=== PATIENT | female | born 1980 | race Caucasian/White ===

== ENCOUNTER 2020-05-13 09:26 | Outpatient (REF) | payer OTHER, SELFPAY ==
[2020-05-13 11:20] LABS: MANUAL DIFF FLAG NO
[2020-05-13 11:30] LABS: Basophils Percent Auto 0.3 % (0-2); Eosinophils Absolute Auto 0.2 X10*3/uL (0.0-0.4); Eosinophils Percent Auto 1.7 % (0-4); Hemoglobin 12.5 g/dl (12.0-16.0); Imm Gran Abs Auto 0.05 X10*3/uL (0.00-0.03); Imm Gran Pct Auto 0.5 % (0.0-0.4); Lymphocytes Absolute Auto 3.5 X10*3/uL (1.2-4.9); Lymphocytes Percent Auto 36.3 % (20-40); Mean Corpuscular HGB Conc 31.3 g/dl (31.0-35.0); Mean Corpuscular Hemoglobin 24.8 pg (27.0-33.0); Mean Corpuscular Volume 79.2 fL (80-98); Mean Platelet Volume 11.5 fL (9.4-12.3); Monocytes Absolute Auto 0.7 X10*3/uL (0.1-1.2); Monocytes Percent Auto 7.1 % (2-11); Neutrophils Absolute Auto 5.2 X10*3/uL (2.0-8.3); Neutrophils Percent Auto 54.1 % (45-73); Platelet Count 357 X10*3/uL (160-400); Red Blood Count 5.05 X10*6/uL (4.20-5.50); Red Cell Distribution Width 17.7 % (11.0-16.0); White Blood Count 9.7 X10*3/uL (4.8-10.8)
[2020-05-13 11:44] LABS: Estimated Average Glucose 117 mg/dL; Hemoglobin A1c % 5.7 %
[2020-05-13 11:50] LABS: Alanine Aminotransferase 41 U/L (0-31); Albumin Level 4.3 g/dL (3.5-5.0); Alkaline Phosphatase 102 U/L (39-117); Anion Gap 16 (12-20); Aspartate Amino Transferase 29 U/L (5-31); Bilirubin Direct < 0.2 mg/dL (0.0-0.5); Bilirubin Total 0.2 mg/dL (0.0-1.0); Blood Urea Nitrogen 12 mg/dL (9-16); Carbon Dioxide 26 mmol/L (22-29); Chloride 102 mmol/L (96-108); Estimated Glomerular Filt Rate > 60; Glucose Random 86 mg/dL (60-115); Potassium 4.7 mmol/l (3.3-5.1); Sodium 139 mmol/L (135-145); Total Protein 8.2 g/dL (6.5-8.0)
[2020-05-13 11:59] LABS: TSH reflex Free T4 2.78 mIU/mL (0.32-4.0)
[2020-05-13 12:07] LABS: Vitamin B12 351 pg/mL (200-900)
[2020-05-14 09:56] LABS: LDL Cholesterol Direct 107 mg/dL (<100)
[2020-05-17 12:17] LABS: Vitamin D 25-OH, D2 <4 ng/mL; Vitamin D 25-OH, D3 15 ng/mL; Vitamin D 25-OH, Total 15 ng/mL (30-100)
== END 2020-05-13 09:27 | disposition home or self-care (01) ==
LOC: HO.HMGCLDS 09:26
PROVIDERS: PCP Internal Medicine; Visit Provider Internal Medicine
DX: M54.9 Dorsalgia, unspecified (principal); G47.9 Sleep disorder, unspecified; R53.83 Other fatigue; E66.9 Obesity, unspecified
CPT/HCPCS: 36415; 80048; 80076; 82306; 82607; 83036; 83721; 84443; 85025

== ENCOUNTER 2020-05-13 10:01 | Outpatient (REF) | payer OTHER, SELFPAY | END 2020-05-13 10:02 | disposition home or self-care (01) | LOC: HO.LAB 10:01 | PROVIDERS: Visit Provider Internal Medicine | DX: Z20.828 Contact with and (suspected) exposure to other viral communicable diseases (principal) | CPT/HCPCS: 36415; C9803; U0003 ==

== ENCOUNTER 2020-07-18 12:38 | Outpatient (REF) | payer OTHER, SELFPAY ==
--- NOTE | ~2020-07-18 | MM_ITS ---
EXAMINATION: MM SCREENING DIGITAL BREAST TOMOSYNTHESIS, BILATERAL CLINICAL INFORMATION: Screening. Asymptomatic. No prior breast imaging. Age 40. No known family history breast cancer. The lifetime risk of breast cancer based on the Tyrer-Cuzick Model is 14%. COMPARISON: None (current study represents initial baseline exam). TECHNIQUE: Digital breast tomosynthesis is performed in both the craniocaudal and mediolateral oblique views along with computer-aided detection (CAD). Synthesized 2D images are generated from the tomosynthesis. Additional right MLO view is provided. FINDINGS: There are scattered areas of fibroglandular density (ACR BI-RADS breast composition Category b). Breast tissue composition borders on predominantly fatty. Background stromal and fibroglandular densities are unremarkable. There is no significant mass or architectural abnormality. There are probable intramammary nodes in the posterior upper outer left breast and posterior upper outer right breast. The skin contours are smooth. MM/MM tomosynthesis screening BI IMPRESSION: No mammographic evidence of malignancy. ASSESSMENT: BI-RADS 2: Benign RECOMMENDATION: Routine annual mammography screening. This patient's information was entered into a reminder system with a target due date for their next mammogram.
== END 2020-07-18 12:39 | disposition home or self-care (01) ==
LOC: HO.MAMMO 12:38
PROVIDERS: PCP Internal Medicine; Visit Provider Internal Medicine
DX: Z12.31 Encounter for screening mammogram for malignant neoplasm of breast (principal)
CPT/HCPCS: 77063; 77067

== ENCOUNTER 2020-08-12 09:46 | Outpatient (REF) | payer OTHER, SELFPAY ==
[2020-08-12 11:11] LABS: MANUAL DIFF FLAG NO
[2020-08-12 11:26] LABS: Basophils Percent Auto 0.5 % (0-2); Eosinophils Absolute Auto 0.1 X10*3/uL (0.0-0.4); Eosinophils Percent Auto 1.6 % (0-4); Hematocrit 37.4 % (37-47); Hemoglobin 11.8 g/dl (12.0-16.0); Imm Gran Abs Auto 0.04 X10*3/uL (0.00-0.03); Imm Gran Pct Auto 0.5 % (0.0-0.4); Lymphocytes Absolute Auto 3.3 X10*3/uL (1.2-4.9); Lymphocytes Percent Auto 37.7 % (20-40); Mean Corpuscular HGB Conc 31.6 g/dl (31.0-35.0); Mean Corpuscular Hemoglobin 25.3 pg (27.0-33.0); Mean Corpuscular Volume 80.3 fL (80-98); Mean Platelet Volume 11.1 fL (9.4-12.3); Monocytes Absolute Auto 0.6 X10*3/uL (0.1-1.2); Monocytes Percent Auto 7.2 % (2-11); Neutrophils Absolute Auto 4.6 X10*3/uL (2.0-8.3); Neutrophils Percent Auto 52.5 % (45-73); Platelet Count 336 X10*3/uL (160-400); Red Blood Count 4.66 X10*6/uL (4.20-5.50); Red Cell Distribution Width 17.5 % (11.0-16.0); White Blood Count 8.7 X10*3/uL (4.8-10.8)
[2020-08-12 11:32] LABS: Alanine Aminotransferase 45 U/L (0-31); Albumin Level 4.2 g/dL (3.5-5.0); Alkaline Phosphatase 98 U/L (39-117); Anion Gap 14 (12-20); Aspartate Amino Transferase 36 U/L (5-31); Bilirubin Total 0.4 mg/dL (0.0-1.0); Blood Urea Nitrogen 11 mg/dL (9-16); Carbon Dioxide 24 mmol/L (22-29); Chloride 105 mmol/L (96-108); Cholesterol 185 mg/dL; Estimated Glomerular Filt Rate > 60; Glucose Fasting 83 mg/dL (60-99); HDL Cholesterol 53 mg/dL; LDL Cholesterol Calculated 100 mg/dl; Potassium 4.3 mmol/L (3.3-5.1); Sodium 139 mmol/L (135-145); Total Protein 8.2 g/dL (6.5-8.0); Triglycerides 162 mg/dL
[2020-08-12 11:54] LABS: TSH reflex Free T4 1.34 uIU/mL (0.32-4.0)
== END 2020-08-12 09:47 | disposition home or self-care (01) ==
LOC: HO.HMGCLDS 09:46
PROVIDERS: PCP Nurse Practitioner Family; Visit Provider Nurse Practitioner Family
DX: Z00.00 Encounter for general adult medical examination without abnormal findings (principal)
CPT/HCPCS: 36415; 80053; 80061; 84443; 85025

== ENCOUNTER 2020-08-18 11:43 | Outpatient (REF) | payer OTHER, SELFPAY ==
[2020-08-18 14:10] LABS: MANUAL DIFF FLAG NO
[2020-08-18 14:18] LABS: Basophils Percent Auto 0.4 % (0-2); Eosinophils Absolute Auto 0.1 X10*3/uL (0.0-0.4); Eosinophils Percent Auto 1.6 % (0-4); Hematocrit 36.8 % (37-47); Hemoglobin 11.9 g/dl (12.0-16.0); Imm Gran Abs Auto 0.04 X10*3/uL (0.00-0.03); Imm Gran Pct Auto 0.4 % (0.0-0.4); Lymphocytes Absolute Auto 3.1 X10*3/uL (1.2-4.9); Mean Corpuscular HGB Conc 32.3 g/dl (31.0-35.0); Mean Corpuscular Hemoglobin 25.8 pg (27.0-33.0); Mean Corpuscular Volume 79.8 fL (80-98); Mean Platelet Volume 12.6 fL (9.4-12.3); Monocytes Absolute Auto 0.7 X10*3/uL (0.1-1.2); Monocytes Percent Auto 7.4 % (2-11); Neutrophils Percent Auto 56.2 % (45-73); Platelet Count 301 X10*3/uL (160-400); Red Blood Count 4.61 X10*6/uL (4.20-5.50); Red Cell Distribution Width 17.2 % (11.0-16.0)
[2020-08-19 08:13] LABS: HBS Num1 0.62 mIU/mL (0-7.99); HBsAGNum1 0.28 S/CO (0.00-0.99); Hepatitis B Surface Antigen Negative (Negative); ~Hepatitis B Surface Antibody NONREACTIVE (Nonreactive)
[2020-08-19 08:25] LABS: HBc Num1 0.08 S/CO (0.00-0.79); Hepatitis B Core Antibody Nonreactive (Nonreactive); ~Hepatitis C Antibody Nonreactive (Nonreactive)
[2020-08-20 09:02] LABS: Hepatitis A Antibody IgM 0.18 Index (0-0.79); ~HepC Num1 0.17 S/CO (0.00-0.79); ~Hepatitis A Antibody IgM Nonreactive (Nonreactive)
== END 2020-08-18 11:44 | disposition home or self-care (01) ==
LOC: HO.HMGCLDS 11:43
PROVIDERS: PCP Nurse Practitioner Family; Visit Provider Nurse Practitioner Family
DX: D64.9 Anemia, unspecified (principal); R74.8 Abnormal levels of other serum enzymes
CPT/HCPCS: 36415; 85025; 86704; 86706; 86709; 86803; 87340

== ENCOUNTER 2020-08-20 09:01 | Outpatient (REF) | payer OTHER, SELFPAY ==
--- NOTE | ~2020-08-20 | US_ITS ---
EXAMINATION: US ABDOMEN COMPLETE CLINICAL INFORMATION: Elevated liver enzymes. COMPARISON: None TECHNIQUE: Real-time imaging of the abdominal viscera. FINDINGS: PANCREAS: The head and body the pancreas are normal. The tail is not well visualized due to bowel gas. ABDOMINAL AORTA: Proximal and distal abdominal aorta is normal in caliber. The midabdominal aorta is not well visualized due to bowel gas. INFERIOR VENA CAVA: Visualized portions are normal. LIVER: Liver echotexture is increased. The liver is enlarged, right lobe measuring 20 cm in length. The liver is normal in contour. No focal hepatic lesion. There is no intrahepatic biliary duct dilatation seen. GALLBLADDER: Normal. The gallbladder is physiologically distended without evidence of stones, sludge, polyps, wall thickening or pericholecystic fluid. COMMON BILE DUCT: Normal in caliber measuring 0.2 cm in diameter. RIGHT KIDNEY: Normal. No hydronephrosis. No renal calculi or focal parenchymal lesions. The kidney measures 12.1 cm in maximum dimension. LEFT KIDNEY: Normal. No hydronephrosis. No renal calculi or focal parenchymal lesions. The kidney measures 12.7 cm in maximum dimension. SPLEEN: Normal. The spleen measures 12.4 cm in maximum dimension. FREE FLUID: None. US/US abdomen complete IMPRESSION: Enlarged echogenic liver probably representing fatty infiltration. Limited visualization of the pancreas and abdominal aorta.
== END 2020-08-20 09:02 | disposition home or self-care (01) ==
LOC: HO.HMGCX 09:01
PROVIDERS: Visit Provider Nurse Practitioner Family
DX: R74.8 Abnormal levels of other serum enzymes (principal)
CPT/HCPCS: 76700

== ENCOUNTER 2020-08-29 08:19 | Outpatient (REF) | payer OTHER, SELFPAY ==
[2020-08-29 16:16] LABS: CT PCR NOT DETECTED (Not Detect.); NG PCR NOT DETECTED (Not Detect.)
[2020-08-30 12:01] LABS: BV Int Neg Control Negative (Negative); BV Int Pos Control Positive (Positive)
[2020-09-03 00:52] LABS: HPV mRNA E6/E7 rflx Not Detected (Not Detected)
== END 2020-08-29 08:20 | disposition home or self-care (01) ==
LOC: HO.LAB 08:19
PROVIDERS: PCP Internal Medicine; Visit Provider Obstetrics & Gynecology
DX: Z01.419 Encounter for gynecological examination (general) (routine) without abnormal findings (principal); Z11.3 Encounter for screening for infections with a predominantly sexual mode of transmission; Z11.51 Encounter for screening for human papillomavirus (HPV)
CPT/HCPCS: 87480; 87491; 87510; 87591; 87624; 87660; 88142

== ENCOUNTER 2020-09-10 12:56 | Outpatient (REF) | payer OTHER, SELFPAY ==
--- NOTE | ~2020-09-10 | US_ITS ---
EXAMINATION: ULTRASOUND PELVIC AND TRANSVAGINAL CLINICAL INFORMATION: Leiomyoma of the uterus. COMPARISON: None TECHNIQUE: Transabdominal and transvaginal imaging of pelvis is performed. FINDINGS: The uterus is anteverted and anteflexed measuring 8.7 cm in length, 4.1 cm in AP and 4.9 cm in transverse dimension. There is a hypoechoic lesion in the posterior body of uterus measuring 1.4 x 0.9 x 1.5 cm consistent with fibroid. No additional lesions seen. The endometrial thickness is 1.1 cm. The myometrium is homogeneous in echotexture. Transabdominal right ovary measures 3.0 x 1.7 x 1.4 cm and volume 3.7 mL. It appears unremarkable. Transabdominal left ovary measures 2.5 x 2.1 x 1.5 cm and volume 4.1 mL. It appears unremarkable. There is no free fluid in cul-de-sac. US/US pelvic and transvaginal IMPRESSION: Small uterine fibroid. The ovaries are unremarkable.
== END 2020-09-10 12:57 | disposition home or self-care (01) ==
LOC: HO.US 12:56
PROVIDERS: PCP Internal Medicine; Visit Provider Obstetrics & Gynecology
DX: D25.9 Leiomyoma of uterus, unspecified (principal)
CPT/HCPCS: 76830; 76856

== ENCOUNTER → 2020-09-19 15:29 | Outpatient (BNVA) | payer OTHER, SELFPAY | PROVIDERS: PCP Internal Medicine; Visit Provider Obstetrics & Gynecology ==

== ENCOUNTER 2021-01-13 10:18 | Outpatient (REF) | payer OTHER, SELFPAY ==
[2021-01-13 11:34] LABS: MANUAL DIFF FLAG NO
[2021-01-13 11:45] LABS: Basophils Percent Auto 0.4 % (0-2); Eosinophils Absolute Auto 0.1 X10*3/uL (0.0-0.4); Eosinophils Percent Auto 1.5 % (0-4); Hematocrit 38.1 % (37-47); Imm Gran Abs Auto 0.05 X10*3/uL (0.00-0.03); Imm Gran Pct Auto 0.6 % (0.0-0.4); Lymphocytes Absolute Auto 2.9 X10*3/uL (1.2-4.9); Lymphocytes Percent Auto 34.9 % (20-40); Mean Corpuscular HGB Conc 31.5 g/dl (31.0-35.0); Mean Corpuscular Hemoglobin 25.1 pg (27.0-33.0); Mean Corpuscular Volume 79.5 fL (80-98); Mean Platelet Volume 10.8 fL (9.4-12.3); Monocytes Absolute Auto 0.6 X10*3/uL (0.1-1.2); Monocytes Percent Auto 7.3 % (2-11); Neutrophils Absolute Auto 4.6 X10*3/uL (2.0-8.3); Neutrophils Percent Auto 55.3 % (45-73); Platelet Count 331 X10*3/uL (160-400); Red Blood Count 4.79 X10*6/uL (4.20-5.50); Red Cell Distribution Width 17.5 % (11.0-16.0); White Blood Count 8.3 X10*3/uL (4.8-10.8)
[2021-01-13 12:17] LABS: Appearance Urine HAZY; Color Urine YELLOW; Glucose Urine UA NEG (NEG); Leukocyte Esterase Urine 1+ (NEG); Nitrite Urine NEG (NEG); PH 5.5 (5.0-8.0); Specific Gravity - Urine 1.025 (1.005-1.025); UACC Culture Trigger YES; Urine Blood TRACE (NEG); Urine Ketones NEG (NEG); Urine Protein NEG (NEG-TRACE)
[2021-01-13 12:28] LABS: Ferritin 42 ng/mL (10-250); HCG Quantitative < 2 mIU/mL; TSH reflex Free T4 1.65 uIU/mL (0.32-4.0)
[2021-01-13 12:33] LABS: Vitamin B12 359 pg/mL (200-900)
[2021-01-13 12:46] LABS: Amorphous Sediment Urine 1+ /LPF; RBC Urine 0 /HPF (0); Squamous Epithelial Cell Urine 2+ /LPF
[2021-01-13 12:49] LABS: Alanine Aminotransferase 29 U/L (0-31); Albumin Level 4.3 g/dL (3.5-5.0); Alkaline Phosphatase 84 U/L (39-117); Anion Gap 17 (12-20); Aspartate Amino Transferase 25 U/L (5-31); Bilirubin Total 0.4 mg/dL (0.0-1.0); Blood Urea Nitrogen 10 mg/dL (9-16); Calcium 9.9 mg/dL (8.4-10.2); Carbon Dioxide 24 mmol/L (22-29); Chloride 104 mmol/L (96-108); Cholesterol 199 mg/dL; Estimated Glomerular Filt Rate > 60; Glucose Fasting 86 mg/dL (60-99); HDL Cholesterol 53 mg/dL; Iron 51 mcg/dL (30-160); LDL Cholesterol Calculated 97 mg/dl; Percent Iron Saturation 14 % (15-50); Potassium 4.5 mmol/L (3.3-5.1); Sodium 140 mmol/L (135-145); Total Iron Binding Capacity 366 mcg/dL (228-428); Total Protein 7.7 g/dL (6.5-8.0); Triglycerides 246 mg/dL; Unsaturated Iron Binding 315 ug/dL
== END 2021-01-13 10:19 | disposition home or self-care (01) ==
LOC: HO.HMGCLDS 10:18
PROVIDERS: PCP Nurse Practitioner Family; Visit Provider Nurse Practitioner Family
DX: R53.83 Other fatigue (principal); R74.8 Abnormal levels of other serum enzymes; D64.9 Anemia, unspecified
CPT/HCPCS: 36415; 80053; 80061; 81001; 81003; 82607; 82728; 83540; 84443; 84702; 85025; 87086

== ENCOUNTER 2021-01-19 09:53 | Outpatient (REF) | payer OTHER, SELFPAY ==
[2021-01-19 11:19] LABS: Appearance Urine CLEAR; Color Urine YELLOW; Glucose Urine UA NEG (NEG); Leukocyte Esterase Urine NEG (NEG); Nitrite Urine NEG (NEG); PH 5.5 (5.0-8.0); Specific Gravity - Urine >= 1.030 (1.005-1.025); Urine Blood NEG (NEG); Urine Ketones NEG (NEG); Urine Protein NEG (NEG-TRACE)
== END 2021-01-19 09:54 | disposition home or self-care (01) ==
LOC: HO.HMGCLDS 09:53
PROVIDERS: PCP Nurse Practitioner Family; Visit Provider Nurse Practitioner Family
DX: N39.0 Urinary tract infection, site not specified (principal); D64.9 Anemia, unspecified; R74.8 Abnormal levels of other serum enzymes
CPT/HCPCS: 81003; 87086

== ENCOUNTER 2021-07-08 17:38 | Emergency (ER) | payer OTHER, SELFPAY ==
--- NOTE | 2021-07-08 | ECG_ITS ---
Test Reason : chest pain Blood Pressure : / mmHG Vent. Rate : 098 BPM Atrial Rate : 098 BPM P-R Int : 164 ms QRS Dur : 130 ms QT Int : 400 ms P-R-T Axes : 056 -31 026 degrees QTc Int : 510 ms Normal sinus rhythm Left axis deviation Right bundle branch block Minimal voltage criteria for LVH, may be normal variant ( R in aVL ) Abnormal ECG No previous ECGs available Referred By: Generic ED Physician Electronically Signed By:Talat Lerma
[2021-07-08 18:32] VITALS: BP 154/111; PULSE 98; RESP 18; TEMP 36.6; O2SAT 98; BMI 40.3
[2021-07-08 18:52] LABS: MANUAL DIFF FLAG NO
[2021-07-08 19:04] LABS: Basophils Absolute Auto 0.1 X10*3/uL (0.0-0.2); Basophils Percent Auto 0.4 % (0-2); Eosinophils Absolute Auto 0.1 X10*3/uL (0.0-0.4); Hematocrit 37.3 % (37.0-47.0); Hemoglobin 11.7 g/dl (12.0-16.0); Imm Gran Abs Auto 0.08 X10*3/uL (0.00-0.03); Imm Gran Pct Auto 0.7 % (0.0-0.4); Lymphocytes Absolute Auto 4.5 X10*3/uL (1.2-4.9); Lymphocytes Percent Auto 36.7 % (20-40); Mean Corpuscular HGB Conc 31.4 g/dl (31.0-35.0); Mean Corpuscular Hemoglobin 25.3 pg (27.0-33.0); Mean Corpuscular Volume 80.7 fL (80.0-98.0); Mean Platelet Volume 10.8 fL (9.4-12.3); Monocytes Absolute Auto 0.7 X10*3/uL (0.1-1.2); Monocytes Percent Auto 6.1 % (2-11); Neutrophils Absolute Auto 6.7 x10*3/uL (2.0-8.3); Neutrophils Percent Auto 55.1 % (45-73); Platelet Count 358 X10*3/uL (160-400); Red Blood Count 4.62 X10*6/uL (4.20-5.50); Red Cell Distribution Width 17.2 % (11.0-16.0); White Blood Count 12.2 X10*3/uL (4.8-10.8)
[2021-07-08 19:05] LABS: Anion Gap 15 (12-20); Blood Urea Nitrogen 10 mg/dL (9-16); Calcium 9.5 mg/dL (8.4-10.2); Carbon Dioxide 24 mmol/L (22-29); Chloride 101 mmol/L (96-108); Creatinine Clr Calc Pharmacy 121.2; Estimated Glomerular Filt Rate > 60; Glucose Random 157 mg/dL (60-115); Potassium 4.4 mmol/L (3.3-5.1); Sodium 136 mmol/L (135-145)
[2021-07-08 19:12] LABS: Troponin-I High Sensitivity < 3.5 ng/L (<3.5-17.0)
--- NOTE | 2021-07-08 22:33 | ED_ITS ---
HPI - Chest Pain General Chief Complaint: Chest Pain Stated Complaint: chest pain, left arm is numb Time Seen by Provider: 07/08/21 22:32 Source: patient Mode of arrival: ambulatory Limitations: no limitations History of Present Illness HPI narrative: 41 years old female came in for evaluation of left-sided neck pain radiating to the left arm started 2 weeks ago, pain is constant for the last 2 weeks described as dull/electricity going down the left upper extremities and left hand, especially in the morning patient wake up with numbness in left hand, pain sometimes radiates to the left chest, pain is not affected by exertion but more with turning the head to the right side, no other associated shortness of breath. No fever, no chills, no recent neck trauma. Patient has no other medical problem, no hypertension, no diabetes, no high cholesterol. Related Data Home Medications Medication Instructions Recorded Confirmed cholecalciferol (vitamin D3) 50 50 mcg PO DAILY 05/07/20 04/13/21 mcg (2,000 unit) capsule ffxmoxzi-lne-rlygc acid 0.4 tab PO 05/07/20 04/13/21 mg-lycopene 300 mcg-lutein 250 mcg tablet (Centrum Silver) acetaminophen 500 mg tablet 1,000 mg PO Q6H PRN 04/13/21 04/13/21 (Tylenol Extra Strength) Previous Rx's Medication Instructions Recorded Qvar RediHaler 40 mcg/actuation 1 inh INHALATION BID 30 Days #10.6 05/16/20 HFA breath activated aerosol g NS (beclomethasone dipropionate) Updraft machine #1 ea 06/03/20 albuterol sulfate 2.5 mg (3 mL) INHALATION Q6H PRN 12/11/20 #90 ml albuterol sulfate 90 mcg/actuation 2 puff INHALATION Q6H PRN 30 Days 12/11/20 aerosol inhaler #18 g NS Allergies Allergy/AdvReac Type Severity Reaction Status Date / Time acetaminophen [From PERCOCET] Allergy Mild ITCHING Verified 07/08/21 18:32 oxycodone [From PERCOCET] Allergy Mild ITCHING Verified 07/08/21 18:32 Review of Systems Review of Systems: All other systems are reviewed and are negative Constitutional: Reports as per HPI and Reports no additional constitutional complaints Eyes: Reports as per HPI and Reports no additional eye complaints Reports system reviewed and no additional complaints, except as documented Cardiovascular: Reports as per HPI and Reports no additional cardiovascular complaints Respiratory: Reports as per HPI and Reports no additional respiratory complaints Gastrointestinal: Reports as per HPI and Reports no additional gastrointestinal complaints Genitourinary: Reports no additional female genitourinary complaints Musculoskeletal: Reports no additional musculoskeletal complaints Skin/Breast: Reports system reviewed and no additional complaints, except as docu Psychiatric: Reports no additional psychiatric complaints Endocrine: Reports no additional endocrine complaints Hematologic/Lymphatic: Reports no additional hematologic/lymphatic complaints Allergic/Immunologic: Reports no additional allergic/immunologic complaints Reports system reviewed and no additional complaints, except as documented and Reports Abnormal speech present [facility] Past Medical History Medical History Uterine fibroid Uterine fibroids affecting Surgical History H/O right knee surgery History of lumbar surgery Family History Family History Father No problems noted. Mother No problems noted. Maternal Grandfather No problems noted. Maternal Grandmother Diabetes mellitus Paternal Grandfather Diabetes mellitus Paternal Grandmother Diabetes mellitus Cancer Brother No problems noted. Brother No problems noted. Sister No problems noted. Social History Social History Housing: Apartment Alcohol intake: current Patient Tobacco Use Status: Never used Tobacco e-Cigarette/Vaping Use: Never Used Second Hand Smoke Exposure: No Advance Directives: No Advance Directives Information Provided: Yes Patient : No service: No Current occupational status: employed Current occupation: [email or web address] Gender identity: Female Physical Exam Vital Signs: Vital Signs: Last Vital Signs Temp 98.0 F 07/08/21 22:42 Pulse 98 07/08/21 22:42 Resp 17 07/08/21 22:42 BP 140/102 H 07/08/21 22:42 Pulse Ox 98 07/08/21 22:42 BMI result Body Mass Index 40.3 Vital signs have been reviewed as appeared to be correct. Blood pressure elevated. Heart rate normal. Respiration rate normal. Temperature normal. Oxygen saturation normal. Appearance: Alert. Oriented X3. No acute distress. Head: Normal external exam. Normocephalic. Atraumatic. No Rodriguez signs noted. No raccoon eyes noted Eyes: PERRLA. EOMI. Conjunctiva and sclera normal. Eyelids normal. ENT: TM's Normal. Pharynx normal. Uvula midline. Moist mucous membranes. No trismus noted. No drooling noted. No muffled voice noted. Neck: Normal inspection. Neck supple. FROM. No adenopathy. Thyroid Normal. Increased pain shooting to the left upper extremities with turning the head to the right side. No meningeal signs. No neck mass noted. CVS: Normal heart rate and rhythm. Heart sound normal. No murmurs noted. Pulses normal throughout. Respiratory: No respiratory distress. Painless inspiration. Breath sounds normal. No wheezes/rales/rhonchi noted. Chest nontender. No accessory muscle usage noted or decreased air movement noted. Abdomen: Soft and nontender. Bowel sounds normal in all 4 quadrants. No distention noted. No organomegaly noted. No visible injury noted. Back: No CVA tenderness. Full range of motion noted. Skin: Skin warm and dry. Normal skin color. Normal skin turgor. No rashes/lesions/lacerations noted. Extremities: No lower extremity edema. Extremities exhibit normal range of motion. Extremities nontender. Neuro: Oriented X 3. Cranial nerve exam: II-XII are grossly intact No motor deficit. No sensory deficit. Reflexes normal. Course Course Course Narrative: Assessment and plan. Left cervical radiculopathy, patient feels better with oxycodone and ibuprofen, with improvement of blood pressure reading. Patient was instructed to follow up with PCP if any worsening of the symptoms, otherwise heating pad, NSAIDs, avoid positions that worsening the pain. Blood pressure was elevated improved after pain medication. Patient was instructed to follow-up with her primary doctor and keep monitoring her blood pressure. MDM - Chest Pain Lab Data Attestation: I reviewed the patient's lab results. Result diagrams: 07/08/21 18:48 07/08/21 18:48 Labs: Lab Results 07/08/21 07/08/21 07/08/21 Range/Units 18:48 18:48 18:48 WBC 12.2 H (4.8-10.8) X10*3/uL RBC 4.62 (4.20-5.50) X10*6/uL Hgb 11.7 L (12.0-16.0) g/dl Hct 37.3 (37.0-47.0) % MCV 80.7 (80.0-98.0) fL MCH 25.3 L (27.0-33.0) pg MCHC 31.4 (31.0-35.0) g/dl RDW 17.2 H (11.0-16.0) % Plt Count 358 (160-400) X10*3/uL MPV 10.8 (9.4-12.3) fL Immature Gran % (Auto) 0.7 H (0.0-0.4) % Neut % (Auto) 55.1 (45-73) % Lymph % (Auto) 36.7 (20-40) % [place] % (Auto) 6.1 (2-11) % Eos % (Auto) 1.0 (0-4) % Baso % (Auto) 0.4 (0-2) % Lymph # (Auto) 4.5 (1.2-4.9) X10*3/uL [place] # (Auto) 0.7 (0.1-1.2) X10*3/uL Eos # (Auto) 0.1 (0.0-0.4) X10*3/uL Baso # (Auto) 0.1 (0.0-0.2) X10*3/uL Abs Immat Gran (auto) 0.08 H (0.00-0.03) X10*3/uL Absolute Neuts (auto) 6.7 (2.0-8.3) x10*3/uL Absolute Nucleated RBC 0.000 (0.0-0.012) X10*3/uL Nucleated RBC % (auto) 0.0 (0.0-0.2) /100WBC Sodium 136 (135-145) mmol/L Potassium 4.4 (3.3-5.1) mmol/L Chloride 101 (96-108) mmol/L Carbon Dioxide 24 (22-29) mmol/L Anion Gap 15 (12-20) BUN 10 (9-16) mg/dL Creatinine 0.78 (0.5-1.4) mg/dL Estim Creat Clear Calc 121.2 Estimated GFR > 60 Random Glucose 157 H (60-115) mg/dL Calcium 9.5 (8.4-10.2) mg/dL Troponin I High Sens < 3.5 (<3.5-17.0) ng/L 07/08/21 Range/Units 23:15 WBC (4.8-10.8) X10*3/uL RBC (4.20-5.50) X10*6/uL Hgb (12.0-16.0) g/dl Hct (37.0-47.0) % MCV (80.0-98.0) fL MCH (27.0-33.0) pg MCHC (31.0-35.0) g/dl RDW (11.0-16.0) % Plt Count (160-400) X10*3/uL MPV (9.4-12.3) fL Immature Gran % (Auto) (0.0-0.4) % Neut % (Auto) (45-73) % Lymph % (Auto) (20-40) % [place] % (Auto) (2-11) % Eos % (Auto) (0-4) % Baso % (Auto) (0-2) % Lymph # (Auto) (1.2-4.9) X10*3/uL [place] # (Auto) (0.1-1.2) X10*3/uL Eos # (Auto) (0.0-0.4) X10*3/uL Baso # (Auto) (0.0-0.2) X10*3/uL Abs Immat Gran (auto) (0.00-0.03) X10*3/uL Absolute Neuts (auto) (2.0-8.3) x10*3/uL Absolute Nucleated RBC (0.0-0.012) X10*3/uL Nucleated RBC % (auto) (0.0-0.2) /100WBC Sodium (135-145) mmol/L Potassium (3.3-5.1) mmol/L Chloride (96-108) mmol/L Carbon Dioxide (22-29) mmol/L Anion Gap (12-20) BUN (9-16) mg/dL Creatinine (0.5-1.4) mg/dL Estim Creat Clear Calc Estimated GFR Random Glucose (60-115) mg/dL Calcium (8.4-10.2) mg/dL Troponin I High Sens < 3.5 (<3.5-17.0) ng/L ECG Data ECG #1: Attestation: I personally reviewed and interpreted this ECG as follows: Interpretation: Normal sinus rhythm at 98 beats per minutes, left axis deviation, right bundle branch block. No old EKG to compare. Discharge Plan Discharge Clinical Impression: Cervical radiculopathy, Hypertension Patient Disposition: Home, Self-Care Instructions: Cervical Radiculopathy (ED), Hypertension (ED) Prescriptions: No Action (DME) Updraft machine See Rx Instructions .Route .MEDSUPPLY Qty: 1 0RF Rx Instructions: As directed cholecalciferol (vitamin D3) 50 mcg (2,000 unit) capsule 50 mcg PO DAILY 0RF Centrum Silver 0.4-300-250 mg-mcg-mcg tablet PO 0RF Qvar RediHaler 40 mcg/actuation HFA aerosol breath activated 1 inh inhalation BID 30 Days Qty: 10.6 2RF Rx Instructions: administer with spacer albuterol sulfate 2.5 mg /3 mL (0.083 %) solution for nebulization 2.5 mg inhalation Q6H PRN (Reason: shortness of breath or wheezing) Qty: 90 0RF albuterol sulfate 90 mcg/actuation HFA aerosol inhaler 2 puff inhalation Q6H PRN (Reason: bronchospasm) 30 Days Qty: 18 2RF acetaminophen [Tylenol Extra Strength] 500 mg tablet 1,000 mg PO Q6H PRN0RF Referrals: Ishmael Leyva, [employer] [Primary Care Provider] - 2 days
[2021-07-08 22:42] VITALS: BP 140/102; PULSE 98; RESP 17; TEMP 36.7; O2SAT 98
[2021-07-08] MEDS: oxyCODONE HCl Immed Release 5 MG TABLET PO (22:49)
[2021-07-08] MEDS: Ibuprofen 400 MG TABLET PO (22:49)
[2021-07-08 23:38] LABS: Troponin-I High Sensitivity < 3.5 ng/L (<3.5-17.0)
[2021-07-09 00:03] VITALS: BP 129/89; PULSE 90; RESP 15; TEMP 36.6; O2SAT 97
== END 2021-07-09 00:29 | disposition home or self-care (01) ==
LOC: HO.ED 23:37
PROVIDERS: Emergency Provider Emergency Medicine; PCP Nurse Practitioner Family
DX: M54.12 Radiculopathy, cervical region (principal); I10 Essential (primary) hypertension
CPT/HCPCS: 36415; 80048; 84484; 85025; 93005; 99283; 99284

== ENCOUNTER 2021-07-29 22:29 | Emergency (ER) | payer OTHER, SELFPAY ==
--- NOTE | ~2021-07-29 | XR_ITS ---
EXAMINATION: XR LUMBOSACRAL SPINE CLINICAL INFORMATION: Back pain, chronic. COMPARISON: None TECHNIQUE: Three views of the lumbosacral spine. FINDINGS: Mild to moderate degenerative disc disease present in the lower lumbar spine at L4-L5. Additional degenerative disc disease and facet arthropathy are present at L3-L4 and L5 S1-1 lesser extent. No fracture or spondylolisthesis. Vertebral body heights are normal. Mild osteoarthritis in the SI joints. Soft tissues are normal. XR/XR lumbar spine 2-3V IMPRESSION: [id number] degenerative spondylosis in the lower lumbar spine, most notably at L4-L5. No acute findings.
[2021-07-29 23:09] VITALS: BP 164/104; PULSE 90; RESP 20; TEMP 37.2; O2SAT 99; BMI 43.5
--- NOTE | 2021-07-30 00:27 | ED.BACK ---
HPI - Back Pain/Injury General Chief Complaint: Back Pain/Injury <Gail Jacobson NP - Last Filed: 07/30/21 01:54> Stated Complaint: lower back pain radiates to legs <Gail Jacobson NP - Last Filed: 07/30/21 01:54> Time Seen by Provider: 07/30/21 00:20 <Gail Jacobson NP - Last Filed: 07/30/21 01:54> Source: patient <Gail Jacobson NP - Last Filed: 07/30/21 01:54> Mode of arrival: ambulatory <Gail Jacobson NP - Last Filed: 07/30/21 01:54> Limitations: no limitations <Gail Jacobson NP - Last Filed: 07/30/21 01:54> History of Present Illness HPI Narrative: 41-year-old female presents with 2 days of mid to lower back pain that radiates down to her left leg. States to have chronic back pain and had surgery on her back about 5 years ago. She states that the pain is similar to her prior episodes of pain. Does not report any decreased sensation, loss of balance or symptoms indicating cauda equina. <Gail Jacobson NP - Last Filed: 07/30/21 01:54> MD elicited complaint: back pain <Gail Jacobson NP - Last Filed: 07/30/21 01:54> Pertinent past history: prior back pain and back surgery <Gail Jacobson NP - Last Filed: 07/30/21 01:54> Onset (ago): day(s) (2) <Gail Jacobson NP - Last Filed: 07/30/21 01:54> Timing: constant <Gail Jacobson NP - Last Filed: 07/30/21 01:54> Severity: severe <Gail Jacobson NP - Last Filed: 07/30/21 01:54> Pain scale (0-10): 9 <Gail Jacobson NP - Last Filed: 07/30/21 01:54> Similar Symptoms Previously: Yes <Gail Jacobson NP - Last Filed: 07/30/21 01:54> Quality: stabbing, aching, spasming and throbbing <ANAHI Azevedo Last Filed: 07/30/21 01:54> Location: lumbar spine <Gail Jacobson NP - Last Filed: 07/30/21 01:54> Radiation: buttocks, left upper leg and left leg below the knee <Gial Jacobson NP - Last Filed: 07/30/21 01:54> Exacerbating factors: movement and walking <Gail Jacobson NP - Last Filed: 07/30/21 01:54> Relieving factors: none <Gail Jacobson NP - Last Filed: 07/30/21 01:54> Context: unknown <Gail Jacobson NP - Last Filed: 07/30/21 01:54> Associated symptoms: denies other symptoms <Gail Jacobson NP - Last Filed: 07/30/21 01:54> Treatments prior to arrival: other medications <Gail Jacobson NP - Last Filed: 07/30/21 01:54> Work related injury: No <Gail Jacobson NP - Last Filed: 07/30/21 01:54> Related Data Home Medications: Home Medications Medication Instructions Recorded Confirmed cholecalciferol (vitamin D3) 50 50 mcg PO DAILY 05/07/20 07/16/21 mcg (2,000 unit) capsule ybvvdohy-llk-iwafy acid 0.4 tab PO 05/07/20 07/16/21 mg-lycopene 300 mcg-lutein 250 mcg tablet (Centrum Silver) acetaminophen 500 mg tablet 1,000 mg PO Q6H PRN 04/13/21 07/16/21 (Tylenol Extra Strength) Previous Rx's Medication Instructions Recorded Updraft machine #1 ea 06/03/20 albuterol sulfate 2.5 mg (3 mL) INHALATION Q6H PRN 12/11/20 #90 ml albuterol sulfate 90 mcg/actuation 2 puff INHALATION Q6H PRN 30 Days 12/11/20 aerosol inhaler #18 g NS metoprolol succinate 25 mg 12.5 mg PO DAILY 30 Days #15 tab 07/16/21 tablet,extended release 24 hr dexamethasone 4 mg tablet 4 mg PO DAILY 9 Days #18 tab 07/29/21 diazepam 5 mg tablet (Valium) 5 mg PO BID PRN #14 tab 07/30/21 <Gail Jacobson NP - Last Filed: 07/30/21 01:54> Allergies/Adverse Reactions: Allergies Allergy/AdvReac Type Severity Reaction Status Date / Time acetaminophen [From PERCOCET] Allergy Mild ITCHING Verified 07/29/21 23:08 oxycodone [From PERCOCET] Allergy Mild ITCHING Verified 07/29/21 23:08 <Gail Jacobson NP - Last Filed: 07/30/21 01:54> Review of Systems Review of Systems: Constitutional: No Weight loss, No Fever, No Chills, ENT/Mouth: No Hearing loss, No Ear Pain, No Nasal Congestion, No Sinus Pain, No Hoarseness, No sore throat, No Rhinorrhea, No Swallowing Difficulty Cardiovascular: No Chest Pain, No SOB Respiratory: No Cough, No Dyspnea Gastrointestinal: No Nausea, No Vomiting, No Diarrhea, No abdominal Pain, No Hematochezia, No Melena Genitourinary: No Dysuria, No Urinary Frequency, No Hematuria, No Urinary Incontinence, Musculoskeletal: positive back pain Skin: No Skin Lesions, No rash Neuro: No Weakness, No Numbness, No Paresthesias, no loss of bowel or bladder incontinence, no saddle anesthesia <Gail Jacobson NP - Last Filed: 07/30/21 01:54> Yes all other systems are reviewed and are negative <Gail Jacobson NP - Last Filed: 07/30/21 01:54> PMFSH Past Medical History Attestation statement: The following information was validated with the patient. <Gail Jacobson NP - Last Filed: 07/30/21 01:54> Source: old records reviewed <Gail Jacobson NP - Last Filed: 07/30/21 01:54> Medical History: Medical History Cervical radiculopathy Uterine fibroid Uterine fibroids affecting <Gail Jacobson NP - Last Filed: 07/30/21 01:54> Surgical History: Surgical History H/O right knee surgery History of lumbar surgery <Gail Jacobson NP - Last Filed: 07/30/21 01:54> Family History Family History: Family History Father No problems noted. Mother No problems noted. Maternal Grandfather No problems noted. Maternal Grandmother Diabetes mellitus Paternal Grandfather Diabetes mellitus Paternal Grandmother Diabetes mellitus Cancer Brother No problems noted. Brother No problems noted. Sister No problems noted. <Gail Jacobson NP - Last Filed: 07/30/21 01:54> Social History Social History: Social History Housing: Apartment Alcohol intake: current Patient Tobacco Use Status: Never used Tobacco e-Cigarette/Vaping Use: Never Used Second Hand Smoke Exposure: No Advance Directives: No Advance Directives Information Provided: Yes service: No Current occupational status: employed Current occupation: [employer] Gender identity: Female <Gail Jacobson NP - Last Filed: 07/30/21 01:54> Physical Exam Vital Signs: Vital Signs: Last Vital Signs Temp 98.9 F 07/29/21 23:09 Pulse 90 07/29/21 23:09 Resp 20 07/29/21 23:09 BP 164/104 H 07/29/21 23:09 Pulse Ox 99 07/29/21 23:09 BMI result Body Mass Index 43.5 <Gail Jacobson NP - Last Filed: 07/30/21 01:54> Vital Signs: Last Vital Signs Temp 98.9 F 07/29/21 23:09 Pulse 90 07/29/21 23:09 Resp 20 07/29/21 23:09 BP 164/104 H 07/29/21 23:09 Pulse Ox 99 07/29/21 23:09 BMI result Body Mass Index 43.5 <Natalie Brown MD - Last Filed: 07/30/21 02:46> Appearance: Alert. Oriented X3. Moderate distress. Eyes: Pupils equal, round and reactive to light. ENT: Pharynx normal. Neck: Normal inspection. Neck supple. CVS: Normal heart rate and rhythm. Pulses normal. Respiratory: No respiratory distress. Breath sounds normal. Abdomen: Soft and nontender. Obese. Skin: Skin warm and dry. Normal skin color. Normal skin turgor. Extremities: No lower extremity edema. Moves all extremities against resistance. Neuro: No motor deficit. No sensory deficit. Cranial nerves 2-12 intact. <Gail Jacobson NP - Last Filed: 07/30/21 01:54> Course Course Course Narrative: 41-year-old female presents with lower back pain radiating to her left lower extremity. States that this back pain is consistent with prior episodes of back pain. Had lumbar surgery approximately 5 years ago for circumstances. Does not report any other concerning symptoms, negative for indication of cauda equina. Will order urinalysis, lumbar x-ray, and provide medications for pain management and spasms. Patient is not sexually active at this time. Patient is afebrile, appears nontoxic, answering questions politely and appropriately in complete sentences. Does appear to be in distress secondary to lower back pain. Patient was evaluated by her physician and given prednisone and patient has been taking this medication with poor effect. 01:53 x-rays negative for acute findings. Referred to Dr. Huerta for chronic lower back pain. Urinalysis is pending. Sign-out to Dr. Brown. <Gail Jacobson NP - Last Filed: 07/30/21 01:54> 41-year-old female presents with lower back pain radiating to her left lower extremity. States that this back pain is consistent with prior episodes of back pain. Had lumbar surgery approximately 5 years ago for circumstances. Does not report any other concerning symptoms, negative for indication of cauda equina. Will order urinalysis, lumbar x-ray, and provide medications for pain management and spasms. Patient is not sexually active at this time. Patient is afebrile, appears nontoxic, answering questions politely and appropriately in complete sentences. Does appear to be in distress secondary to lower back pain. Patient was evaluated by her physician and given prednisone and patient has been taking this medication with poor effect. 01:53 x-rays negative for acute findings. Referred to Dr. Huerta for chronic lower back pain. Urinalysis is pending. Sign-out to Dr. Brown. I received sign-out from nurse practitioner Indira. Patient's urinalysis is positive for leukocyte esterase/trace, also epithelial cells were noted, likely a contaminant. At this time, I do not think that patient's symptoms are related to UTI/pyelonephritis. At this time antibiotic is not indicated. I agree that patient's symptoms are likely secondary to sciatica pain <Natalie Brown MD - Last Filed: 07/30/21 02:46> MDM - Back Pain/Injury Differential Diagnosis Differential diagnosis: Likely lumbar radiculopathy, sciatica and strain of lumbar region <Gail Jacobson NP - Last Filed: 07/30/21 01:54> Medical Records Attestation: I reviewed the patient's medical records. <Gail Jacobson NP - Last Filed: 07/30/21 01:54> Lab Data Attestation: I reviewed the patient's lab results. <Gail Jacobson NP - Last Filed: 07/30/21 01:54> Labs: Lab Results 07/30/21 Range/Units 02:04 Urine Color STRAW Urine Appearance HAZY Urine pH 5.5 (5.0-8.0) Ur Specific [place] 1.010 (1.005-1.025) Urine Protein NEG (NEG-TRACE) MG/DL Urine Glucose (UA) NEG (NEG) MG/DL Urine Ketones NEG (NEG) MG/DL Urine Blood TRACE (NEG) Urine Nitrite NEG (NEG) Ur Leukocyte Esterase TRACE H (NEG) Urine RBC 0-2 (0) /HPF Urine WBC 1-4 (0-4) /HPF Urine WBC Clumps NOTED Ur Squamous Epith Cells 2+ /LPF Urine Bacteria 1+ /LPF <Gail Jacobson NP - Last Filed: 07/30/21 01:54> Lab Results 07/30/21 Range/Units 02:04 Urine Color STRAW Urine Appearance HAZY Urine pH 5.5 (5.0-8.0) Ur Specific [place] 1.010 (1.005-1.025) Urine Protein NEG (NEG-TRACE) MG/DL Urine Glucose (UA) NEG (NEG) MG/DL Urine Ketones NEG (NEG) MG/DL Urine Blood TRACE (NEG) Urine Nitrite NEG (NEG) Ur Leukocyte Esterase TRACE H (NEG) Urine RBC 0-2 (0) /HPF Urine WBC 1-4 (0-4) /HPF Urine WBC Clumps NOTED Ur Squamous Epith Cells 2+ /LPF Urine Bacteria 1+ /LPF <Natalie Brown MD - Last Filed: 07/30/21 02:46> Imaging Data Lumbar x-ray: Attestation: I personally reviewed and interpreted this imaging study as follows: <Gail Jacobson NP - Last Filed: 07/30/21 01:54> Radiologist's impression: EXAMINATION: XR LUMBOSACRAL SPINE CLINICAL INFORMATION: Back pain, chronic. COMPARISON: None TECHNIQUE: Three views of the lumbosacral spine. FINDINGS: Mild to moderate degenerative disc disease present in the lower lumbar spine at L4-L5. Additional degenerative disc disease and facet arthropathy are present at L3-L4 and L5 S1-1 lesser extent. No fracture or spondylolisthesis. Vertebral body heights are normal. Mild osteoarthritis in the SI joints. Soft tissues are normal. XR/XR lumbar spine 2-3V IMPRESSION: Nztv-[id number] degenerative spondylosis in the lower lumbar spine, most notably at L4-L5. No acute findings. <Gail Jacobson NP - Last Filed: 07/30/21 01:54> Discharge Plan Discharge Clinical Impression: Sciatica, Lumbar back pain <Gail Jacobson NP - Last Filed: 07/30/21 01:54> Patient Disposition: Home, Self-Care <Gail Jacobson NP - Last Filed: 07/30/21 01:54> Instructions: Sciatica (ED), Chronic Back Pain (DC), Back Pain (ED) <Gail Jacobson NP - Last Filed: 07/30/21 01:54> Additional Instructions: You were evaluated for lower back pain with sciatica. Her x-rays are negative for acute findings requiring emergent intervention. Please take Valium as needed for muscle spasms. This medication is a benzo diazepam and has high risk for addiction and abuse. Do not drive or operate machinery while taking medication. This medication can cause drowsiness, delay reaction time, an increase risk for falls. Please follow-up with pain management. I referred you to Dr. Huerta. Thank you for choosing this emergency department for evaluation. Please follow-up with primary care physician as needed. Return to the emergency department for any new, concerning, or worsening symptoms. <Gail Jacobson NP - Last Filed: 07/30/21 01:54> Prescriptions: New diazepam [Valium] 5 mg tablet 5 mg PO BID PRN (Reason: muscle spasm) Qty: 14 0RF No Action (DME) Updraft machine See Rx Instructions .Route .MEDSUPPLY Qty: 1 0RF Rx Instructions: As directed dexamethasone 4 mg tablet 4 mg PO DAILY 9 Days Qty: 18 0RF Rx Instructions: 3 times a day for 3 days, twice a day for 3 days, daily for 3 days cholecalciferol (vitamin D3) 50 mcg (2,000 unit) capsule 50 mcg PO DAILY 0RF Centrum Silver 0.4-300-250 mg-mcg-mcg tablet PO 0RF albuterol sulfate 2.5 mg /3 mL (0.083 %) solution for nebulization 2.5 mg inhalation Q6H PRN (Reason: shortness of breath or wheezing) Qty: 90 0RF albuterol sulfate 90 mcg/actuation HFA aerosol inhaler 2 puff inhalation Q6H PRN (Reason: bronchospasm) 30 Days Qty: 18 2RF acetaminophen [Tylenol Extra Strength] 500 mg tablet 1,000 mg PO Q6H PRN0RF metoprolol succinate 25 mg tablet extended release 24 hr 12.5 mg PO DAILY 30 Days Qty: 15 2RF <Gail Jacobson NP - Last Filed: 07/30/21 01:54> Referrals: Stanford Huerta MD [Physician] - 2 days (chronic back pain) <Gail Jacobson NP - Last Filed: 07/30/21 01:54>
[2021-07-30] MEDS: Ketorolac Tromethamine 60 MG/2 ML VIAL IM (00:47)
[2021-07-30] MEDS: diazePAM 5 MG TABLET PO (00:47)
[2021-07-30 02:11] LABS: Appearance Urine HAZY; Color Urine STRAW; Glucose Urine UA NEG (NEG); Leukocyte Esterase Urine TRACE (NEG); Nitrite Urine NEG (NEG); PH 5.5 (5.0-8.0); UACC Culture Trigger YES; Urine Blood TRACE (NEG); Urine Ketones NEG (NEG); Urine Protein NEG (NEG-TRACE)
[2021-07-30 02:20] LABS: Bacteria Urine 1+ /LPF; RBC Urine 0-2 /HPF (0); Squamous Epithelial Cell Urine 2+ /LPF; UACC CULT YES; WBC Clumps Urine NOTED
== END 2021-07-30 03:10 | disposition home or self-care (01) ==
PROVIDERS: Nurse Practitioner Family; Emergency Provider Emergency Medicine
DX: M54.42 Lumbago with sciatica, left side (principal); I10 Essential (primary) hypertension
CPT/HCPCS: 72100; 81001; 87086; 96372; 99283; 99284; J1885

== ENCOUNTER 2021-08-08 08:19 | Outpatient (REF) | payer OTHER, SELFPAY ==
--- NOTE | ~2021-08-08 | XR_ITS ---
EXAMINATION: XR cervical spine 2V CLINICAL INFORMATION: Pain COMPARISON: None TECHNIQUE: 3 views of the cervical spine were obtained. XR/XR cervical spine 2V FINDINGS/IMPRESSION: The cervical spine is visualized to the level of C5-C6 on the lateral view. Reversal of the usual cervical spine lordosis. Vertebral body heights are maintained. Mild degenerative disc disease at C5-C6, manifested by loss of disc space height. No prevertebral soft tissue swelling.
[2021-08-08 08:53] LABS: MANUAL DIFF FLAG NO
[2021-08-08 09:31] LABS: Basophils Percent Auto 0.3 % (0-2); Eosinophils Absolute Auto 0.2 X10*3/uL (0.0-0.4); Eosinophils Percent Auto 1.3 % (0-4); Hematocrit 37.6 % (37.0-47.0); Hemoglobin 12.1 g/dl (12.0-16.0); Imm Gran Abs Auto 0.08 X10*3/uL (0.00-0.03); Imm Gran Pct Auto 0.7 % (0.0-0.4); Mean Corpuscular HGB Conc 32.2 g/dl (31.0-35.0); Mean Corpuscular Hemoglobin 25.6 pg (27.0-33.0); Mean Corpuscular Volume 79.5 fL (80.0-98.0); Mean Platelet Volume 10.9 fL (9.4-12.3); Monocytes Absolute Auto 0.9 X10*3/uL (0.1-1.2); Monocytes Percent Auto 7.2 % (2-11); Neutrophils Absolute Auto 6.7 x10*3/uL (2.0-8.3); Neutrophils Percent Auto 56.5 % (45-73); Platelet Count 350 X10*3/uL (160-400); Red Blood Count 4.73 X10*6/uL (4.20-5.50); Red Cell Distribution Width 17.1 % (11.0-16.0); White Blood Count 11.9 X10*3/uL (4.8-10.8)
[2021-08-08 10:09] LABS: Alanine Aminotransferase 43 U/L (0-31); Albumin Level 4.1 g/dL (3.5-5.0); Alkaline Phosphatase 97 U/L (39-117); Anion Gap 14 (12-20); Aspartate Amino Transferase 28 U/L (5-31); Bilirubin Total 0.3 mg/dL (0.0-1.0); Blood Urea Nitrogen 11 mg/dL (9-16); Calcium 9.5 mg/dL (8.4-10.2); Carbon Dioxide 24 mmol/L (22-29); Chloride 104 mmol/L (96-108); Cholesterol 193 mg/dL; Estimated Glomerular Filt Rate > 60; Glucose Fasting 100 mg/dL (60-99); HDL Cholesterol 45 mg/dL; Iron 22 mcg/dL (30-160); LDL Cholesterol Calculated 107 mg/dl; Percent Iron Saturation 6 % (15-50); Potassium 4.5 mmol/L (3.3-5.1); Sodium 137 mmol/L (135-145); Total Iron Binding Capacity 378 mcg/dL (228-428); Total Protein 7.8 g/dL (6.5-8.0); Triglycerides 208 mg/dL; Unsaturated Iron Binding 356 ug/dL
[2021-08-08 10:16] LABS: Ferritin 48 ng/mL (10-250); TSH reflex Free T4 1.34 uIU/mL (0.32-4.0)
[2021-08-08 11:03] LABS: Appearance Urine HAZY; Color Urine YELLOW; Glucose Urine UA NEG (NEG); Leukocyte Esterase Urine NEG (NEG); Nitrite Urine NEG (NEG); PH 5.5 (5.0-8.0); Specific Gravity - Urine >= 1.030 (1.005-1.025); UACC Culture Trigger NO; Urine Blood 3+ (NEG); Urine Ketones NEG (NEG); Urine Protein NEG (NEG-TRACE)
[2021-08-08 11:16] LABS: Squamous Epithelial Cell Urine 1+ /LPF; WBC Urine 0 /HPF (0-4)
[2021-08-08 11:17] LABS: Mucus Urine 1+ /LPF
== END 2021-08-08 08:20 | disposition home or self-care (01) ==
LOC: HO.LAB 08:19
PROVIDERS: PCP Nurse Practitioner Family; Visit Provider Nurse Practitioner Family
DX: M54.12 Radiculopathy, cervical region (principal); D64.9 Anemia, unspecified
CPT/HCPCS: 36415; 72040; 80053; 80061; 81001; 81003; 82728; 83540; 84443; 85025

== ENCOUNTER → 2021-08-27 10:15 | Outpatient (REF) | payer OTHER, SELFPAY ==
--- NOTE | 2021-08-27 10:18 | CA_ITS ---
Transthoracic Echocardiogram Patient (Last, First, Middle): Karen Nassar, Gender: Female Date of : 1980 Age: 41 Procedure Date: 08/27/2021 Procedure Type: Transthoracic Echocardiogram Location: OP Height: 167.64 cm Weight: 120.66 kg BSA: 2.26 m2 Heart Rate: bpm BP: 166 / 104 mmHg Software Designer: ITALO Referring MD: Ishmael Leyva [facility]- Consultant Rn: Warner Osborne MD Symptoms: I10 - Essential (primary) hypertension Study Quality: Fair ECG Rhythm: Sinus Conclusions: - 1. Normal LV systolic and diastolic function 2. Normal cardiac valvular Doppler 3. No gross pericardial effusion Findings Left Ventricle Normal left ventricular size, thickness, and systolic function. The visually estimated ejection fraction is between 60-65%. Spectral Doppler is indicative of a normal filling pattern. Right Ventricle Normal right ventricular cavity size and systolic function. Atria Both atria are normal in size. There is no evidence of interatrial shunt. Aortic Valve The aortic valve structure and function is likely normal. There is no aortic valve stenosis. There is no aortic valve regurgitation. Mitral Valve Normal mitral valve structure and function. There is trace mitral valve regurgitation. There is no mitral valve stenosis. Pulmonic Valve The pulmonic valve was not well visualized. Tricuspid Valve Likely normal tricuspid valve structure and function. There is trace tricuspid valve regurgitation. Tricuspid regurgitation envelope is inadequate for calculation of right ventricular systolic pressure. Great Vessels All visible segments of the aorta are normal in size. The pulmonary artery was not well visualized. Venous The inferior vena cava was not well visualized. Pericardium/Pleural There is no evidence of pericardial effusion. Prior Study Comparison No prior study available for comparison. Measurements 2D Linear Measurements IVSd: 0.82 0.6-0.9/0.6-1.0 cm LVIDd: 4.09 3.9-5.3/4.2-5.9 cm LVIDd Index: 1.81 2.4-3.2/2.2-3.1 cm/m2 LVIDs: 2.98 2.0-3.6 cm LVPWd: 0.72 0.7-1.1 cm LA Diam: 3.50 2.7-3.8/3.0-4.0 cm LAIDs Index: 1.55 1.5-2.3 cm/m2 LV Mass: 115.03 67-162/88-224 g LV Mass Index: 50.90 43-95/49-115 g/m2 LVOT Diam: 2.00 3.0+(-)1.3 cm Mitral Valve MV Pk E: 0.78 MV PK A: 0.75 MV Decel Time: 204.00 E/A: 1.00 E'Lateral: 10.60 E'Medial: 5.98 E/E' Med: 13.00 E/E' Lat: 7.30 PHT: 60.00 MVA PHT: 3.67 Decel [place]aine: 3.80 Aortic Valve AoV Pk Addy: 1.24 AoV Mn Addy: 0.87 AoV VTI: 0.25 AoV Pk Grad: 6.00 Aov Mn Grad: 3.00 YEN Cont.VTI: 3.14 LVOT LVOT Pk Addy: 1.22 LVOT Mn Addy: 0.82 LVOT VTI: 0.25 LVOT Pk Grad: 6.00 LVOT Mn Grad: 3.00 LVOT Diam: 2.00 LVOT Area: 3.14 Diastolic Function MV Pk E: 0.78 MV Pk A: 0.75 E/A: 1.00 E'Medial: 5.98 E/E' Med: 13.00 E' Laterial: 10.60 E/E' Lat: 7.30 Right Ventricle TAPSE (mm): 20.90 TVS' Addy: 12.50 Great Vessels Aorta Sinus of Valsalva: 2.60 2.0-3.[address] [place]: 2.50 1.7-3.4 cm Ao Asc: 2.90 2.1-3.4 cm Pulmonary Valve PV Pk Addy: 0.82 Peak PV Grad: 3.00 Updated in Other Vendor System with Status of Final Warner Osborne MD electronically signed on 08/28/2021 3:35:19 PM with status of Final
== END ==
LOC: HO.CARD 10:15
PROVIDERS: PCP Nurse Practitioner Family; Visit Provider Nurse Practitioner Family
DX: I10 Essential (primary) hypertension (principal); R01.1 Cardiac murmur, unspecified
CPT/HCPCS: 93306

== ENCOUNTER 2021-09-24 14:47 | Emergency (ER) | payer OTHER, SELFPAY ==
[2021-09-24 15:17] VITALS: BP 150/98; PULSE 99; RESP 18; TEMP 36.3; O2SAT 98; BMI 42.7
[2021-09-24 19:12] VITALS: BP 153/104
--- NOTE | 2021-09-24 19:26 | ED.GENADULT ---
HPI - General Adult General Chief complaint: Headache Stated complaint: high bp headache Time Seen by Provider: 09/24/21 19:26 Source: patient Mode of arrival: ambulatory Limitations: no limitations History of Present Illness HPI narrative: Patient history of hypertension uncontrolled for last 6 months was on metoprolol PCP change the medication to amlodipine and hydrochlorothiazide on 09/16 comes here for still blood pressure running high in 168/114 sometimes after taking medications also complaining of mild headache no nausea no vomiting no chest pain or shortness of breath, on arrival patient's blood pressure was 153/104. Related Data Home Medications Medication Instructions Recorded Confirmed cholecalciferol (vitamin D3) 50 50 mcg PO DAILY 05/07/20 09/16/21 mcg (2,000 unit) capsule hmartkwf-qfh-gkllq acid 0.4 tab PO 05/07/20 09/16/21 mg-lycopene 300 mcg-lutein 250 mcg tablet (Centrum Silver) acetaminophen 500 mg tablet 1,000 mg PO Q6H PRN 04/13/21 09/16/21 (Tylenol Extra Strength) Previous Rx's Medication Instructions Recorded Updraft machine #1 ea 06/03/20 albuterol sulfate 2.5 mg (3 mL) INHALATION Q6H PRN 12/11/20 #90 ml albuterol sulfate 90 mcg/actuation 2 puff INHALATION Q6H PRN 30 Days 12/11/20 aerosol inhaler #18 g NS metoprolol succinate 25 mg 12.5 mg PO DAILY 30 Days #15 tab 07/16/21 tablet,extended release 24 hr dexamethasone 4 mg tablet 4 mg PO DAILY 9 Days #18 tab 07/29/21 amlodipine 5 mg tablet 5 mg PO DAILY 30 Days #30 tab 09/16/21 hydrochlorothiazide 12.5 mg tablet 12.5 mg PO DAILY 30 Days #30 tab 09/16/21 blood pressure kit-extra large #1 ea 09/24/21 lisinopril 10 mg tablet 10 mg PO DAILY #30 tab 09/24/21 Allergies Allergy/AdvReac Type Severity Reaction Status Date / Time acetaminophen [From PERCOCET] Allergy Mild ITCHING Verified 09/16/21 15:06 oxycodone [From PERCOCET] Allergy Mild ITCHING Verified 09/16/21 15:06 Review of Systems Review of Systems: Yes all other systems are reviewed and are negative [facility] Past Medical History Medical History Cervical radiculopathy HTN (hypertension) Uterine fibroid Uterine fibroids affecting Surgical History H/O right knee surgery History of lumbar surgery Family History Family History Father No problems noted. Mother No problems noted. Maternal Grandfather No problems noted. Maternal Grandmother Diabetes mellitus Paternal Grandfather Diabetes mellitus Paternal Grandmother Diabetes mellitus Cancer Brother No problems noted. Brother No problems noted. Sister No problems noted. Social History Social History Housing: Apartment Alcohol intake: current Patient Tobacco Use Status: Never used Tobacco e-Cigarette/Vaping Use: Never Used Second Hand Smoke Exposure: No Advance Directives: No Advance Directives Information Provided: Yes service: No Current occupational status: employed Current occupation: [employer] Gender identity: Female Physical Exam ED Vital Signs: Vital Signs - 24 hr 09/24/21 15:17 09/24/21 19:12 09/24/21 19:58 Temperature 97.3 F Pulse Rate 99 74 Respiratory Rate 18 Blood Pressure 150/98 H 153/104 H 143/89 H Pulse Oximetry 98 98 BMI result Body Mass Index 42.7 Appearance: Alert. Oriented X3. No acute distress. ENT: Pharynx normal. Oral Mucosa moist Neck: Normal inspection. Neck supple. CVS: Normal heart rate and rhythm. Pulses normal. Respiratory: No respiratory distress. Equal air entry bilateral, no wheezing/rales/rhonchi Abdomen: Soft and nontender. Bowel sounds are present, no mass palpable, no CVA tenderness Skin: Skin warm and dry. Normal skin color. Normal skin turgor. Extremities: No lower extremity edema. No calf tenderness Neuro: Oriented X 3. No motor deficit. Medical Decision Making MDM Narrative Medical decision making narrative: Patient with uncontrolled hypertension with add lisinopril 10 mg daily to the regime advised to follow-up with PCP Discharge Plan Discharge Clinical Impression: HTN (hypertension) Patient Disposition: Home, Self-Care Instructions: Chronic Hypertension (ED) Additional Instructions: Decrease salt intake Continue your medication for blood pressure Add lisinopril 10 mg daily Checkup blood pressure before taking the medicine and before going to bed Follow-up with your PCP Prescriptions: New lisinopril 10 mg tablet 10 mg PO DAILY Qty: 30 0RF (DME) blood pressure kit-extra large Kit See Rx Instructions .Route Qty: 1 0RF Rx Instructions: As directed No Action (DME) Updraft machine See Rx Instructions .Route .MEDSUPPLY Qty: 1 0RF Rx Instructions: As directed dexamethasone 4 mg tablet 4 mg PO DAILY 9 Days Qty: 18 0RF Rx Instructions: 3 times a day for 3 days, twice a day for 3 days, daily for 3 days cholecalciferol (vitamin D3) 50 mcg (2,000 unit) capsule 50 mcg PO DAILY 0RF Centrum Silver 0.4-300-250 mg-mcg-mcg tablet PO 0RF albuterol sulfate 2.5 mg /3 mL (0.083 %) solution for nebulization 2.5 mg inhalation Q6H PRN (Reason: shortness of breath or wheezing) Qty: 90 0RF albuterol sulfate 90 mcg/actuation HFA aerosol inhaler 2 puff inhalation Q6H PRN (Reason: bronchospasm) 30 Days Qty: 18 2RF acetaminophen [Tylenol Extra Strength] 500 mg tablet 1,000 mg PO Q6H PRN0RF metoprolol succinate 25 mg tablet extended release 24 hr 12.5 mg PO DAILY 30 Days Qty: 15 2RF hydrochlorothiazide 12.5 mg tablet 12.5 mg PO DAILY 30 Days Qty: 30 2RF amlodipine 5 mg tablet 5 mg PO DAILY 30 Days Qty: 30 3RF Interventions: ED Discharge Assessment Last Done: 09/24/21 19:59 Discharge Date/Time: 09/24/21 19:59
[2021-09-24] MEDS: lisinopriL 5 MG TABLET PO (19:57)
[2021-09-24 19:58] VITALS: BP 143/89; PULSE 74; O2SAT 98
== END 2021-09-24 19:59 | disposition home or self-care (01) ==
PROVIDERS: Emergency Provider Internal Medicine; PCP Nurse Practitioner Family
DX: R03.0 Elevated blood-pressure reading, without diagnosis of hypertension (principal); Z79.899 Other long term (current) drug therapy
CPT/HCPCS: 99281; 99283

== ENCOUNTER 2022-02-04 11:19 | Emergency (ER) | payer OTHER, SELFPAY ==
--- NOTE | ~2022-02-04 | CT_ITS ---
EXAMINATION: CT HEAD WITHOUT CONTRAST CLINICAL INFORMATION: Persistent headache 1 week after injury. COMPARISON: None TECHNIQUE: Contiguous axial imaging was performed from the skull base to vertex without intravenous administration of contrast. Coronal and sagittal reformatted images were obtained. This CT examination was performed using dose optimization techniques as appropriate, variously including the following: *Automated exposure control *Adjustment of mA and/or kV according to patient size (this includes techniques or standardized protocols for targeted exams where dose is matched to indication/reason for exam; i.e. extremities or head) *Use of iterative reconstruction technique DLP: 676 mGy-cm FINDINGS: The cortical sulci are normal. The lateral ventricles are symmetrical. The third and fourth ventricles are in their normal midline position. The basilar and prepontine cisterns are unremarkable. There is no acute intra or extracerebral abnormality. There is no mass effect or midline shift. Sections through the bony calvarium are unremarkable. Mild mucosal thickening is seen at the base of the left maxillary sinus with communication to a left molar apex. The remainder of the paranasal sinuses are clear. The bony orbits and orbital contents are unremarkable. CT/CT head/brain wo IV con IMPRESSION: 1. No acute intracranial pathology. 2. Mucosal thickening at the base of the left maxillary sinus appears communicate with a left molar apex suggestive of odontogenic disease. Dental consultation is recommended.
[2022-02-04 11:50] VITALS: BP 169/102; PULSE 102; RESP 18; TEMP 36.6; O2SAT 99; BMI 40.3
--- NOTE | 2022-02-04 16:34 | ECG_ITS ---
Test Reason : HYPERTENSION Blood Pressure : / mmHG Vent. Rate : 097 BPM Atrial Rate : 097 BPM P-R Int : 150 ms QRS Dur : 122 ms QT Int : 378 ms P-R-T Axes : 043 -32 021 degrees QTc Int : 480 ms Normal sinus rhythm Left axis deviation Right bundle branch block Abnormal ECG When compared with ECG of 08-JUL-2021 18:36, No significant change was found Referred By: Natalie Brown Electronically Signed By:DAV HEATH
--- NOTE | 2022-02-04 16:34 | ED_ITS ---
HPI - Head Injury General Chief complaint: Head Injury Stated complaint: Hit head last week pain on R side forehead Time Seen by Provider: 02/04/22 16:25 Source: patient Mode of arrival: ambulatory Limitations: no limitations History of Present Illness HPI Narrative: patient comes to the emergency room complaining of a headache, trouble focusing. Patient states that it all started approximately a week ago when she accidentally hit her head with her car store. Patient did not lose consciousness, does not take any blood thinners. Patient states that she talk to her primary care physician and instructed her to come to the emergency room. Also, patient's blood pressure noted to be elevated. Patient states that she stop taking lisinopril 10 mg 2 months ago because her blood pressure was controlled. Patient denies chest pain or shortness of breath, denies having any headache prior to the head injury. Related Data Home Medications Medication Instructions Recorded Confirmed cholecalciferol (vitamin D3) 50 50 mcg PO DAILY 05/07/20 09/16/21 mcg (2,000 unit) capsule kxuxgwoq-lpi-tqfyk acid 0.4 tab PO 05/07/20 09/16/21 mg-lycopene 300 mcg-lutein 250 mcg tablet (Centrum Silver) acetaminophen 500 mg tablet 1,000 mg PO Q6H PRN 04/13/21 09/16/21 (Tylenol Extra Strength) Previous Rx's Medication Instructions Recorded Updraft machine #1 ea 06/03/20 albuterol sulfate 2.5 mg/3 mL 2.5 mg (3 mL) inhalation Q6H PRN 12/11/20 (0.083 %) solution for nebulization shortness of breath or wheezing #90 mL metoprolol succinate 25 mg 12.5 mg PO DAILY 30 days #15 tabs 07/16/21 tablet,extended release 24 hr dexamethasone 4 mg tablet 4 mg PO DAILY 9 days #18 tabs 07/29/21 amlodipine 5 mg tablet 5 mg PO DAILY 30 days #30 tabs 09/16/21 hydrochlorothiazide 12.5 mg tablet 12.5 mg PO DAILY 30 days #30 tabs 09/16/21 blood pressure kit-extra large #1 ea 09/24/21 lisinopril 10 mg tablet 10 mg PO DAILY #30 tabs 09/24/21 albuterol sulfate 90 mcg/actuation 2 puff inhalation Q6H PRN 01/26/22 aerosol inhaler bronchospasm 30 days #18 grams prednisone 20 mg tablet 20 mg PO DAILY 5 days #5 tabs 01/26/22 lisinopril 10 mg tablet 10 mg PO DAILY #30 tabs 02/04/22 penicillin V potassium 500 mg 500 mg PO TID 7 days #21 tabs 02/04/22 tablet Allergies Allergy/AdvReac Type Severity Reaction Status Date / Time acetaminophen [From PERCOCET] Allergy Mild ITCHING Verified 10/27/21 14:09 oxycodone [From PERCOCET] Allergy Mild ITCHING Verified 10/27/21 14:09 Review of Systems Review of Systems: Constitutional : No Weight loss, No Fever, No Chills, No Night Sweats, No Fatigue, No Malaise ENT/Mouth : No Hearing loss, No Ear Pain, No Nasal Congestion, No Sinus Pain, No Hoarseness, No sore throat, No Rhinorrhea, No Swallowing Difficulty Eyes: No Eye Pain, No Swelling, No Redness, No Foreign Body, No Discharge, No Vision Changes Cardiovascular : No Chest Pain, No SOB, No Dyspnea on Exertion, No Orthopnea, No Edema, No Palpitations Respiratory : No Cough, No Sputum, No Wheezing, No Smoke Exposure, No Dyspnea Gastrointestinal : No Nausea, No Vomiting, No Diarrhea, No Constipation, No abdominal Pain, No Hematochezia, No Melena Genitourinary : no irregular bleeding, No Dysuria, No Urinary Frequency, No Hematuria, No Urinary Incontinence, No Urgency, No Flank Pain, No Urinary Flow Changes, No Hesitancy Musculoskeletal : No joint pain, No Myalgias, No Joint Swelling Skin : No Skin Lesions, No rash Neuro : No Weakness, No Numbness, No Paresthesias, No Loss of Consciousness, No Dizziness, Complaining of Headache, fogginess Psych : No Anxiety/Panic, No Depression, No SI/HI/AH/VH, No Social Issues, Heme/Lymph: No Bruising, No Bleeding,No Lymphadenopathy Endocrine : No Polyuria, No Polydipsia, No Temperature Intolerance [facility] Past Medical History Medical History Cervical radiculopathy HTN (hypertension) Uterine fibroid Uterine fibroids affecting Surgical History H/O right knee surgery History of lumbar surgery Family History Family History Father No problems noted. Mother No problems noted. Maternal Grandfather No problems noted. Maternal Grandmother Diabetes mellitus Paternal Grandfather Diabetes mellitus Paternal Grandmother Diabetes mellitus Cancer Brother No problems noted. Brother No problems noted. Sister No problems noted. Social History Social History Housing: Apartment Alcohol intake: current Alcohol intake frequency: does not drink Patient Tobacco Use Status: Never used Tobacco e-Cigarette/Vaping Use: Never Used Second Hand Smoke Exposure: No Use of substances other than those prescribed or required for medical reasons: No Advance Directives: No Advance Directives Information Provided: No service: No Current occupational status: employed Current occupation: [employer] Gender identity: Female Physical Exam Vital Signs: Vital Signs: Last Vital Signs Temp 98.2 F 02/04/22 18:29 Pulse 96 02/04/22 18:29 Resp 16 02/04/22 18:29 BP 142/91 H 02/04/22 18:29 Pulse Ox 100 02/04/22 18:29 O2 Del Method 02/04/22 18:29 BMI result Body Mass Index 40.3 Const: Other: Appearance: Alert. Oriented X3. No acute distress. well-appearing Eyes: Pupils equal, round and reactive to light. ENT: Pharynx normal. Neck: Normal inspection. Neck supple. No lymph nodes noted. No crepitus CVS: Normal heart rate and rhythm. Pulses normal. Normal S1 and S2 Respiratory: No respiratory distress. Breath sounds normal. No Wheezing. No rales Abdomen: Soft and nontender. No rigidity. No distention. Skin: Skin warm and dry. Normal skin color. Normal skin turgor. Extremities: No lower extremity edema. No Lacerations. No Rash Neuro: Oriented X 3. No motor deficit. No sensory deficit. Moving all extremities. No slurred speech. CN 2 through 12 grossly intact Psych: calm, cooperative, normal affect Course Course Course Narrative: I discussed with the patient that her symptoms are likely related to a concussion versus hypertension. Current blood pressure 169/102. Patient is agreeable to start 10 mg of lisinopril. Head CT pending. blood pressure now 142/91 after 10 mg of lisinopril. head CT does not show any acute abnormalities, however, there may be some left maxillary sinus thickening, left molar may be causing until logic disease. Patient will be covered with antibiotics, patient started to follow-up with her primary care physician and her dentist Discharge Plan Discharge Clinical Impression: HTN (hypertension), Head injury, Sinusitis Patient Disposition: Home, Self-Care Instructions: Sinusitis (ED), Hypertension (ED) Additional Instructions: Please follow-up with your primary care physician tomorrow. If you have any worsening or new symptoms, please return to the emergency room or call 911 Prescriptions: New penicillin V potassium 500 mg tablet 500 mg PO TID 7 Days Qty: 21 0RF lisinopril 10 mg tablet 10 mg PO DAILY Qty: 30 0RF No Action (DME) Updraft machine See Rx Instructions .Route .MEDSUPPLY Qty: 1 0RF Rx Instructions: As directed dexamethasone 4 mg tablet 4 mg PO DAILY 9 Days Qty: 18 0RF Rx Instructions: 3 times a day for 3 days, twice a day for 3 days, daily for 3 days albuterol sulfate 90 mcg/actuation HFA aerosol inhaler 2 puff inhalation Q6H PRN (Reason: bronchospasm) 30 Days Qty: 18 2RF prednisone 20 mg tablet 20 mg PO DAILY 5 Days Qty: 5 0RF lisinopril 10 mg tablet 10 mg PO DAILY Qty: 30 0RF (DME) blood pressure kit-extra large Kit See Rx Instructions .Route Qty: 1 0RF Rx Instructions: As directed cholecalciferol (vitamin D3) 50 mcg (2,000 unit) capsule 50 mcg PO DAILY Centrum Silver 0.4-300-250 mg-mcg-mcg tablet PO albuterol sulfate 2.5 mg /3 mL (0.083 %) solution for nebulization 2.5 mg inhalation Q6H PRN (Reason: shortness of breath or wheezing) Qty: 90 0RF acetaminophen [Tylenol Extra Strength] 500 mg tablet 1,000 mg PO Q6H PRN metoprolol succinate 25 mg tablet extended release 24 hr 12.5 mg PO DAILY 30 Days Qty: 15 2RF hydrochlorothiazide 12.5 mg tablet 12.5 mg PO DAILY 30 Days Qty: 30 2RF amlodipine 5 mg tablet 5 mg PO DAILY 30 Days Qty: 30 3RF
--- OUTSIDE RECORDS SUMMARY | 2022-02-04 16:35 | XMS_ITS | Continuity of Care Document ---
:1980 Author Organization [facility] Address [address] [place] [address], 4th [address] [place] [phone]- Care Team Providers Name Role Phone Not on Staff, PCP Primary Care Physician Unavailable [place] [facility] [place]19 [facility] [address] [facility], 4th Floor [address] [place] [phone]- [facility] Attending Physician: Hanh Merlos MD Referring Physician: Not on Staff, Referring MD Allergies, Adverse Reactions, Alerts Substance Reaction Severity Status Percocet 5/325 itchy Active Medications 0.5 cc insulin sringes 0.5 cc insulin sringes, See Instructions, # 30 each, Refills 5, Tot. Refills 5, Maintenance, use with microdose lupron, 04/13/19 15:06:03 EST, Compound, 167.7, cm, 03/07/19 9:50:50 EDT, Height, 118.2, kg, 06/29/18 15:54:21 EST, Dry Weight Start Date: 04/13/19 Status: Orderedalbuterol 90 mcg/inh inhalation powder 1 puffs, Inhalation, Every 4 hours, PRN as needed, # 1 each, 0 Refills, Maintenance, 06/29/18 15:47:47 EST, Powder Start Date: 06/29/18 Status: Ordereddoxycycline hyclate 100 mg oral tablet 1 tablet = 100 mg, By Mouth, 2 times a day, # 28 tablet, 5 Refills, Maintenance, 04/13/19 15:05:12 EST, 167.7, cm, 03/07/19 9:50:50 EDT, Height, 118.2, kg, 06/29/18 15:54:21 EST, Dry Weight Start Date: 04/13/19 Status: OrderedFollistim AQ Cartridge beta 900 intl units subcutaneous solution = 225 International_Units, Subcutaneous Infusion, 2 times a day, cancel gonal f order per Hyun's request, # 5 each, 5 Refills, Maintenance, 05/08/19 12:42:00 EST, [facility], 167.7, cm, 03/07/19 9:50:00 EDT, Height, 118.2, kg, ... Start Date: 05/08/19 Status: Orderedfollistim pen device follistim pen device, See Instructions, # 1 each, Refills 5, Tot. Refills 5, Maintenance, use with follistim cartridges, 05/08/19 12:42:00 EST, Compound, 167.7, cm, 03/07/19 9:50:00 EDT, Height, 118.2,kg, 06/29/18 15:54:00 EST, Dry Weight Start Date: 05/08/19 Status: Orderedibuprofen 600 mg oral tablet 600 mg, 1, tablet, By Mouth, Every 6 hours, # 40 tablet, Refills 0, Tot. Refills 0, Maintenance, 07/07/18 15:35:32 EST, Print Requisition Start Date: 07/07/18 Status: OrderedmetFORMIN 500 mg oral tablet 2 tablet = 1,000 mg, By Mouth, 2 times a day, with meals, # 360 tablet, 3 Refills, Maintenance, 06/16/18 9:36:47 EST, Tablet Start Date: 06/16/18 Status: OrderedMicrodose Lupron 40mcg/0.1ml Microdose Lupron 40mcg/0.1ml, See Instructions, # 5 mL, Refills 5, Tot. Refills 5, Maintenance, 10 units sc BID, needs for 05/11/19, 04/13/19 15:05:21 EST, Compound, 167.7, cm, 03/07/19 9:50:50 EDT, Height, 118.2, kg, 06/29/18 15:54:21 EST, Dry Weight Start Date: 04/13/19 Status: OrderedOrtho Micronor 0.35 mg oral tablet 1 tablet = 0.35 mg, By Mouth, Daily, # 30 tablet, 3 Refills, Maintenance, 04/13/19 14:45:11 EST, Tablet, 167.7, cm, 03/07/19 9:50:50 EDT, Height, 118.2, kg, 06/29/18 15:54:21 EST, Dry Weight Start Date: 04/13/19 Status: Orderedovidrel 250 mcg ovidrel 250 mcg, See Instructions, # 2 each, Refills 5, Tot. Refills 5, Maintenance, Inject 2 prefilled syringes x1 by subcutaneous Injection Once, 04/13/19 15:05:29 EST, Compound, 167.7, cm, 03/07/19 9:50:50 EDT, Height, 118.2, kg, 06/29/18 15:54:21... Start Date: 04/13/19 Status: OrderedPrenatal Multivitamins By Mouth, Daily, 0 Refills, Maintenance, 11/30/18 9:18:38 EDT Start Date: 11/30/18 Status: OrderedPrometrium 200 mg oral capsule See Instructions, Insert 1 vaginally TID, # 90 capsule, 5 Refills, Maintenance, 04/13/19 15:05:39 EST, 167.7, cm, 03/07/19 9:50:50 EDT, Height, 118.2, kg, 06/29/18 15:54:21 EST, Dry Weight Start Date: 04/13/19 Status: OrderedVitamin D3 400 intl units oral capsule 1 capsule = 400 International_Units, By Mouth, Daily, 0 Refills, Maintenance, 06/29/18 15:44:58 EST Start Date: 06/29/18 Status: OrderedVivelle-Dot 0.1 mg/24 hours twice weekly transdermal film, extended release See Instructions, apply 2 patches the day after retrieval and change qod, # 32 each, 3 Refills, Maintenance, 04/13/19 15:05:45 EST, 167.7, cm, 03/07/19 9:50:50 EDT, Height, 118.2, kg, 06/29/18 15:54:21EST, Dry Weight Start Date: 04/13/19 Status: Ordered Problem List Condition Effective Dates Status Health Status Informant Infertility, anovulation(Confirmed) Active PCOS (polycystic ovarian Active syndrome)(Confirmed) Social History Social History Type Response Smoking Status Never (less than 100 in life time) entered on: 04/26/18 Sex
--- OUTSIDE RECORDS SUMMARY | 2022-02-04 16:35 | XMS_ITS | Continuity of Care Document ---
:1980 Author Organization [facility] Address [address] [place] [address], 4th Floor [address] [place] [phone]- Care Team Providers Name Role Phone Not on Staff, PCP Primary Care Physician Unavailable [place] [facility] [place] [facility] [address] [facility], 4th Floor [address] [place] [phone] Attending Physician: Hanh Merlos MD Referring Physician: [...]
--- OUTSIDE RECORDS SUMMARY | 2022-02-04 16:35 | XMS_ITS | Continuity of Care Document ---
:1980 Author Organization [facility] Address [address] [place] [address], 4th Floor [address] [place] [address]- Care Team Providers Name Role Phone Not on Staff, PCP Primary Care Physician Unavailable Encounter [facility] [place] Date(s): 06/29/19 - 07/09/19 [facility] [address] [place] [address], [address]th Floor [address] [place] [phone]- [facility] Attending Physician: Admtr, Ar8 Admitting Physician: Admtr, Ar8 Referring Physician: Admtr, Ar8 Allergies, Adverse Reactions, Alerts Substance Reaction Severity Status Percocet 5/325 itchy Active Medications 27g 1/2 needles 27g 1/2 needles, See Instructions, # 15 each, Refills 5, Tot. Refills 5, Maintenance, use to give injections, 06/07/19 10:15:00 EST, Compound, 167.7, cm, 03/07/19 9:50:00 EDT, Height, 118.2, kg, 06/29/18 15:54:00 EST, Dry Weight Start Date: 06/07/19 Status: Ordered3 cc syringe with 22g 1 1/2 needles 3 cc syringe with 22g 1 1/2 needles, See Instructions, # 15 each, Refills 5, Tot. Refills 5, Maintenance, use to mix menopur, 06/07/19 10:15:00 EST, Compound, 167.7, cm, 03/07/19 9:50:00 EDT, Height, 118.2, kg, 06/29/18 15:54:00 EST, Dry Weight Start Date: 06/07/19 Status: Orderedalbuterol 90 mcg/inh inhalation powder 1 puffs, Inhalation, Every 4 hours, PRN as needed, # 1 each, 0 Refills, Maintenance, 06/29/18 15:47:47 EST, Powder Start Date: 06/29/18 Status: OrderedCetrotide 0.25 mg subcutaneous injection See Instructions, use 0.25 mg daily when instructed, # 4 each, 5 Refills, Maintenance, 06/07/19 10:15:00 EST, [facility], 167.7, cm, 03/07/19 9:50:00 EDT, Height, 118.2, kg, 06/29/18 15:54:00 EST, Dry Weight Start Date: 06/07/19 Status: Ordereddoxycycline hyclate 100 mg oral tablet 1 tablet = 100 mg, By Mouth, 2 times a day, # 28 tablet, 5 Refills, Maintenance, 06/07/19 12:15:00 EST, [facility], 167.7, cm, 03/07/19 9:50:00 EDT, Height, 118.2, kg, 06/29/18 15:54:00 EST, Dry Weight Start Date: 06/07/19 Status: Ordereddoxycycline hyclate 100 mg oral tablet 1 tablet = 100 mg, By Mouth, 2 times a day, # 14 tablet, 5 Refills, Maintenance, 07/09/19 11:10:00 EST, [facility] #[id number], 167.7, cm, 06/29/19 8:44:00 EST, Height, 118.2, kg, 06/29/18 15:54:00 EST, Dry Weight Start Date: 07/09/19 Status: OrderedFollistim AQ Cartridge beta 900 intl units subcutaneous solution = 300 International_Units, Subcutaneous Infusion, Daily, pt has 1 left from last cycle, # 2 each, 5 Refills, Maintenance, 06/07/19 10:14:00 EST, [facility], 167.7, cm, 03/07/19 9:50:00 EDT,Height, 118.2, kg, 06/29/18 15:54:00 EST, Dry Weight Start Date: 06/07/19 Status: Orderedfollistim pen device follistim pen device, [...] EST, Print Requisition Start Date: 07/07/18 Status: OrderedMenopur 75 intl units subcutaneous injection = 300 International_Units, Subcutaneous Infusion, Daily, # 40 each, 5 Refills, Maintenance, 06/07/2009:14:00 EST, [facility], 167.7, cm, 03/07/19 9:50:00 EDT, Height, 118.2, kg, 06/29/18 15:54:00 EST, Dry Weight Start Date: 06/07/19 Status: OrderedmetFORMIN 500 mg oral tablet 2 tablet = 1,000 mg, By Mouth, 2 times a day, with meals, # 360 tablet, 3 Refills, Maintenance, 06/16/18 9:36:47 EST, Tablet Start Date: 06/16/18 Status: OrderedOrtho Micronor 0.35 mg oral tablet [...] prefilled syringes x1 by subcutaneous Injection Once, 06/07/19 10:18:00 EST, Compound, 167.7, cm, 03/07/19 9:50:00 EDT, Height, 118.2, kg, 06/29/18 15:54:00... Start Date: 06/07/19 Status: OrderedPrenatal Multivitamins By Mouth, Daily, 0 [...]
--- OUTSIDE RECORDS SUMMARY | 2022-02-04 16:35 | XMS_ITS | Continuity of Care Document ---
:1980 Author Organization [facility] Address [address] [place] [phone]- Care Team Providers Name Role Phone Not on Staff, PCP Primary Care Physician Unavailable Encounter [facility] [place] Date(s): 07/17/19 - 07/17/[address] [address]- [facility] Discharge Disposition: A-D/C Home Attending Physician: Hanh Merlos MD Admitting Physician: Hanh Merlos MD Referring Physician: Hanh Merlos MD Allergies, Adverse Reactions, Alerts Substance Reaction [...] tablet, 5 Refills, Maintenance, 07/09/19 11:10:00 EST, [facility] #[id number], 167.7, cm, 06/29/19 8:44:00 EST, Height, 118.2, [...] EST, Dry Weight Start Date: 04/13/19 Status: OrderedTylenol with Codeine #3 300 mg-30 mg oral tablet 1, tablet, By Mouth, Every 4 hours, PRN, # 12 tablet, Refills 0, Tot. Refills 0, Maintenance, for pain, 07/15/19 9:07:00 EDT, Route to Pharmacy Electronically, [facility] #[id number] Tablet, 167.7, cm, 06/29/19 8:44:00 EST, Height, 118.2, kg, ... Start Date: 07/15/19 Status: OrderedValium 5 mg oral tablet 5 mg, 1, tablet, By Mouth, Once, 1 tab po 1hr before embryo transfer take the other with you to the hospital, # 2 tablet, Refills 0, Tot. Refills 0, Soft Stop, 07/15/19 9:07:00 EDT, Route to Pharmacy Electronically, [facility] #[id number], 167.7,... Start Date: 07/15/19 Status: OrderedVitamin D3 400 intl units oral [...]
--- OUTSIDE RECORDS SUMMARY | 2022-02-04 16:35 | XMS_ITS | Continuity of Care Document ---
:1980 Author Organization [facility] Address [address] [place] [address], 4th Floor [address] [place] [phone]- Care Team Providers Name Role Phone Not on Staff, PCP Primary Care Physician Unavailable Encounter [facility] [place] Date(s): 05/24/19 - 06/03/19 [facility] [address] [facility], 4th Floor [address] [place] [address] Attending Physician: Admtr, Ar8 Admitting Physician: Admtr, [...]
--- OUTSIDE RECORDS SUMMARY | 2022-02-04 16:35 | XMS_ITS | Continuity of Care Document ---
:1980 Author Organization [facility] Address [address] [place] [phone]- Care Team Providers Name Role Phone Not on Staff, PCP Primary Care Physician Unavailable Encounter [facility] [place] Date(s): 07/22/19 - 07/22/[address] [address]- [facility] Discharge Disposition: A-D/C Home Attending Physician: Hanh [...] tablet, 5 Refills, Maintenance, 07/09/19 11:10:00 EST, [facility] #[id number], 167.7, cm, 06/29/19 8:44:00 EST, Height, 118.2, [...] 07/15/19 9:07:00 EDT, Route to Pharmacy Electronically, [facility] #[id number] Tablet, 167.7, cm, 06/29/19 8:44:00 EST, Height, 118.2, kg, ... Start Date: 07/15/19 Status: OrderedValium 5 mg oral tablet 5 mg, 1, tablet, By Mouth, Once, 1 tab po 1hr before embryo transfer take the other with you to the hospital, # 2 tablet, Refills 0, Tot. Refills 0, Soft Stop, 07/15/19 9:07:00 EDT, Route to Pharmacy Electronically, [facility] #[id number], 167.7,... Start Date: 07/15/19 Status: OrderedVitamin D3 [...]
--- OUTSIDE RECORDS SUMMARY | 2022-02-04 16:35 | XMS_ITS | Continuity of Care Document ---
:1980 Author Organization [facility] Address [address] [place] [address]- Care Team Providers Name Role Phone Not on Staff, PCP Primary Care Physician Unavailable Encounter [facility] Date(s): 05/21/19 - 05/28/[address] [address]- [facility] Attending Physician: Not on Staff, Attending MD Allergies, Adverse Reactions, Alerts Substance Reaction [...]
--- OUTSIDE RECORDS SUMMARY | 2022-02-04 16:35 | XMS_ITS | Continuity of Care Document ---
:1980 Author Organization [facility] Address [address] [place] [address]- Care Team Providers Name Role Phone Not on Staff, PCP Primary Care Physician Unavailable Encounter [facility] [place] Date(s): 07/16/19 - 08/16/[address] [phone]- [facility] Attending Physician: Hanh Merlos MD Allergies, Adverse Reactions, [...] tablet, 5 Refills, Maintenance, 07/09/19 11:10:00 EST, [facility] #[id number], 167.7, cm, 06/29/19 8:44:00 EST, Height, 118.2, [...] 07/15/19 9:07:00 EDT, Route to Pharmacy Electronically, [facility] #[id number] Tablet, 167.7, cm, 06/29/19 8:44:00 EST, Height, 118.2, kg, ... Start Date: 07/15/19 Status: OrderedValium 5 mg oral tablet 5 mg, 1, tablet, By Mouth, Once, 1 tab po 1hr before embryo transfer take the other with you to the hospital, # 2 tablet, Refills 0, Tot. Refills 0, Soft Stop, 07/15/19 9:07:00 EDT, Route to Pharmacy Electronically, [facility] #[id number], 167.7,... Start Date: 07/15/19 Status: OrderedVitamin D3 [...]
--- OUTSIDE RECORDS SUMMARY | 2022-02-04 16:35 | XMS_ITS | Continuity of Care Document ---
:1980 Author Organization [facility] Address [address] [place] [address], 4th Floor [address] [place] [phone]- Care Team Providers Name Role Phone Not on Staff, PCP Primary Care Physician Unavailable [place] [facility] [place] 05/04/19 - 06/06/19 [facility] [address] [facility], 4th Floor [address] [place] [address]- [facility] Attending Physician: Veronica Hawk MD Referring Physician: Not on Staff, Referring [...]
--- OUTSIDE RECORDS SUMMARY | 2022-02-04 16:35 | XMS_ITS | Continuity of Care Document ---
:1980 Author Organization [facility] Address [address] [place] [address], [facility] Floor [address] [place] [address]- Care Team Providers Name Role Phone Not on Staff, PCP Primary Care Physician Unavailable [place] [facility] [place]): 06/29/19 - 07/06/19 [facility] [address] [place] [address], [facility] Floor [address] [place] [address]- [facility] Attending Physician: Veronica Hawk MD Referring [...] EST, Dry Weight Start Date: 06/07/19 Status: OrderedFollistim AQ Cartridge beta 900 intl [...] anovulation(Confirmed) Active PCOS (polycystic ovarian Active syndrome)(Confirmed) Vital Signs Most recent to oldest [Reference Range]: 1 Height 167.7 cm (06/29/19 8:44 AM) Weight 117 kg (06/29/19 8:44 AM) Body Mass Index [18.5-24.99] 41.6 *>HHI* (06/29/19 8:44 AM) Blood Pressure [90-138/55-84 mm Hg] 137/80 mm Hg (06/29/19 8:44 AM) Social History Social History Type Response Smoking Status Never (less than 100 in life time) entered on: 04/26/18 Sex
--- OUTSIDE RECORDS SUMMARY | 2022-02-04 16:35 | XMS_ITS | Continuity of Care Document ---
:1980 Author Organization [facility] Address [address] [place] [address], 4th Floor [address] [place] [phone]- Care Team Providers Name Role Phone Not on Staff, PCP Primary Care Physician Unavailable [place] [facility] [place]): [place]19 [facility] [address] [place] [address], [facility] Floor [address] [place] [phone]- [facility] Attending Physician: Veronica Hawk MD Referring [...] tablet, 5 Refills, Maintenance, 07/09/19 11:10:00 EST, [facility] #[id number], 167.7, cm, 06/29/19 8:44:00 EST, Height, 118.2, [...] 07/15/19 9:07:00 EDT, Route to Pharmacy Electronically, [facility] #[id number] Tablet, 167.7, cm, 06/29/19 8:44:00 EST, Height, 118.2, kg, ... Start Date: 07/15/19 Status: OrderedValium 5 mg oral tablet 5 mg, 1, tablet, By Mouth, Once, 1 tab po 1hr before embryo transfer take the other with you to the hospital, # 2 tablet, Refills 0, Tot. Refills 0, Soft Stop, 07/15/19 9:07:00 EDT, Route to Pharmacy Electronically, [facility] #[id number], 167.7,... Start Date: 07/15/19 Status: OrderedVitamin D3 [...]
--- OUTSIDE RECORDS SUMMARY | 2022-02-04 16:35 | XMS_ITS | Continuity of Care Document ---
:1980 Author Organization [facility] Address [address] [place] [address], 4th Floor [address] [place] [id number]- Care Team Providers Name Role Phone Not on Staff, PCP Primary Care Physician Unavailable Encounter [facility] [place](s): 07/15/19 - 07/22/19 [facility] [address] [place] [address], [facility] Floor [address] [place] [phone]- [facility] Attending Physician: Josephine Brown MD Referring Physician: Not on Staff, Referring [...] tablet, 5 Refills, Maintenance, 07/09/19 11:10:00 EST, [facility] #[id number], 167.7, cm, 06/29/19 8:44:00 EST, Height, 118.2, [...] 07/15/19 9:07:00 EDT, Route to Pharmacy Electronically, [facility] #[id number] Tablet, 167.7, cm, 06/29/19 8:44:00 EST, Height, 118.2, kg, ... Start Date: 07/15/19 Status: OrderedValium 5 mg oral tablet 5 mg, 1, tablet, By Mouth, Once, 1 tab po 1hr before embryo transfer take the other with you to the hospital, # 2 tablet, Refills 0, Tot. Refills 0, Soft Stop, 07/15/19 9:07:00 EDT, Route to Pharmacy Electronically, [facility] #[id number], 167.7,... Start Date: 07/15/19 Status: OrderedVitamin D3 [...]
--- OUTSIDE RECORDS SUMMARY | 2022-02-04 16:35 | XMS_ITS | Continuity of Care Document ---
:1980 Author Organization [facility] Address [address] [place] [address], 4th Floor [address] [place] [phone]- Care Team Providers Name Role Phone Not on Staff, PCP Primary Care Physician Unavailable Encounter [facility] [place] Date(s): 05/24/19 - 05/31/19 [facility] [address] [facility], 4th Floor [address] [place] [phone]- [facility] Attending Physician: Hanh Merlos MD Referring [...]
[2022-02-04 16:41] VITALS: BP 169/111; PULSE 91; RESP 20; O2SAT 100
[2022-02-04] MEDS: lisinopriL 10 MG TABLET PO (16:44)
[2022-02-04 18:29] VITALS: BP 142/91; PULSE 96; RESP 16; TEMP 36.8; O2SAT 100
== END 2022-02-04 19:38 | disposition home or self-care (01) ==
PROVIDERS: Emergency Provider Emergency Medicine; PCP Nurse Practitioner Family
DX: I10 Essential (primary) hypertension (principal); S09.90XA Unspecified injury of head, initial encounter; W22.09XA Striking against other stationary object, initial encounter; J32.0 Chronic maxillary sinusitis; Y93.89 Activity, other specified; Y92.810 Car as the place of occurrence of the external cause; Y99.9 Unspecified external cause status
CPT/HCPCS: 70450; 93005; 99284

== ENCOUNTER 2022-02-17 08:27 | Outpatient (REF) | payer OTHER, SELFPAY ==
[2022-02-17 11:07] LABS: Appearance Urine Clear; Color Urine Yellow; Glucose Urine UA Negative (Negative); Leukocyte Esterase Urine Negative (Negative); Nitrite Urine Negative (Negative); Urine Blood Negative (Negative); Urine Ketones Negative (Negative); Urine Protein Negative (Neg-Trace)
[2022-02-17 11:43] LABS: Alanine Aminotransferase 43 U/L (0-31); Albumin Level 4.1 g/dL (3.5-5.0); Alkaline Phosphatase 86 U/L (39-117); Anion Gap 16 (12-20); Aspartate Amino Transferase 35 U/L (5-31); Bilirubin Total 0.2 mg/dL (0.0-1.0); Blood Urea Nitrogen 7 mg/dL (9-16); Calcium 9.1 mg/dL (8.4-10.2); Carbon Dioxide 22 mmol/L (22-29); Chloride 105 mmol/L (96-108); Estimated Glomerular Filt Rate > 60; Glucose Random 93 mg/dL (60-115); Potassium 4.3 mmol/L (3.3-5.1); Sodium 139 mmol/L (135-145); Total Protein 7.9 g/dL (6.5-8.0)
[2022-02-17 14:17] LABS: Basophils Percent Auto 0.3 % (0-2); Eosinophils Absolute Auto 0.1 X10*3/uL (0.0-0.4); Eosinophils Percent Auto 0.8 % (0-4); Hematocrit 36.6 % (37.0-47.0); Hemoglobin 11.4 g/dl (12.0-16.0); Imm Gran Abs Auto 0.03 X10*3/uL (0.00-0.03); Imm Gran Pct Auto 0.3 % (0.0-0.4); Lymphocytes Percent Auto 32.6 % (20-40); MANUAL DIFF FLAG NO; Mean Corpuscular HGB Conc 31.1 g/dl (31.0-35.0); Mean Corpuscular Hemoglobin 24.4 pg (27.0-33.0); Mean Corpuscular Volume 78.2 fL (80.0-98.0); Mean Platelet Volume 11.6 fL (9.4-12.3); Monocytes Absolute Auto 0.5 X10*3/uL (0.1-1.2); Monocytes Percent Auto 5.8 % (2-11); Neutrophils Absolute Auto 5.5 x10*3/uL (2.0-8.3); Neutrophils Percent Auto 60.2 % (45-73); Platelet Count 317 X10*3/uL (160-400); Red Blood Count 4.68 X10*6/uL (4.20-5.50); Red Cell Distribution Width 18.3 % (11.0-16.0); White Blood Count 9.2 X10*3/uL (4.8-10.8)
[2022-02-17 14:58] LABS: Iron 39 mcg/dL (30-160); Percent Iron Saturation 11 % (15-50); Total Iron Binding Capacity 371 mcg/dL (228-428); Unsaturated Iron Binding 332 ug/dL
[2022-02-17 15:18] LABS: Ferritin 52 ng/mL (10-250)
[2022-02-17 15:19] LABS: Folate 11.2 ng/mL (> or = 4.0); Vitamin B12 345 pg/mL (200-900)
[2022-02-19 17:06] LABS: Lyme Abs Screen <0.90 index
[2022-02-19 22:48] LABS: Antibody to SS-A Antigen <1.0 NEG AI (<1.0 NEG); Antibody to SS-B Antigen <1.0 NEG AI (<1.0 NEG)
[2022-02-23 12:06] LABS: Anti Nuclear Antibody Screen NEGATIVE (NEGATIVE)
== END 2022-02-17 08:28 | disposition home or self-care (01) ==
LOC: HO.HMGCLDS 08:27
PROVIDERS: PCP Nurse Practitioner Family; Visit Provider Nurse Practitioner Family
DX: D64.9 Anemia, unspecified (principal); I10 Essential (primary) hypertension; R53.83 Other fatigue; R06.83 Snoring
CPT/HCPCS: 36415; 80053; 81003; 82607; 82728; 82746; 83540; 85025; 86038; 86039; 86235; 86617; 86618

== ENCOUNTER 2022-03-31 | Outpatient (REF) | payer OTHER, SELFPAY ==
[2022-04-06 11:42] LABS: H Pylori Breath Test Positive (Negative)
== END 2022-03-31 00:01 | disposition home or self-care (01) ==
LOC: HO.LNP
PROVIDERS: Visit Provider Physician Assistant Surgical
DX: E66.01 Morbid (severe) obesity due to excess calories (principal)
CPT/HCPCS: 83013

== ENCOUNTER → 2022-03-31 10:07 | Outpatient (REF) | payer OTHER, SELFPAY ==
--- NOTE | ~2022-03-31 | XR_ITS ---
EXAMINATION: XR CHEST CLINICAL INFORMATION: Morbid obesity COMPARISON: None TECHNIQUE: 2 views of the chest were obtained. FINDINGS: No significant abnormality is noted involving the heart, lungs, mediastinum, bony thorax or soft tissues. XR/XR chest 2V IMPRESSION: No acute disease.
--- NOTE | 2022-03-31 10:16 | ECG_ITS ---
Test Reason : OBESITY Blood Pressure : / mmHG Vent. Rate : 086 BPM Atrial Rate : 086 BPM P-R Int : 144 ms QRS Dur : 122 ms QT Int : 406 ms P-R-T Axes : 015 -29 018 degrees QTc Int : 485 ms Normal sinus rhythm Right bundle branch block Abnormal ECG When compared with ECG of 04-FEB-2022 17:39, No significant change was found Referred By: Ernesto Bueno Electronically Signed By:ANTONIETA COREAS MD
[2022-03-31 10:27] LABS: MANUAL DIFF FLAG NO
[2022-03-31 10:51] LABS: Basophils Absolute Auto 0.1 X10*3/uL (0.0-0.2); Basophils Percent Auto 0.5 % (0-2); Eosinophils Absolute Auto 0.1 X10*3/uL (0.0-0.4); Eosinophils Percent Auto 0.9 % (0-4); Hematocrit 36.8 % (37.0-47.0); Hemoglobin 11.4 g/dl (12.0-16.0); Imm Gran Abs Auto 0.04 X10*3/uL (0.00-0.03); Imm Gran Pct Auto 0.4 % (0.0-0.4); Lymphocytes Absolute Auto 3.2 X10*3/uL (1.2-4.9); Lymphocytes Percent Auto 33.2 % (20-40); Mean Corpuscular Hemoglobin 24.2 pg (27.0-33.0); Mean Platelet Volume 10.7 fL (9.4-12.3); Monocytes Absolute Auto 0.6 X10*3/uL (0.1-1.2); Monocytes Percent Auto 6.6 % (2-11); Neutrophils Absolute Auto 5.7 x10*3/uL (2.0-8.3); Neutrophils Percent Auto 58.4 % (45-73); Platelet Count 322 X10*3/uL (160-400); Red Blood Count 4.72 X10*6/uL (4.20-5.50); Red Cell Distribution Width 17.7 % (11.0-16.0); White Blood Count 9.7 X10*3/uL (4.8-10.8)
[2022-03-31 11:15] LABS: Estimated Average Glucose 114 mg/dL; Hemoglobin A1c % 5.6 %
[2022-03-31 11:24] LABS: C Reactive Protein 1.44 mg/dL (< or = 0.50); Iron 31 mcg/dL (30-160); Percent Iron Saturation 8 % (15-50); Total Iron Binding Capacity 395 mcg/dL (228-428); Unsaturated Iron Binding 364 ug/dL
[2022-03-31 11:37] LABS: Ferritin 36 ng/mL (10-250); Insulin 25 uU/mL (2-29)
[2022-03-31 13:25] LABS: Vitamin D 25-OH Total 14.8 ng/mL (>30)
[2022-03-31 13:57] LABS: Folate 10.9 ng/mL (> or = 4.0); Vitamin B12 377 pg/mL (200-900)
[2022-04-04 10:17] LABS: Calcium (PTHI) 9.1 mg/dL (8.6-10.2); PTHI 71 pg/mL (16-77)
[2022-04-06 01:46] LABS: Zinc 79 mcg/dL (60-130)
[2022-04-07 13:04] LABS: Vitamin A 36 mcg/dL (38-98)
[2022-04-08 14:28] LABS: Vitamin B1 8 nmol/L (8-30)
== END ==
LOC: HO.CARD 10:07
PROVIDERS: PCP Nurse Practitioner Family; Visit Provider Physician Assistant Surgical
DX: E66.01 Morbid (severe) obesity due to excess calories (principal); D64.9 Anemia, unspecified
CPT/HCPCS: 36415; 71046; 82306; 82607; 82728; 82746; 83036; 83525; 83540; 83970; 84425; 84590; 84630; 85025; 86140; 93005

== ENCOUNTER 2022-04-05 16:34 | Outpatient (REF) | payer OTHER, SELFPAY | END 2022-04-05 16:35 | disposition home or self-care (01) | LOC: HO.LNP 16:34 | PROVIDERS: Visit Provider Physician Assistant Surgical | DX: Z13.89 Encounter for screening for other disorder (principal) ==

== ENCOUNTER 2022-04-27 15:57 | Emergency (ER) | payer OTHER, SELFPAY ==
--- NOTE | ~2022-04-27 | US_ITS ---
EXAMINATION: US ABDOMEN LIMITED CLINICAL INFORMATION: Right upper quadrant pain. Nausea and vomiting. COMPARISON: None TECHNIQUE: Real-time imaging of the right upper quadrant abdominal viscera. FINDINGS: PANCREAS: Limited views of the pancreas reveals no focal lesion. LIVER: The liver is normal in size. The liver contour is normal. Parenchymal echogenicity is increased. No focal hepatic lesion. There is no intrahepatic biliary duct dilatation seen. GALLBLADDER: Normal. The gallbladder is physiologically distended without evidence of stones, sludge, polyps, wall thickening or pericholecystic fluid. COMMON BILE DUCT: Normal in caliber measuring 0.4 cm in diameter. RIGHT KIDNEY: Normal. No hydronephrosis. No renal calculi or focal parenchymal lesions. The kidney measures 12.0 cm in maximum dimension. FREE FLUID: None. US/US abdomen limited IMPRESSION: Mild hepatic steatosis without focal lesion. Rest of the limited abdominal ultrasound is unremarkable.
[2022-04-27 16:22] VITALS: BP 149/95; PULSE 120; RESP 20; TEMP 36.8; O2SAT 99; BMI 41.3
--- NOTE | 2022-04-27 16:23 | ED.ABDPAIN ---
HPI - Abdominal Pain General Chief Complaint: Abdominal Pain <Tamia Barahona CNP - Last Filed: 04/27/22 16:27> Stated Complaint: abd pain swollen , vomitting , diarrhea <Tamia Barahona CNP - Last Filed: 04/27/22 16:27> Time Seen by Provider: 04/27/22 23:13 <Tamia Barahona CNP - Last Filed: 04/27/22 16:27> Source: patient <Damon Barnes MD - Last Filed: 04/28/22 01:12> Mode of arrival: ambulatory <Damon Barnes MD - Last Filed: 04/28/22 01:12> Limitations: no limitations <Damon Barnes MD - Last Filed: 04/28/22 01:12> History of Present Illness HPI narrative: Patient with history of hypertension, asthma being nauseated and vomiting since yesterday with epigastric pain had diarrhea about 20 times watery nonbloody diffuse abdominal cramps. Symptoms started after patient had supper yesterday ,Patient was seen by provider in [facility]. ultrasound of the abdomen done which was negative for gallstones. Lab workup showed slight leukocytosis WBC count of 11k <Damon Barnes MD - Last Filed: 04/28/22 01:12> Related Data Home Medications: Home Medications Medication Instructions Recorded Confirmed acetaminophen 500 mg tablet 1,000 mg PO Q6H PRN 04/13/21 04/27/22 (Tylenol Extra Strength) Previous Rx's Medication Instructions Recorded Updraft machine #1 ea 06/03/20 albuterol sulfate 2.5 mg/3 mL 2.5 mg (3 mL) inhalation Q6H PRN 12/11/20 (0.083 %) solution for nebulization shortness of breath or wheezing #90 mL blood pressure kit-extra large #1 ea 09/24/21 albuterol sulfate 90 mcg/actuation 2 puff inhalation Q6H PRN 01/26/22 aerosol inhaler bronchospasm 30 days #18 grams acyclovir 5 % topical cream 1 appl topical TID #5 grams 03/10/22 cyclobenzaprine 10 mg tablet 10 mg PO BEDTIME #14 tabs 03/10/22 lisinopril 10 mg tablet 10 mg PO DAILY #30 tabs 03/22/22 cholecalciferol (vitamin D3) 125 125 mcg PO DAILY #90 caps 03/31/22 mcg (5,000 unit) capsule cyanocobalamin (vitamin B-12) 500 500 mcg PO DAILY #60 tabs 03/31/22 mcg tablet ferrous sulfate 325 mg (65 mg 325 mg PO DAILY #60 tabs 03/31/22 iron) tablet (FeroSul) clarithromycin 500 mg tablet 500 mg PO Q12H 14 days #28 tabs 04/06/22 omeprazole 20 mg capsule,delayed 20 mg PO DAILY #28 caps 04/07/22 release vitamin A palmitate 10,000 unit 10,000 unit PO DAILY #30 caps 04/07/22 capsule loperamide 2 mg capsule (Imodium 2 mg PO Q6H PRN loose stool #10 04/28/22 A-D) caps ondansetron 4 mg disintegrating 4 mg PO Q6-8H PRN nausea and 04/28/22 tablet vomiting #7 tabs <Tamia Barahona CNP - Last Filed: 04/27/22 16:27> Allergies/Adverse Reactions: Allergies Allergy/AdvReac Type Severity Reaction Status Date / Time acetaminophen [From PERCOCET] Allergy Mild ITCHING Verified 04/27/22 14:56 oxycodone [From PERCOCET] Allergy Mild ITCHING Verified 04/27/22 14:56 <Tamia Barahona CNP - Last Filed: 04/27/22 16:27> Review of Systems Review of Systems Yes all other systems are reviewed and are negative <Damon Barnes MD - Last Filed: 04/28/22 01:12> [facility] Past Medical History Medical History: Medical History Cervical radiculopathy HTN (hypertension) Uterine fibroid Uterine fibroids affecting <Tamia Barahona CNP - Last Filed: 04/27/22 16:27> Surgical History: Surgical History H/O right knee surgery History of lumbar surgery <Tamia Barahona CNP - Last Filed: 04/27/22 16:27> Family History Family History: Family History Father No problems noted. Mother No problems noted. Maternal Grandfather No problems noted. Maternal Grandmother Diabetes mellitus Paternal Grandfather Diabetes mellitus Paternal Grandmother Diabetes mellitus Cancer Brother No problems noted. Brother No problems noted. Sister No problems noted. Other Mental health disorder <Tamia Barahona CNP - Last Filed: 04/27/22 16:27> Social History Social History: Social History Housing: Apartment Alcohol intake: former Patient Tobacco Use Status: Never used Tobacco e-Cigarette/Vaping Use: Never Used Second Hand Smoke Exposure: No Advance Directives: No Advance Directives Information Provided: No service: No Current occupational status: employed Current occupation: [employer] Gender identity: Female Cognitive needs: No Hearing needs: No Vision needs: Yes (glasses) <Tamia Barahona CNP - Last Filed: 04/27/22 16:27> Physical Exam ED Vital Signs: Vital Signs - 24 hr 04/27/22 16:22 12 23:27 Temperature 98.3 F 99.0 F Pulse Rate 120 H 105 H Respiratory Rate 20 18 Blood Pressure 149/95 H 111/64 Pulse Oximetry 99 96 Oxygen Delivery Method Room Air Room Air BMI result Body Mass Index 41.3 <Tamia Barahona CNP - Last Filed: 04/27/22 16:27> Vital Signs - 24 hr 04/27/22 16:22 04/27/22 23:27 Temperature 98.3 F 99.0 F Pulse Rate 120 H 105 H Respiratory Rate 20 18 Blood Pressure 149/95 H 111/64 Pulse Oximetry 99 96 Oxygen Delivery Method Room Air Room Air BMI result Body Mass Index 41.3 <Damon Barnes MD - Last Filed: 04/28/22 01:12> Appearance: Alert. Oriented X3. No acute distress.obese Eyes: no pallor/icterus ENT: Pharynx normal. Oral Mucosa moist Neck: Normal inspection. Neck supple. CVS: Normal heart rate and rhythm. Pulses normal. Respiratory: No respiratory distress. Equal air entry bilateral, no wheezing/rales/rhonchi Abdomen: Soft mild epig tenderness, no rebound tenderness or guarding. Bowel sounds are present, no mass palpable, no CVA tenderness Skin: Skin warm and dry. Normal skin color. Normal skin turgor. Extremities: No lower extremity edema. No calf tenderness Neuro: Oriented X 3. No motor deficit. <Damon Barnes MD - Last Filed: 04/28/22 01:12> Course Course Course Narrative: RME: Patient is a 42-year-old female presents emergency department for severe epigastric pain. Vomiting x1 last night brown in nature, diarrhea multiple times; times 20. Onset of symptoms was yesterday evening. Denies fevers or chills. Denies any sick contacts. No prior abdominal surgeries. She is noted to be tachycardic with heart rate 130, afebrile without tachypnea or tachycardia. Positive Santos sign upon examination, diffuse upper abdominal tenderness. Plan: CBC, CMP, lipase, EKG, ultrasound RUQ, urinalysis <Tamia Barahona CNP - Last Filed: 04/27/22 16:27> Medical Decision Making Medical Decision Making [facility] Narrative: Patient feeling much better now taking p.o. fluids will discharge patient home lab stable ultrasound abdomen negative <Damon Barnes MD - Last Filed: 04/28/22 01:12> Lab Data [facility] Lab Attestation statement: I reviewed the patient's lab results. <Damon Barnes MD - Last Filed: 04/28/22 01:12> Result Diagrams: : 04/27/22 17:41 04/27/22 17:41 <Tamia Barahona CNP - Last Filed: 04/27/22 16:27> Labs: Lab Results 04/27/22 04/27/22 04/27/22 Range/Units 17:41 17:41 17:41 WBC 11.7 H (4.8-10.8) X10*3/uL RBC 4.99 (4.20-5.50) X10*6/uL Hgb 12.2 (12.0-16.0) g/dl Hct 38.0 (37.0-47.0) % MCV 76.2 L (80.0-98.0) fL MCH 24.4 L (27.0-33.0) pg MCHC 32.1 (31.0-35.0) g/dl RDW 17.0 H (11.0-16.0) % Plt Count 372 (160-400) X10*3/uL MPV 10.8 (9.4-12.3) fL Immature Gran % (Auto) 0.6 H (0.0-0.4) % Neut % (Auto) 79.9 H (45-73) % Lymph % (Auto) 13.2 L (20-40) % [place] % (Auto) 6.0 (2-11) % Eos % (Auto) 0.0 (0-4) % Baso % (Auto) 0.3 (0-2) % Lymph # (Auto) 1.5 (1.2-4.9) X10*3/uL [place] # (Auto) 0.7 (0.1-1.2) X10*3/uL Eos # (Auto) 0.0 (0.0-0.4) X10*3/uL Baso # (Auto) 0.0 (0.0-0.2) X10*3/uL Abs Immat Gran (auto) 0.07 H (0.00-0.03) X10*3/uL Absolute Neuts (auto) 9.3 H (2.0-8.3) x10*3/uL Absolute Nucleated RBC 0.000 (0.0-0.012) X10*3/uL Nucleated RBC % (auto) 0.0 (0.0-0.2) /100WBC Sodium 137 (135-145) mmol/L Potassium 4.0 (3.3-5.1) mmol/L Chloride 105 (96-108) mmol/L Carbon Dioxide 22 (22-29) mmol/L Anion Gap 14 (12-20) BUN 12 (9-16) mg/dL Creatinine 0.72 (0.5-1.4) mg/dL Estim Creat Clear Calc 131.8 Estimated GFR > 60 Random Glucose 118 H (60-115) mg/dL Calcium 9.4 (8.4-10.2) mg/dL Total Bilirubin 0.3 (0.0-1.0) mg/dL AST 22 (5-31) U/L ALT 37 H (0-31) U/L Alkaline Phosphatase 93 (39-117) U/L Troponin I High Sens < 3.5 (<3.5-17.0) ng/L Total Protein 8.2 H (6.5-8.0) g/dL Albumin 4.4 (3.5-5.0) g/dL Lipase 18 (8-78) U/L COVID-19 (INDIO) (Negative) COVID-19 Clin Com Influenza Type A (DENZEL) (Negative) Influenza Type B (DENZEL) (Negative) Influenza A & B Note 04/27/22 04/27/22 Range/Units 17:41 17:41 WBC (4.8-10.8) X10*3/uL RBC (4.20-5.50) X10*6/uL Hgb (12.0-16.0) g/dl Hct (37.0-47.0) % MCV (80.0-98.0) fL MCH (27.0-33.0) pg MCHC (31.0-35.0) g/dl RDW (11.0-16.0) % Plt Count (160-400) X10*3/uL MPV (9.4-12.3) fL Immature Gran % (Auto) (0.0-0.4) % Neut % (Auto) (45-73) % Lymph % (Auto) (20-40) % [place] % (Auto) (2-11) % Eos % (Auto) (0-4) % Baso % (Auto) (0-2) % Lymph # (Auto) (1.2-4.9) X10*3/uL [place] # (Auto) (0.1-1.2) X10*3/uL Eos # (Auto) (0.0-0.4) X10*3/uL Baso # (Auto) (0.0-0.2) X10*3/uL Abs Immat Gran (auto) (0.00-0.03) X10*3/uL Absolute Neuts (auto) (2.0-8.3) x10*3/uL Absolute Nucleated RBC (0.0-0.012) X10*3/uL Nucleated RBC % (auto) (0.0-0.2) /100WBC Sodium (135-145) mmol/L Potassium (3.3-5.1) mmol/L Chloride (96-108) mmol/L Carbon Dioxide (22-29) mmol/L Anion Gap (12-20) BUN (9-16) mg/dL Creatinine (0.5-1.4) mg/dL Estim Creat Clear Calc Estimated GFR Random Glucose (60-115) mg/dL Calcium (8.4-10.2) mg/dL Total Bilirubin (0.0-1.0) mg/dL AST (5-31) U/L ALT (0-31) U/L Alkaline Phosphatase (39-117) U/L Troponin I High Sens (<3.5-17.0) ng/L Total Protein (6.5-8.0) g/dL Albumin (3.5-5.0) g/dL Lipase (8-78) U/L COVID-19 (INDIO) Negative (Negative) COVID-19 Clin Com See Note Influenza Type A (DENZEL) Negative (Negative) Influenza Type B (DENZEL) Negative (Negative) Influenza A & B Note See Note <Tamia Barahona, BABY SITTER - Last Filed: 04/27/22 16:27> Lab Results 04/27/22 04/27/22 04/27/22 Range/Units 17:41 17:41 17:41 WBC 11.7 H (4.8-10.8) X10*3/uL RBC 4.99 (4.20-5.50) X10*6/uL Hgb 12.2 (12.0-16.0) g/dl Hct 38.0 (37.0-47.0) % MCV 76.2 L (80.0-98.0) fL MCH 24.4 L (27.0-33.0) pg MCHC 32.1 (31.0-35.0) g/dl RDW 17.0 H (11.0-16.0) % Plt Count 372 (160-400) X10*3/uL MPV 10.8 (9.4-12.3) fL Immature Gran % (Auto) 0.6 H (0.0-0.4) % Neut % (Auto) 79.9 H (45-73) % Lymph % (Auto) 13.2 L (20-40) % [place] % (Auto) 6.0 (2-11) % Eos % (Auto) 0.0 (0-4) % Baso % (Auto) 0.3 (0-2) % Lymph # (Auto) 1.5 (1.2-4.9) X10*3/uL [place] # (Auto) 0.7 (0.1-1.2) X10*3/uL Eos # (Auto) 0.0 (0.0-0.4) X10*3/uL Baso # (Auto) 0.0 (0.0-0.2) X10*3/uL Abs Immat Gran (auto) 0.07 H (0.00-0.03) X10*3/uL Absolute Neuts (auto) 9.3 H (2.0-8.3) x10*3/uL Absolute Nucleated RBC 0.000 (0.0-0.012) X10*3/uL Nucleated RBC % (auto) 0.0 (0.0-0.2) /100WBC Sodium 137 (135-145) mmol/L Potassium 4.0 (3.3-5.1) mmol/L Chloride 105 (96-108) mmol/L Carbon Dioxide 22 (22-29) mmol/L Anion Gap 14 (12-20) BUN 12 (9-16) mg/dL Creatinine 0.72 (0.5-1.4) mg/dL Estim Creat Clear Calc 131.8 Estimated GFR > 60 Random Glucose 118 H (60-115) mg/dL Calcium 9.4 (8.4-10.2) mg/dL Total Bilirubin 0.3 (0.0-1.0) mg/dL AST 22 (5-31) U/L ALT 37 H (0-31) U/L Alkaline Phosphatase 93 (39-117) U/L Troponin I High Sens < 3.5 (<3.5-17.0) ng/L Total Protein 8.2 H (6.5-8.0) g/dL Albumin 4.4 (3.5-5.0) g/dL Lipase 18 (8-78) U/L COVID-19 (INDIO) (Negative) COVID-19 Clin Com Influenza Type A (DENZEL) (Negative) Influenza Type B (DENZEL) (Negative) Influenza A & B Note 04/27/22 04/27/22 Range/Units 17:41 17:41 WBC (4.8-10.8) X10*3/uL RBC (4.20-5.50) X10*6/uL Hgb (12.0-16.0) g/dl Hct (37.0-47.0) % MCV (80.0-98.0) fL MCH (27.0-33.0) pg MCHC (31.0-35.0) g/dl RDW (11.0-16.0) % Plt Count (160-400) X10*3/uL MPV (9.4-12.3) fL Immature Gran % (Auto) (0.0-0.4) % Neut % (Auto) (45-73) % Lymph % (Auto) (20-40) % [place] % (Auto) (2-11) % Eos % (Auto) (0-4) % Baso % (Auto) (0-2) % Lymph # (Auto) (1.2-4.9) X10*3/uL [place] # (Auto) (0.1-1.2) X10*3/uL Eos # (Auto) (0.0-0.4) X10*3/uL Baso # (Auto) (0.0-0.2) X10*3/uL Abs Immat Gran (auto) (0.00-0.03) X10*3/uL Absolute Neuts (auto) (2.0-8.3) x10*3/uL Absolute Nucleated RBC (0.0-0.012) X10*3/uL Nucleated RBC % (auto) (0.0-0.2) /100WBC Sodium (135-145) mmol/L Potassium (3.3-5.1) mmol/L Chloride (96-108) mmol/L Carbon Dioxide (22-29) mmol/L Anion Gap (12-20) BUN (9-16) mg/dL Creatinine (0.5-1.4) mg/dL Estim Creat Clear Calc Estimated GFR Random Glucose (60-115) mg/dL Calcium (8.4-10.2) mg/dL Total Bilirubin (0.0-1.0) mg/dL AST (5-31) U/L ALT (0-31) U/L Alkaline Phosphatase (39-117) U/L Troponin I High Sens (<3.5-17.0) ng/L Total Protein (6.5-8.0) g/dL Albumin (3.5-5.0) g/dL Lipase (8-78) U/L COVID-19 (INDIO) Negative (Negative) COVID-19 Clin Com See Note Influenza Type A (DENZEL) Negative (Negative) Influenza Type B (DENZEL) Negative (Negative) Influenza A & B Note See Note <Damon Barnes MD - Last Filed: 04/28/22 01:12> Medications Administered Discontinued Medications Generic Name Dose Route Start Last Admin Trade Name Freq PRN Reason Stop Dose Admin Dicyclomine HCl 20 mg 04/27/22 23:25 04/28/22 00:08 Dicyclomine Hcl 10 Mg Capsule PO 04/27/22 23:26 20 mg ONCE ONE Administration Loperamide HCl 4 mg 04/27/22 23:25 04/28/22 00:08 Loperamide Hcl 2 Mg Capsule PO 04/27/22 23:26 4 mg ONCE ONE Administration Ondansetron HCl 4 mg 04/27/22 23:25 04/28/22 00:07 Ondansetron Odt 4 Mg Tab.Rapdis TRANSLINGU 04/27/22 23:26 4 mg ONCE ONE Administration <Tamia Barahona CNP - Last Filed: 04/27/22 16:27> Medications Administered Discontinued Medications Generic Name Dose Route Start Last Admin Trade Name Freq PRN Reason Stop Dose Admin Dicyclomine HCl 20 mg 04/27/22 23:25 04/28/22 00:08 Dicyclomine Hcl 10 Mg Capsule PO 04/27/22 23:26 20 mg ONCE ONE Administration Loperamide HCl 4 mg 04/27/22 23:25 04/28/22 00:08 Loperamide Hcl 2 Mg Capsule PO 04/27/22 23:26 4 mg ONCE ONE Administration Ondansetron HCl 4 mg 04/27/22 23:25 04/28/22 00:07 Ondansetron Odt 4 Mg Tab.Rapdis TRANSLINGU 04/27/22 23:26 4 mg ONCE ONE Administration <Damon Barnes MD - Last Filed: 04/28/22 01:12> Discharge Plan Discharge Clinical Impression: Gastroenteritis <Tamia Barahona CNP - Last Filed: 04/27/22 16:27> Patient Disposition: Home, Self-Care <Tamia Barahona CNP - Last Filed: 04/27/22 16:27> Instructions: Gastroenteritis (ED) <Tamia Barahona CNP - Last Filed: 04/27/22 16:27> Additional Instructions: Drink plenty of fluids Medicine for nausea as prescribed Imodium for severe diarrhea Report to ER if not better <Tamia Barahona CNP - Last Filed: 04/27/22 16:27> Prescriptions: New ondansetron 4 mg tablet,disintegrating 4 mg PO Q6-8H PRN (Reason: nausea and vomiting) Qty: 7 0RF loperamide [Imodium A-D] 2 mg capsule 2 mg PO Q6H PRN (Reason: loose stool) Qty: 10 0RF No Action (DME) Updraft machine See Rx Instructions .Route .MEDSUPPLY Qty: 1 0RF Rx Instructions: As directed albuterol sulfate 90 mcg/actuation HFA aerosol inhaler 2 puff inhalation Q6H PRN (Reason: bronchospasm) 30 Days Qty: 18 2RF lisinopril 10 mg tablet 10 mg PO DAILY Qty: 30 2RF cholecalciferol (vitamin D3) 125 mcg (5,000 unit) capsule 125 mcg PO DAILY Qty: 90 1RF cyanocobalamin (vitamin B-12) 500 mcg tablet 500 mcg PO DAILY Qty: 60 0RF ferrous sulfate [FeroSul] 325 mg (65 mg iron) tablet 325 mg PO DAILY Qty: 60 0RF clarithromycin 500 mg tablet 500 mg PO Q12H 14 Days Qty: 28 0RF omeprazole 20 mg capsule,delayed release(DR/EC) 20 mg PO DAILY Qty: 28 0RF vitamin A palmitate 10,000 unit capsule 10,000 unit PO DAILY Qty: 30 2RF (DME) blood pressure kit-extra large Kit See Rx Instructions .Route Qty: 1 0RF Rx Instructions: As directed albuterol sulfate 2.5 mg /3 mL (0.083 %) solution for nebulization 2.5 mg inhalation Q6H PRN (Reason: shortness of breath or wheezing) Qty: 90 0RF acetaminophen [Tylenol Extra Strength] 500 mg tablet 1,000 mg PO Q6H PRN cyclobenzaprine 10 mg tablet 10 mg PO BEDTIME Qty: 14 0RF acyclovir 5 % cream 1 appl topical TID Qty: 5 0RF <Tamia Barahona, GONZALO - Last Filed: 04/27/22 16:27>
--- NOTE | 2022-04-27 16:27 | ECG_ITS ---
Test Reason : ABDOMINAL PAIN Blood Pressure : / mmHG Vent. Rate : 126 BPM Atrial Rate : 126 BPM P-R Int : 140 ms QRS Dur : 118 ms QT Int : 332 ms P-R-T Axes : 037 -43 014 degrees QTc Int : 480 ms Sinus tachycardia Left axis deviation Right bundle branch block Abnormal ECG When compared with ECG of 31-MAR-2022 10:26, T wave amplitude has decreased in Anterior leads Referred By: Tamia Barahona Electronically Signed By:Talat Lerma
[2022-04-27 17:46] LABS: MANUAL DIFF FLAG NO
[2022-04-27 17:48] LABS: Basophils Percent Auto 0.3 % (0-2); Hemoglobin 12.2 g/dl (12.0-16.0); Imm Gran Abs Auto 0.07 X10*3/uL (0.00-0.03); Imm Gran Pct Auto 0.6 % (0.0-0.4); Lymphocytes Absolute Auto 1.5 X10*3/uL (1.2-4.9); Lymphocytes Percent Auto 13.2 % (20-40); Mean Corpuscular HGB Conc 32.1 g/dl (31.0-35.0); Mean Corpuscular Hemoglobin 24.4 pg (27.0-33.0); Mean Corpuscular Volume 76.2 fL (80.0-98.0); Mean Platelet Volume 10.8 fL (9.4-12.3); Monocytes Absolute Auto 0.7 X10*3/uL (0.1-1.2); Neutrophils Absolute Auto 9.3 x10*3/uL (2.0-8.3); Neutrophils Percent Auto 79.9 % (45-73); Platelet Count 372 X10*3/uL (160-400); Red Blood Count 4.99 X10*6/uL (4.20-5.50); White Blood Count 11.7 X10*3/uL (4.8-10.8)
[2022-04-27 18:09] LABS: COVID-19 Test Negative (Negative); IDNOW Serial# 16C4AD1C; IDNOW Serial# BCCEAD1C; Influenza A Negative (Negative); Influenza B2 Negative (Negative)
[2022-04-27 18:11] LABS: Alanine Aminotransferase 37 U/L (0-31); Albumin Level 4.4 g/dL (3.5-5.0); Alkaline Phosphatase 93 U/L (39-117); Anion Gap 14 (12-20); Aspartate Amino Transferase 22 U/L (5-31); Bilirubin Total 0.3 mg/dL (0.0-1.0); Blood Urea Nitrogen 12 mg/dL (9-16); Calcium 9.4 mg/dL (8.4-10.2); Carbon Dioxide 22 mmol/L (22-29); Chloride 105 mmol/L (96-108); Creatinine Clr Calc Pharmacy 131.8; Estimated Glomerular Filt Rate > 60; Glucose Random 118 mg/dL (60-115); Lipase 18 U/L (8-78); Sodium 137 mmol/L (135-145); Total Protein 8.2 g/dL (6.5-8.0)
[2022-04-27 18:18] LABS: Troponin-I High Sensitivity < 3.5 ng/L (<3.5-17.0)
[2022-04-27 23:27] VITALS: BP 111/64; PULSE 105; RESP 18; TEMP 37.2; O2SAT 96
[2022-04-28] MEDS: Ondansetron ODT 4 MG TAB.RAPDIS TRANSLINGU (00:07)
[2022-04-28] MEDS: Loperamide HCl 2 MG CAPSULE 4 MG PO (00:08)
[2022-04-28] MEDS: Dicyclomine HCl 10 MG CAPSULE 20 MG PO (00:08)
== END 2022-04-28 01:38 | disposition home or self-care (01) ==
PROVIDERS: Nurse Practitioner Family; Emergency Provider Internal Medicine; PCP Nurse Practitioner Family
DX: K52.9 Noninfective gastroenteritis and colitis, unspecified (principal); Z20.822 Contact with and (suspected) exposure to COVID-19
CPT/HCPCS: 76705; 80053; 83690; 84484; 85025; 87502; 87635; 93005; 99284

== ENCOUNTER → 2022-04-30 09:06 | Outpatient (BNVA) | payer OTHER, SELFPAY | PROVIDERS: PCP Nurse Practitioner Family; Visit Provider Physician Assistant Surgical | DX: E66.01 Morbid (severe) obesity due to excess calories (principal) ==

== ENCOUNTER → 2022-05-14 09:02 | Outpatient (BNVA) | payer OTHER, SELFPAY | PROVIDERS: PCP Nurse Practitioner Family; Visit Provider Physician Assistant Surgical | DX: E66.9 Obesity, unspecified (principal) ==

== ENCOUNTER 2022-05-14 15:13 | Outpatient (REF) | payer OTHER, SELFPAY ==
[2022-05-15 14:42] LABS: H Pylori Breath Test Negative (Negative)
== END 2022-05-14 15:14 | disposition home or self-care (01) ==
LOC: HO.LNP 15:13
PROVIDERS: Visit Provider Physician Assistant Surgical
DX: Z01.818 Encounter for other preprocedural examination (principal)
CPT/HCPCS: 83013

== ENCOUNTER 2022-05-19 09:02 | Outpatient (REF) | payer OTHER, SELFPAY ==
--- NOTE | ~2022-05-19 | FL_ITS ---
EXAMINATION: FL UPPER GI SERIES CLINICAL INFORMATION: E66.01. Bariatric service evaluation. COMPARISON: Abdominal ultrasound 04/27/2022, chest radiographs 03/31/2022, lumbar radiographs 07/30/2021 TECHNIQUE: Upper GI series is performed using fluoroscopic evaluation in addition to multiple fluoroscopic spot views. The patient is imaged both upright and prone and using both thick and thin barium sulfate along with effervescent granules. Fluoroscopy time: 1.1 minutes DAP: 22.075 Gycm2 Fluoroscopic spot images: 17 FINDINGS: There is normal esophageal motility. There is no obstruction, stricture, ulceration, or hernia. There is moderate gastroesophageal reflux demonstrated during the water siphon test to the proximal thoracic esophagus. The stomach shows no thickened folds or ulcer crater or outlet obstruction. The duodenal bulb is pliable and without ulcer crater or scarring. The post bulbar duodenum the jejunal mucosal pattern are unremarkable. There is a short tubular metallic structure overlying the right abdomen on some of the images noted after the patient has left, presumably related to clothing artifact. If clinically indicated, KUB may be performed to FL/FL upper GI w air IMPRESSION: -Moderate gastroesophageal reflux demonstrated during water siphon test to the proximal thoracic esophagus. -No hiatal hernia, ulcer, scarring. -Short tubular metallic structure overlying right abdomen, presumably related to clothing artifact.
--- NOTE | ~2022-05-19 | US_ITS ---
EXAMINATION: US COMPLETE ABDOMEN WITH LIVER ELASTOGRAPHY CLINICAL INFORMATION: Obesity. Assess for fibrosis COMPARISON: None. TECHNIQUE: Real-time imaging of the abdominal viscera. Noninvasive ultrasound liver fibrosis assessment is performed using Manolo ElastPQ point quantification shear wave elastography (2D-SWE) with a C5-2 MHz transducer. Multiple elastography samples are obtained. FINDINGS: PANCREAS: Normal. The visualized pancreatic head and body are normal in appearance. The remainder of the pancreas is obscured from visualization by the overlying bowel gas. ABDOMINAL AORTA: The proximal, middle, and distal aortic segments are normal in caliber. INFERIOR VENA CAVA: Visualized portions are normal. LIVER: Mildly enlarged. The liver demonstrates normal contour but diffuse increased echogenicity. No focal lesion or intrahepatic biliary duct dilatation. The right lobe measures 18 cm in length. The left lobe measures 13.1 cm in length. Portal flow is hepatopedal Shear wave liver elastography median stiffness is 1.41 m/s (reference: normal median stiffness is 1.3 m/s or less). IQR/median stiffness to assess sampling precision is 0.02 (reference: good quality data set is IQR/median stiffness of 0.15 or less). GALLBLADDER: Normal. The gallbladder is physiologically distended without evidence of stones, sludge, polyps, wall thickening or pericholecystic fluid. COMMON BILE DUCT: Normal in caliber measuring 0.5 cm in diameter. RIGHT KIDNEY: Normal. No hydronephrosis. No renal calculi or focal parenchymal lesions. The kidney measures 11.1 cm in maximum dimension. LEFT KIDNEY: Normal. No hydronephrosis. No renal calculi or focal parenchymal lesions. The kidney measures 12.1 cm in maximum dimension. SPLEEN: Normal. The spleen measures 11.2 cm in maximum dimension. FREE FLUID: None. US/US abdomen comp w elastography IMPRESSION: 1. Changes of hepatic steatosis and mild hepatomegaly. 2. Liver elastography: In the absence of other known clinical signs, measurements rule out compensated advanced chronic liver disease. If there are known clinical signs, further testing may be needed for confirmation. REFERENCE: Society of Radiologists in Ultrasound Liver Stiffness Thresholds (2020): LIVER STIFFNESS THRESHOLDS: *Liver Stiffness equal or less than 1.3 m/s: High probability of being normal. *Liver Stiffness less than 1.7 m/s: In the absence of other known clinical signs, rules out compensated advanced chronic liver disease. *Liver Stiffness 1.7-2.1 m/s: Suggestive of compensated advanced chronic liver disease but need further test for confirmation. *Liver Stiffness over 2.1 m/s: Rules in compensated advanced chronic liver disease. *Liver Stiffness over 2.4 m/s: Suggestive of clinically significant portal hypertension. QUALITY OF DATA SET: *IQR/Median value equal or less than 0.15 implies a quality data set. *IQR/Median value over 0.15 implies a poor quality data set. SIGNIFICANT CHANGE FROM PRIOR EXAM: Significant change if liver stiffness measurement is 10% or greater from prior exam. OTHER CONSIDERATIONS: The stage of liver fibrosis may be overestimated in the setting of acute hepatitis, liver inflammation, elevated liver function tests, hepatic vascular congestion, obstructive cholestasis, non-fasting state, and infiltrative diseases such as amyloidosis and lymphoma. In some patients with NAFLD, the liver stiffness thresholds for compensated advanced chronic liver disease may be lower. In causes other than viral hepatitis and NAFLD, liver stiffness thresholds are not well established.
== END 2022-05-19 09:03 | disposition home or self-care (01) ==
LOC: HO.US 09:02
PROVIDERS: PCP Nurse Practitioner Family; Visit Provider Physician Assistant Surgical
DX: Z01.818 Encounter for other preprocedural examination (principal); E66.01 Morbid (severe) obesity due to excess calories; K21.9 Gastro-esophageal reflux disease without esophagitis
CPT/HCPCS: 74246; 76705; 76981

== ENCOUNTER → 2022-05-20 09:30 | Outpatient (BNVA) | payer OTHER, SELFPAY | PROVIDERS: PCP Nurse Practitioner Family; Referring Provider Physician Assistant Surgical; Visit Provider Dietitian, Registered | DX: E66.01 Morbid (severe) obesity due to excess calories (principal) | CPT/HCPCS: 97802 ==

== ENCOUNTER → 2022-05-25 10:03 | Outpatient (BNVA) | payer OTHER, SELFPAY | PROVIDERS: PCP Nurse Practitioner Family; Visit Provider Surgery | DX: E66.01 Morbid (severe) obesity due to excess calories (principal) ==

== ENCOUNTER → 2022-06-01 09:13 | Outpatient (BNVA) | payer OTHER, SELFPAY | PROVIDERS: PCP Nurse Practitioner Family; Visit Provider Nurse Practitioner Family | DX: Z13.89 Encounter for screening for other disorder (principal) ==

== ENCOUNTER 2022-06-08 10:00 | Outpatient (REF) | payer OTHER, SELFPAY ==
[2022-06-08 11:01] LABS: MANUAL DIFF FLAG NO
[2022-06-08 11:23] LABS: Basophils Percent Auto 0.2 % (0-2); Eosinophils Absolute Auto 0.1 X10*3/uL (0.0-0.4); Eosinophils Percent Auto 0.8 % (0-4); Hemoglobin 11.4 g/dl (12.0-16.0); Imm Gran Abs Auto 0.04 X10*3/uL (0.00-0.03); Imm Gran Pct Auto 0.4 % (0.0-0.4); Lymphocytes Absolute Auto 2.8 X10*3/uL (1.2-4.9); Lymphocytes Percent Auto 30.1 % (20-40); Mean Corpuscular HGB Conc 31.7 g/dl (31.0-35.0); Mean Corpuscular Hemoglobin 24.3 pg (27.0-33.0); Mean Corpuscular Volume 76.6 fL (80.0-98.0); Mean Platelet Volume 11.1 fL (9.4-12.3); Monocytes Absolute Auto 0.7 X10*3/uL (0.1-1.2); Monocytes Percent Auto 7.2 % (2-11); Neutrophils Absolute Auto 5.7 x10*3/uL (2.0-8.3); Neutrophils Percent Auto 61.3 % (45-73); Platelet Count 353 X10*3/uL (160-400); Red Cell Distribution Width 17.7 % (11.0-16.0); White Blood Count 9.3 X10*3/uL (4.8-10.8)
== END 2022-06-08 10:01 | disposition home or self-care (01) ==
LOC: HO.LAB 10:00
PROVIDERS: PCP Nurse Practitioner Family; Referring Provider Nurse Practitioner Family; Visit Provider Surgery
DX: E66.01 Morbid (severe) obesity due to excess calories (principal); K76.0 Fatty (change of) liver, not elsewhere classified; R06.83 Snoring; I10 Essential (primary) hypertension; D64.9 Anemia, unspecified; D25.9 Leiomyoma of uterus, unspecified; D35.9 Benign neoplasm of endocrine gland, unspecified; K21.9 Gastro-esophageal reflux disease without esophagitis; R06.09 Other forms of dyspnea; R53.83 Other fatigue; J45.909 Unspecified asthma, uncomplicated; Z68.42 Body mass index [BMI] 45.0-49.9, adult; Z71.3 Dietary counseling and surveillance
CPT/HCPCS: 36415; 85025

== ENCOUNTER → 2022-06-18 11:11 | Outpatient (BNVA) | payer OTHER, SELFPAY | PROVIDERS: PCP Nurse Practitioner Family; Visit Provider Physician Assistant Surgical | DX: Z13.89 Encounter for screening for other disorder (principal) ==

== ENCOUNTER → 2022-07-09 19:30 | Outpatient (REF) | payer OTHER, SELFPAY | LOC: HO.SL 19:30 | PROVIDERS: PCP Nurse Practitioner Family; Visit Provider Nurse Practitioner Family | DX: G47.9 Sleep disorder, unspecified (principal); R06.83 Snoring | CPT/HCPCS: 95810 ==

== ENCOUNTER → 2022-09-09 08:22 | Outpatient (BNVA) | payer OTHER, SELFPAY | PROVIDERS: PCP Nurse Practitioner Family; Visit Provider Student in an Organized Health Care Education/Training Program ==

== ENCOUNTER 2022-09-09 09:39 | Outpatient (REF) | payer OTHER, SELFPAY ==
[2022-09-09 11:09] LABS: Erythrocyte Sedimentation Rate 54 MM/HR (0-20)
[2022-09-09 11:12] LABS: C Reactive Protein 1.56 mg/dL (< or = 0.50)
[2022-09-09 11:36] LABS: TSH reflex Free T4 2.04 uIU/mL (0.32-4.0)
[2022-09-10 21:07] LABS: Antibody to SS-A Antigen <1.0 NEG AI (<1.0 NEG); Antibody to SS-B Antigen <1.0 NEG AI (<1.0 NEG)
[2022-09-13 19:28] LABS: Complement C3 154 mg/dL (83-193)
[2022-09-13 23:48] LABS: A. Phagocytphilium DNA,RT-PCR NOT DETECTED (NOT DETECTED); Babesia Microti DNA, RT-PCR NOT DETECTED (NOT DETECTED); Borrelia Miyamotoi,DNA RT-PCR NOT DETECTED (NOT DETECTED); E.Chaffeensis DNA RT-PCR NOT DETECTED (NOT DETECTED); Lyme(Borrelia ssp)DNA RT-PCR NOT DETECTED (NOT DETECTED)
[2022-09-15 13:43] LABS: DNAds, Crithidia Antibody Negative (Negative)
== END 2022-09-09 09:40 | disposition home or self-care (01) ==
LOC: HO.10HDL 09:39
PROVIDERS: Student in an Organized Health Care Education/Training Program; Visit Provider Nurse Practitioner Family
DX: D72.829 Elevated white blood cell count, unspecified (principal); R53.83 Other fatigue; M32.9 Systemic lupus erythematosus, unspecified; R21 Rash and other nonspecific skin eruption
CPT/HCPCS: 36415; 84443; 85652; 86140; 86160; 86235; 86255; 87798; 87801

== ENCOUNTER 2022-09-18 10:01 | Outpatient (REF) | payer OTHER, SELFPAY ==
--- NOTE | ~2022-09-18 | MM_ITS ---
EXAMINATION: MM SCREENING DIGITAL BREAST TOMOSYNTHESIS, BILATERAL CLINICAL INFORMATION: Screening. Asymptomatic. The lifetime risk of breast cancer based on the Tyrer-Cuzick Model is 12%. COMPARISON: Mammography: 07/18/2020 (baseline). TECHNIQUE: Digital breast tomosynthesis is performed in both the craniocaudal and mediolateral oblique views along with computer-aided detection (CAD). Synthesized 2D images are generated from the tomosynthesis. Additional right MLO view is provided. FINDINGS: There are scattered areas of fibroglandular density (ACR BI-RADS breast composition Category b). There are no significant masses, abnormal calcifications, or other abnormalities. There is no developing density or architectural abnormality. Incidental intramammary nodes bilateral posterior outer breasts are similar to prior baseline study. The axilla and skin contours are unremarkable. MM/MM tomosynthesis screening BI IMPRESSION: No mammographic evidence of malignancy. ASSESSMENT: BI-RADS 2: Benign RECOMMENDATION: Routine annual mammography screening. This patient's information was entered into a reminder system with a target due date for their next mammogram.
== END 2022-09-18 10:02 | disposition home or self-care (01) ==
LOC: HO.MAMMO 10:01
PROVIDERS: PCP Nurse Practitioner Family; Visit Provider Nurse Practitioner Family
DX: Z12.31 Encounter for screening mammogram for malignant neoplasm of breast (principal)
CPT/HCPCS: 77063; 77067

== ENCOUNTER → 2022-10-14 11:02 | Outpatient (REF) | payer OTHER, SELFPAY ==
--- NOTE | 2022-10-14 11:06 | HM_ITS ---
Conclusion: 1. Patient was monitored for total period of 2 days and 22 hours 2. Baseline was normal sinus with average heart of 90 beats per minute 3. No significant pauses noted 4. Rare ectopy noted 5. Patient reported to events with symptoms of chest pressure that correlated with sinus tachycardia MTDD
== END ==
LOC: HO.CARD 11:02
PROVIDERS: PCP Nurse Practitioner Family; Visit Provider Nurse Practitioner Family
DX: R00.2 Palpitations (principal)
CPT/HCPCS: 93242

== ENCOUNTER 2022-12-16 09:16 | Outpatient (AMB) | payer OTHER, SELFPAY ==
[2022-12-16 10:04] VITALS: BP 134/78; PULSE 84; TEMP 36.5; O2SAT 97; BMI 42.4
--- NOTE | 2022-12-16 10:04 | A.OFFVIS_ITS ---
Intake Vital Signs 12/16/22 10:04 Height 5 ft 6 in Weight 262 lb 9.129 oz BMI 42.4 BP 134/78 Blood Pressure Location Rt brachial Position Sitting Pulse 84 Pulse Source Pulse Oximeter Temp 97.7 F Temp Source Skin Pulse Oximetry (%) 97 Intake Visit Reasons: skin rash Women Specialist Required: Yes Allergies acetaminophen [From PERCOCET] Allergy (Mild, Verified 12/16/22 10:07) ITCHING oxycodone [From PERCOCET] Allergy (Mild, Verified 12/16/22 10:07) ITCHING Medication List - Last Reconciled 12/16/22 by Blane English MD acetaminophen (Tylenol Extra Strength) 1,000 mg PO Q6H PRN albuterol sulfate 2.5 mg (3 mL) inhalation Q6H PRN albuterol sulfate 90 mcg/actuation 2 puffs inhalation Q6H PRN 30 days NS blood pressure kit-extra large As directed cholecalciferol (vitamin D3) 125 mcg PO DAILY cyanocobalamin (vitamin B-12) 500 mcg PO DAILY diphenhydramine HCl (Benadryl) 25 mg PO TID PRN ferrous sulfate (FeroSul) 325 mg PO DAILY fluticasone propionate 50 mcg/actuation 1 spray intranasal BID PRN gabapentin 1-3 capsules qHS orally bedtime PRN; lisinopril 10 mg PO DAILY magnesium 400 mg PO BEDTIME metoprolol succinate ER 12.5 mg (1/2 x 25 mg) PO DAILY 30 days prednisone take 4 tabs by mouth daily with breakfast for 1 week then 3 tabs daily for 1 week then 2 tabs daily for 1 week then 1 tab daily for 1 week then stop [Updraft machine As directed] vitamin A palmitate 10,000 units PO DAILY HPI HPI Comments History of Present Illness Details Patient returns for follow-up. Unfortunately the majority of the blood work I ordered was not collected last visit. She has not had any recurrent rash. She states however over the last 3-4 months she has been having sent to rule chest pain. Worse with palpation, worse with moving her arm. It is a little bit worse when lying flat. It is not worse with exertion. She takes Tylenol and gabapentin at night which helps her go to sleep. Initial history: This is a 42-year-old female who presents for evaluation of skin rash. The condition started around age 18. Patient states that she gets a skin rash either on her 1 of her elbows, behind 1 of her knees, both ankles or in the center of her chest. The lesion usually starts as a year raised circular erythematous itchy lesion that enlarges with central clearing in the center of the lesion then self resolves. Lesions are burning and extremely itchy. They usually self resolve in about 4 weeks. She gets associated generalized fatigue and joint pain and stiffness. Antibiotics do not help. Patient states that if she applies topical cortisone cream when the lesions are starting they sometime do not progress. Over the years she has had tick panel testing, shingles and herpes virus, fungal testing which was all negative. She gets does lesions once or twice a year. She is unaware of any family history of autoimmune rheumatic disease. No history of DVT/PE. No proteinuria or hematuria. [facility] Medical History Cervical radiculopathy HTN (hypertension) Uterine fibroid Uterine fibroids affecting Surgical History H/O right knee surgery History of lumbar surgery History of tonsillectomy and adenoidectomy Hx of LASIK Family History Father Hearing loss Mother PCOS (polycystic ovarian syndrome) Mental health disorder Maternal Grandfather Diabetes mellitus Maternal Grandmother Diabetes mellitus Paternal Grandfather Diabetes mellitus Paternal Grandmother Diabetes mellitus Cancer Brother No problems noted. Brother No problems noted. Sister No problems noted. Paternal Uncle Multiple sclerosis Social History Housing: Apartment Alcohol intake: former Patient Tobacco Use Status: Never used Tobacco e-Cigarette/Vaping Use: Never Used Second Hand Smoke Exposure: No service: No Current occupational status: employed Current occupation: [employer] Gender identity: Female Cognitive needs: No Hearing needs: No Vision needs: Yes (glasses) Review of Systems Card Reports chest pain, Reports chest pain at rest and Denies chest pain with activity Physical Exam Vital Signs: Last Vital Signs Temp 97.7 F 12/16/22 10:04 Pulse 84 12/16/22 10:04 BP 134/78 12/16/22 10:04 Pulse Ox 97 12/16/22 10:04 BMI result Body Mass Index 42.4 Const General: cooperative, healthy appearing and comfortable Nutritional Appearance: obese morbidly obese Orientation/consciousness: patient oriented x3 Limitations: no limitations HEENT Head: Yes normocephalic and Yes atraumatic Chest Chest palpation & inspection: tenderness costochondral junction right involving the 2nd rib Resp Effort & Inspection: normal respiratory effort and able to speak in complete sentences Cardio Rate: regular rate Rhythm: regular rhythm GI Inspection: No distended Palpation (GI): Soft to palpation and nontender Skin Other: Rash on left elbow has resolved Neuro General: patient oriented x3 Extrem Other: No active synovitis No swollen or tender joints Rare fibromyalgia tender points Results Reviewed Results Reviewed: Labs 08/31/22? WBC 12.0? Hemoglobin 11.5 Sed rate 91 CRP 1.3 (high) CPK 71 nl Skin biopsy 09/02 Skin left upper arm -superficial and deep perivascular and carlos adnexal dermatitis. Multiple tissue levels were examined. There is a superficial and deep, perivasc ular and focally carlos adnexal lymphocytic infiltrate in the dermis. The infiltrate is tightly cuffed around a vascular spaces and focally extends into the superficial adipose tissue, but it is centered within the dermis. The findings are not entirely specific. The histologic features raise the possibility of a connective tissue disease or reactive gyrate erythema. If concern for cellulitis persists, a deeper biopsy should be considered. Clinical correlation is recommended Special stains: PAS-D negative for fungi Alician blue: No significant increase in interstitial dermal Mucin Assessment & Plan Assessment & Plan (1) Rash and other nonspecific skin eruption: Code(s): R21 - Rash and other nonspecific skin eruption Plan: This is a 42-year-old female who presents for evaluation of a skin rash on her left elbow. she gets a skin rash either on her 1 of her elbows, behind 1 of her knees, both ankles or in the center of her chest.? The lesion usually starts as a year raised circular erythematous itchy lesion that enlarges with central clearing in the center of the lesion then self resolves.? Lesions are burning and extremely itchy.? They usually self resolve in about 4 weeks.? She gets associated generalized fatigue and joint pain and stiffness.? Antibiotics do not help.? Patient states that if she applies topical cortisone cream when the lesions are starting they sometime do not progress.? Over the years she has had tick panel testing, shingles and herpes virus, fungal testing which was all negative.? She gets does lesions once or twice a year.? Labs during rash show high inflammatory markers Comprehensive serology was ordered last visit but unfortunately less than half of ordered tests were collected. Advised patient to go back to the labs to complete her blood work. Advised patient to call the office in about 4 weeks to discuss her labs. Prednisone taper prescribed to use at the onset of rash as a therapeutic trial. Patient has an appointment with Dermatology in March. Follow-up after De rmatology evaluation (2) Chest wall tenderness: Code(s): R07.89 - Other chest pain Plan: Will check a sternal clavicular joint x-ray. Start prednisone therapeutic trial Plan I spent 28 minutes reviewing patient's chart, evaluating patient, ordering diagnostic workup, counseling patient and documenting in the chart Orders: Orders XR sternoclavicular joint BI Today R07.89 - Other chest pain Medications: New prednisone take 4 tabs by mouth daily with breakfast for 1 week then 3 tabs daily for 1 week then 2 tabs daily for 1 week then 1 tab daily for 1 week then stop 70 tabs 1RF Coding Level of Care Code Est Pt Level 4 (83353) Diagnoses Rash and other nonspecific skin eruption R21 Chest wall tenderness R07.89
== END 2022-12-16 10:39 | disposition home or self-care (01) ==
PROVIDERS: PCP Nurse Practitioner Family; Visit Provider Student in an Organized Health Care Education/Training Program
DX: R21 Rash and other nonspecific skin eruption (principal); R07.89 Other chest pain
CPT/HCPCS: 99214

== ENCOUNTER 2022-12-16 09:16 | Outpatient (REF) | payer OTHER, SELFPAY | END 2022-12-16 09:17 | disposition home or self-care (01) | LOC: CF 09:16 | PROVIDERS: PCP Nurse Practitioner Family; Visit Provider Student in an Organized Health Care Education/Training Program | DX: Z13.89 Encounter for screening for other disorder (principal) ==

== ENCOUNTER 2022-12-16 10:52 | Outpatient (REF) | payer OTHER, SELFPAY ==
--- NOTE | ~2022-12-16 | XR_ITS ---
EXAMINATION: XR STERNOCLAVICULAR JOINTS CLINICAL INFORMATION: Chest pain COMPARISON: None available. TECHNIQUE: AP and oblique views of the sternoclavicular joints. FINDINGS: Sternoclavicular joint spaces are maintained. No appreciable acute fracture or dislocation. Soft tissues are unremarkable. XR/XR sternoclavicular joint BI IMPRESSION: No acute osseous abnormality.
[2022-12-16 11:41] LABS: Basophils Percent Auto 0.4 % (0-2); Eosinophils Absolute Auto 0.1 X10*3/uL (0.0-0.4); Eosinophils Percent Auto 0.9 % (0-4); Hematocrit 37.2 % (37.0-47.0); Hemoglobin 11.6 g/dl (12.0-16.0); Imm Gran Abs Auto 0.03 X10*3/uL (0.00-0.03); Imm Gran Pct Auto 0.3 % (0.0-0.4); Lymphocytes Absolute Auto 2.9 X10*3/uL (1.2-4.9); Lymphocytes Percent Auto 28.4 % (20-40); MANUAL DIFF FLAG NO; Mean Corpuscular HGB Conc 31.2 g/dl (31.0-35.0); Mean Corpuscular Hemoglobin 23.9 pg (27.0-33.0); Mean Corpuscular Volume 76.7 fL (80.0-98.0); Mean Platelet Volume 11.7 fL (9.4-12.3); Monocytes Absolute Auto 0.7 X10*3/uL (0.1-1.2); Monocytes Percent Auto 6.8 % (2-11); Neutrophils Absolute Auto 6.5 x10*3/uL (2.0-8.3); Neutrophils Percent Auto 63.2 % (45-73); PLT CLUMP 1; Platelet Count 258 X10*3/uL (160-400); Red Blood Count 4.85 X10*6/uL (4.20-5.50); Red Cell Distribution Width 18.6 % (11.0-16.0); SCAN SMEAR FLAG 1; White Blood Count 10.3 X10*3/uL (4.8-10.8)
[2022-12-16 11:47] LABS: Appearance Urine Clear; Color Urine Yellow; Glucose Urine UA Negative (Negative); Leukocyte Esterase Urine Small (1+) (Negative); Nitrite Urine Negative (Negative); PH 5.5 (5.0-9.0); UMIC TRIGGER UA YES; UMIC TRIGGER UACC YES; Urine Blood Negative (Negative); Urine Ketones Negative (Negative); Urine Protein Negative (Neg-Trace)
[2022-12-16 12:01] LABS: Bacteria Urine Trace (None Seen); Hyaline Casts Urine 0-2 /LPF (0-2); UACC Culture Trigger YES; WBC Urine 0-5 /HPF (0-5)
[2022-12-16 12:50] LABS: Creatinine Urine 194.25 mg/dL; Total Protein Urine Random < 7 mg/dL (<12)
[2022-12-16 12:58] LABS: Rheumatoid Factor < 13.0 IU/mL (<15.0)
[2022-12-16 13:05] LABS: Alanine Aminotransferase 27 U/L (0-31); Albumin Level 4.1 g/dL (3.5-5.0); Alkaline Phosphatase 83 U/L (39-117); Anion Gap 14 (12-20); Aspartate Amino Transferase 26 U/L (5-31); Bilirubin Total 0.4 mg/dL (0.0-1.0); Blood Urea Nitrogen 8 mg/dL (9-16); Calcium 9.6 mg/dL (8.4-10.2); Carbon Dioxide 22 mmol/L (22-29); Chloride 105 mmol/L (96-108); Cholesterol 194 mg/dL; Estimated Glomerular Filt Rate > 60; Glucose Fasting 81 mg/dL (60-99); Glucose Random 80 mg/dL (60-115); HDL Cholesterol 54 mg/dL; LDL Cholesterol Calculated 96 mg/dl; Potassium 4.1 mmol/L (3.3-5.1); Sodium 137 mmol/L (135-145); Total Protein 8.2 g/dL (6.5-8.0); Triglycerides 220 mg/dL
[2022-12-16 13:11] LABS: TSH reflex Free T4 1.63 uIU/mL (0.32-4.0)
[2022-12-17 03:40] LABS: HBS Num1 0.35 mIU/mL (0-7.99); HBc Num1 0.12 S/CO (0.00-0.79); HBsAGNum1 0.34 S/CO (0.00-0.99); Hepatitis A Antibody IgM 0.29 Index (0-0.79); Hepatitis B Core Antibody Nonreactive (Nonreactive); Hepatitis B Surface Antigen Negative (Negative); ~HepC Num1 0.15 S/CO (0.00-0.79); ~Hepatitis A Antibody IgM Nonreactive (Nonreactive); ~Hepatitis B Surface Antibody NONREACTIVE (Nonreactive); ~Hepatitis C Antibody Nonreactive (Nonreactive)
[2022-12-20 12:22] LABS: Cyclic Citrullinated Peptide <16 UNITS
[2022-12-20 13:33] LABS: Prot Elec - Albumin 3.9 g/dL (3.8-4.8); Prot Elec - Alpha1 0.3 g/dL (0.2-0.3); Prot Elec - Beta 1 0.6 g/dL (0.4-0.6); Prot Elec - Beta 2 0.6 g/dL (0.2-0.5); Prot Elec - Gamma 1.5 g/dL (0.8-1.7); Prot Elec - Total Protein 7.8 g/dL (6.1-8.1)
[2022-12-21 12:48] LABS: IgA 474 mg/dL (47-310); IgG 1586 mg/dL (600-1640); IgM 195 mg/dL (50-300)
[2022-12-21 22:48] LABS: PTT (LAC) Screen 36 sec (<=40)
[2022-12-22 13:08] LABS: Anti DNA DS Antibody <1 IU/mL; Myeloperoxidase Antibody <1.0 AI; Proteinase 3 PR3 Antibodies <1.0 AI; SM/Ribonucleoprotein Ab <1.0 NEG AI (<1.0 NEG); Smith Protein <1.0 NEG AI (<1.0 NEG)
[2022-12-23 07:25] LABS: Cardiolipin IgG Ab <2.0 GPL-U/mL; Cardiolipin IgM Ab <2.0 MPL-U/mL
[2022-12-24 14:13] LABS: C1Q Complement Component 7.5 mg/dL (5.0-8.6)
[2022-12-24 18:48] LABS: Beta-2 Glycoprotein IgA 2.2 U/mL (<20.0); Beta-2 Glycoprotein IgG <2.0 U/mL (<20.0); Beta-2 Glycoprotein IgM <2.0 U/mL (<20.0)
[2022-12-26 13:29] LABS: Anti Nuclear Antibody Screen NEGATIVE (NEGATIVE)
== END 2022-12-16 10:53 | disposition home or self-care (01) ==
LOC: HO.10HDL 10:52
PROVIDERS: Student in an Organized Health Care Education/Training Program; Visit Provider Nurse Practitioner Family
DX: Z00.00 Encounter for general adult medical examination without abnormal findings (principal); M32.9 Systemic lupus erythematosus, unspecified; D68.61 Antiphospholipid syndrome; M06.9 Rheumatoid arthritis, unspecified; I77.6 Arteritis, unspecified; R07.89 Other chest pain; R82.90 Unspecified abnormal findings in urine
CPT/HCPCS: 36415; 71130; 80053; 80061; 81001; 82784; 84156; 84165; 84443; 85025; 85597; 85598; 85613; 85670; 85730; 86021; 86038; 86146; 86147; 86160; 86200; 86225; 86235; 86334; 86431; 86704; 86706; 86709; 86803; 87086; 87340

== ENCOUNTER 2023-02-02 08:36 | Outpatient (AMB) | payer OTHER, SELFPAY ==
[2023-02-02 08:38] VITALS: BP 136/74; PULSE 84; O2SAT 98; BMI 43.1
--- NOTE | 2023-02-02 08:38 | MHC.PC.OV ---
Vital Signs 02/02/23 08:38 Height 5 ft 6 in Weight 267 lb 4 oz BMI 43.1 BP 136/74 Blood Pressure Location Lt brachial Position Sitting Pulse 84 Pulse Source Pulse Oximeter Pulse Oximetry (%) 98 Oxygen Delivery Method Room Air Intake Visit Reasons: 4m follow up Allergies acetaminophen [From PERCOCET] Allergy (Mild, Verified 02/02/23 08:51) ITCHING oxycodone [From PERCOCET] Allergy (Mild, Verified 02/02/23 08:51) ITCHING Medication List - Last Reconciled 02/02/23 by ALONDRA Lovett acetaminophen (Tylenol Extra Strength) 1,000 mg PO Q6H PRN albuterol sulfate 90 mcg/actuation 2 puffs inhalation Q6H PRN 30 days NS albuterol sulfate 2.5 mg (3 mL) inhalation Q6H PRN atorvastatin 20 mg PO BEDTIME 90 days blood pressure kit-extra large As directed cholecalciferol (vitamin D3) 125 mcg PO DAILY cyanocobalamin (vitamin B-12) 500 mcg PO DAILY diphenhydramine HCl (Benadryl) 25 mg PO TID PRN ferrous sulfate (FeroSul) 325 mg PO DAILY fluticasone propionate 50 mcg/actuation 1 spray intranasal BID PRN gabapentin 1-3 capsules qHS orally bedtime PRN; lisinopril 10 mg PO DAILY magnesium 400 mg PO BEDTIME [Updraft machine As directed] vitamin A palmitate 10,000 units PO DAILY Tobacco use date assessed: 02/02/23 Dental Screening Dental Screen Date: 02/02/23 Did you have a dental visit in the last 12 months?: Yes Did you have a dental problem in the last 6 months where you did not have access to dental care?: No Was dental information given to patient?: Patient has dentist HPI 4m follow up HPI Details HTN: Blood pressure is managed with lisinopril 10mg. Pt reports that her blood pressure at home is in the 130s-150 systolically. Will increase lisinopril from 10mg to 20mg. Denies chest pain, shortness of breath, headache, dizziness, and blurred vision. [facility] Medical History Cervical radiculopathy HTN (hypertension) Uterine fibroid Uterine fibroids affecting Surgical History Hx of LASIK History of tonsillectomy and adenoidectomy History of lumbar surgery H/O right knee surgery Family History Father Hearing loss Mother PCOS (polycystic ovarian syndrome) Mental health disorder Maternal Grandfather Diabetes mellitus Maternal Grandmother Diabetes mellitus Paternal Grandfather Diabetes mellitus Paternal Grandmother Diabetes mellitus Cancer Brother No problems noted. Brother No problems noted. Sister No problems noted. Paternal Uncle Multiple sclerosis Social History Housing: Apartment Alcohol intake: former Patient Tobacco Use Status: Never used Tobacco e-Cigarette/Vaping Use: Never Used Second Hand Smoke Exposure: No service: No Current occupational status: employed Current occupation: [employer] Gender identity: Female Cognitive needs: No Hearing needs: No Vision needs: Yes (glasses) Questionnaire Thrive Questionnaire Date Thrive assessed: 07/16/21 ROULA-7 AMB Questionnaire ROULA-7 Date ROULA - 7 assessed: 07/16/21 Source: Developed by Drs. Houston Montero, Natalia Burkett, Amrik Burgos and colleagues, with an educational cynthia from [employer]. Review of Systems Const Reports as per HPI Physical exam (Primary Care) Vital Signs: Last Vital Signs Pulse 84 02/02/23 08:38 BP 136/74 02/02/23 08:38 Pulse Ox 98 02/02/23 08:38 Oxygen Delivery Method Room Air 02/02/23 08:38 BMI result Body Mass Index 43.1 Tobacco/Smoking Status: Tobacco use Status Tobacco use date assessed 02/02/23 02/02/23 08:44 Patient Tobacco Use Status Never used Tobacco 02/02/23 08:44 e-Cigarette/Vaping Use Never Used 02/02/23 08:44 Thrive Assessment: Date of Thrive Assessment Date Thrive assessed 07/16/21 02/02/23 08:44 Const General: cooperative Nutritional Appearance: obese morbidly obese Orientation/consciousness: patient oriented x3 Resp Effort & Inspection: normal respiratory effort Auscultation: clear to auscultation bilaterally Cardio Rate: regular rate Rhythm: regular rhythm Heart sounds: S1 normal heart sound present and S2 normal heart sound present Neuro General: patient oriented x3 Extrem Right lower extremity: no edema Left lower extremity: no edema Psych Appearance: grossly normal Mental Status: mental status grossly normal Speech and movement: Normal speech and movement present Affect: normal affect Attitude: cooperative Thought process: Normal thought process present Thought content: Normal thought content present Insight: Good insight present (Psych) Judgement: Good judgement present (Psych) Assessment and Plan Assessment & Plan (1) HTN (hypertension): Code(s): I10 - Essential (primary) hypertension Plan The patient agreed to the use of a biomedical manager for this encounter. Scribed for ALONDRA Bee by Debbie Pollard biomedical manager, on 02/02/2023 at 08:50 EST. Medications: Changed From lisinopril 10 mg PO DAILY 30 tabs 2RF To lisinopril 20 mg PO DAILY 90 tabs 2RF Refilled albuterol sulfate 90 mcg/actuation 2 puffs inhalation Q6H 30 days PRN 18 grams 2RF bronchospasm NS J45.909 - Unspecified asthma, uncomplicated lisinopril 10 mg PO DAILY 30 tabs 2RF albuterol sulfate 2.5 mg (3 mL) inhalation Q6H PRN 90 mL 0RF shortness of breath or wheezing Coding Level of Care Code Est Pt Level 3 (66192) Diagnoses HTN (hypertension) I10
== END 2023-02-02 09:31 | disposition home or self-care (01) ==
PROVIDERS: Visit Provider Nurse Practitioner Family
DX: I10 Essential (primary) hypertension (principal)
CPT/HCPCS: 99213

== ENCOUNTER 2023-04-20 09:50 | Outpatient (AMB) | payer OTHER, SELFPAY ==
--- NOTE | 2023-04-20 09:51 | MHC.OFFVIS ---
Intake Vital Signs 04/20/23 09:56 Height 5 ft 6 in Weight 272 lb 0.807 oz BMI 43.9 BP 132/86 Blood Pressure Location Rt brachial Position Sitting Pulse 97 Pulse Source Pulse Oximeter Temp 97 F Temp Source Skin Pulse Oximetry (%) 98 Oxygen Delivery Method Room Air Intake Visit Reasons: rash Intake Note: Patient last seen 12/16/22, presents today for follow up and test results. Seen by Dermatology in February. Notes in chart. Reports not taking Gabapentin as it makes her feel sick the following morning, lasting for a few days. Also reports having worsening joint pains. 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 Required: No Accompanied by: Self / Same As Patient Allergies acetaminophen [From PERCOCET] Allergy (Mild, Verified 04/20/23 09:57) ITCHING oxycodone [From PERCOCET] Allergy (Mild, Verified 04/20/23 09:57) ITCHING Medication List - Last Reconciled 04/20/23 by Blane English MD acetaminophen (Tylenol Extra Strength) 1,000 mg PO Q6H PRN albuterol sulfate 90 mcg/actuation 2 puffs inhalation Q6H PRN 30 days NS albuterol sulfate 2.5 mg (3 mL) inhalation Q6H PRN atorvastatin 20 mg PO BEDTIME 90 days blood pressure kit-extra large As directed cholecalciferol (vitamin D3) 125 mcg PO DAILY cyanocobalamin (vitamin B-12) 500 mcg PO DAILY diphenhydramine HCl (Benadryl) 25 mg PO TID PRN ferrous sulfate (FeroSul) 325 mg PO DAILY fluticasone propionate 50 mcg/actuation 1 spray intranasal BID PRN lisinopril 20 mg PO DAILY magnesium 400 mg PO BEDTIME [thumb spica splint wear nightly and as much as possible throughout the day] [Updraft machine As directed] vitamin A palmitate 10,000 units PO DAILY HPI HPI Comments History of Present Illness Details 43-year-old female initially presented earlier this year for evaluation of recurrent skin rashes. Rheumatology workup was unremarkable except for elevated inflammatory markers. The rashes have resolved. Today patient states that she has been having pain along the radial aspect of both wrists, worse on the right. Her work involves plenty of typing. She also has pain in both elbows, worse on the right. She has not had any rashes. She was evaluated by Dermatology in February and at that time she did not have any rashes. The auriculotherapist requested records from our practice and ask patient to call their office whenever she has the rash. Initial history: This is a 42-year-old female who presents for evaluation of skin rash. The condition started around age 18. Patient states that she gets a skin rash either on her 1 of her elbows, behind 1 of her knees, both ankles or in the center of her chest. The lesion usually starts as a year raised circular erythematous itchy lesion that enlarges with central clearing in the center of the lesion then self resolves. Lesions are burning and extremely itchy. They usually self resolve in about 4 weeks. She gets associated generalized fatigue and joint pain and stiffness. Antibiotics do not help. Patient states that if she applies topical cortisone cream when the lesions are starting they sometime do not progress. Over the years she has had tick panel testing, shingles and herpes virus, fungal testing which was all negative. She gets does lesions once or twice a year. She is unaware of any family history of autoimmune rheumatic disease. No history of DVT/PE. No proteinuria or hematuria. [facility] Medical History Cervical radiculopathy HTN (hypertension) Uterine fibroid Uterine fibroids affecting Surgical History Hx of LASIK History of tonsillectomy and adenoidectomy History of lumbar surgery H/O right knee surgery Family History Father Hearing loss Mother PCOS (polycystic ovarian syndrome) Mental health disorder Maternal Grandfather Diabetes mellitus Maternal Grandmother Diabetes mellitus Paternal Grandfather Diabetes mellitus Paternal Grandmother Diabetes mellitus Cancer Brother No problems noted. Brother No problems noted. Sister No problems noted. Paternal Uncle Multiple sclerosis Social History Housing: Apartment Alcohol intake: former Patient Tobacco Use Status: Never used Tobacco e-Cigarette/Vaping Use: Never Used Second Hand Smoke Exposure: No service: No Current occupational status: employed Current occupation: [employer] Gender identity: Female Cognitive needs: No Hearing needs: No Vision needs: Yes (glasses) Review of Systems [facility] [place], [place] Reports arthralgias and Reports joint swelling Skin/Breast Denies rash Physical Exam Vital Signs: Last Vital Signs Temp 97 F 04/20/23 09:56 Pulse 97 04/20/23 09:56 BP 132/86 04/20/23 09:56 Pulse Ox 98 04/20/23 09:56 Oxygen Delivery Method Room Air 04/20/23 09:56 BMI result Body Mass Index 43.9 Const General: cooperative, healthy appearing and comfortable Nutritional Appearance: obese morbidly obese Orientation/consciousness: patient oriented x3 Limitations: no limitations HEENT Head: Yes normocephalic and Yes atraumatic Resp Effort & Inspection: normal respiratory effort and able to speak in complete sentences Cardio Rate: regular rate Rhythm: regular rhythm GI Inspection: No distended Palpation (GI): Soft to palpation and nontender Skin Other: Rash on left elbow has resolved Neuro General: patient oriented x3 Extrem Other: Positive Sapphrie's test bilaterally Tenderness at the common extensor origin side bilaterally with positive resisted wrist extension test Tenderness at the common flexor origin bilaterally with positive resisted wrist flexion test Rare fibromyalgia tender points Results Reviewed Results Reviewed: Labs 08/31/22? WBC 12.0? Hemoglobin 11.5 Sed rate 91 CRP 1.3 (high) CPK 71 nl Skin biopsy 09/02 Skin left upper arm -superficial and deep perivascular and carlos adnexal dermatitis. Multiple tissue levels were examined. There is a superficial and deep, perivascular and focally carlos adnexal lymphocytic infiltrate in the dermis. The infiltrate is tightly cuffed around a vascular spaces and focally extends into the superficial adipose tissue, but it is centered within the dermis. The findings are not entirely specific. The histologic features raise the possibility of a connective tissue disease or reactive gyrate erythema. If concern for cellulitis persists, a deeper biopsy should be considered. Clinical correlation is recommended Special stains: PAS-D negative for fungi Alician blue: No significant increase in interstitial dermal Mucin Assessment & Plan Assessment & Plan (1) Rash and other nonspecific skin eruption: Code(s): R21 - Rash and other nonspecific skin eruption Plan: This is a 43-year-old female who presents for evaluation of a skin rash on her left elbow. she gets a skin rash either on her 1 of her elbows, behind 1 of her knees, both ankles orthe center of her chest.? The lesion usually starts as a year raised circular erythematous itchy lesion that enlarges with central clearing in the center of the lesion then self resolves.? Lesions are burning and extremely itchy.? They usually self resolve in about 4 weeks.? She gets associated generalized fatigue and joint pain and stiffness.? Antibiotics do not help.? Patient states that if she applies topical cortisone cream when the lesions are starting they sometime do not progress.? Over the years she has had tick panel testing, shingles and herpes virus, fungal testing which was all negative.? She gets does lesions once or twice a year.? Labs during rash show high inflammatory markers Comprehensive serology was negative Patient was evaluated by Dermatology but she did not have a rash the day of her appointment. She was advised to call their office as soon as she gets the rash (2) Medial epicondylitis of both elbows: Code(s): M77.01 - Medial epicondylitis, right elbow; M77.02 - Medial epicondylitis, left elbow Plan: Referred to OT (3) Bilateral tennis elbow: Code(s): M77.11 - Lateral epicondylitis, right elbow; M77.12 - Lateral epicondylitis, left elbow Plan: Referred to OT (4) De Quervain's tenosynovitis, right: Code(s): M65.4 - Radial styloid tenosynovitis [de Quervain] Plan: Referred to OT. Advised patient to apply Voltaren gel and use thumb spica splint Plan I spent 28 minutes reviewing patient's chart, evaluating patient, ordering diagnostic workup, counseling patient and documenting in the chart Orders: Orders OT Evaluation and Treatment Today M65.4 - Radial styloid tenosynovitis [de Quervain], M77.01 - Medial epicondylitis, right elbow, M77.02 - Medial epicondylitis, left elbow, M77.11 - Lateral epicondylitis, right elbow, M77.12 - Lateral epicondylitis, left elbow Medications: New [thumb spica splint] wear nightly and as much as possible throughout the day 1 ea 0RF M65.4 - Radial styloid tenosynovitis [de Quervain] Coding Level of Care Code Est Pt Level 4 (81250) Diagnoses Rash and other nonspecific skin eruption R21 Medial epicondylitis of both elbows M77.01; M77.02 Bilateral tennis elbow M77.11; M77.12 De Quervain's tenosynovitis, right M65.4
[2023-04-20 09:56] VITALS: BP 132/86; PULSE 97; TEMP 36.1; O2SAT 98; BMI 43.9
== END 2023-04-20 10:18 | disposition home or self-care (01) ==
PROVIDERS: PCP Nurse Practitioner Family; Visit Provider Student in an Organized Health Care Education/Training Program
DX: R21 Rash and other nonspecific skin eruption (principal); M77.01 Medial epicondylitis, right elbow; M77.02 Medial epicondylitis, left elbow; M77.11 Lateral epicondylitis, right elbow; M77.12 Lateral epicondylitis, left elbow; M65.4 Radial styloid tenosynovitis [de Quervain]
CPT/HCPCS: 99214

== ENCOUNTER → 2023-04-20 09:50 | Outpatient (BNVA) | payer OTHER, SELFPAY | PROVIDERS: PCP Nurse Practitioner Family; Visit Provider Student in an Organized Health Care Education/Training Program ==

== ENCOUNTER 2023-04-22 08:00 | Outpatient (AMB) | payer OTHER, SELFPAY ==
--- NOTE | 2023-04-22 08:03 | A.OFFVIS_ITS ---
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 Intake Note: irregular periods Freezer Unloader Required: Yes Freezer Unloader Language: Light Coil Winder Name: Marie WOODS Information Interpreted: non-clinical & clinical Piece Hand: Piece Hand Present (Marie WOODS) Accompanied by: Self / Same As Patient Allergies acetaminophen [From PERCOCET] Allergy (Mild, Verified 04/22/23 08:08) ITCHING oxycodone [From PERCOCET] Allergy (Mild, Verified 04/22/23 08:08) ITCHING Is last menstrual period known: Yes Last menstrual period: 03/28/23 HPI HPI Comments History of Present Illness Details She is a premenopausal woman presenting for annual examination. Doing well with concerns: cycles are 4-5d, she notes spotting 1-1.5wks before her cycle for the last three months. She did a home PT test, it was negative. She tries to eat healthy and stays active with exercise. Plants weight management program. Currently is sexually active. History of infertility both for her and her partner, had prior services with [facility]. She denies vaginal itching and irritation. Denies family history of breast, ovarian or colon cancer. Last pap smear 2020, negative. Mammogram: Up-to-date. [facility] Medical History (Updated 04/22/23 @ 08:59 by Karen Mary CNM) Infertility, female Cervical radiculopathy HTN (hypertension) Uterine fibroid Uterine fibroids affecting Surgical History Hx of LASIK History of tonsillectomy and adenoidectomy History of lumbar surgery H/O right knee surgery Family History Father Hearing loss Mother PCOS (polycystic ovarian syndrome) Mental health disorder Maternal Grandfather Diabetes mellitus Maternal Grandmother Diabetes mellitus Paternal Grandfather Diabetes mellitus Paternal Grandmother Diabetes mellitus Cancer Brother No problems noted. Brother No problems noted. Sister No problems noted. Paternal Uncle Multiple sclerosis Social History (Updated 04/22/23 @ 08:11 by Marie Hirsch CMA) Household Members: Spouse Housing: Apartment Alcohol intake: former Patient Tobacco Use Status: Never used Tobacco e-Cigarette/Vaping Use: Never Used Second Hand Smoke Exposure: No service: No Current occupational status: employed Current occupation: [employer] Sexual orientation: Straight/Heterosexual Gender identity: Female Cognitive needs: No Hearing needs: No Vision needs: Yes (glasses) Female Reproductive History Menstrual Date of last menstrual period: 03/28/23 Total pregnancies: 1 Date of last pap smear: 09/01/20 Date of Mammogram: 09/18/22 Review of Systems Const All systems reviewed & are unremarkable except as noted in HPI and below Reports as per HPI Eyes Reports no additional complaints ENT Reports no additional complaints Card Reports no additional complaints Resp Reports no additional complaints GI Reports as per HPI and Reports no additional complaints Reports as per HPI Musc Reports no additional complaints Skin/Breast Reports as per HPI Neuro Reports no additional complaints Psych Reports no additional complaints Endo Reports no additional complaints Noel/Lymph Reports no additional complaints Aller/Immun Reports no additional complaints Physical Exam Vital Signs: Last Vital Signs BP 130/86 04/22/23 08:06 BMI result Body Mass Index 44.7 Const General: cooperative, healthy appearing, no acute distress, well developed and alert Orientation/consciousness: patient oriented x3 HEENT Head: Yes normal to inspection Eyes General: appearance normal, both eyes and all related structures Neck Neck: Yes normal visual inspection Thyroid: Thyroid normal Chest Chest palpation & inspection: normal inspection of the chest and other (no puckering, dimpling, peau de orange, retraction, discharge, masses) Breast/axilla inspection: normal inspection of the breasts Breast/axilla palpation: normal palpation of the breasts Resp Effort & Inspection: normal respiratory effort GI Inspection: Yes normal to inspection Palpation (GI): Soft to palpation Rectal Exam - Female: deferred General: Yes bladder normal to palpation External Female Exam: normal external appearance and normal appearance of the urethra Speculum Exam - Vagina: normal appearance of the vagina, normal palpation and normal vaginal discharge Speculum Exam - Cervix: normal appearance of the cervix, normal palpation and Other cervical findings present (Friable with Pap) Bimanual exam- vagina & uterus: normal bimanual exam, normal palpation, uterine size normal, bladder normal to palpation, normal palpation and non-tender Bimanual Exam- Adnexa, other: no masses Skin General skin exam: no rashes or lesions noted Rashes: no rashes Neuro General: patient oriented x3 Cognition (Neuro): normal cognition Extrem General: Yes normal to inspection Psych Attitude: cooperative Thought process: Normal thought process present Assessment & Plan Assessment & Plan (1) Encounter for well woman exam with routine gynecological exam: Code(s): Z01.419 - Encounter for gynecological examination (general) (routine) without abnormal findings (2) Abnormal uterine bleeding (AUB): Code(s): N93.9 - Abnormal uterine and vaginal bleeding, unspecified (3) Infertility, female, primary: Code(s): N97.9 - Female infertility, unspecified Plan Discussed: Current recommendations for pap smears per ASCCP guidelines. Breast awareness and periodic breast exams. Maintain a healthy lifestyle including a well balanced diet and routine exercise. Discussed the workup for AUB. All of her questions and concerns were addressed to the best of my ability and shared decision making. She is agreeable to the plan of care. Mammogram yearly. Colonoscopy >45, or at risk sooner. All of her questions and concerns were addressed to the best of my ability. RTO in one year for annual chart reader examination. Orders: Orders US pelvic and transvaginal Today N93.9 - Abnormal uterine and vaginal bleeding, unspecified Pap Smear Today N93.9 - Abnormal uterine and vaginal bleeding, unspecified, Z01.419 - Encounter for gynecological examination (general) (routine) without abnormal findings CT NG by PCR Today N93.9 - Abnormal uterine and vaginal bleeding, unspecified, Z01.419 - Encounter for gynecological examination (general) (routine) without abnormal findings Bacterial Vaginosis Panel Today N93.9 - Abnormal uterine and vaginal bleeding, unspecified, Z01.419 - Encounter for gynecological examination (general) (routine) without abnormal findings Coding Level of Care Code Est Pt Prev Care 40-64y(31256) Diagnoses Encounter for well woman exam with routine gynecological exam Z01.419 Abnormal uterine bleeding (AUB) N93.9 Infertility, female, primary N97.9
[2023-04-22 08:06] VITALS: BP 130/86; BMI 44.7
== END 2023-04-22 08:43 | disposition home or self-care (01) ==
PROVIDERS: PCP Nurse Practitioner Family; Visit Provider Advanced Practice Midwife
DX: Z01.419 Encounter for gynecological examination (general) (routine) without abnormal findings (principal); N93.9 Abnormal uterine and vaginal bleeding, unspecified; N97.9 Female infertility, unspecified
CPT/HCPCS: 99396

== ENCOUNTER 2023-04-22 08:00 | Outpatient (REF) | payer OTHER, SELFPAY ==
[2023-04-22 13:17] LABS: CT PCR NOT DETECTED (Not Detect.); NG PCR NOT DETECTED (Not Detect.)
[2023-04-22 13:45] LABS: BV Int Neg Control Negative (Negative); BV Int Pos Control Positive (Positive)
[2023-04-29 03:48] LABS: HPV mRNA E6/E7 rflx Not Detected (Not Detected)
== END 2023-04-22 08:01 | disposition home or self-care (01) ==
LOC: HO.LNP 08:00
PROVIDERS: PCP Nurse Practitioner Family; Visit Provider Advanced Practice Midwife
DX: Z01.419 Encounter for gynecological examination (general) (routine) without abnormal findings (principal); Z11.51 Encounter for screening for human papillomavirus (HPV); N93.9 Abnormal uterine and vaginal bleeding, unspecified; Z20.2 Contact with and (suspected) exposure to infections with a predominantly sexual mode of transmission
CPT/HCPCS: 0353U; 87480; 87510; 87624; 87660; 88142

== ENCOUNTER 2023-06-02 08:18 | Outpatient (AMB) | payer OTHER, SELFPAY ==
--- NOTE | 2023-06-02 08:37 | A.OFFPC_ITS ---
Vital Signs 06/02/23 08:38 Height 5 ft 6 in Weight 275 lb 4 oz BMI 44.4 BP 140/78 H Blood Pressure Location Lt brachial Position Sitting Pulse 94 Pulse Source Pulse Oximeter Pulse Oximetry (%) 97 Oxygen Delivery Method Room Air Intake Visit Reasons: 4 Month follow up Intake Note: Pt is here for a 4 month follow up for HTN Allergies acetaminophen [From PERCOCET] Allergy (Mild, Verified 06/02/23 11:44) ITCHING oxycodone [From PERCOCET] Allergy (Mild, Verified 06/02/23 11:44) ITCHING Medication List - Last Reconciled 06/02/23 by HUSSEIN LovettP- acetaminophen (Tylenol Extra Strength) 1,000 mg PO Q6H PRN albuterol sulfate 90 mcg/actuation 2 puffs inhalation Q6H PRN 30 days NS albuterol sulfate 2.5 mg (3 mL) inhalation Q6H PRN blood pressure kit-extra large As directed cholecalciferol (vitamin D3) 125 mcg PO DAILY cyanocobalamin (vitamin B-12) 500 mcg PO DAILY diphenhydramine HCl (Benadryl) 25 mg PO TID PRN fluticasone propionate 50 mcg/actuation 1 spray intranasal BID PRN lisinopril-hydrochlorothiazide 20-12.5 mg 1 tab PO DAILY magnesium 400 mg PO BEDTIME [thumb spica splint wear nightly and as much as possible throughout the day] [Updraft machine As directed] vitamin A palmitate 10,000 units PO DAILY Tobacco use date assessed: 06/02/23 Dental Screening Dental Screen Date: 06/02/23 Did you have a dental visit in the last 12 months?: Yes Did you have a dental problem in the last 6 months where you did not have access to dental care?: No Was dental information given to patient?: Patient has dentist HPI 4 Month follow up HPI Details HTN: Blood pressure is managed with lisinopril 20mg. BP is elevated today. Will add hydrochlorothiazide 12.5mg (switching to combo med). Denies chest pain, shortness of breath, headache, dizziness, and blurred vision. [facility] Medical History (Updated 04/22/23 @ 08:59 by Karen Mary CNM) Infertility, female Cervical radiculopathy HTN (hypertension) Uterine fibroid Uterine fibroids affecting Surgical History Hx of LASIK History of tonsillectomy and adenoidectomy History of lumbar surgery H/O right knee surgery Family History Father Hearing loss Mother PCOS (polycystic ovarian syndrome) Mental health disorder Maternal Grandfather Diabetes mellitus Maternal Grandmother Diabetes mellitus Paternal Grandfather Diabetes mellitus Paternal Grandmother Diabetes mellitus Cancer Brother No problems noted. Brother No problems noted. Sister No problems noted. Paternal Uncle Multiple sclerosis Social History (Updated 04/22/23 @ 08:11 by Marie Hirsch [facility]) Household Members: Spouse Housing: Apartment Alcohol intake: former Patient Tobacco Use Status: Never used Tobacco e-Cigarette/Vaping Use: Never Used Second Hand Smoke Exposure: No service: No Current occupational status: employed Current occupation: [employer] Sexual orientation: Straight/Heterosexual Gender identity: Female Cognitive needs: No Hearing needs: No Vision needs: Yes (glasses) Questionnaire PHQ-9 Over the last 2 weeks, how often have you been bothered by any of the following problems? 1. Little interest or pleasure in doing things: more than half the days 2. Feeling down, depressed, or hopeless: more than half the days 3. Trouble falling or staying asleep, or sleeping too much: nearly every day 4. Feeling tired or having little energy: more than half the days 5. Poor appetite or overeating: several days 6. Feeling bad about yourself - or that you are a failure or have let yourself or your family down: not at all 7. Trouble concentrating on things, such as reading the newspaper or watching television: nearly every day 8. Moving or speaking so slowly that other people could have noticed. Or the opposite - being so fidgety or restless that you have been moving around a lot more than usual: several days 9. Thoughts that you would be better off or of hurting yourself in some way: not at all Total score: 14 Source: Developed by Drs. Houston Montero, Natalia Burkett, Amrik Burgos and colleagues, with an educational cynthia from [employer]. Thrive Questionnaire Date Thrive assessed: 06/02/23 I am a: Patient What is your living situation today?: I have a steady place to live Within the past 12 months, did the food you bought not last and you didn't have the money to get more?: Sometimes True Within the past 12 months, did you worry whether your food would run out before you got money to buy more?: Sometimes True Do you have trouble paying for medicines?: No Do you have trouble getting transportation to medical appointments?: No Do you have trouble paying your heating and electricity bill?: No Do you have trouble taking care of your child, family member or friend?: No Do you have trouble with day-to-day activities such as bathing, preparing meals, shopping, managing finances, etc.?: No Are you currently unemployed and looking for a job?: No Are you interested in more education?: No THRIVE Score: 2 AUDIT C Alcohol Use Questionnaire (AUDIT-C) 1. How often do you have a drink containing alcohol?: Monthly or less 2. How many drinks containing alcohol do you have on a typical day when you are drinking?: 1 or 2 3. How often do you have six or more drinks on one occasion?: Never Total Score: 1 ROULA-7 AMB Questionnaire ROULA-7 Date ROULA - 7 assessed: 06/02/23 Feeling nervous, anxious, or on edge: 2 = More than half the days Not being able to stop or control worryin = More than half the days Worrying too much about different things: 2 = More than half the days Trouble relaxin = More than half the days Being so restless that it is hard to sit still: 1 = Several days Becoming easily annoyed or irritable: 2 = More than half the days Feeling afraid as if something awful might happen: 2 = More than half the days Total ROULA-7 score (0-4 normal; 5-9 mild; 10-14 moderate; 15-21 severe): 13 Source: Developed by Drs. Houston Montero, Natalia Burkett, Amrik Burgos and colleagues, with an educational cynthia from [employer] Review of Systems Const Reports as per HPI Physical exam (Primary Care) Vital Signs: Last Vital Signs Pulse 94 06/02/23 08:38 BP 140/78 H 06/02/23 08:38 Pulse Ox 97 06/02/23 08:38 Oxygen Delivery Method Room Air 06/02/23 08:38 BMI result Body Mass Index 44.4 Tobacco/Smoking Status: Tobacco use Status Tobacco use date assessed 06/02/23 06/02/23 08:43 Patient Tobacco Use Status Never used Tobacco 06/02/23 08:37 e-Cigarette/Vaping Use Never Used 06/02/23 08:37 PHQ-9: PHQ-9 Score PHQ-9: Total score 14 06/02/23 08:53 Thrive Assessment: Date of Thrive Assessment Date Thrive assessed 06/02/23 06/02/23 08:46 Const General: cooperative Nutritional Appearance: obese morbidly obese Orientation/consciousness: patient oriented x3 Resp Effort & Inspection: normal respiratory effort Auscultation: clear to auscultation bilaterally Cardio Rate: regular rate Rhythm: regular rhythm Heart sounds: S1 normal heart sound present and S2 normal heart sound present Neuro General: patient oriented x3 Extrem Right lower extremity: edema (trace) Left lower extremity: edema (trace) Psych Appearance: grossly normal Mental Status: mental status grossly normal Speech and movement: Normal speech and movement present Affect: normal affect Attitude: cooperative Thought process: Normal thought process present Thought content: Normal thought content present Insight: Good insight present (Psych) Judgement: Good judgement present (Psych) Assessment and Plan Assessment & Plan (1) HTN (hypertension): Code(s): I10 - Essential (primary) hypertension Plan The patient agreed to the use of a certified medical biller for this encounter. Scribed for ALONDRA Bee by Debbie Pollard certified medical biller, on 06/02/2023 at 08:45 EST. Medications: New lisinopril-hydrochlorothiazide 20-12.5 mg 1 tab PO DAILY 90 tabs 0RF Discontinued lisinopril Discontinued Reason: Duplicate 20 mg PO DAILY 90 tabs 2RF Coding Level of Care Code Est Pt Level 3 (16980) Diagnoses HTN (hypertension) I10
[2023-06-02 08:38] VITALS: BP 140/78; PULSE 94; O2SAT 97; BMI 44.4
== END 2023-06-02 08:56 | disposition home or self-care (01) ==
PROVIDERS: PCP Nurse Practitioner Family; Visit Provider Nurse Practitioner Family
DX: I10 Essential (primary) hypertension (principal)
CPT/HCPCS: 99213

== ENCOUNTER 2023-06-03 10:50 | Outpatient (REF) | payer OTHER, SELFPAY ==
--- NOTE | ~2023-06-03 | US_ITS ---
EXAMINATION: US PELVIS CLINICAL INFORMATION: Abnormal uterine, vaginal bleeding. COMPARISON: 09/10/2020 TECHNIQUE: Ultrasound of the pelvis is performed using both transabdominal and transvaginal transducers along with Doppler. Transvaginal imaging is performed due to inadequate visualization transabdominally. FINDINGS: The anteflexed, anteverted uterus measures 8.1 x 4.2 x 5.1 cm (cervix to fundus x AP x transverse dimension). The endometrium measures up to 1.2 cm AP and has a multilayered appearance, as may be seen in the late proliferative phase. Minimal fluid or 0.3 cm cystic focus of the endometrium is seen at the fundus. There is no sonographic evidence of an endometrial polyp or submucosal leiomyoma. 1.7 x 1.1 x 1.8 cm hypoechoic structure of the posterior uterine body corresponds to the leiomyoma that measured 1.4 x 0.9 x 1.5 cm on 09/10/2020. There are a few nabothian cysts of the cervix which measures 3 cm in length. The ovaries have normal echotexture. The right ovary is 3.2 x 2.1 x 2.1 cm, 7.4 mL. The largest visible follicle within the right ovary is 1.1 cm. The left ovary is 2.3 x 2 x 1.6 cm, 3.9 mL. No adnexal mass. Trace, physiologic amount of free fluid is seen in the posterior cul-de-sac. US/US pelvic and transvaginal IMPRESSION: * No specific source of vaginal bleeding is identified. No evidence of an endometrial mass or submucosal leiomyoma. * There is a 1.7 x 1.1 x 1.8 cm intramural leiomyoma of the posterior uterine body. * The ovaries are normal.
== END 2023-06-03 10:51 | disposition home or self-care (01) ==
LOC: HO.US 10:50
PROVIDERS: PCP Nurse Practitioner Family; Visit Provider Advanced Practice Midwife
DX: N93.9 Abnormal uterine and vaginal bleeding, unspecified (principal)
CPT/HCPCS: 76830; 76856

== ENCOUNTER 2023-06-08 08:00 | Outpatient (RCR) | payer OTHER, SELFPAY | END 2023-07-01 13:44 | disposition home or self-care (01) | LOC: HO.OT 08:00 | PROVIDERS: PCP Nurse Practitioner Family; Visit Provider Student in an Organized Health Care Education/Training Program | DX: M77.11 Lateral epicondylitis, right elbow (principal); M77.12 Lateral epicondylitis, left elbow; M77.01 Medial epicondylitis, right elbow | CPT/HCPCS: 29125; 97110; 97166; 97760 ==

== ENCOUNTER 2023-07-19 09:29 | Outpatient (REF) | payer OTHER, SELFPAY ==
[2023-07-19 11:43] LABS: Hematocrit 36.3 % (37.0-47.0); Hemoglobin 11.5 g/dl (12.0-16.0); Mean Corpuscular HGB Conc 31.7 g/dl (31.0-35.0); Mean Corpuscular Hemoglobin 23.7 pg (27.0-33.0); Mean Corpuscular Volume 74.8 fL (80.0-98.0); Mean Platelet Volume 10.7 fL (9.4-12.3); Platelet Count 369 X10*3/uL (160-400); Red Blood Count 4.85 X10*6/uL (4.20-5.50); Red Cell Distribution Width 19.8 % (11.0-16.0); White Blood Count 10.5 X10*3/uL (4.8-10.8)
[2023-07-20 05:56] LABS: CT PCR NOT DETECTED (Not Detect.); NG PCR NOT DETECTED (Not Detect.)
[2023-07-20 13:35] LABS: BV Int Neg Control Negative (Negative); BV Int Pos Control Positive (Positive)
== END 2023-07-19 09:30 | disposition home or self-care (01) ==
LOC: HO.LAB 09:29
PROVIDERS: PCP Nurse Practitioner Family; Visit Provider Advanced Practice Midwife
DX: R10.2 Pelvic and perineal pain (principal); N92.0 Excessive and frequent menstruation with regular cycle; N93.9 Abnormal uterine and vaginal bleeding, unspecified; D21.9 Benign neoplasm of connective and other soft tissue, unspecified; R35.0 Frequency of micturition
CPT/HCPCS: 0353U; 36415; 81003; 81025; 85027; 87086; 87480; 87510; 87660

== ENCOUNTER 2023-07-19 09:29 | Outpatient (AMB) | payer OTHER, SELFPAY ==
--- NOTE | 2023-07-19 09:31 | A.OFFVIS_ITS ---
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 Previous bleeding cycles. To 5 days with spotting for another week and a half. She reported over the last few days having severe midline lower pelvic pain with pressure, back pain which has since resolved, and she has started her menstrual cycle. She reports a frequency of urination, denies any flank pain, any symptoms of fever flu-like symptoms. She reports a heavy menses also in April. Last hemoglobin was in December of 2022 it was 11.6. History of small posterior fibroid 1.8cm. [facility] Medical History (Updated 07/19/23 @ 10:10 by Karen Mary CNM) Infertility, female Cervical radiculopathy HTN (hypertension) Uterine fibroid Surgical History Hx of LASIK History of tonsillectomy and adenoidectomy History of lumbar surgery H/O right knee surgery Family History Father Hearing loss Mother PCOS (polycystic ovarian syndrome) Mental health disorder Maternal Grandfather Diabetes mellitus Maternal Grandmother Diabetes mellitus Paternal Grandfather Diabetes mellitus Paternal Grandmother Diabetes mellitus Cancer Brother No problems noted. Brother No problems noted. Sister No problems noted. Paternal Uncle Multiple sclerosis Social History (Updated 04/22/23 @ 08:11 by Marie Hirsch CMA) Household Members: Spouse Housing: Apartment Alcohol intake: former Patient Tobacco Use Status: Never used Tobacco e-Cigarette/Vaping Use: Never Used Second Hand Smoke Exposure: No service: No Current occupational status: employed Current occupation: [employer] Sexual orientation: Straight/Heterosexual Gender identity: Female Cognitive needs: No Hearing needs: No Vision needs: Yes (glasses) Female Reproductive History Menstrual Date of last menstrual period: 07/17/23 Review of Systems Const All systems reviewed & are unremarkable except as noted in HPI and below Physical Exam Vital Signs: Last Vital Signs BP 116/84 07/19/23 09:45 BMI result Body Mass Index 44.4 Const General: cooperative, healthy appearing and no acute distress Orientation/consciousness: patient oriented x3 GI Inspection: Yes normal to inspection Palpation (GI): Soft to palpation and Other GI palpation findings present (Nontender) Rectal Exam - Female: visual inspection normal Other: Midline suprapubic discomfort General: Yes bladder normal to palpation External Female Exam: normal appearance of the urethra Speculum Exam - Vagina: normal appearance of the vagina, normal palpation, normal vaginal discharge and vaginal bleeding (Moderate to heavy) Speculum Exam - Cervix: normal appearance of the cervix and normal palpation Bimanual exam- vagina & uterus: normal bimanual exam, normal palpation, uterine size normal, bladder normal to palpation, normal palpation, uterine shape normal and non-tender Bimanual Exam- Adnexa, other: normal adnexae OB/external & speculum: vaginal bleeding (Moderate to heavy) Neuro General: patient oriented x3 Results AMB Test Urine AMB Test Urine Negative Last Edit by CHUCK Aguillon on 07/19/23 09:53 AMB Urinalysis, Automated UA Leukoctes 1 Liban/uL Last Edit by CHUCK Aguillon on 07/19/23 09:53 UA Nitrite Negative Last Edit by CHUCK Aguillon on 07/19/23 09:53 UA Urobilinogen 0 mg/dL Last Edit by CHUCK Aguillon on 07/19/23 09:5 3 UA Protein 1 mg/dL Last Edit by CHUCK Aguillon on 07/19/23 09:53 UA pH 5.0 Last Edit by CHUCK Aguillon on 07/19/23 09:53 UA Blood 3 Edu/uL Last Edit by CHUCK Aguillon on 07/19/23 09:53 UA Specific [place] 1.025 Last Edit by CHUCK Aguillon on 07/19/23 09:53 UA Ketone Negative Last Edit by CHUCK Aguillon on 07/19/23 09:53 UA Bilirubin 0 mg/dL Last Edit by CHUCK Aguillon on 07/19/23 09:53 UA Glucose 0 mg/dL Last Edit by CHUCK Aguillon on 07/19/23 09:53 Results Reviewed Results Reviewed: Laboratory Last Values Urine pH (Auto) 5.0 07/19/23 09:51 Specific [place] (Auto) 1.025 07/19/23 09:51 Urine Protein (Auto) 1 mg/dL 07/19/23 09:51 Glucose (UA)(Auto) 0 mg/dL 07/19/23 09:51 Urine Ketones (Auto) Negative 07/19/23 09:51 Urine Blood (Auto) 3 Edu/uL 07/19/23 09:51 Urine Nitrite (Auto) Negative 07/19/23 09:51 Urine Bilirubin (Auto) 0 mg/dL 07/19/23 09:51 Urine Urobilinogen (Auto) 0 mg/dL 07/19/23 09:51 Leukocyte Esterase (Auto) 1 Liban/uL 07/19/23 09:51 [facility] Clinic Negative 07/19/23 09:51 [place] [address] Ultrasound Report Signed Patient: Karen Nassar MR#: [id number] : 1980 Acct:[id number] Age/Sex: 43 / F ADM Date: 06/03/23 Loc: HO.US Attending Dr: Karen Mray CNM Ordering Physician: Karen Mary CNM Date of Service: 06/03/23 Procedure(s): US pelvic and transvaginal Accession Number(s): [id number] cc: Ishmael Leyva-; Karen Mary CNM~ EXAMINATION: US PELVIS CLINICAL INFORMATION: Abnormal uterine, vaginal bleeding. COMPARISON: 09/10/2020 TECHNIQUE: Ultrasound of the pelvis is performed using both transabdominal and transvaginal transducers along with Doppler. Transvaginal imaging is performed due to inadequate visualization transabdominally. FINDINGS: The anteflexed, anteverted uterus measures 8.1 x 4.2 x 5.1 cm (cervix to fundus x AP x transverse dimension). The endometrium measures up to 1.2 cm AP and has a multilayered appearance, as may be seen in the late proliferative phase. Minimal fluid or 0.3 cm cystic focus of the endometrium is seen at the fundus. There is no sonographic evidence of an endometrial polyp or submucosal leiomyoma. 1.7 x 1.1 x 1.8 cm hypoechoic structure of the posterior uterine body corresponds to the leiomyoma that measured 1.4 x 0.9 x 1.5 cm on 09/10/2020. There are a few nabothian cysts of the cervix which measures 3 cm in length. The ovaries have normal echotexture. The right ovary is 3.2 x 2.1 x 2.1 cm, 7.4 mL. The largest visible follicle within the right ovary is 1.1 cm. The left ovary is 2.3 x 2 x 1.6 cm, 3.9 mL. No adnexal mass. Trace, physiologic amount of free fluid is seen in the posterior cul-de-sac. US/US pelvic and transvaginal IMPRESSION: * No specific source of vaginal bleeding is identified. No evidence of an endometrial mass or submucosal leiomyoma. * There is a 1.7 x 1.1 x 1.8 cm intramural leiomyoma of the posterior uterine body. * The ovaries are normal. Dictated By: Micky Conde MD Signed By: <Electronically signed by Micky Conde MD in OV> 06/06/23 1357 DD/ 1133 TD/TT: Veneer Sheet Repairer: PD Assessment & Plan Assessment & Plan (1) Heavy menses: Code(s): N92.0 - Excessive and frequent menstruation with regular cycle Qualifiers: Menorrhagia type: with regular cycle Qualified Code(s): N92.0 - Excessive and frequent menstruation with regular cycle (2) Abnormal uterine bleeding (AUB): Code(s): N93.9 - Abnormal uterine and vaginal bleeding, unspecified (3) Fibroid: Code(s): D21.9 - Benign neoplasm of connective and other soft tissue, unspecified (4) Frequency of urination: Code(s): R35.0 - Frequency of micturition (5) Pelvic pain: Code(s): R10.2 - Pelvic and perineal pain Plan Discussed: fibroids-plan surveillance yearly. CBC today. Start Bactrim. Increase hydration, mostly water. Take as directed and complete any medications that may be ordered. Report to the ED immediately if any fever >100.4, flu like symptoms, lightheadedness, dizziness, significant flank pain. Reschedule [facility] for 1 week for AUB. All of her questions and concerns were addressed to the best of my ability and shared decision making. She is agreeable to the plan of care. This note is constructed using voice recognition software. While every effort has been made to ensure accuracy, french binding folder errors may have been included. Orders: Orders Bacterial Vaginosis Panel Today R10.2 - Pelvic and perineal pain Complete Blood Count no Diff Today N92.0 - Excessive and frequent menstruation with regular cycle AMB HCG Urine Test Today Z32.02 - Encounter for test, result negative AMB Urinalysis Automated Today R10.2 - Pelvic and perineal pain Urine Culture Today N92.0 - Excessive and frequent menstruation with regular cycle, R10.2 - Pelvic and perineal pain CT NG by PCR Today R10.2 - Pelvic and perineal pain Medications: New sulfamethoxazole-trimethoprim 800-160 mg (Bactrim DS) 1 tab PO BID 6 tabs 0RF 3 days Coding Level of Care Code Est Pt Level 3 (10509) Diagnoses Menorrhagia with regular cycle N92.0 Menorrhagia type: with regular cycle Abnormal uterine bleeding (AUB) N93.9 Fibroid D21.9 Frequency of urination R35.0 Pelvic pain R10.2
[2023-07-19 09:45] VITALS: BP 116/84; BMI 44.4
== END 2023-07-19 10:14 | disposition home or self-care (01) ==
LOC: HO.HWS 09:29
PROVIDERS: PCP Nurse Practitioner Family; Visit Provider Advanced Practice Midwife
DX: N92.0 Excessive and frequent menstruation with regular cycle (principal); N93.9 Abnormal uterine and vaginal bleeding, unspecified; D21.9 Benign neoplasm of connective and other soft tissue, unspecified; R35.0 Frequency of micturition; R10.2 Pelvic and perineal pain; Z32.02 Encounter for pregnancy test, result negative
CPT/HCPCS: 99213

== ENCOUNTER 2023-07-19 09:51 | Outpatient (REF) | payer OTHER, SELFPAY | END 2023-07-19 09:52 | disposition home or self-care (01) | LOC: HO.LNP 09:51 | PROVIDERS: Visit Provider Advanced Practice Midwife | DX: Z13.89 Encounter for screening for other disorder (principal) ==

== ENCOUNTER 2023-07-23 09:19 | Outpatient (REF) | payer OTHER, SELFPAY ==
[2023-07-23 09:35] LABS: Appearance Urine Cloudy; Color Urine Yellow; Glucose Urine UA Negative (Negative); Leukocyte Esterase Urine Moderate (2+) (Negative); Nitrite Urine Negative (Negative); PH 5.5 (5.0-9.0); Specific Gravity - Urine 1.015 (1.005-1.025); UMIC TRIGGER UACC YES; Urine Blood Large (3+) (Negative); Urine Ketones Negative (Negative); Urine Protein Negative (Neg-Trace)
[2023-07-23 09:52] LABS: Bacteria Urine 1+ (None Seen); Hyaline Casts Urine 0-2 /LPF (0-2); UACC Culture Trigger YES
[2023-07-23 11:50] LABS: CT PCR NOT DETECTED (Not Detect.); NG PCR NOT DETECTED (Not Detect.)
== END 2023-07-23 09:20 | disposition home or self-care (01) ==
LOC: HO.LNP 09:19
PROVIDERS: Advanced Practice Midwife; Visit Provider Nurse Practitioner Family
DX: Z00.00 Encounter for general adult medical examination without abnormal findings (principal); Z20.2 Contact with and (suspected) exposure to infections with a predominantly sexual mode of transmission; R82.90 Unspecified abnormal findings in urine
CPT/HCPCS: 0353U; 81001; 87086

== ENCOUNTER → 2023-07-27 07:45 | Outpatient (BNVA) | payer OTHER, SELFPAY | PROVIDERS: PCP Nurse Practitioner Family; Visit Provider Advanced Practice Midwife ==

== ENCOUNTER 2023-08-05 07:35 | Outpatient (AMB) | payer OTHER, SELFPAY ==
--- NOTE | 2023-08-05 07:45 | MHC.OFFVIS ---
Intake Vital Signs 08/05/23 07:56 Height 5 ft 6 in Weight 273 lb 5.971 oz BMI 44.1 BP 132/80 Intake Visit Reasons: [facility] Scrub Wheel Operator Required: No Information Interpreted: non-clinical & clinical Halal Butcher: Halal Butcher Present (Marie WOODS) Accompanied by: Self / Same As Patient Allergies acetaminophen [From PERCOCET] Allergy (Mild, Verified 08/05/23 07:57) ITCHING oxycodone [From PERCOCET] Allergy (Mild, Verified 08/05/23 07:57) ITCHING Is last menstrual period known: Yes Last menstrual period: 07/15/23 HPI HPI Comments History of Present Illness Details Patient is here today for an endometrial biopsy due to abnormal uterine bleeding. [facility] Medical History Infertility, female Cervical radiculopathy HTN (hypertension) Uterine fibroid Surgical History Hx of LASIK History of tonsillectomy and adenoidectomy History of lumbar surgery H/O right knee surgery Family History Father Hearing loss Mother PCOS (polycystic ovarian syndrome) Mental health disorder Maternal Grandfather Diabetes mellitus Maternal Grandmother Diabetes mellitus Paternal Grandfather Diabetes mellitus Paternal Grandmother Diabetes mellitus Cancer Brother No problems noted. Brother No problems noted. Sister No problems noted. Paternal Uncle Multiple sclerosis Social History Household Members: Spouse Housing: Apartment Alcohol intake: former Patient Tobacco Use Status: Never used Tobacco e-Cigarette/Vaping Use: Never Used Second Hand Smoke Exposure: No service: No Current occupational status: employed Current occupation: [employer] Sexual orientation: Straight/Heterosexual Gender identity: Female Cognitive needs: No Hearing needs: No Vision needs: Yes (glasses) Female Reproductive History Menstrual Date of last menstrual period: 07/15/23 Review of Systems Const All systems reviewed & are unremarkable except as noted in HPI and below Physical Exam Vital Signs: Last Vital Signs BP 132/80 08/05/23 07:56 BMI result Body Mass Index 44.1 Const General: cooperative, healthy appearing and no acute distress Orientation/consciousness: patient oriented x3 GI Inspection: Yes normal to inspection Palpation (GI): Soft to palpation and Other GI palpation findings present (Nontender) Rectal Exam - Female: visual inspection normal General: Yes bladder normal to palpation External Female Exam: normal appearance of the urethra Speculum Exam - Vagina: normal appearance of the vagina, normal palpation and normal vaginal discharge Speculum Exam - Cervix: normal appearance of the cervix and normal palpation Bimanual exam- vagina & uterus: normal bimanual exam, normal palpation, uterine size normal, bladder normal to palpation, normal palpation, uterine shape normal and non-tender Bimanual Exam- Adnexa, other: normal adnexae Neuro General: patient oriented x3 Office Procedures Endometrial Biopsy Details: The patient is here today for an endometrial biopsy due to AUB to rule out any pathology including atypical, hyperplasia or cancer cells of the uterus. She was counseled regarding anticipatory guidance for the procedure including the risks for pain, infection, bleeding, perforation, potential injury to the tissues may include the cervix, uterus, tubes, bladder and bowels. These injuries may include further treatment and evaluation including surgery, blood transfusions, antibiotics, hospitalizations and anesthesia. Permanent injury and scarring can occur. She was consented for the procedure, and the consent forms were signed. She is agreeable to have the procedure today. All questions were answered. Endometrial Biopsy Procedure: The patient was placed in the dorsal lithotomy position and a sterile speculum inserted. Using aseptic technique for the procedure. The cervix was cleansed with Betadine x 3 swabs. A single toothed tenaculum was placed on the cervix for stabilization and the uterus was sounded to 8 cm with a 4mm pipelle for 3 passes. Minimal bleeding was observed. The tissue sample was placed in formalin in a patient labeled container by staff assisting and sent to the pathology department for processing and interpretation. The patient tolerate the procedure well and was in good condition when leaving the department. Endometrial Biopsy Post Procedure Care: Nothing in the vagina including: tampons, douching or intimacy until all the bleeding has subsided. There may be some post procedure bleeding for several days, this bleeding is usually light and may turn to a light brown or pink color. Mild cramps may occurs. Nothing in the vaginal including: tampons, douching, or intimacy until all the bleeding has subsided. You may take an over the counter mild analgesic such as Tylenol or Advil (if no allergies) per the manufactures recommendation on dosing, frequency, and follow the directions completely. Call the office if any: fever (over 100.4), flu like symptoms, abdominal pain (worse than cramping), foul smelling, infected appearing vaginal discharge, or heavy bleeding. Return to the office in 2 weeks for results and plan of care. This note is constructed using voice recognition software. While every effort has been made to ensure accuracy, master tax advisor errors may have been included. [id number] Biopsy Assessment & Plan Assessment & Plan (1) Abnormal uterine bleeding (AUB): Code(s): N93.9 - Abnormal uterine and vaginal bleeding, unspecified Plan See biopsy procedure notes. Patient does not want any cycle control methods such as the Mirena IUD, she is hopeful for a future Orders: Orders Surgical Today N93.9 - Abnormal uterine and vaginal bleeding, unspecified Medications: New PNV,calcium 31-jyvo-qjvka acid 27 mg iron- 1 mg ( Vitamins Plus Low Iron) 1 tab PO DAILY 90 tabs 4RF Coding Level of Care Code Procedure Only Diagnoses Abnormal uterine bleeding (AUB) N93.9 CPT Codes Endometrial Biopsy - CPT: 07857-Ymctpiquibz Biopsy ([id number])
[2023-08-05 07:56] VITALS: BP 132/80; BMI 44.1
== END 2023-08-05 08:19 | disposition home or self-care (01) ==
PROVIDERS: PCP Nurse Practitioner Family; Visit Provider Advanced Practice Midwife
DX: N93.9 Abnormal uterine and vaginal bleeding, unspecified (principal); Z32.02 Encounter for pregnancy test, result negative
CPT/HCPCS: 58100

== ENCOUNTER 2023-08-05 07:35 | Outpatient (REF) | payer OTHER, SELFPAY | END 2023-08-05 07:36 | disposition home or self-care (01) | LOC: HO.LNP 07:35 | PROVIDERS: PCP Nurse Practitioner Family; Visit Provider Advanced Practice Midwife | DX: N93.9 Abnormal uterine and vaginal bleeding, unspecified (principal) | CPT/HCPCS: 58100; 81025; 88305 ==

== ENCOUNTER 2023-08-26 08:49 | Outpatient (AMB) | payer OTHER, SELFPAY ==
[2023-08-26 08:56] VITALS: BP 122/78; BMI 44.1
--- NOTE | 2023-08-26 08:56 | MHC.OFFVIS ---
Vital Signs 08/26/23 08:56 Height 5 ft 6 in Weight 273 lb 5.971 oz BMI 44.1 BP 122/78 Intake Visit Reasons: emb follow up Mechatronics Technician Required: No Information Interpreted: non-clinical & clinical Electronics Engineering Manager: Electronics Engineering Manager Present Accompanied by: Self / Same As Patient Allergies acetaminophen [From PERCOCET] Allergy (Mild, Verified 08/26/23 08:57) ITCHING oxycodone [From PERCOCET] Allergy (Mild, Verified 08/26/23 08:57) ITCHING Is last menstrual period known: Yes Last menstrual period: 08/17/23 HPI Comments Details: Patient is here today for endometrial biopsy results previously seen for abnormal uterine bleeding. History of anemia intolerant of oral dosing has utilize infusions in the past. She does not want to do cycle control products such as the IUD as she is hoping for a future . She reports feeling fatigued. [facility] Medical History Infertility, female Cervical radiculopathy HTN (hypertension) Uterine fibroid Surgical History Hx of LASIK History of tonsillectomy and adenoidectomy History of lumbar surgery H/O right knee surgery Family History Father Hearing loss Mother PCOS (polycystic ovarian syndrome) Mental health disorder Maternal Grandfather Diabetes mellitus Maternal Grandmother Diabetes mellitus Paternal Grandfather Diabetes mellitus Paternal Grandmother Diabetes mellitus Cancer Brother No problems noted. Brother No problems noted. Sister No problems noted. Paternal Uncle Multiple sclerosis Social History Household Members: Spouse Housing: Apartment Alcohol intake: former Patient Tobacco Use Status: Never used Tobacco e-Cigarette/Vaping Use: Never Used Second Hand Smoke Exposure: No service: No Current occupational status: employed Current occupation: [employer] Sexual orientation: Straight/Heterosexual Gender identity: Female Cognitive needs: No Hearing needs: No Vision needs: Yes (glasses) Female Reproductive History Menstrual Duration of menses: 3-5 days Date of last menstrual period: 08/17/23 Review of Systems Const All systems reviewed & are unremarkable except as noted in HPI and below Endo Reports no additional complaints Physical Exam Vital Signs: Last Vital Signs BP 122/78 08/26/23 08:56 BMI result Body Mass Index 44.1 Const General: cooperative, healthy appearing and no acute distress Psych Appearance: well kempt Attitude: cooperative Thought process: Normal thought process present Results Reviewed Results Reviewed: Surgical Pathology [id number] Name: Karen Nassar Age/Sex: 43/F Attending: Karen Mary CNM : 1980 Submitted by: Karen Mary CNM Copies to: Ishmael Leyva [employer] MR #: [id number] Status: DEP REF Collected: 08/05/23 Location: [facility] [place] Received: 08/05/23 Diagnosis Endometrium, biopsy: Benign proliferative endometrium with focal stromal collapse; no atypia or carcinoma. Clinical History AUB Microscopic Description Microscopic sections reviewed. Material Received [facility] Gross Description Received in formalin labeled ?[facility]? are multiple vences-pink and red-maroon tubular cast fragments of congested and hemorrhagic tissue and blood, aggregating 2.0 x 2.0 x 1.0 cm, submitted in toto in cassettes A1 and A2. CEDS Copies To [facility] [place] [address] Karen Mary [address] Louann [place] [id number] NOTE: Unless otherwise stated, all tissue is formalin-fixed and paraffin-embedded. Some or all of the immunohistochemical tests reported herein may have been developed and their performance characteristics determined by [facility]. They have not been cleared or approved by the U.S. Food and Drug Administration (FDA). However, the FDA has determined that such clearance or approval is not necessary. This laboratory is certified under the Clinical Laboratory Improvement Amendments of 1988 (CLIA) as qualified to perform high complexity clinical laboratory testing. Electronically Signed By: Karla Bunch 08/08/23 8733 Patient: Karen Nassar Age/Sex: 43/F MR#: [id number] Page 1 of 1 Assessment & Plan Assessment & Plan (1) Encounter to discuss test results: Code(s): Z71.2 - Person consulting for explanation of examination or test findings (2) Abnormal uterine bleeding (AUB): Code(s): N93.9 - Abnormal uterine and vaginal bleeding, unspecified Plan Discussed: Endometrial biopsy results revealed proliferative tissue, no atypia or carcinoma. Due to the AUB I do recommend she have a treatment plan, options reviewed today limited due to her desire for a , recommend monthly progesterone at this time, reviewed risks, side effects, benefits, warnings. Recommended she try the vitamin with a low iron dose, if intolerable to let me know and we will change her prescription to gummy prenatals for the benefits of folic acid she is aware that they will not have any iron supplement. Advised to follow-up for her sleep study. Encouraged healthy well-balanced diet, and regular exercise, including outdoor activities. Informed if she would be considered high risk and her care would have to be done at [facility]. Rx for norethindrone acetate 5 mg sent in, she will be using that on a monthly from day 5-15. Plan med check in 3 months. Call sooner if there is any concerns with her medication or cycle control. All of her questions and concerns were addressed to the best of my ability and shared decision making. She is agreeable to the plan of care. This note is constructed using voice recognition software. While every effort has been made to ensure accuracy, wharf tender errors may have been included. Medications: New norethindrone acetate Take day 5 through day 15 of your menstrual cycle, and repeat monthly 5 mg PO DAILY 10 tabs 2RF 10 days
== END 2023-08-26 10:04 | disposition home or self-care (01) ==
PROVIDERS: PCP Nurse Practitioner Family; Visit Provider Advanced Practice Midwife
DX: Z71.2 Person consulting for explanation of examination or test findings (principal); N93.9 Abnormal uterine and vaginal bleeding, unspecified
CPT/HCPCS: 99213

== ENCOUNTER → 2023-08-26 08:49 | Outpatient (BNVA) | payer OTHER, SELFPAY | PROVIDERS: PCP Nurse Practitioner Family; Visit Provider Advanced Practice Midwife ==

== ENCOUNTER 2023-09-28 14:18 | Outpatient (AMB) | payer OTHER, SELFPAY ==
[2023-09-28 14:24] VITALS: BMI 43.1
--- NOTE | 2023-09-28 14:24 | MHC.OFFVIS ---
Vital Signs 09/28/23 14:24 Height 5 ft 6 in Weight 267 lb BMI 43.1 Intake Visit Reasons: pelvic pain Intake Note: Has been having off and on lower abdominal pain and feeling pressure if as if it was being squeezed. Operations Scheduler Required: No Information Interpreted: non-clinical & clinical Pneumatic Press Hand: Pneumatic Press Hand Present (Clarence) Allergies acetaminophen [From PERCOCET] Allergy (Mild, Verified 09/28/23 14:31) ITCHING oxycodone [From PERCOCET] Allergy (Mild, Verified 09/28/23 14:31) ITCHING Is last menstrual period known: Yes Last menstrual period: 09/16/23 Post menopausal: No HPI Comments Details: Patient is here today with concerns said she has lower pelvic, midline pressure discomfort almost constantly, she is tried Naprosyn and a heating pad with little relief. She also reports watery stools for the last many months, occasionally she will have a normal bowel movement. She reports when she is having pain she does feel nauseated otherwise her appetite is good. She denies any weight changes, vomiting, fever flu-like symptoms constipation, urinary symptoms vaginal odor or discharge. She was planning a future but currently her has medical concerns. She reports her last menstrual cycle was for 5 days heavy only to she is currently taking the norethindrone to help with her cycle control and reports some hot flashes during its use. [facility] Medical History Infertility, female Cervical radiculopathy HTN (hypertension) Uterine fibroid Surgical History Hx of LASIK History of tonsillectomy and adenoidectomy History of lumbar surgery H/O right knee surgery Family History Father Hearing loss Mother PCOS (polycystic ovarian syndrome) Mental health disorder Maternal Grandfather Diabetes mellitus Maternal Grandmother Diabetes mellitus Paternal Grandfather Diabetes mellitus Paternal Grandmother Diabetes mellitus Cancer Brother No problems noted. Brother No problems noted. Sister No problems noted. Paternal Uncle Multiple sclerosis Social History Household Members: Spouse Housing: Apartment Alcohol intake: former Patient Tobacco Use Status: Never used Tobacco e-Cigarette/Vaping Use: Never Used Second Hand Smoke Exposure: No service: No Current occupational status: employed Current occupation: [employer] Sexual orientation: Straight/Heterosexual Gender identity: Female Cognitive needs: No Hearing needs: No Vision needs: Yes (glasses) Female Reproductive History Menstrual Date of last menstrual period: 09/16/23 control method: none Total pregnancies: 1 Ab spontaneous: 1 Date of last pap smear: 04/22/23 (negative) Review of Systems Const All systems reviewed & are unremarkable except as noted in HPI and below Physical Exam Vital Signs: BMI result Body Mass Index 43.1 Const General: cooperative, healthy appearing and no acute distress Orientation/consciousness: patient oriented x3 GI Inspection: Yes normal to inspection Palpation (GI): Soft to palpation and Other GI palpation findings present (Nontender) Rectal Exam - Female: visual inspection normal General: Yes bladder normal to palpation External Female Exam: normal appearance of the urethra Speculum Exam - Vagina: normal appearance of the vagina, normal palpation and normal vaginal discharge Speculum Exam - Cervix: normal appearance of the cervix and normal palpation Bimanual exam- vagina & uterus: normal bimanual exam, normal palpation, uterine size normal, bladder normal to palpation, normal palpation, uterine shape normal, non-tender and other (slight discomfort on left adnexal) Bimanual Exam- Adnexa, other: normal adnexae Neuro General: patient oriented x3 Results AMB Test Urine AMB Test Urine Negative Last Edit by CHUCK Saavedra on 09/28/23 14:51 AMB Urinalysis, Automated UA Leukoctes 1 Liban/uL Last Edit by CHUCK Saavedra on 09/28/23 14:51 UA Nitrite Negative Last Edit by CHUCK Saavedra on 09/28/23 14:51 UA Urobilinogen 0 mg/dL Last Edit by CHUCK Saavedra on 09/28/23 14:51 UA Protein 0 mg/dL Last Edit by CHUCK Saavedra on 09/28/23 14:51 UA pH 5.5 Last Edit by CHUCK Saavedra on 09/28/23 14:51 UA Blood 0 Edu/uL Last Edit by CHUCK Saavedra on 09/28/23 14:51 UA Specific [place] 1.020 Last Edit by CHUCK Saavedra on 09/28/23 14:51 UA Ketone Negative Last Edit by CHUCK Saavedra on 09/28/23 14:51 UA Bilirubin 0 mg/dL Last Edit by CHUCK Saavedra on 09/28/23 14:51 UA Glucose 0 mg/dL Last Edit by CHUCK Saavedra on 09/28/23 14:51 Assessment & Plan Assessment & Plan (1) Pelvic pressure in female: Code(s): R10.2 - Pelvic and perineal pain (2) Pain in pelvis: Code(s): R10.2 - Pelvic and perineal pain (3) Fibroid: Code(s): D21.9 - Benign neoplasm of connective and other soft tissue, unspecified Plan Discussed workup to include urinalysis today and urine tests both were negative, GC chlamydia and BV panel, additional pelvic ultrasound. Advised to speak with her primary care as soon as possible, regarding getting a GI referral due to her watery stools, to increase her oral hydration to at least 10 glasses of water daily. If any significant pain to report to the emergency room immediately. All of her questions and concerns were addressed to the best of my ability and shared decision making. She is agreeable to the plan of care. This note is constructed using voice recognition software. While every effort has been made to ensure accuracy, corporation secretary errors may have been included. Orders: Orders US pelvic and transvaginal Today D21.9 - Benign neoplasm of connective and other soft tissue, unspecified, R10.2 - Pelvic and perineal pain AMB HCG Urine Test Today R10.2 - Pelvic and perineal pain AMB Urinalysis Automated Today R10.2 - Pelvic and perineal pain Bacterial Vaginosis Panel Today R10.2 - Pelvic and perineal pain CT NG by PCR Today R10.2 - Pelvic and perineal pain Coding Level of Care Code Est Pt Level 4 (00950) Diagnoses Pelvic pressure in female R10.2 Pain in pelvis R10.2 Fibroid D21.9
== END 2023-09-28 14:58 | disposition home or self-care (01) ==
LOC: HO.HWS 14:19
PROVIDERS: PCP Nurse Practitioner Family; Visit Provider Advanced Practice Midwife
DX: R10.2 Pelvic and perineal pain (principal); D21.9 Benign neoplasm of connective and other soft tissue, unspecified
CPT/HCPCS: 99214

== ENCOUNTER 2023-09-28 14:18 | Outpatient (REF) | payer OTHER, SELFPAY ==
[2023-09-28 17:50] LABS: Bacterial Vaginosis PCR NEGATIVE (Negative); Candida Group PCR NOT DETECTED (Not Detect); Candida glab krusei PCR NOT DETECTED (Not Detect); Trichomonas vaginalis PCR NOT DETECTED (Not Detect)
[2023-09-28 18:19] LABS: CT PCR NOT DETECTED (Not Detect.); NG PCR NOT DETECTED (Not Detect.)
== END 2023-09-28 14:19 | disposition home or self-care (01) ==
LOC: HO.LNP 14:18
PROVIDERS: PCP Nurse Practitioner Family; Visit Provider Advanced Practice Midwife
DX: R10.2 Pelvic and perineal pain (principal); D21.9 Benign neoplasm of connective and other soft tissue, unspecified
CPT/HCPCS: 0352U; 0353U; 81003; 81025

== ENCOUNTER 2023-10-06 07:51 | Outpatient (AMB) | payer OTHER, SELFPAY ==
--- NOTE | 2023-10-06 08:03 | MHC.PC.OV ---
Vital Signs 10/06/23 08:04 Height 5 ft 6 in Weight 271 lb BMI 43.7 BP 124/80 Blood Pressure Location Lt brachial Position Sitting Pulse 92 Pulse Source Pulse Oximeter Pulse Oximetry (%) 98 Oxygen Delivery Method Room Air Intake Visit Reasons: Body pain concerns Intake Note: Patient here to discuss body pains that have been present for a while Allergies acetaminophen [From PERCOCET] Allergy (Mild, Verified 10/06/23 08:09) ITCHING oxycodone [From PERCOCET] Allergy (Mild, Verified 10/06/23 08:09) ITCHING Medication List - Last Reconciled 10/06/23 by ALONDRA Lovett acetaminophen (Tylenol Extra Strength) 1,000 mg PO Q6H PRN albuterol sulfate 90 mcg/actuation 2 puffs inhalation Q6H PRN 30 days NS albuterol sulfate 2.5 mg (3 mL) inhalation Q6H PRN blood pressure kit-extra large As directed cholecalciferol (vitamin D3) 125 mcg PO DAILY diphenhydramine HCl (Benadryl) 25 mg PO TID PRN lisinopril-hydrochlorothiazide 20-12.5 mg 1 tab PO DAILY magnesium 400 mg PO BEDTIME PNV,calcium 25-buka-hwowo acid 27 mg iron- 1 mg ( Vitamins Plus Low Iron) 1 tab PO DAILY [thumb spica splint wear nightly and as much as possible throughout the day] [Updraft machine As directed] Tobacco use date assessed: 06/02/23 Dental Screening Dental Screen Date: 06/02/23 HPI Body pain concerns HPI Details Pt reports ongoing body pains. She has tendonitis of her RUE and right medial and lateral elbow. 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 She has gone to OT for her elbow. Will refer to ortho. Pt further reports pain from base of thumb, running medial/running proximally (dequervain's tenosynovitis), wore a wrist brace with little relief. Pt reports increased fatigue. She is following up with rheumatology. Will order labs. Denies fever, chills, and dizziness. [facility] Medical History Infertility, female Cervical radiculopathy HTN (hypertension) Uterine fibroid Surgical History Hx of LASIK History of tonsillectomy and adenoidectomy History of lumbar surgery H/O right knee surgery Family History Father Hearing loss Mother PCOS (polycystic ovarian syndrome) Mental health disorder Maternal Grandfather Diabetes mellitus Maternal Grandmother Diabetes mellitus Paternal Grandfather Diabetes mellitus Paternal Grandmother Diabetes mellitus Cancer Brother No problems noted. Brother No problems noted. Sister No problems noted. Paternal Uncle Multiple sclerosis Social History Household Members: Spouse Housing: Apartment Alcohol intake: former Patient Tobacco Use Status: Never used Tobacco e-Cigarette/Vaping Use: Never Used Second Hand Smoke Exposure: No service: No Current occupational status: employed Current occupation: [employer] Sexual orientation: Straight/Heterosexual Gender identity: Female Cognitive needs: No Hearing needs: No Vision needs: Yes (glasses) Questionnaire Thrive Questionnaire Date Thrive assessed: 06/02/23 ROULA-7 AMB Questionnaire ROULA-7 Date ROULA - 7 assessed: 06/02/23 Source: Developed by Drs. Houston Montero, Natalia Burkett, Amrik Burgos and colleagues, with an educational cynthia from [employer]. Review of Systems Const Reports as per HPI Physical exam (Primary Care) Vital Signs: Last Vital Signs Pulse 92 10/06/23 08:04 BP 124/80 10/06/23 08:04 Pulse Ox 98 10/06/23 08:04 Oxygen Delivery Method Room Air 10/06/23 08:04 BMI result Body Mass Index 43.7 Tobacco/Smoking Status: Tobacco use Status Tobacco use date assessed 06/02/23 10/06/23 08:08 Patient Tobacco Use Status Never used Tobacco 10/06/23 08:08 e-Cigarette/Vaping Use Never Used 10/06/23 08:08 Thrive Assessment: Date of Thrive Assessment Date Thrive assessed 06/02/23 10/06/23 08:08 Const General: cooperative Nutritional Appearance: obese morbidly obese Orientation/consciousness: patient oriented x3 Resp Effort & Inspection: normal respiratory effort Auscultation: clear to auscultation bilaterally Cardio Rate: regular rate Rhythm: regular rhythm Heart sounds: S1 normal heart sound present and S2 normal heart sound present Neuro General: patient oriented x3 Extrem Other: tenderness noted to lateral and medial region with extension of RUE and right wrist extension and flexion against resistance, + finklesteins Psych Appearance: grossly normal Mental Status: mental status grossly normal Speech and movement: Normal speech and movement present Affect: normal affect Attitude: cooperative Thought process: Normal thought process present Thought content: Normal thought content present Insight: Good insight present (Psych) Judgement: Good judgement present (Psych) Assessment and Plan Assessment & Plan (1) De Quervain's tenosynovitis, right: Code(s): M65.4 - Radial styloid tenosynovitis [de Quervain] (2) Medial epicondylitis: Code(s): M77.00 - Medial epicondylitis, unspecified elbow (3) Lateral epicondylitis: Code(s): M77.10 - Lateral epicondylitis, unspecified elbow (4) Fatigue: Code(s): R53.83 - Other fatigue (5) Fatigue: Code(s): R53.83 - Other fatigue Plan The patient agreed to the use of a medical staff assistant for this encounter. Scribed for ALONDRA Bee by Debbie Pollard medical staff assistant, on 10/06/2023 at 08:10 EST. Orders: Orders Complete Blood Count Auto Diff Today R53.83 - Other fatigue Comprehensive Met. Panel Today R53.83 - Other fatigue TSH reflex Free T4 Today R53.83 - Other fatigue UA CC w/rflx Micro + Cult Today R53.83 - Other fatigue Vitamin D 25-OH Total Today R53.83 - Other fatigue Ferritin Today R53.83 - Other fatigue Vitamin B12 and Folate Today R53.83 - Other fatigue IRON PROFILE Today R53.83 - Other fatigue Referrals Orthopedics Referral M65.4 - Radial styloid tenosynovitis [de Quervain], M77.00 - Medial epicondylitis, unspecified elbow, M77.10 - Lateral epicondylitis, unspecified elbow Medications: Refilled lisinopril-hydrochlorothiazide 20-12.5 mg 1 tab PO DAILY 90 tabs 1RF Coding Level of Care Code Est Pt Level 3 (71093) Diagnoses De Quervain's tenosynovitis, right M65.4 Medial epicondylitis M77.00 Lateral epicondylitis M77.10 Fatigue R53.83
[2023-10-06 08:04] VITALS: BP 124/80; PULSE 92; O2SAT 98; BMI 43.7
== END 2023-10-06 08:30 | disposition home or self-care (01) ==
PROVIDERS: PCP Nurse Practitioner Family; Visit Provider Nurse Practitioner Family
DX: M65.4 Radial styloid tenosynovitis [de Quervain] (principal); M77.00 Medial epicondylitis, unspecified elbow; M77.10 Lateral epicondylitis, unspecified elbow; R53.83 Other fatigue
CPT/HCPCS: 99213

== ENCOUNTER 2023-10-06 08:31 | Outpatient (REF) | payer OTHER, SELFPAY ==
[2023-10-06 10:30] LABS: MANUAL DIFF FLAG NO
[2023-10-06 10:35] LABS: Appearance Urine Clear; Color Urine Yellow; Glucose Urine UA Negative (Negative); Leukocyte Esterase Urine Negative (Negative); Nitrite Urine Negative (Negative); UMIC TRIGGER UACC YES; Urine Blood Moderate (2+) (Negative); Urine Ketones Negative (Negative); Urine Protein Negative (Neg-Trace)
[2023-10-06 10:42] LABS: Basophils Percent Auto 0.3 % (0-2); Eosinophils Absolute Auto 0.1 X10*3/uL (0.0-0.4); Hematocrit 35.5 % (37.0-47.0); Hemoglobin 11.3 g/dl (12.0-16.0); Imm Gran Abs Auto 0.04 X10*3/uL (0.00-0.03); Imm Gran Pct Auto 0.5 % (0.0-0.4); Lymphocytes Percent Auto 34.6 % (20-40); Mean Corpuscular HGB Conc 31.8 g/dl (31.0-35.0); Mean Corpuscular Hemoglobin 24.5 pg (27.0-33.0); Monocytes Absolute Auto 0.6 X10*3/uL (0.1-1.2); Monocytes Percent Auto 6.8 % (2-11); Neutrophils Percent Auto 56.8 % (45-73); Platelet Count 346 X10*3/uL (160-400); Red Blood Count 4.61 X10*6/uL (4.20-5.50); Red Cell Distribution Width 18.4 % (11.0-16.0); White Blood Count 8.8 X10*3/uL (4.8-10.8)
[2023-10-06 10:55] LABS: Bacteria Urine None Seen (None Seen); Hyaline Casts Urine 0-2 /LPF (0-2); RBC Urine 0-2 /HPF (0-2); Squamous Epithelial Cell Urine 0-2 /HPF (0-2); WBC Urine 0-5 /HPF (0-5)
[2023-10-06 11:02] LABS: Alanine Aminotransferase 37 U/L (0-31); Albumin Level 4.2 g/dL (3.5-5.0); Alkaline Phosphatase 86 U/L (39-117); Anion Gap 15 (12-20); Aspartate Amino Transferase 28 U/L (5-31); Bilirubin Total 0.2 mg/dL (0.0-1.0); Blood Urea Nitrogen 12 mg/dL (9-16); Calcium 9.5 mg/dL (8.4-10.2); Carbon Dioxide 21 mmol/L (22-29); Chloride 106 mmol/L (96-108); Cholesterol 192 mg/dL (<200); Estimated Glomerular Filt Rate > 60; Glucose Fasting 99 mg/dL (60-99); Glucose Random 99 mg/dL (60-115); HDL Cholesterol 46 mg/dL (>40); Iron 22 mcg/dL (30-160); LDL Cholesterol Calculated 110 mg/dL (<100); Percent Iron Saturation 6 % (15-50); Potassium 3.9 mmol/L (3.3-5.1); Sodium 138 mmol/L (135-145); Total Iron Binding Capacity 343 mcg/dL (228-428); Total Protein 8.4 g/dL (6.5-8.0); Triglycerides 180 mg/dL (<150); Unsaturated Iron Binding 321 ug/dL
[2023-10-06 11:07] LABS: Ferritin 38 ng/mL (10-250); TSH reflex Free T4 1.79 uIU/mL (0.32-4.0); Vitamin D 25-OH Total 49.8 ng/mL (>30)
[2023-10-06 11:38] LABS: Folate 7.5 ng/mL (> or = 4.0); Vitamin B12 479 pg/mL (200-900)
== END 2023-10-06 08:32 | disposition home or self-care (01) ==
LOC: HO.HMGCLDS 08:31
PROVIDERS: PCP Nurse Practitioner Family; Visit Provider Nurse Practitioner Family
DX: E78.5 Hyperlipidemia, unspecified (principal); R53.83 Other fatigue
CPT/HCPCS: 36415; 80053; 80061; 81001; 82306; 82607; 82728; 82746; 83540; 84443; 85025

== ENCOUNTER 2023-10-06 13:50 | Outpatient (REF) | payer OTHER, SELFPAY ==
--- NOTE | ~2023-10-06 | US_ITS ---
EXAMINATION: US PELVIS CLINICAL INFORMATION: Pelvic and perineal pain LMP 10/01/2023 COMPARISON: Pelvic ultrasound 06/03/2023 TECHNIQUE: Ultrasound of the pelvis is performed using both transabdominal and transvaginal transducers along with Doppler. Transvaginal imaging is performed due to inadequate visualization transabdominally. FINDINGS: Uterus: The uterus is anteverted and measures 7.4 x 3.4 x 3.0 cm. Posterior subserosal fibroid in the body the uterus measures 1.6 x 1.2 x 1.4 cm, previously measured 1.7 x 1.1 x 1.8 cm. The endometrial thickness is 0.3 cm. Adnexa: Both ovaries are visualized. There is normal color flow to the adnexa. There is no ovarian torsion. There is no pelvic ascites or fluid collection. The appearance of the ovaries are within normal limits. Right ovary measures 2.5 x 2.0 x 2.4 cm. Volume 6.5 mL. Left ovary measures 1.6 x 2.1 x 2.0 cm. Volume 3.3 mL. US/US pelvic and transvaginal IMPRESSION: 1. 1.6 cm subserosal fibroid in the body of the uterus. 2. Normal ovaries.
== END 2023-10-06 13:51 | disposition home or self-care (01) ==
LOC: HO.US 13:50
PROVIDERS: PCP Nurse Practitioner Family; Visit Provider Advanced Practice Midwife
DX: R10.2 Pelvic and perineal pain (principal); D21.9 Benign neoplasm of connective and other soft tissue, unspecified
CPT/HCPCS: 76830; 76856

== ENCOUNTER 2023-10-31 11:47 | Emergency (ER) | payer OTHER, SELFPAY ==
[2023-10-31 12:07] VITALS: BP 123/92; PULSE 84; RESP 20; TEMP 36.4; O2SAT 97; BMI 44.1
--- NOTE | 2023-10-31 12:07 | ED_ITS ---
HPI - GI Bleed General Chief complaint: GI Bleed Stated complaint: Rectal bleeding Time Seen by Provider: 10/31/23 20:53 Source: patient Mode of arrival: ambulatory Limitations: no limitations History of Present Illness ED Provider: daniel HUERTA Narrative: Patient complaining of bright red blood when she moving her bowels for last 3 -4 days no blood clots no abdominal pain no history of hemorrhoids in the past Related Data Home Medications ?Medication ?Instructions ?Recorded ?Confirmed acetaminophen 500 mg tablet 1,000 mg PO Q6H PRN 04/13/21 10/06/23 (Tylenol Extra Strength) magnesium 200 mg tablet 400 mg PO BEDTIME 12/16/22 10/06/23 Previous Rx's ?Medication ?Instructions ?Recorded Updraft machine #1 ea 06/03/20 blood pressure kit-extra large #1 ea 09/24/21 cholecalciferol (vitamin D3) 125 125 mcg PO DAILY #90 caps 03/31/22 mcg (5,000 unit) capsule diphenhydramine HCl 25 mg capsule 25 mg PO TID PRN allergy symptoms 08/26/22 (Benadryl) #30 caps albuterol sulfate 2.5 mg/3 mL 2.5 mg (3 mL) inhalation Q6H PRN 02/02/23 (0.083 %) solution for nebulization shortness of breath or wheezing #90 mL albuterol sulfate 90 mcg/actuation 2 puff inhalation Q6H PRN 02/02/23 aerosol inhaler bronchospasm 30 days #18 grams thumb spica splint #1 ea 04/20/23 vitamin with calcium 1 tab PO DAILY #90 tabs 08/05/23 no.72-iron 27 mg-folic acid 1 mg tablet ( Vitamins Plus Low Iron) lisinopril 20 1 tab PO DAILY #90 tabs 10/06/23 mg-hydrochlorothiazide 12.5 mg tablet hydrocortisone 1 %-pramoxine 1 % 1 appl [place] BID PRN hemorrhoids #10 10/31/23 rectal foam (Proctofoam HC) grams Allergies Allergy/AdvReac Type Severity Reaction Status Date / Time acetaminophen [From PERCOCET] Allergy Mild ITCHING Verified 10/31/23 12:11 oxycodone [From PERCOCET] Allergy Mild ITCHING Verified 10/31/23 12:11 Review of Systems 2 Review of Systems: Yes all other systems are reviewed and are negative [facility] Past Medical History Medical History Infertility, female Cervical radiculopathy HTN (hypertension) Uterine fibroid Surgical History Hx of LASIK History of tonsillectomy and adenoidectomy History of lumbar surgery H/O right knee surgery Family History Family History Father Hearing loss Mother PCOS (polycystic ovarian syndrome) Mental health disorder Maternal Grandfather Diabetes mellitus Maternal Grandmother Diabetes mellitus Paternal Grandfather Diabetes mellitus Paternal Grandmother Diabetes mellitus Cancer Brother No problems noted. Brother No problems noted. Sister No problems noted. Paternal Uncle Multiple sclerosis Social History Social History Household Members: Spouse Housing: Apartment Alcohol intake: former Patient Tobacco Use Status: Never used Tobacco Smoked in Last 30 Days: No e-Cigarette/Vaping Use: Never Used Second Hand Smoke Exposure: No Advance Directives: No Advance Directives Information Provided: No Do you have a plan to hurt others: No Plan Patient : No service: No Current occupational status: employed Current occupation: [employer] Sexual orientation: Straight/Heterosexual Gender identity: Female Cognitive needs: No Hearing needs: No Vision needs: Yes (glasses) Physical Exam 2 Vital Signs: Vital Signs: Last Vital Signs Temp 98.4 F 10/31/23 21:43 Pulse 79 10/31/23 21:43 Resp 16 10/31/23 21:43 BP 111/71 10/31/23 21:43 Pulse Ox 98 10/31/23 21:43 O2 Del Method Room Air 10/31/23 21:43 BMI result Body Mass Index 44.1 Appearance: Alert. Oriented X3. No acute distress. Eyes: PERRLA, No Nystagmus ENT: Pharynx normal. Oral Mucosa moist Neck: Normal inspection. Neck supple. CVS: Normal heart rate and rhythm. Pulses normal. Respiratory: No respiratory distress. Equal air entry bilateral, no wheezing/rales/rhonchi Abdomen: Soft and nontender. Bowel sounds are present, no mass palpable, no CVA tenderness Skin: Skin warm and dry. Normal skin color. Normal skin turgor. Extremities: No lower extremity edema. No calf tenderness Neuro: Oriented X 3. No motor deficit. No sensory deficit.No cerebellar signs , cranial nerves II-XII intact Course Course Course Narrative: This is a Rapid Medical Exam performed in triage by Sona Canada PA-C. Full HPI, ROS and PE to be performed by primary ED provider. 43 year-old F w/ PMHx GERD, LEOS, anxiety, HLD, presenting to the ED c/o bright red rectal bleeding x Thurs, w/every BM. States this morning had blood on toilet paper. Admits to abdominal & rectal discomfort/pressure. Admits to pain when she sits--does admit to hx of internal hemorrhoids. 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 labs reassuring Medical Decision Making Medical Decision Making [facility] Narrative: Patient with minor hemorrhoidal bleed H&H stable advised to use Proctofoam and follow with lehr operator Differential Diagnosis Differential Diagnoses: The differential diagnosis associated with the presentation includes Hemorrhoidal bleed Lab Data [facility] Lab Attestation statement: I reviewed the patient's lab results. 10/31/23 13:30 10/31/23 13:30 Labs: Lab Results 10/31/23 10/31/23 Range/Units 13:30 13:35 WBC 9.6 (4.8-10.8) X10*3/uL RBC 4.54 (4.20-5.50) X10*6/uL Hgb 11.1 L (12.0-16.0) g/dl Hct 34.4 L (37.0-47.0) % MCV 75.8 L (80.0-98.0) fL MCH 24.4 L (27.0-33.0) pg MCHC 32.3 (31.0-35.0) g/dl RDW 18.3 H (11.0-16.0) % Plt Count 286 (160-400) X10*3/uL MPV 10.4 (9.4-12.3) fL Immature Gran % (Auto) 0.5 H (0.0-0.4) % Neut % (Auto) 54.1 (45-73) % Lymph % (Auto) 37.2 (20-40) % [place] % (Auto) 7.1 (2-11) % Eos % (Auto) 0.7 (0-4) % Baso % (Auto) 0.4 (0-2) % Lymph # (Auto) 3.6 (1.2-4.9) X10*3/uL [place] # (Auto) 0.7 (0.1-1.2) X10*3/uL Eos # (Auto) 0.1 (0.0-0.4) X10*3/uL Baso # (Auto) 0.0 (0.0-0.2) X10*3/uL Abs Immat Gran (auto) 0.05 H (0.00-0.03) X10*3/uL Absolute Neuts (auto) 5.2 (2.0-8.3) x10*3/uL Absolute Nucleated RBC 0.000 (0.0-0.012) X10*3/uL Nucleated RBC % (auto) 0.0 (0.0-0.2) /100WBC PT 11.8 (11.1-13.3) SEC INR 1.0 (0.9-1.1) Sodium 140 (135-145) mmol/L Potassium 3.8 (3.3-5.1) mmol/L Chloride 103 (96-108) mmol/L Carbon Dioxide 26 (22-29) mmol/L Anion Gap 15 (12-20) BUN 12 (9-16) mg/dL Creatinine 0.70 (0.5-1.4) mg/dL Estim Creat Clear Calc 139.2 Estimated GFR > 60 Random Glucose 114 (60-115) mg/dL Calcium 9.4 (8.4-10.2) mg/dL Magnesium 2.1 (1.6-2.6) mg/dL Total Bilirubin 0.2 (0.0-1.0) mg/dL Direct Bilirubin < 0.2 (0.0-0.5) mg/dL AST 24 (5-31) U/L ALT 30 (0-31) U/L Alkaline Phosphatase 79 (39-117) U/L Total Protein 8.0 (6.5-8.0) g/dL Albumin 4.0 (3.5-5.0) g/dL Lipase 28 (8-78) U/L Urine Color Yellow Urine Appearance Clear Urine pH 5.5 (5.0-9.0) Ur Specific [place] 1.020 (1.005-1.025) Urine Protein Negative (Neg-Trace) mg/dL Urine Glucose (UA) Negative (Negative) mg/dL Urine Ketones Negative (Negative) mg/dL Urine Blood Negative (Negative) Urine Nitrite Negative (Negative) Ur Leukocyte Esterase Negative (Negative) Urine Test NEGATIVE (NEGATIVE) Discharge Plan Discharge Clinical Impression: Bleeding internal hemorrhoids, Iron deficiency anemia Patient Disposition: Home, Self-Care Instructions: Hemorrhoids (DC), Iron Rich Diet (ED), Iron Deficiency Anemia (ED) Additional Instructions: Avoid straining/constipation Proctofoam application twice daily as advised Follow with surgeon if bleeding continues Prescriptions: New Proctofoam HC 1-1 % foam 1 appl [place] BID PRN (Reason: hemorrhoids) Qty: 10 0RF No Action (DME) Updraft machine See Rx Instructions .Route .MEDSUPPLY Qty: 1 0RF Rx Instructions: As directed cholecalciferol (vitamin D3) 125 mcg (5,000 unit) capsule 125 mcg PO DAILY Qty: 90 1RF (DME) blood pressure kit-extra large Kit See Rx Instructions .Route Qty: 1 0RF Rx Instructions: As directed acetaminophen [Tylenol Extra Strength] 500 mg tablet 1,000 mg PO Q6H PRN diphenhydramine HCl [Benadryl] 25 mg capsule 25 mg PO TID PRN (Reason: allergy symptoms) Qty: 30 0RF albuterol sulfate 2.5 mg /3 mL (0.083 %) solution for nebulization 2.5 mg inhalation Q6H PRN (Reason: shortness of breath or wheezing) Qty: 90 0RF albuterol sulfate 90 mcg/actuation HFA aerosol inhaler 2 puff inhalation Q6H PRN (Reason: bronchospasm) 30 Days Qty: 18 2RF lisinopril-hydrochlorothiazide 20-12.5 mg tablet 1 tab PO DAILY Qty: 90 1RF magnesium 200 mg tablet 400 mg PO BEDTIME (DME) thumb spica splint See Rx Instructions .Route .MEDSUPPLY Qty: 1 0RF Rx Instructions: wear nightly and as much as possible throughout the day Vitamin Plus Low Iron 27 mg iron- 1 mg tablet 1 tab PO DAILY Qty: 90 4RF Referrals: Bridger Mcdonough MD [Physician] - 2 weeks Stand Alone Forms: Work/School Release Interventions: ED Discharge Assessment Last Done: 10/31/23 21:43 Discharge Date/Time: 10/31/23 21:43 Print Language: Turkish
[2023-10-31 13:40] LABS: MANUAL DIFF FLAG NO
[2023-10-31 13:42] LABS: Basophils Percent Auto 0.4 % (0-2); Eosinophils Absolute Auto 0.1 X10*3/uL (0.0-0.4); Eosinophils Percent Auto 0.7 % (0-4); Hematocrit 34.4 % (37.0-47.0); Hemoglobin 11.1 g/dl (12.0-16.0); Imm Gran Abs Auto 0.05 X10*3/uL (0.00-0.03); Imm Gran Pct Auto 0.5 % (0.0-0.4); Lymphocytes Absolute Auto 3.6 X10*3/uL (1.2-4.9); Lymphocytes Percent Auto 37.2 % (20-40); Mean Corpuscular HGB Conc 32.3 g/dl (31.0-35.0); Mean Corpuscular Hemoglobin 24.4 pg (27.0-33.0); Mean Corpuscular Volume 75.8 fL (80.0-98.0); Mean Platelet Volume 10.4 fL (9.4-12.3); Monocytes Absolute Auto 0.7 X10*3/uL (0.1-1.2); Monocytes Percent Auto 7.1 % (2-11); Neutrophils Absolute Auto 5.2 x10*3/uL (2.0-8.3); Neutrophils Percent Auto 54.1 % (45-73); Platelet Count 286 X10*3/uL (160-400); Red Blood Count 4.54 X10*6/uL (4.20-5.50); Red Cell Distribution Width 18.3 % (11.0-16.0); White Blood Count 9.6 X10*3/uL (4.8-10.8)
[2023-10-31 13:43] LABS: Appearance Urine Clear; Color Urine Yellow; Glucose Urine UA Negative (Negative); Leukocyte Esterase Urine Negative (Negative); Nitrite Urine Negative (Negative); PH 5.5 (5.0-9.0); Urine Blood Negative (Negative); Urine Ketones Negative (Negative); Urine Protein Negative (Neg-Trace)
[2023-10-31 13:44] LABS: UPreg QC Valid YES; Urine Pregnancy NEGATIVE (NEGATIVE)
[2023-10-31 13:48] LABS: Prothrombin Time 11.8 SEC (11.1-13.3)
[2023-10-31 14:01] LABS: Alanine Aminotransferase 30 U/L (0-31); Alkaline Phosphatase 79 U/L (39-117); Anion Gap 15 (12-20); Aspartate Amino Transferase 24 U/L (5-31); Bilirubin Direct < 0.2 mg/dL (0.0-0.5); Bilirubin Total 0.2 mg/dL (0.0-1.0); Blood Urea Nitrogen 12 mg/dL (9-16); Calcium 9.4 mg/dL (8.4-10.2); Carbon Dioxide 26 mmol/L (22-29); Chloride 103 mmol/L (96-108); Creatinine Clr Calc Pharmacy 139.2; Estimated Glomerular Filt Rate > 60; Glucose Random 114 mg/dL (60-115); Lipase 28 U/L (8-78); Magnesium 2.1 mg/dL (1.6-2.6); Potassium 3.8 mmol/L (3.3-5.1); Sodium 140 mmol/L (135-145)
[2023-10-31 19:39] VITALS: BP 132/84; PULSE 85; RESP 16; TEMP 36.6; O2SAT 96
[2023-10-31 21:11] VITALS: BP 111/71; PULSE 79; RESP 16; TEMP 36.9; O2SAT 98
[2023-10-31 21:43] VITALS: BP 111/71; PULSE 79; RESP 16; TEMP 36.9; O2SAT 98
== END 2023-10-31 21:43 | disposition home or self-care (01) ==
PROVIDERS: Physician Assistant; Emergency Provider Internal Medicine; PCP Nurse Practitioner Family
DX: K64.8 Other hemorrhoids (principal); D50.9 Iron deficiency anemia, unspecified; Z79.899 Other long term (current) drug therapy
CPT/HCPCS: 36415; 80048; 80076; 81003; 81025; 83690; 83735; 85025; 85610; 99283; 99284

== ENCOUNTER 2023-11-02 08:08 | Outpatient (AMB) | payer OTHER, SELFPAY ==
--- NOTE | 2023-11-02 08:11 | A.OFFVIS_ITS ---
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 Patient reports for many years she has been having on going pain at the base of her right thumb and wrist but a year ago is when her symptoms returned and worsened. She expresses tingling and numbness in the right hand with pain and tingling radiates from CMC into the lateral aspect of her elbow. When she is sitting with her arm resting for a prolonged period she states her arm is difficult to strecth due to the pain in the lateral aspect of her elbow. She expresses pain with her daily activities such lifting, typing on computer for work, cellphone usage, driving, eating, and doing her hair. She has a history of working with her hands doing repetitive motions. 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 She complains of right radial-sided wrist pain which radiates from the dorsal aspect of her thumb to her radial forearm. She says this has been ongoing since a workmen's compensation issue about 7 years ago. She said she has not being seen today as a part of a workman's compensation claim. She says it was treated with therapy and therapeutic modalities. She says she never had surgery or an injection. She also had other complaints of pain including at the medial aspect of the elbow and that over the dorsal aspect of the proximal forearm. When I asked her to point with 1 finger to the area that hurts her the worst she pointed to the right medial epicondyle. She says she has had pain in this area for about 1 year. She also complains of numbness, tingling, and burning in her bilateral hands, R>L. Symptoms mostly come and go, but she does feel a constant numbness in all of the fingers of her right hand, and says the right hand does not feel the same as the left. She says this radiates up her forearm and into her elbow at times. She finds this worse when leaning on her elbow/forearm. 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 [facility] Medical History Infertility, female Cervical radiculopathy HTN (hypertension) Uterine fibroid Surgical History Hx of LASIK History of tonsillectomy and adenoidectomy History of lumbar surgery H/O right knee surgery Family History Father Hearing loss Mother PCOS (polycystic ovarian syndrome) Mental health disorder Maternal Grandfather Diabetes mellitus Maternal Grandmother Diabetes mellitus Paternal Grandfather Diabetes mellitus Paternal Grandmother Diabetes mellitus Cancer Brother No problems noted. Brother No problems noted. Sister No problems noted. Paternal Uncle Multiple sclerosis Social History Household Members: Spouse Housing: Apartment Alcohol intake: former Patient Tobacco Use Status: Never used Tobacco e-Cigarette/Vaping Use: Never Used Second Hand Smoke Exposure: No service: No Current occupational status: employed Current occupation: [employer] / right hand dominant Sexual orientation: Straight/Heterosexual Gender identity: Female Cognitive needs: No Hearing needs: No Vision needs: Yes (glasses) Review of Systems Const All systems reviewed & are unremarkable except as noted in HPI and below Physical Exam Const General: cooperative, healthy appearing and no acute distress Orientation/consciousness: patient oriented x3 HEENT Head: Yes normocephalic and Yes atraumatic Eyes EOM: EOMs intact bilaterally Resp Effort & Inspection: normal respiratory effort and able to speak in complete sentences Cardio Jugular venous distension: no JVD Skin General skin exam: turgor normal Rashes: no rashes Neuro General: patient oriented x3 Extrem Other: Evaluation of Right Upper Extremity: The patient is alert, oriented, and in no acute distress Neuro: Decreased sensation in all fingers of the right hand compared to the left. Median ulnar radial Radial nerves motor function intact, and superficial radial nerve sensory normal No thenar or intrinsic wasting Good APB muscle belly firing and good finger cross Vascular: Cap refill brisk ROM: She can make a fist and extend all her digis No lcoking or catching Skin: No lacerations or abrasions. General: No Ecchymosis. No Erythema or evidence of infection. Tenderness over the flexor origin just distal to the medial epicondyle Pain referred to the medial epicondyle with resisted wrist flexion No pain referred to the medial epicondyle with resisted finger flexion Sapphire test positive for pain, but unclear if this may involve the basal joint Mild tenderness over the basal joint No tenderness over the a1 lynn Radiographs: 3 views of the right hand, with attention to the thumb, were taken and viewed by me today in clinic. They show no fractures or dislocations. Basal joint actuall y appears to be in fairly good condition. Psych Appearance: grossly normal Affect: normal affect Attitude: cooperative Office Procedures Fracture Care Details: No fracture, injection Fracture Billing Code: Fracture Billing Code Assessment & Plan Assessment & Plan (1) Medial epicondylitis of right elbow: Code(s): M77.01 - Medial epicondylitis, right elbow Category: Medical (2) Bilateral hand numbness: Code(s): R20.0 - Anesthesia of skin Category: Medical (3) Right wrist pain: Code(s): M25.531 - Pain in right wrist Category: Medical Plan Assessment & Plan: 1. Right medial epicondylitis I educated her about this condition I recommend activity modification & OT hand therapy I discussed activity modification I ordered OT hand therapy to work on stretching exercises and normalizing function 2. Bilateral hand numbness R>L Decreased sensation in all digits of the right hand today in clinic I educated her about carpal & cubital tunnel syndrome She will pay attention to how often she experiences numbness & how often this may include her small fingers I ordered a NCS to assess for peripheral nerve compression She will follow up when completed for review 3. Chronic right de Quervain tenosynovitis For more than 7 years, previously a part of a workman's compensation issue. Sapphire test positive today, but localizing pain more to the basal joint than the radial styloid. Sapphire negative on the left. I educated her about De Quervain's tenosynovitis I recommend activity modification & a diagnostic injection today Injection #1: The risks and benefits of a steroid injection including but not limited to risk of damage to blood vessels, nerves, tendons, infection, skin bleaching, failure to improve symptoms, increased pain, and possible need for further injections or other intervention were discussed with the patient and the patient wishes to proceed with the steroid injection. Once consent was obtained, I sterilely prepped the area over the 1st dorsal compartment of the Right thumb. I then injected the 1st dorsal compartment with a combination of 1 mL of dexamethasone (4mg/ml), and 1% lidocaine. The patient tolerated the procedure well with no complications and good improvement of their symptoms prior to leaving clinic. She was also fitted with a comfort cool soft thumb spica splint to wear with daytime activities when symptomatic. If the patient continues to have pain 6-8 weeks following this injection, they may call to schedule appointment to discuss alternative treatment options Scribed for Zoe Peralta MD by Joe Suarez, administrative medical director, on 11/02/23 at 8:50 AM, EST. Orders: Orders NE electromyogram (EMG) Today MARCELA Mayberry R20.0 - Anesthesia of skin, R20.2 - Paresthesia of skin XR hand RT min 3V Today Zoe Peralta MD M79.641 - Pain in right hand OT Evaluation and Treatment Today MARCELA Mayberry M65.4 - Radial styloid tenosynovitis [de Quervain], M77.00 - Medial epicondylitis, unspecified elbow NE nerve conduction velocity Today MARCELA Mayberry R20.0 - Anesthesia of skin, R20.2 - Paresthesia of skin Coding Level of Care Code New Pt Level 4 (06392) Diagnoses Medial epicondylitis of right elbow M77.01 Bilateral hand numbness R20.0 Right wrist pain M25.531 CPT Codes Fracture Care - Fracture Billing Code: Fracture Billing Code ([id number])
== END 2023-11-02 09:36 | disposition home or self-care (01) ==
PROVIDERS: PCP Nurse Practitioner Family; Visit Provider Orthopaedic Surgery
DX: M65.4 Radial styloid tenosynovitis [de Quervain] (principal); M77.01 Medial epicondylitis, right elbow; R20.0 Anesthesia of skin; M25.531 Pain in right wrist
CPT/HCPCS: 20550; 99203

== ENCOUNTER 2023-11-02 08:08 | Outpatient (REF) | payer OTHER, SELFPAY ==
--- NOTE | ~2023-11-02 | XR_ITS ---
EXAMINATION: XR HAND, RIGHT CLINICAL INFORMATION: Attention base of thumb, pain. COMPARISON: None available. TECHNIQUE: 3 views of the right thumb. FINDINGS: Bone mineralization is normal. Moderate degenerative changes in the first carpometacarpal and metacarpophalangeal joints with joint space narrowing and hypertrophic change. Corticated ossicles adjacent to the first metacarpophalangeal joint. Rounded ossicle adjacent to the IP joint of the thumb with an adjacent tiny linear ossific/calcific density of indeterminate etiology. Subtle lucency at the volar base of the distal tuft of the thumb. XR/XR hand RT min 3V IMPRESSION: 1. Moderate degenerative changes first carpometacarpal and metacarpophalangeal joints. 2. Rounded ossicle adjacent to the IP joint of the thumb with an adjacent tiny linear ossific/calcific density of indeterminate etiology. Subtle lucency at the volar base of the distal tuft of the thumb. Correlation with clinical exam recommended to determine further management.
== END 2023-11-02 08:09 | disposition home or self-care (01) ==
LOC: HO.HOSX 08:08
PROVIDERS: PCP Nurse Practitioner Family; Visit Provider Orthopaedic Surgery
DX: M79.641 Pain in right hand (principal); M77.01 Medial epicondylitis, right elbow; R20.0 Anesthesia of skin; M25.531 Pain in right wrist
CPT/HCPCS: 20550; 73130; J1100

== ENCOUNTER 2023-11-08 13:45 | Outpatient (AMB) | payer OTHER, SELFPAY ==
--- NOTE | 2023-11-08 13:52 | A.OFFVIS_ITS ---
Vital Signs 11/08/23 14:03 Height 5 ft 6 in Weight 272 lb BMI 43.9 BP 143/71 H Blood Pressure Location Rt brachial Position Sitting Pulse 94 Intake Visit Reasons: rectal bleeding Intake Note: Patient referred after ER visit for rectal bleeding. Reports hemorrhoids for 8yrs after since colonoscopy at [facility]. Patient c/o: bleeding w/BM X1wk. Denies abd pain, no recent blood clots after BM. States no recent episodes of constipation. ER: 10-31-2023. 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 She has had a couple of episodes of painless bright red blood per rectum over the last weeks time. She has never had this before. Patient has history of typically loose stool/ diarrhea but has recently had bouts of constipation over the last month. No specific change in the caliber of the stool was noted. Patient does not practice anal receptive intercourse. Patient had colonoscopy over 10 years ago. No prior history of hemorrhoids. Patient is otherwise relatively healthy. Chart was reviewed and patient evaluated [facility] Medical History Infertility, female Cervical radiculopathy HTN (hypertension) Uterine fibroid Surgical History Hx of LASIK History of tonsillectomy and adenoidectomy History of lumbar surgery H/O right knee surgery Family History Father Hearing loss Mother PCOS (polycystic ovarian syndrome) Mental health disorder Maternal Grandfather Diabetes mellitus Maternal Grandmother Diabetes mellitus Paternal Grandfather Diabetes mellitus Paternal Grandmother Diabetes mellitus Cancer Brother No problems noted. Brother No problems noted. Sister No problems noted. Paternal Uncle Multiple sclerosis Social History Household Members: Spouse Housing: Apartment Alcohol intake: former Patient Tobacco Use Status: Never used Tobacco e-Cigarette/Vaping Use: Never Used Second Hand Smoke Exposure: No service: No Current occupational status: employed Current occupation: [employer] / right hand dominant Sexual orientation: Straight/Heterosexual Gender identity: Female Cognitive needs: No Hearing needs: No Vision needs: Yes (glasses) Physical Exam Vital Signs: Last Vital Signs Pulse 94 11/08/23 14:03 BP 143/71 H 11/08/23 14:03 BMI result Body Mass Index 43.9 GI Other: Abdomen corpulent, soft, benign. Rectal exam demonstrated no obvious external hemorrhoids and with Valsalva no obvious internal hemorrhoids protruding. No evidence of any fissure. Rectal exam was deferred secondary to patient's not wanting 1. Assessment & Plan Assessment & Plan (1) Lower GI bleed: Code(s): K92.2 - Gastrointestinal hemorrhage, unspecified Category: Surgical Plan Current plans for arrange for GI evaluation regarding lower GI bleed for colonoscopy. Further interventions and studies will be directed by findings of the above-mentioned procedure. Arrangements were made for this. Patient will see me after GI consultation. Orders: Referrals Gastroenterology Referral K92.2 - Gastrointestinal hemorrhage, unspecified Coding Level of Care Code New Pt Level 4 (04727) Diagnoses Lower GI bleed K92.2
[2023-11-08 14:03] VITALS: BP 143/71; PULSE 94; BMI 43.9
== END 2023-11-08 14:20 | disposition home or self-care (01) ==
PROVIDERS: PCP Nurse Practitioner Family; Visit Provider Surgery
DX: K92.2 Gastrointestinal hemorrhage, unspecified (principal)
CPT/HCPCS: 99203

== ENCOUNTER → 2023-11-08 13:45 | Outpatient (BNVA) | payer OTHER, SELFPAY | PROVIDERS: PCP Nurse Practitioner Family; Visit Provider Surgery ==

== ENCOUNTER 2023-11-24 13:46 | Outpatient (REF) | payer OTHER, SELFPAY ==
--- NOTE | 2023-11-24 13:48 | EMG_ITS ---
Chief complaint: Bilateral hand numbness and pain Reason for referral: Evaluate for Carpal Tunnel Syndrome versus ulnar neuropathy Referred by: Kaden MEDRANO Procedure done: Bilateral upper extremities NCS/EMG Precautions and/or limitations: None The limb temperature was monitored continuously and remained between 32-36 degrees C during the performance of the NCS. Nerve Conduction Studies Anti Sensory Summary Table ?Stim Site NR Onset (ms) Norm Onset (ms) Peak (ms) Norm Peak (ms) O-P Amp (?V) Norm O-P Amp Site1 Site2 Delta-0 (ms) Dist (cm) Addy (m/s) Norm Addy (m/s) Left Median Anti Sensory (2nd Digit) Wrist ? 2.2 2.8 <3.6 85.4 >10 Wrist 2nd Digit 2.2 14.0 64 Right Median Anti Sensory (2nd Digit) Wrist ? 2.2 2.9 <3.6 66.3 >10 Wrist 2nd Digit 2.2 14.0 64 Left Ulnar Anti Sensory (5th Digit) Wrist ? 2.0 2.7 <3.7 30.5 >15.0 Wrist 5th Digit 2.0 14.0 70 Right Ulnar Anti Sensory (5th Digit) Wrist ? 1.9 2.6 <3.7 20.3 >15.0 Wrist 5th Digit 1.9 14.0 74 Motor Summary Table ?Stim Site NR Onset (ms) Norm Onset (ms) O-P Amp (mV) Norm O-P Amp iAmp (mV) Amp (1st) (%) Site1 Site2 Delta-0 (ms) Dist (cm) Addy (m/s) Norm Addy (m/s) Left Median Motor (Abd Poll Brev) Wrist ? 2.9 <3.9 12.2 >4.5 13.5 100.0 Elbow Wrist 3.8 20.0 53 >45 Elbow ? 6.7 10.2 11.5 83.6 Right Median Motor (Abd Poll Brev) Wrist ? 3.0 <3.9 12.8 >4.5 14.6 100.0 Elbow Wrist 3.6 21.5 60 >45 Elbow ? 6.6 12.3 14.0 96.1 Left Ulnar Motor (Abd Dig Minimi) Wrist ? 2.3 <3.0 9.3 >5 10.8 100.0 B Elbow Wrist 3.4 19.0 56 >45 B Elbow ? 5.7 9.7 11.2 104.3 A Elbow B Elbow 1.3 10.0 77 >45 A Elbow ? 7.0 9.6 11.1 103.2 Right Ulnar Motor (Abd Dig Minimi) Wrist ? 2.4 <3.0 9.6 >5 11.5 100.0 B Elbow Wrist 3.5 20.5 59 >45 B Elbow ? 5.9 10.0 11.9 104.2 A Elbow B Elbow 1.2 10.0 83 >45 A Elbow ? 7.1 9.8 11.6 102.1 Comparison Summary Table ?Stim Site NR Peak (ms) Norm Peak (ms) P-T Amp (?V) Site1 Site2 Delta-P (ms) Norm Delta (ms) Right Median/Radial Dig I Comparison (Digit 1 - 10cm) Median ? 2.3 <2.9 91.1 Median Radial 0.2 Radial ? 2.1 <2.8 50.5 EMG ?Side Muscle Nerve Root Ins Act Fibs Psw Amp Dur Poly Recrt Int Pat Comment Right 1stDorInt Ulnar C8-T1 Nml Nml Nml Nml Nml 0 Nml Complete Right FlexCarRad Median C6-7 Nml Nml Nml Nml Nml 0 Nml Complete Right Biceps Musculocut C5-6 Nml Nml Nml Nml Nml 0 Nml Complete Right Triceps Radial C6-7-8 Nml Nml Nml Nml Nml 0 Nml Complete Right Deltoid Axillary C5-6 Nml Nml Nml Nml Nml 0 Nml Complete Left 1stDorInt Ulnar C8-T1 Nml Nml Nml Nml Nml 0 Nml Complete Left FlexCarRad Median C6-7 Nml Nml Nml Nml Nml 0 Nml Complete Left Biceps Musculocut C5-6 Nml Nml Nml Nml Nml 0 Nml Complete Left Triceps Radial C6-7-8 Nml Nml Nml Nml Nml 0 Nml Complete Left Deltoid Axillary C5-6 Nml Nml Nml Nml Nml 0 Nml Complete FINDINGS: All motor and sensory nerves tested showed normal latencies, amplitudes and conduction velocities. Concentric needle EMG was performed in selected muscles of the bilateral upper extremities. Study did not reveal signs of electric abnormalities as shown in the table above. IMPRESSION: 1. This is a normal study. 2. There is no electrodiagnostic evidence for median neuropathy, ulnar neuropathy, brachial plexopathy, or cervical radiculopathy. Thank you for your kind referral. Samantha Urena MD, FABIOLA Board Certified, [place] [employer] and Rehabilitation (ABPMR) Board Certified, [place] Board of Electrodiagnostic Medicine (ABEM) CODIN 61173 x 2 MTDD
== END 2023-11-24 13:47 | disposition home or self-care (01) ==
LOC: HO.NEURO 13:46
PROVIDERS: PCP Nurse Practitioner Family
DX: R20.0 Anesthesia of skin (principal); R20.2 Paresthesia of skin
CPT/HCPCS: 95886; 95911

== ENCOUNTER → 2023-11-24 13:48 | Outpatient (BNV) | payer OTHER, SELFPAY | PROVIDERS: PCP Nurse Practitioner Family; Visit Provider Physical Medicine & Rehabilitation | DX: R20.0 Anesthesia of skin (principal); R20.2 Paresthesia of skin | CPT/HCPCS: 95886; 95911 ==

== ENCOUNTER 2023-12-23 12:56 | Outpatient (AMB) | payer OTHER, SELFPAY ==
--- NOTE | 2023-12-23 12:59 | A.OFFVIS_ITS ---
Vital Signs 12/23/23 13:00 BP 116/74 Intake Visit Reasons: 3 month med check/ ultra sound follow up Celery Stripper: Celery Stripper Present Allergies acetaminophen [From PERCOCET] Allergy (Mild, Verified 12/23/23 12:59) ITCHING oxycodone [From PERCOCET] Allergy (Mild, Verified 12/23/23 12:59) ITCHING Is last menstrual period known: Yes Last menstrual period: 11/16/23 HPI Comments Details: Patient is here today for a follow up pelvic ultrasound. History of AUB, prior ultrasound had indicated there was either an endometrial polyp or fluid in the endometrial cavity. She reports closely spaced bleeding episode in September, less than 17 days apart, no repeat patterns since. History of infertility, taking vitamins. She had started Aygestin but did not like it so she stopped. Admits to having AUB since her 20's, and a history of endometrial polyps removed about 10 years ago. EMB negative in July. [facility] Medical History Infertility, female Cervical radiculopathy HTN (hypertension) Uterine fibroid Surgical History Hx of LASIK History of tonsillectomy and adenoidectomy History of lumbar surgery H/O right knee surgery Family History Father Hearing loss Mother PCOS (polycystic ovarian syndrome) Mental health disorder Maternal Grandfather Diabetes mellitus Maternal Grandmother Diabetes mellitus Paternal Grandfather Diabetes mellitus Paternal Grandmother Diabetes mellitus Cancer Brother No problems noted. Brother No problems noted. Sister No problems noted. Paternal Uncle Multiple sclerosis Social History Household Members: Spouse Housing: Apartment Alcohol intake: former Patient Tobacco Use Status: Never used Tobacco e-Cigarette/Vaping Use: Never Used Second Hand Smoke Exposure: No service: No Current occupational status: employed Current occupation: [employer] / right hand dominant Sexual orientation: Straight/Heterosexual Gender identity: Female Cognitive needs: No Hearing needs: No Vision needs: Yes (glasses) Female Reproductive History Menstrual Date of last menstrual period: 11/16/23 Review of Systems Const All systems reviewed & are unremarkable except as noted in HPI and below Endo Reports no additional complaints Physical Exam Vital Signs: Last Vital Signs BP 116/74 12/23/23 13:00 Const General: cooperative, healthy appearing and no acute distress Psych Appearance: well kempt Attitude: cooperative Thought process: Normal thought process present Results Reviewed Results Reviewed: [address] [address] Ultrasound Report Signed Patient: Karen Nassar MR#: [id number] : 1980 Acct:[id number] Age/Sex: 43 / F ADM Date: 10/06/23 Loc: HO.US Attending Dr: Karen Mary CNM Ordering Physician: Karen Mary CNM Date of Service: 10/06/23 Procedure(s): US pelvic and transvaginal Accession Number(s): [id number] cc: Ishmael LeyvaP-; Karen Mary CNM~ EXAMINATION: US PELVIS CLINICAL INFORMATION: Pelvic and perineal pain LMP 10/01/2023 COMPARISON: Pelvic ultrasound 06/03/2023 TECHNIQUE: Ultrasound of the pelvis is performed using both transabdominal and transvaginal transducers along with Doppler. Transvaginal imaging is performed due to inadequate visualization transabdominally. FINDINGS: Uterus: The uterus is anteverted and measures 7.4 x 3.4 x 3.0 cm. Posterior subserosal fibroid in the body the uterus measures 1.6 x 1.2 x 1.4 cm, previously measured 1.7 x 1.1 x 1.8 cm. The endometrial thickness is 0.3 cm. Adnexa: Both ovaries are visualized. There is normal color flow to the adnexa. There is no ovarian torsion. There is no pelvic ascites or fluid collection. The appearance of the ovaries are within normal limits. Right ovary measures 2.5 x 2.0 x 2.4 cm. Volume 6.5 mL. Left ovary measures 1.6 x 2.1 x 2.0 cm. Volume 3.3 mL. US/US pelvic and transvaginal IMPRESSION: 1. 1.6 cm subserosal fibroid in the body of the uterus. 2. Normal ovaries. Dictated By: Lucy Bender MD Signed By: <Electronically signed by Lucy Bender MD in OV> 11/01/23 1353 DD/ 1415 TD/TT: Executive Manager: Assessment & Plan Assessment & Plan (1) Fibroid: Code(s): D21.9 - Benign neoplasm of connective and other soft tissue, unspecified Category: Medical (2) Abnormal uterine bleeding (AUB): Code(s): N93.9 - Abnormal uterine and vaginal bleeding, unspecified Category: Medical Plan Discussed: Ultrasound findings-fibroid, Counseled re: Leiomyoma: common pelvic neoplasm. Differential diagnosis-may include but not limited to- leiomyosarcoma which is a rare uterine sarcoma 3-7/100,000, difficult to distinguish from fibroids on ultrasound from uterine sarcoma's. Unlikely any single test will have a highly positive predictive value. Hysterectomy is not recommended for sole purpose of excluding malignant neoplasm. Consult for surgical exploration, medical treatment, other treatments, verses expectant management, pros and cons, risks and benefits. Expectant management follow up in 6 months, then yearly for stability. Report any increase AUB. Pelvic pressure, bloating, or pain. Referral to MD if indicated for level of care if indicated. Ultrasound ordered for May follow up, appointment to follow up for results planned. Monitor menstrual cycles, report any heavy/prolonged menstrual bleeding. Advised consult with Dr. Oneal possible hysteroscopy due to AUB, possible endometrial polyp. All of her questions and concerns were addressed to the best of my ability and shared decision making. She is agreeable to the plan of care. This note is constructed using voice recognition software. While every effort has been made to ensure accuracy, vegetable i farmworker errors may have been included. Orders: Orders US pelvic and transvaginal 05/14/24 D21.9 - Benign neoplasm of connective and other soft tissue, unspecified Coding Level of Care Code Est Pt Level 3 (44344) Diagnoses Fibroid D21.9 Abnormal uterine bleeding (AUB) N93.9
[2023-12-23 13:00] VITALS: BP 116/74
== END 2023-12-23 13:45 | disposition home or self-care (01) ==
LOC: HO.HWS 12:56
PROVIDERS: PCP Nurse Practitioner Family; Visit Provider Advanced Practice Midwife
DX: D21.9 Benign neoplasm of connective and other soft tissue, unspecified (principal); N93.9 Abnormal uterine and vaginal bleeding, unspecified
CPT/HCPCS: 99213

== ENCOUNTER → 2023-12-23 12:56 | Outpatient (BNVA) | payer OTHER, SELFPAY | PROVIDERS: PCP Nurse Practitioner Family; Visit Provider Advanced Practice Midwife ==

== ENCOUNTER 2023-12-28 15:56 | Outpatient (AMB) | payer OTHER, SELFPAY ==
--- NOTE | 2023-12-28 15:58 | AM.OFFWIN_ITS ---
Intake Vital Signs 12/28/23 15:59 Height 5 ft 6 in Weight 267 lb BMI 43.1 BP 128/86 Blood Pressure Location Lt brachial Position Sitting Pulse 102 H Pulse Source Pulse Oximeter Temp 98.1 F Temp Source Oral Pulse Oximetry (%) 98 Oxygen Delivery Method Room Air Intake Visit Reasons: EP- Chest pain and pressure in chest Intake Note: pt c/o chest pain and chest pressure. Started this afternoon Patient Tobacco Use Status: Never used Tobacco Allergies acetaminophen [From PERCOCET] Allergy (Mild, Verified 12/28/23 15:59) ITCHING oxycodone [From PERCOCET] Allergy (Mild, Verified 12/28/23 15:59) ITCHING Do you need a note to return to daycare/school/sports/work: No HPI HPI Comments History of Present Illness Details Patient is a 43-year-old female complaining of central chest pain that radiates to her neck. She states the pain feels like someone is wringing out her neck. She also feels short of breath. She denies any nausea or feeling like she sweating but she does state she feels chills. She states her grandmother a week ago and she knows she has been under lot of stress and this could be anxiety but she is not sure because the chest pain came on so suddenly and she has never had this happened before. She also states she has not been sleeping well and she feels very overwhelmed. [facility] Medical History Infertility, female Cervical radiculopathy HTN (hypertension) Uterine fibroid Surgical History Hx of LASIK History of tonsillectomy and adenoidectomy History of lumbar surgery H/O right knee surgery Family History Father Hearing loss Mother PCOS (polycystic ovarian syndrome) Mental health disorder Maternal Grandfather Diabetes mellitus Maternal Grandmother Diabetes mellitus Paternal Grandfather Diabetes mellitus Paternal Grandmother Diabetes mellitus Cancer Brother No problems noted. Brother No problems noted. Sister No problems noted. Paternal Uncle Multiple sclerosis Social History Household Members: Spouse Housing: Apartment Alcohol intake: former Patient Tobacco Use Status: Never used Tobacco e-Cigarette/Vaping Use: Never Used Second Hand Smoke Exposure: No service: No Current occupational status: employed Current occupation: [employer] / right hand dominant Sexual orientation: Straight/Heterosexual Gender identity: Female Cognitive needs: No Hearing needs: No Vision needs: Yes (glasses) Review of Systems Const All systems reviewed & are unremarkable except as noted in HPI and below Physical Exam Vital Signs: Last Vital Signs Temp 98.1 F 12/28/23 15:59 Pulse 102 H 12/28/23 15:59 BP 128/86 12/28/23 15:59 Pulse Ox 98 12/28/23 15:59 Oxygen Delivery Method Room Air 12/28/23 15:59 BMI result Body Mass Index 43.1 Const General: cooperative, healthy appearing, well developed and anxious Orientation/consciousness: patient oriented x3 Limitations: no limitations HEENT Head: Yes normal to inspection Ears: hearing grossly normal bilaterally General nose exam: Normal external nose present Face and sinus: Yes normal facial exam Eyes General: appearance normal, both eyes and all related structures Neck Neck: Yes normal visual inspection and Yes full ROM Chest Chest palpation & inspection: normal inspection of the chest and normal palpation of entire chest wall Resp Effort & Inspection: normal respiratory effort and able to speak in complete sentences Auscultation: clear to auscultation bilaterally Cardio Rate: tachycardic (102) Rhythm: regular rhythm Heart sounds: normal S1 and S2 GI Inspection: Yes normal to inspection Palpation (GI): Soft to palpation and nontender Skin General skin exam: no rashes or lesions noted Neuro General: patient oriented x3 Extrem General: Yes normal to inspection Office Procedures EKG 47372-[id number], Complete Assessment & Plan Assessment & Plan (1) Chest pain due to psychological stress: Code(s): F43.9 - Reaction to severe stress, unspecified; R07.9 - Chest pain, unspecified Plan: EKG showed normal sinus rhythm at 85 beats per minute, no ST changes. She does have an existing right bundle branch block that was shown on a previous EKG in April of 2022. Patient admitted to additional stress in her life right now, likely is stress related. Gave red flag warning signs and when to go to the emergency department and educated patient on using low threshold to call 911. Also educated her on seeking care for her mental health. At the end of the visit, she states her chest pain felt a little bit better, her chest pain had subsided. Plan see above Medications: New hydroxyzine HCl 10 mg PO Q6-8H PRN 20 tabs 0RF anxiety Coding Level of Care Code Est Pt Level 4 (50917) Diagnoses Chest pain due to psychological stress F43.9; R07.9 CPT Codes EKG - CPT: 19542-[id number], Complete ([id number])
[2023-12-28 15:59] VITALS: BP 128/86; PULSE 102; TEMP 36.7; O2SAT 98; BMI 43.1
== END 2023-12-28 16:42 | disposition home or self-care (01) ==
PROVIDERS: PCP Nurse Practitioner Family; Visit Provider Physician Assistant
DX: F43.9 Reaction to severe stress, unspecified (principal); R07.9 Chest pain, unspecified
CPT/HCPCS: 93000; 99214

== ENCOUNTER 2024-01-02 11:30 | Outpatient (RCR) | payer OTHER, SELFPAY ==
--- NOTE | 2023-11-18 09:34 | MHC.OT.EP ---
[address] [phone] Occupational Therapy Plan of Care Patient Name: Karen Nassar Date of Evaluation: 11/17/23 Diagnosis: Medial epicondylitis thumb pain Pain Location: medial and lateral side fo elbow and ECRB Pain Score: 8 Pain Scale Used: Numeric (0 - 10) Aggravating Factors: gripping, lifting, typing , use of R UE Alleviating Factors: rest Assessment: Pt is a 43 yr old R hand dominant female who reports pain in her medial epicondyle and muscle belly of her ECRB. She also reports pain in her R thumb and wrist in which she reports having a cortisone shot for and reports she believes is working. Pt also complains of numbness and tingling in digits 1-3 which and is having a nerve conduction study scheduled for next week (week of 715). Pt had therapy for this injury in June but left for [place] and did not continue therapy. 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 for review Electronically Signed By: Chrissy Anguiano OTR/L Please Sign and return to therapist. Thank you once again for your referral.
== END 2024-01-16 10:54 | disposition home or self-care (01) ==
LOC: HO.OT 11:30
PROVIDERS: PCP Nurse Practitioner Family
DX: M65.4 Radial styloid tenosynovitis [de Quervain] (principal); M77.01 Medial epicondylitis, right elbow
CPT/HCPCS: 97033; 97035; 97110; 97112; 97140; 97166; 97535

== ENCOUNTER 2024-01-11 14:59 | Outpatient (AMB) | payer OTHER, SELFPAY ==
--- NOTE | 2024-01-11 15:01 | MHC.PC.OV ---
Vital Signs 01/11/24 15:02 Height 5 ft 6 in Weight 270 lb BMI 43.6 BP 130/80 Blood Pressure Location Rt brachial Position Sitting Pulse 97 Pulse Source Pulse Oximeter Pulse Oximetry (%) 98 Intake Visit Reasons: Physical Exam Intake Note: pt is here for physical exam Bandoleer Packer Required: No Accompanied by: Self / Same As Patient Allergies acetaminophen [From PERCOCET] Allergy (Mild, Verified 01/11/24 16:45) ITCHING oxycodone [From PERCOCET] Allergy (Mild, Verified 01/11/24 16:45) ITCHING Medication List - Last Reconciled 01/11/24 by ALONDRA Lovett acetaminophen (Tylenol Extra Strength) 1,000 mg PO Q6H PRN albuterol sulfate 90 mcg/actuation 2 puffs inhalation Q6H PRN 30 days NS albuterol sulfate 2.5 mg (3 mL) inhalation Q6H PRN blood pressure kit-extra large As directed buspirone 5 mg PO BID 30 days cholecalciferol (vitamin D3) 125 mcg PO DAILY diphenhydramine HCl (Benadryl) 25 mg PO TID PRN hydrocortisone-pramoxine 1-1 % (Proctofoam HC) 1 appl VA BID PRN hydroxyzine HCl 10 mg PO Q6-8H PRN lisinopril-hydrochlorothiazide 20-12.5 mg 1 tab PO DAILY magnesium 400 mg PO BEDTIME [thumb spica splint wear nightly and as much as possible throughout the day] [Updraft machine As directed] Tobacco use date assessed: 06/02/23 Dental Screening Dental Screen Date: 06/02/23 HPI Physical Exam HPI Details Pt is here for a PE. Will order labs. Has a circular sawyer helper. Due for mammo, will order. Pt's iron is low. She can not take oral iron because it causes upset stomach. She does report excessive vaginal bleeding and bleeding from hemorrhoids. Pt is following up with circular sawyer helper and GI for these issues. She does report having large fibroids. Pt reports increased anxiety. She is interested in trying a medication for this. Will send buspirone 5mg bid. She is seeing a therapist. Denies any SI and HI. [facility] Medical History Infertility, female Cervical radiculopathy HTN (hypertension) Uterine fibroid Surgical History Hx of LASIK History of tonsillectomy and adenoidectomy History of lumbar surgery H/O right knee surgery Family History Father Hearing loss Mother PCOS (polycystic ovarian syndrome) Mental health disorder Maternal Grandfather Diabetes mellitus Maternal Grandmother Diabetes mellitus Paternal Grandfather Diabetes mellitus Paternal Grandmother Diabetes mellitus Cancer Brother No problems noted. Brother No problems noted. Sister No problems noted. 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 1. Little interest or pleasure in doing things: more than half the days 2. Feeling down, depressed, or hopeless: more than half the days 3. Trouble falling or staying asleep, or sleeping too much: more than half the days 4. Feeling tired or having little energy: more than half the days 5. Poor appetite or overeating: more than half the days 6. Feeling bad about yourself - or that you are a failure or have let yourself or your family down: several days 7. Trouble concentrating on things, such as reading the newspaper or watching television: nearly every day 8. Moving or speaking so slowly that other people could have noticed. Or the opposite - being so fidgety or restless that you have been moving around a lot more than usual: several days 9. Thoughts that you would be better off or of hurting yourself in some way: not at all Total score: 15 Depression Screening Interpretation: Positive Depression Screening Done: Yes 87066 - PHQ-9 Billing: Yes Source: Developed by Drs. Houston Montero, Natalia Burkett, Amrik Burgos and colleagues, with an educational cynthia from [employer]. Thrive Questionnaire Date Thrive assessed: 01/11/24 I am a: Patient What is your living situation today?: I have a steady place to live Within the past 12 months, did the food you bought not last and you didn't have the money to get more?: Sometimes True Within the past 12 months, did you worry whether your food would run out before you got money to buy more?: Sometimes True Do you have trouble paying for medicines?: No Do you have trouble getting transportation to medical appointments?: No Do you have trouble paying your heating and electricity bill?: Yes Do you have trouble taking care of your child, family member or friend?: No Do you have trouble with day-to-day activities such as bathing, preparing meals, shopping, managing finances, etc.?: Yes Are you currently unemployed and looking for a job?: No Are you interested in more education?: No Please select the resources that you would like help with: Food Currently or been in a relationship where the following occur: No concerns reported THRIVE Score: 3 AUDIT C Alcohol Use Questionnaire (AUDIT-C) 1. How often do you have a drink containing alcohol?: Monthly or less 2. How many drinks containing alcohol do you have on a typical day when you are drinking?: 1 or 2 3. How often do you have six or more drinks on one occasion?: Never Total Score: 1 Score Reviewed/Action Taken: Yes ROULA-7 AMB Questionnaire ROULA-7 Date ROULA - 7 assessed: 01/11/24 Feeling nervous, anxious, or on edge: 1 = Several days Not being able to stop or control worryin = Several days Worrying too much about different things: 1 = Several days Trouble relaxin = Nearly every day Being so restless that it is hard to sit still: 1 = Several days Becoming easily annoyed or irritable: 1 = Several days Feeling afraid as if something awful might happen: 1 = Several days Total ROULA-7 score (0-4 normal; 5-9 mild; 10-14 moderate; 15-21 severe): 9 Source: Developed by Natalia MillardW. Kwadwo, Amrik Burgos and colleagues, with an educational cynthia from [employer]. ROULA-7 Assessment Billing ROULA-7 Assessment Tool: ROULA-7 Assessment 46625 Review of Systems Const Denies chills, Reports fatigue and Denies fever(s) Eyes Denies blurry vision ENT Denies vertigo, Denies dizziness and Denies sore throat Card Denies chest pain at rest, Denies chest pain with activity, Denies diaphoresis, Denies dyspnea and Denies dyspnea on exertion Resp Denies cough, Denies dyspnea, Denies dyspnea on exertion and Denies wheezing GI Denies abdominal pain, Denies melena, Denies hematochezia, Denies constipation, Denies diarrhea and Denies loose stools Denies hematuria Musc Denies numbness and Denies tingling Skin/Breast Denies lesions Neuro Denies vertigo, Denies dizziness, Denies numbness and Denies tingling Psych Reports anxiety, Denies depression, Denies homicidal ideation, Denies suicidal ideation and Denies other (substance abuse) Endo Reports fatigue Aller/Immun Denies wheezing Physical exam (Primary Care) Vital Signs: Last Vital Signs Pulse 97 01/11/24 15:02 BP 130/80 01/11/24 15:02 Pulse Ox 98 01/11/24 15:02 BMI result Body Mass Index 43.6 Tobacco/Smoking Status: Tobacco use Status Tobacco use date assessed 06/02/23 01/11/24 15:03 Patient Tobacco Use Status Never used Tobacco 01/11/24 15:03 e-Cigarette/Vaping Use Never Used 01/11/24 15:03 PHQ-9: PHQ-9 Score PHQ-9: Total score 15 01/11/24 15:40 Depression Screening Interpretation: Positive Thrive Assessment: Date of Thrive Assessment Date Thrive assessed 01/11/24 01/11/24 15:03 Currently or been in a relationship where the following occur: No concerns reported Const General: cooperative Nutritional Appearance: well nourished Orientation/consciousness: patient oriented x3 HENMT Head: Yes normal to inspection, Yes normocephalic and Yes atraumatic Ears: TM's normal bilaterally Eyes General: appearance normal, both eyes and all related structures Alignment and Position: alignment normal and position normal Neck Neck: Yes normal visual inspection, Yes no lymphadenopathy and Yes supple Resp Effort & Inspection: normal respiratory effort Auscultation: clear to auscultation bilaterally Cardio Rate: regular rate Rhythm: regular rhythm Heart sounds: S1 normal heart sound present, S2 normal heart sound present and no murmurs GI Palpation (GI): Soft to palpation and nontender Auscultation: normal bowel sounds Skin Rashes: no rashes Neuro General: patient oriented x3, moves all extremities, no focal motor deficits and deep tendon reflexes 2+ bilaterally Romberg Test: Negative Psych Appearance: grossly normal Mental Status: mental status grossly normal Speech and movement: Normal speech and movement present Affect: normal affect Attitude: cooperative Thought process: Normal thought process present Thought content: Normal thought content present Insight: Good insight present (Psych) Judgement: Good judgement present (Psych) Assessment and Plan Assessment & Plan (1) Screening for breast cancer: Code(s): Z12.39 - Encounter for other screening for malignant neoplasm of breast Plan: Mammo ordered (2) Encounter for routine adult physical exam with abnormal findings: Code(s): Z00. - Encounter for general adult medical examination with abnormal findings Plan: Labs ordered (3) Anxiety: Code(s): F41.9 - Anxiety disorder, unspecified Plan: Starting buspirone Plan The patient agreed to the use of a medical director/head team physician for this encounter. Scribed for ALONDRA Bee by Debbie Pollard medical director/head team physician, on 01/11/2024 at 15:30 EST. Orders: Orders Comprehensive [place]. Panel Fast Today Z00. - Encounter for general adult medical examination with abnormal findings TSH reflex Free T4 Today Z00. - Encounter for general adult medical examination with abnormal findings Lipid Panel Today Z00. - Encounter for general adult medical examination with abnormal findings Complete Blood Count Auto Diff Today Z12.39 - Encounter for other screening for malignant neoplasm of breast MM screening mammo BI Today Z12. - Encounter for screening mammogram for malignant neoplasm of breast, Z12.39 - Encounter for other screening for malignant neoplasm of breast UA CC w/rflx Micro + Cult Today Z00. - Encounter for general adult medical examination with abnormal findings Medications: New buspirone 5 mg PO BID 60 tabs 3RF 30 days Coding Level of Care Code Est Pt Prev Care 40-64y(22546) Diagnoses Screening for breast cancer Z12.39 Encounter for routine adult physical exam with abnormal findings Z00.01 Anxiety F41.9 Additional Codes ROULA-7 Assessment Billing - ROULA-7 Assessment Tool: ROULA-7 Assessment 28063 ([id number])
[2024-01-11 15:02] VITALS: BP 130/80; PULSE 97; O2SAT 98; BMI 43.6
== END 2024-01-11 16:43 | disposition home or self-care (01) ==
PROVIDERS: PCP Nurse Practitioner Family; Visit Provider Nurse Practitioner Family
DX: Z00.00 Encounter for general adult medical examination without abnormal findings (principal); Z12.39 Encounter for other screening for malignant neoplasm of breast; F41.9 Anxiety disorder, unspecified
CPT/HCPCS: 96127; 99396

== ENCOUNTER 2024-01-27 10:10 | Outpatient (REF) | payer OTHER, SELFPAY ==
--- NOTE | ~2024-01-27 | MM_ITS ---
EXAMINATION: MM SCREENING DIGITAL BREAST TOMOSYNTHESIS, BILATERAL CLINICAL INFORMATION: Screening. Asymptomatic. COMPARISON: Mammography: Comparison is made with available priors TECHNIQUE: Digital breast mammography with tomosynthesis is performed in both the craniocaudal and mediolateral oblique views along with computer-aided detection (CAD). FINDINGS: There are scattered areas of fibroglandular density (ACR BI-RADS breast composition Category b). There are no significant masses, abnormal calcifications, or other abnormalities. MM/MM tomosynthesis screening BI IMPRESSION: No mammographic evidence of malignancy. ASSESSMENT: BI-RADS BI-RADS 1 - Negative RECOMMENDATION: Routine annual mammography screening. 1 year F/U This examination should not preclude the clinical evaluation of a suspicious palpable abnormality. This patient's information was entered into a reminder system with a target due date for their next mammogram. Electronically signed by: Jeannette Fry DO 02/08/2024 02:03 PM EDT
== END 2024-01-27 10:11 | disposition home or self-care (01) ==
LOC: HO.MAMMO 10:10
PROVIDERS: PCP Nurse Practitioner Family; Visit Provider Nurse Practitioner Family
DX: Z12.31 Encounter for screening mammogram for malignant neoplasm of breast (principal)
CPT/HCPCS: 77063; 77067

== ENCOUNTER → 2024-01-27 10:15 | Outpatient (BNV) | payer OTHER, SELFPAY | PROVIDERS: PCP Nurse Practitioner Family; Visit Provider Internal Medicine | DX: Z12.31 Encounter for screening mammogram for malignant neoplasm of breast (principal) | CPT/HCPCS: 77063; 77067 ==

== ENCOUNTER 2024-02-22 13:11 | Outpatient (AMB) | payer OTHER, SELFPAY ==
--- NOTE | 2024-02-22 13:27 | A.OFFVIS_ITS ---
Vital Signs 02/22/24 13:29 Height 5 ft 6 in Weight 268 lb 15.423 oz BMI 43.4 Intake Visit Reasons: Consult AUB & Hysteroscopy ? 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 The following workup was done.: H&H= 11.1/34.4 TSH, hCG, GC and chlamydia were negative. Endometrial biopsy pathology showed benign proliferative endometrium with no evidence of hyperplasia and/or malignancy. Co testing was done in 04/27 was negative. Mammogram was BI-RADS 1 in 01/30 Pelvic ultrasound showed the following: Uterus: The uterus is anteverted and measures 7.4 x 3.4 x 3.0 cm. Posterior subserosal fibroid in the body the uterus measures 1.6 x 1.2 x 1.4 cm, previously measured 1.7 x 1.1 x 1.8 cm. The endometrial thickness is 0.3 cm. Adnexa: Both ovaries are visualized. There is normal color flow to the adnexa. There is no ovarian torsion. There is no pelvic ascites or fluid collection. The appearance of the ovaries are within normal limits. Right ovary measures 2.5 x 2.0 x 2.4 cm. Volume 6.5 mL. Left ovary measures 1.6 x 2.1 x 2.0 cm. Volume 3.3 mL The patient is interested in future fertility and does not want to be on any method of control [facility] Medical History (Updated 02/22/24 @ 13:52 by Raji Oneal MD) Abnormal uterine bleeding (AUB) Upper back pain Obesity Tired Difficulty sleeping Breast screening COVID-19 Exacerbation of asthma Screening for cervical cancer Physical exam Low hemoglobin Elevated liver enzymes Uterine fibroids affecting Uterine fibroid Acute sinusitis Fatigue UTI (urinary tract infection) Snores Fatty liver Neck pain Abdominal pain Cellulitis Leukocytosis Rash and other nonspecific skin eruption Chest pressure Palpitations Anxiety with flying Chest wall tenderness Lateral epicondylitis of right elbow Medial epicondylitis of right elbow Medial epicondylitis Lateral epicondylitis Bilateral hand numbness Right wrist pain Chest pain due to psychological stress Screening for breast cancer Encounter for routine adult physical exam with abnormal findings Infertility, female Cervical radiculopathy HTN (hypertension) Surgical History Hx of LASIK History of tonsillectomy and adenoidectomy History of lumbar surgery H/O right knee surgery Family History Father Hearing loss Mother PCOS (polycystic ovarian syndrome) Mental health disorder Maternal Grandfather Diabetes mellitus Maternal Grandmother Diabetes mellitus Paternal Grandfather Diabetes mellitus Paternal Grandmother Diabetes mellitus Cancer Brother No problems noted. Brother No problems noted. Sister No problems noted. Paternal Uncle Multiple sclerosis Social History Household Members: Spouse Housing: Apartment Alcohol intake: former Patient Tobacco Use Status: Never used Tobacco e-Cigarette/Vaping Use: Never Used Second Hand Smoke Exposure: No service: No Current occupational status: employed Current occupation: [employer] / right hand dominant Sexual orientation: Straight/Heterosexual Gender identity: Female Cognitive needs: No Hearing needs: No Vision needs: Yes (glasses) Review of Systems Const All systems reviewed & are unremarkable except as noted in HPI and below Reports as per HPI and Reports no additional complaints GI Reports no additional complaints Reports no additional complaints Physical Exam Vital Signs: BMI result Body Mass Index 43.4 Assessment & Plan Assessment & Plan (1) Abnormal uterine bleeding (AUB): Comment: Interested in future fertility Code(s): N93.9 - Abnormal uterine and vaginal bleeding, unspecified Category: Medical Plan: Discussed with the patient the results of the work up done and options of treatment including but not limited to BCP's, cyclic Progesterone, (Mirena IUD, endometrial ablation and hysterectomy are contraindicated in the patient case since she is interested in future fertility). All pros, cons, risks and benefits of each option were discussed with the patient and the patient decided to go ahead with cyclic Prometrium, so a more detailed discussion re: Progesterone treatment including mechanism of action, benefits (regular menses, endometrial protection form unopposed estrogen and reduction in the risk of endometrial hype rplasia and/or cancer ...), risks (Thrombosis, mood changes, weight gain, breast soreness, ? increased breast ca, others). Instructions were given to use a back- up method for contraception since this is not a method control, take Prometrium 200 mg p.o. 1 tablet daily starting day 15-24 and to schedule a 3 months follow-up appointment; patient verbalized understanding and agreed with the plan. Medications: New progesterone micronized (Prometrium) Take the pill 1 tablet a day cyclically every month from day 15-24 day 1 being the 1st day of next menstrual cycle 200 mg PO BEDTIME 10 days 30 caps 0RF Coding Level of Care Code Est Pt Level 3 (46771) Diagnoses Abnormal uterine bleeding (AUB) N93.9
[2024-02-22 13:29] VITALS: BMI 43.4
== END 2024-02-22 13:51 | disposition home or self-care (01) ==
LOC: HO.HWS 13:11
PROVIDERS: PCP Nurse Practitioner Family; Visit Provider Obstetrics & Gynecology
DX: N93.9 Abnormal uterine and vaginal bleeding, unspecified (principal)
CPT/HCPCS: 99213

== ENCOUNTER → 2024-02-22 13:11 | Outpatient (BNVA) | payer OTHER, SELFPAY | PROVIDERS: PCP Nurse Practitioner Family; Visit Provider Obstetrics & Gynecology ==

== ENCOUNTER 2024-03-28 10:11 | Outpatient (AMB) | payer OTHER, SELFPAY ==
--- NOTE | 2024-03-28 10:16 | AM.OFFWIN_ITS ---
Intake Vital Signs 03/28/24 10:17 Height 5 ft 6 in Weight 272 lb BMI 43.9 BP 126/80 Blood Pressure Location Lt brachial Position Sitting Pulse 98 Pulse Source Pulse Oximeter Pulse Oximetry (%) 95 Oxygen Delivery Method Room Air Intake Visit Reasons: EP-rt butt pain Intake Note: Patient here for lower back/buttocks pain that radiates down the leg into the toes that started this past weekend. Patient Tobacco Use Status: Never used Tobacco Allergies acetaminophen [From PERCOCET] Allergy (Mild, Verified 03/28/24 10:18) ITCHING oxycodone [From PERCOCET] Allergy (Mild, Verified 03/28/24 10:18) ITCHING Do you need a note to return to daycare/school/sports/work: No HPI EP-rt butt pain HPI Details This note is constructed using voice recognition software. While every effort has been made to ensure accuracy, commercial real estate lender errors may have been included. The patient is a 44 year old female who presents to the clinic today with right buttock pain radiating into her right leg since Tuesday. She denies any fall or specific injury. She reports that she was cleaning her face when she stood up and felt the pain. She denies any numbness or tingling. She denies any loss of control of bladder or bowel. She previously had an injury to her L4 which involved nerve involvement to the left, which improved with surgery. She tried her 's meloxicam which did not seem to help, some gentle stretches, heat and ice. [facility] Medical History (Updated 02/22/24 @ 13:52 by Raji Oneal MD) Abnormal uterine bleeding (AUB) Upper back pain Obesity Tired Difficulty sleeping Breast screening COVID-19 Exacerbation of asthma Screening for cervical cancer Physical exam Low hemoglobin Elevated liver enzymes Uterine fibroids affecting Uterine fibroid Acute sinusitis Fatigue UTI (urinary tract infection) Snores Fatty liver Neck pain Abdominal pain Cellulitis Leukocytosis Rash and other nonspecific skin eruption Chest pressure Palpitations Anxiety with flying Chest wall tenderness Lateral epicondylitis of right elbow Medial epicondylitis of right elbow Medial epicondylitis Lateral epicondylitis Bilateral hand numbness Right wrist pain Chest pain due to psychological stress Screening for breast cancer Encounter for routine adult physical exam with abnormal findings Infertility, female Cervical radiculopathy HTN (hypertension) Surgical History Hx of LASIK History of tonsillectomy and adenoidectomy History of lumbar surgery H/O right knee surgery Family History Father Hearing loss Mother PCOS (polycystic ovarian syndrome) Mental health disorder Maternal Grandfather Diabetes mellitus Maternal Grandmother Diabetes mellitus Paternal Grandfather Diabetes mellitus Paternal Grandmother Diabetes mellitus Cancer Brother No problems noted. Brother No problems noted. Sister No problems noted. Paternal Uncle Multiple sclerosis Social History Household Members: Spouse Housing: Apartment Alcohol intake: former Patient Tobacco Use Status: Never used Tobacco e-Cigarette/Vaping Use: Never Used Second Hand Smoke Exposure: No service: No Current occupational status: employed Current occupation: [employer] / right hand dominant Sexual orientation: Straight/Heterosexual Gender identity: Female Cognitive needs: No Hearing needs: No Vision needs: Yes (glasses) Review of Systems Const All systems reviewed & are unremarkable except as noted in HPI and below Physical Exam Vital Signs: Last Vital Signs Pulse 98 03/28/24 10:17 BP 126/80 03/28/24 10:17 Pulse Ox 95 03/28/24 10:17 Oxygen Delivery Method Room Air 03/28/24 10:17 BMI result Body Mass Index 43.9 Const General: cooperative, healthy appearing, comfortable, no acute distress and well developed Orientation/consciousness: patient oriented x3 Limitations: no limitations Resp Effort & Inspection: normal respiratory effort and able to speak in complete sentences Back/Spine/Pelvis Other: Right sciatic notch tenderness, positive SLR, negative well SLR. Strength 5/5. Distal neurovascular exam intact. No ecchymosis, erythema, edema. Skin General skin exam: no rashes or lesions noted Neuro General: patient oriented x3 Extrem General: Yes normal to inspection Assessment & Plan Assessment & Plan (1) Sciatica: Code(s): M54.30 - Sciatica, unspecified side Qualifiers: Laterality: left Qualified Code(s): M54.32 - Sciatica, left side Plan: Given patient's failure with NSAIDs, we will try a prednisone burst for anti- inflammatory effects. Prescribed muscle relaxers as well. Advised patient to remain out of work today, but may return tomorrow she is feeling better. HCP advised. Advised follow up as needed with worsening symptoms or failure to resolve. Plan See above for full details and plan. Medications: New cyclobenzaprine 1 to 2 orally 3 times a day PRN; 10 tabs 0RF muscle spasm prednisone 40 mg (2 x 20 mg) PO DAILY 3 days 6 tabs 0RF Coding Level of Care Code Est Pt Level 3 (89632) Diagnoses Sciatica of left side M54.32 Laterality: left
[2024-03-28 10:17] VITALS: BP 126/80; PULSE 98; O2SAT 95; BMI 43.9
== END 2024-03-28 12:22 | disposition home or self-care (01) ==
PROVIDERS: PCP Nurse Practitioner Family; Visit Provider Registered Nurse
DX: M54.32 Sciatica, left side (principal)

== ENCOUNTER 2024-04-13 09:45 | Outpatient (AMB) | payer OTHER, SELFPAY ==
[2024-04-13 09:54] VITALS: BP 126/78; PULSE 92; O2SAT 98; BMI 45.5
--- NOTE | 2024-04-13 09:54 | A.OFFVIS_ITS ---
Vital Signs 04/13/24 09:54 Height 5 ft 6 in Weight 281 lb 12.012 oz BMI 45.5 BP 126/78 Blood Pressure Location Lt brachial Position Sitting Pulse 92 Pulse Source Pulse Oximeter Pulse Oximetry (%) 98 Oxygen Delivery Method Room Air Intake Visit Reasons: joint pain/CM Intake Note: Patient last seen by Doctor Blane English on 04/20/23. Presents today for joint pain follow up. Patient complains of increased body pain and fatigue. Allergies acetaminophen [From PERCOCET] Allergy (Mild, Verified 04/13/24 09:55) ITCHING oxycodone [From PERCOCET] Allergy (Mild, Verified 04/13/24 09:55) ITCHING Medication List - Last Reconciled 04/13/24 by Blane English MD acetaminophen (Tylenol Extra Strength) 1,000 mg PO Q6H PRN albuterol sulfate 90 mcg/actuation 2 puffs inhalation Q6H PRN 30 days NS albuterol sulfate 2.5 mg (3 mL) inhalation Q6H PRN blood pressure kit-extra large As directed buspirone 5 mg PO BID 30 days cholecalciferol (vitamin D3) 125 mcg PO DAILY cyclobenzaprine 1 to 2 orally 3 times a day PRN; diphenhydramine HCl (Benadryl) 25 mg PO TID PRN hydrocortisone-pramoxine 1-1 % (Proctofoam HC) 1 appl SC BID PRN hydroxyzine HCl 10 mg PO Q6-8H PRN lisinopril-hydrochlorothiazide 20-12.5 mg 1 tab PO DAILY magnesium 400 mg PO BEDTIME prednisone 40 mg (2 x 20 mg) PO DAILY 3 days progesterone micronized (Prometrium) 200 mg PO BEDTIME 10 days [thumb spica splint wear nightly and as much as possible throughout the day] [Updraft machine As directed] HPI Comments Details: 44-year-old female initially presented earlier this year for evaluation of recurrent skin rashes. Rheumatology workup was unremarkable except for elevated inflammatory markers. The rashes have not recurred since last visit. She states that recently she has been having more joint pains, especially in her upper back, 2 weeks ago she was having pain in her right lower back, she was diagnosed with sciatica and prescribed prednisone for 3 days, per patient it gave her 50% relief. She states that she gets significant back pain and fatigue when going to the shopping mall. She gets tired after just going to 2 stores. Initial history: This is a 42-year-old female who presents for evaluation of skin rash. The condition started around age 18. Patient states that she gets a skin rash either on her 1 of her elbows, behind 1 of her knees, both ankles or in the center of her chest. The lesion usually starts as a year raised circular erythematous itchy lesion that enlarges with central clearing in the center of the lesion then self resolves. Lesions are burning and extremely itchy. They usually self resolve in about 4 weeks. She gets associated generalized fatigue and joint pain and stiffness. Antibiotics do not help. Patient states that if she applies topical cortisone cream when the lesions are starting they sometime do not progress. Over the years she has had tick panel testing, shingles and herpes virus, fungal testing which was all negative. She gets does lesions once or twice a year. She is unaware of any family history of autoimmune rheumatic disease. No histo ry of DVT/PE. No proteinuria or hematuria. [facility] Medical History Abnormal uterine bleeding (AUB) Upper back pain Obesity Tired Difficulty sleeping Breast screening COVID-19 Exacerbation of asthma Screening for cervical cancer Physical exam Low hemoglobin Elevated liver enzymes Uterine fibroids affecting Uterine fibroid Acute sinusitis Fatigue UTI (urinary tract infection) Snores Fatty liver Neck pain Abdominal pain Cellulitis Leukocytosis Rash and other nonspecific skin eruption Chest pressure Palpitations Anxiety with flying Chest wall tenderness Lateral epicondylitis of right elbow Medial epicondylitis of right elbow Medial epicondylitis Lateral epicondylitis Bilateral hand numbness Right wrist pain Chest pain due to psychological stress Screening for breast cancer Encounter for routine adult physical exam with abnormal findings Infertility, female Cervical radiculopathy HTN (hypertension) Surgical History Hx of LASIK History of tonsillectomy and adenoidectomy History of lumbar surgery H/O right knee surgery Family History Father Hearing loss Mother PCOS (polycystic ovarian syndrome) Mental health disorder Maternal Grandfather Diabetes mellitus Maternal Grandmother Diabetes mellitus Paternal Grandfather Diabetes mellitus Paternal Grandmother Diabetes mellitus Cancer Brother No problems noted. Brother No problems noted. Sister No problems noted. Paternal Uncle Multiple sclerosis Social History Household Members: Spouse Housing: Apartment Alcohol intake: former Patient Tobacco Use Status: Never used Tobacco e-Cigarette/Vaping Use: Never Used Second Hand Smoke Exposure: No service: No Current occupational status: employed Current occupation: [employer] / right hand dominant Sexual orientation: Straight/Heterosexual Gender identity: Female Cognitive needs: No Hearing needs: No Vision needs: Yes (glasses) Review of Systems Musc Reports back pain, Reports arthralgias, Reports numbness and Reports stiffness Skin/Breast Denies rash Neuro Reports numbness Physical Exam Vital Signs: Last Vital Signs Pulse 92 04/13/24 09:54 BP 126/78 04/13/24 09:54 Pulse Ox 98 04/13/24 09:54 Oxygen Delivery Method Room Air 04/13/24 09:54 BMI result Body Mass Index 45.5 Const General: cooperative, healthy appearing and comfortable Nutritional Appearance: obese morbidly obese Orientation/consciousness: patient oriented x3 Limitations: no limitations HEENT Head: Yes normocephalic and Yes atraumatic Resp Effort & Inspection: normal respiratory effort and able to speak in complete sentences Skin Other: Rash on left elbow has resolved Neuro General: patient oriented x3 Extrem Other: Few fibromyalgia tender points Negative straight leg raise test bilaterally No active synovitis Assessment & Plan Assessment & Plan (1) Rash and other nonspecific skin eruption: Code(s): R21 - Rash and other nonspecific skin eruption Category: Medical Plan: This is a 44-year-old female who initially presented for evaluation of a skin rash on her left elbow. she gets a skin rash either on her 1 of her elbows, behind 1 of her knees, both ankles orthe center of her chest.? The lesion usually starts as a year raised circular erythematous itchy lesion that enlarges with central clearing in the center of the lesion then self resolves.? Lesions are burning and extremely itchy.? They usually self resolve in about 4 weeks.? She gets associated generalized fatigue and joint pain and stiffness.? Antibiotics do not help.? Patient states that if she applies topical cortisone cream when the lesions are starting they sometime do not progress.? Over the years she has had tick panel testing, shingles and herpes virus, fungal testing which was all negative.? She has not had those rashes since last visit about a year ago. Labs during rash show high inflammatory markers Comprehensive serology was negative Patient was evaluated by Dermatology but she did not have a rash the day of her appointment. She was advised to call their office as soon as she gets the rash At this time I do not see any evidence of an autoimmune rheumatic disease. Patient to follow-up as needed (2) Lumbar degenerative disc disease: Code(s): M51.369 - Other intervertebral disc degeneration, lumbar region without mention of lumbar back pain or lower extremity pain Category: Medical Qualifiers: Disc-related pain type: discogenic back pain and lower extremity pain Qualified Code(s): M51.362 - Other intervertebral disc degeneration, lumbar region with discogenic back pain and lower extremity pain Plan: History of L-spine surgery more than 10 years ago. Now with a recurrent symptoms and occasional sciatica symptoms. Referred to PT and pain management (3) Fibromyalgia, primary: Code(s): M79.7 - Fibromyalgia Category: Medical Plan: Discussed management of fibromyalgia with patient. Is a noninflammatory, non- autoimmune central afferent processing disorder leading to a diffuse pain syndrome. She follows up regularly with a psychotherapist. Advised patient to use her CPAP regularly. Try to follow sleep hygiene practices. Discuss CBT for sleep with psychotherapist. Patient would benefit from increased physical activity, either through formal physical therapy or by joining a gym. Advised patient that she should start activity slowly and increase as tolerated. Consider swimming, aqua therapy stretching. Light weights Provided patient with a booklet on how to manage fibromyalgia Plan I spent 18 minutes reviewing patient's chart, evaluating patient, counseling patient and documenting in the chart Orders: Orders PT Evaluation and Treatment Today M51.369 - Other intervertebral disc degeneration, lumbar region without mention of lumbar back pain or lower extremity pain Referrals Pain Management Referral M54.30 - Sciatica, unspecified side Coding Level of Care Code Est Pt Level 4 (82421) Diagnoses Rash and other nonspecific skin eruption R21 Degeneration of intervertebral disc of lumbar region with discogenic back pain and lower extremity pain M51.362 Disc-related pain type: discogenic back pain and lower extremity pain Fibromyalgia, primary M79.7
== END 2024-04-13 10:27 | disposition home or self-care (01) ==
PROVIDERS: PCP Nurse Practitioner Family; Visit Provider Student in an Organized Health Care Education/Training Program
DX: R21 Rash and other nonspecific skin eruption (principal); M51.362 Other intervertebral disc degeneration, lumbar region with discogenic back pain and lower extremity pain; M79.7 Fibromyalgia
CPT/HCPCS: 99214

== ENCOUNTER → 2024-04-13 09:45 | Outpatient (BNVA) | payer OTHER, SELFPAY | PROVIDERS: PCP Nurse Practitioner Family; Visit Provider Student in an Organized Health Care Education/Training Program ==

== ENCOUNTER 2024-04-24 14:02 | Outpatient (AMB) | payer OTHER, SELFPAY ==
--- NOTE | 2024-04-24 14:04 | A.OFFVIS_ITS ---
Vital Signs 04/24/24 14:19 Height 5 ft 6 in Weight 267 lb 8 oz BMI 43.2 BP 179/109 H Blood Pressure Location Lt brachial Position Sitting Pulse 71 Pulse Source Pulse Oximeter Pulse Oximetry (%) 96 Oxygen Delivery Method Room Air Intake Visit Reasons: Sciatica, unspecified side Intake Note: Pain today 10/10 Insurance Actuary Required: No Accompanied by: Spouse Allergies acetaminophen [From PERCOCET] Allergy (Mild, Verified 04/13/24 09:55) ITCHING oxycodone [From PERCOCET] Allergy (Mild, Verified 04/13/24 09:55) ITCHING HPI Comments Details: Karen is a very pleasant 44-year-old female who presents to the office today for evaluation management of her right lower back pain Patient reports she has been suffering with this pain for approximately 1 month Denies inciting injury, fall, trauma She states she was in a seated position went to stand and felt sudden sharp pain to the right lower back. Pain has persisted since She went to the walk-in where she was given a prednisone Dosepak, anti- inflammatory medication and muscle relaxers. This gave her relief for about 2 weeks. About 1 week ago pain returned. She went to the emergency room where they gave her additional prednisone for 5 days, meloxicam, gabapentin and oxycodone. No longer taking gabapentin, did not like how it made her feel. Did not take the cyclobenzaprine. After 2 doses she states it made her feel sick to her stomach. She has tried topical heat, ice, patches all without improvement. Status post lumbar surgery 09/2016. After this her pain had improved until 1 month ago. Prior to surgery her pain was on the left, now she is suffering with right-sided pain Endorses numbness tingling down the right leg to the foot. States her foot feels numb. She has been doing guided home exercise program without improvement of her symptoms. She is scheduled to start physical therapy next week Denies recent imaging or MRI. No x-ray was done at the walk-in or the emergency room. Denies red flag symptoms including new loss bowel, bladder or saddle anesthesia Pain today is rated as a 10/10, constant throughout the day and night. Pain is worse with movement, position changes, standing, sitting In terms of muscle damage condition is described as hot, burning, stabbing, sharp, tingling, numb, pins and needles Pain is negatively impacting patient's enjoyment of life, general activity, mood, normal work, recreational activities, relationships with people, sleep and walking Denies current use of anticoagulants Denies implantable devices, pacemaker or defibrillator Denies current use of nicotine, tobacco, alcohol or illicit substances [facility] Medical History Abnormal uterine bleeding (AUB) Upper back pain Obesity Tired Difficulty sleeping Breast screening COVID-19 Exacerbation of asthma Screening for cervical cancer Physical exam Low hemoglobin Elevated liver enzymes Uterine fibroids affecting Uterine fibroid Acute sinusitis Fatigue UTI (urinary tract infection) Snores Fatty liver Neck pain Abdominal pain Cellulitis Leukocytosis Rash and other nonspecific skin eruption Chest pressure Palpitations Anxiety with flying Chest wall tenderness Lateral epicondylitis of right elbow Medial epicondylitis of right elbow Medial epicondylitis Lateral epicondylitis Bilateral hand numbness Right wrist pain Chest pain due to psychological stress Screening for breast cancer Encounter for routine adult physical exam with abnormal findings Infertility, female Cervical radiculopathy HTN (hypertension) Surgical History Hx of LASIK History of tonsillectomy and adenoidectomy History of lumbar surgery H/O right knee surgery Family History Father Hearing loss Mother PCOS (polycystic ovarian syndrome) Mental health disorder Maternal Grandfather Diabetes mellitus Maternal Grandmother Diabetes mellitus Paternal Grandfather Diabetes mellitus Paternal Grandmother Diabetes mellitus Cancer Brother No problems noted. Brother No problems noted. Sister No problems noted. Paternal Uncle Multiple sclerosis Social History Household Members: Spouse Housing: Apartment Alcohol intake: former Patient Tobacco Use Status: Never used Tobacco e-Cigarette/Vaping Use: Never Used Second Hand Smoke Exposure: No service: No Current occupational status: employed Current occupation: [employer] / right hand dominant Sexual orientation: Straight/Heterosexual Gender identity: Female Cognitive needs: No Hearing needs: No Vision needs: Yes (glasses) Review of Systems Const All systems reviewed & are unremarkable except as noted in HPI and below Physical Exam Vital Signs: Last Vital Signs Pulse 71 04/24/24 14:19 BP 179/109 H 04/24/24 14:19 Pulse Ox 96 04/24/24 14:19 Oxygen Delivery Method Room Air 04/24/24 14:19 BMI result Body Mass Index 43.2 General: awake, alert, oriented. Answers questions appropriately. Fully engaged in examination. Skin: warm, dry, intact HEENT: Normocephalic. Hearing intact. Cardiac: External chest normal in appearance. Respiratory: No cough, audible wheezing or stridor. Abdomen: without gross distension. MS: No obvious swelling or deformities. Able to stand on bilateral tiptoes and bilateral heels.? Able to transition from sit to stand unassisted. Ambulates with bilaterally normal heel strike and toe off SLR positive on the right Negative footdrop, negative clonus Bilateral lower extremity strength 5/5 Tender over midline lumbar vertebrae lumbar paraspinal muscles, right greater than left Significantly decreased lumbar range of motion Nontender for bilateral PSIS Neurological: Oriented to person, place, time and situation. Thought process intact. No gait abnormalities appreciated. Psychiatric: Appropriate mood and affect. Good judgment and insight. Assessment & Plan Assessment & Plan (1) Lumbar radiculopathy: Code(s): M54.16 - Radiculopathy, lumbar region Category: Medical (2) Paresthesia of right lower extremity: Code(s): R20.2 - Paresthesia of skin Category: Medical (3) Post laminectomy syndrome: Code(s): M96.1 - Postlaminectomy syndrome, not elsewhere classified Category: Medical Plan Karen is a very pleasant 44-year-old female who presented to the office today for evaluation and management of her lower back pain History, physical exam and provocative testing consistent with lumbar radiculopathy X-ray ordered evaluation MRI ordered to evaluate for neural compromise. Patient requesting open MRI at [facility]. She has exhausted conservative therapy including guided home exercise program, NSAIDs, muscle relaxers, prescription medications, topical medications, heat, ice. Continue with PT as planned New prescription for methocarbamol 500 mg p.o. 3 times daily as needed. Patient advised on cautions for use All questions and concerns were answered, patient agrees to this plan. Follow- up after PT/MRI, sooner if needed Orders: Orders XR lumbar spine 4V min Today M54.9 - Dorsalgia, unspecified MR lumbar spine wo/w con Today M54.16 - Radiculopathy, lumbar region, M96.1 - Postlaminectomy syndrome, not elsewhere classified, R20.2 - Paresthesia of skin Medications: New methocarbamol Discontinue use of Cyclobenzaprine No driving while taking this medication. Do no take with alcohol or other CONTRACT OFFICER Depressants 500 mg PO TID PRN 90 tabs 1RF muscle spasm Coding Level of Care Code New Pt Level 4 (66419) Complex EM visit Add On G2211 Diagnoses Lumbar radiculopathy M54.16 Paresthesia of right lower extremity R20.2 Post laminectomy syndrome M96.1
--- OUTSIDE RECORDS SUMMARY | 2024-04-24 14:10 | XMS_ITS | Continuity of Care Document ---
Author Organization [facility] ter Address [address] [place] [id number]- Care Team Providers Care Shearing Shed Hand Name Role Phone Gordon CHRISTIAN, Ishmael Griffin Primary Care Physician Encounter [facility] Date(s): 04/21/24 - 04/21/[address] [address]- Encounter Diagnosis Sciatica(Final) - 04/21/24 Discharge Disposition: A-D/C Home Attending Physician: Houston Ho MD Admitting Physician: Houston Ho MD Referring Physician: Not on Staff, Referring MD Encounter Type: Disch ES Allergies, Adverse Reactions, Alerts Substance Criticality Severity Reaction Reaction Severity Status Percocet 325 itchy Activ e Medications 27g 1/2 needles 27g 1/2 needles, See Instructions, # 15 each, Refills 5, Tot. Refills 5, Maintenance, use to give injections, 06/07/19 10:15:00 AM EST, Compound, 167.7, cm, 03/07/19 9:50:00 EDT, Height, 118.2, kg, 06/29/18 15:54:00 EST, Dry Weight Start Date: 06/07/19 Status: Ordered Quantity: 15.0 Unit: each Repeat number: 6 3 cc syringe with 22g 1 1/2 needles 3 cc syringe with 22g 1 1/2 needles, See Instructions, # 15 each, Refills 5, Tot. Refills 5, Maintenance, use to mix menopur, 06/07/19 10:15:00 AM EST, Compound, 167.7, cm, 03/07/19 9:50:00 EDT, Height, 118.2, kg, 06/29/18 15:54:00 EST, Dry Weight Start Date: 06/07/19 Status: Ordered Quantity: 15.0 Unit: each Repeat number: 6 albuterol 90 mcg/inh inhalation powder 1 puffs, Inhalation, Every 4 hours, PRN as needed, # 1 each, 0 Refills, Maintenance, 06/29/18 3:47:47 PM EST, Powder Start Date: 06/29/18 Status: Ordered Quantity: 1.0 Unit: each Repeat number: 1 follistim pen device follistim pen device, See Instructions, # 1 each, Refills 5, Tot. Refills 5, Maintenance, use with follistim cartridges, 05/08/19 12:42:00 PM EST, Compound, 167.7, cm, 03/07/19 9:50:00 EDT, Height, 118.2, kg, 06/29/18 15:54:00 EST, Dry Weight Start Date: 05/08/19 Status: Ordered Quantity: 1.0 Unit: each Repeat number: 6 gabapentin 300 mg oral capsule 300 mg, 1, capsule, By Mouth, 2 times a day, PRN, # 15 capsule, Refills 0, Tot. Refills 0, Maintenance, Pain , Moderate, 04/21/24 5:18:00 PM EST, Route to Pharmacy Electronically, [facility] #[id number], Partial fill upon patient request if the prescription is for a schedule II opioid drug., 168, cm, 04/21/24 15:17:00 EST, Height, 122.5, kg, 04/21/24 15:17:00 EST, Dry Weight Start Date: 04/21/24 Status: Ordered Quantity: 15.0 Unit: capsule Repeat number: 1 Lidoderm 5% film 1 patch, Topically, Daily, # 30 patch, 0 Refills, Maintenance, 04/21/24 5:17:00 PM EST, [facility] #[id number], Partial fill upon patient request if the prescription is for a schedule II opioid drug., 1 patch Topically Daily, 168, cm, 04/21/24 15:17:00 EST, Height, 122.5, kg, 04/21/24 15:17:00EST, Dry Weight Start Date: 04/21/24 Status: Ordered Quantity: 30.0 Unit: patch Repeat number: 1 lisinopril 20 mg oral tablet 20 mg, 1, tablet, By Mouth, Daily, Refills 0, Maintenance, 02/12/23 8:04:00 AM EDT, Partial fill upon patient request if the prescription is for a schedule II opioid drug. Start Date: 02/12/23 Status: Ordered Repeat number: 1 magnesium magnesium, Refills 0, Maintenance, 02/12/23 8:05:00 AM EDT, Supply Start Date: 02/12/23 Status: Ordered Repeat number: 1 ovidrel 250 mcg ovidrel 250 mcg, See Instructions, # 2 each, Refills 5, Tot. Refills 5, Maintenance, Inject 2 prefilled syringes x1 by subcutaneous Injection Once, 06/07/19 10:18:00 AM EST, Compound, 167.7, cm, 03/07/19 9:50:00 EDT, Height, 118.2, kg, 06/29/18 15:54:00 EST, Dry Weight Start Date: 06/07/19 Status: Ordered Quantity: 2.0 Unit: each Repeat number: 6 oxyCODONE 5 mg oral capsule 1 or 2, By Mouth, Every 6 hours, PRN Pain , Moderate, # 12 capsule, 0 Refills, Maintenance, 04/21/24 5:16:00 PM EST, Capsule, [facility] #[id number], Partial fill upon patient request if the prescription is for a schedule II opioid drug., 168, cm, 04/21/24 15:17:00 EST, Height, 122.5, kg, 04/21/24 15:17:00 EST, Dry Weight Start Date: 04/21/24 Status: Ordered Quantity: 12.0 Unit: capsule Repeat number: 1 OxyCODONE IR Tablet 5 mg, Tablet, By Mouth, Once, STAT, 04/21/24 4:11:00 PM EST, Stop date 04/21/24 4:25:01 PM EST Start Date: 04/21/24 Stop Date: 04/21/24 Status: Completed Repeat number: 1 predniSONE 10 mg oral tablet 2 tablet = 20 mg, By Mouth, 2 times a day, # 20 tablet, 0 Refills, Maintenance, 04/21/24 5:29:00 PMEST, [facility] #[id number], Partial fill upon patient request if the prescription is for a schedule II opioid drug., 168, cm, 04/21/24 15:17:00 EST, Height, 122.5, kg, 04/21/24 15:17:00 EST, Dry Weight Start Date: 04/21/24 Stop Date: 04/26/24 Status: Ordered Quantity: 20.0 Unit: tablet Repeat number: 1 Problem List Condition Confirmation Course Effective Dates Status Health St [facility] Informant Infertility, anovulation Confirmed Active PCOS (polycystic ovarian syndrome) Confirmed Active Severe obesity Confirmed Active Vital Signs Most recent to oldest [Reference Range]: 1 2 Height 168 cm (04/21/24 3:17 PM) Weight 122.5 kg (04/21/24 3:17 PM) Oxygen Saturation [94-100 %] 98 % (04/21/24 3:17 PM) 100 % (04/21/24 3:12 PM) Pulse Rate [55-90 bpm] 77 bpm (04/21/24 3:17 PM) 82 bpm (04/21/24 3:12 PM) Body Mass Index [18.5-24.99 kg/m2] 43.4 kg/m2 *>HHI* (04/21/24 3:17 PM) Blood Pressure [90-138/55-84 mm Hg] 148/ 94mm Hg *H* (04/21/24 3:17 PM) Respiratory Rate [16-30 br/min] 20 br/mi n (04/21/24 4:24 PM) 18 br/min (04/21/24 3:17 PM) Temperature [96.8-100.4 DegF] 97.9 DegF (04/21/24 3:17 PM) Mode of Delivery (Oxygen) Room air (04/21/24 3:17 PM) Room air (04/21/24 3:12 PM) Blood pressure sites Arm, left (04/21/24 3:17 PM) Temperature Route Oral (04/21/24 3:17 PM) Dry Weight 122.5 kg (04/21/24 3:17 PM) Weight Obtained Via Patient/family state d (04/21/24 3:17 PM) Dry Weight Obtained Via Patient/family s tated (04/21/24 3:17 PM) Social History Social History Type Response Smoking Status Never (less than 100 in lifetime) entered on: 04/26/18 Sex Sex Representation Female (finding) Note * Houston Ho MD: PERFORM, SIGN, VERIFY Event Display: Patient Education Handout Authored Date: [id number] * Houston Ho MD: PERFORM Event Display: Patient Education Leaflets Authored Date: [id number] Lidocaine Transdermal Patch ?? [id number] Lidocaine Transdermal Patch Brand Name(s): Absorbine Jr?? Plus, Aspercreme Patch??, Dermalid??, Lidocare??, Lidoderm??, Salonpas??, Ztlido??, Synera?? (containing lidocaine and tetracaine); also available generically ?? WHY is this medicine prescribed? Prescription lidocaine transdermal (Dermalid, Lidoderm, Ztildo) is used to relieve the pain of post-herpetic neuralgia (PHN; burning, stabbing pains, or aches that may last for months or years after a shingles infection). Nonprescription (vbae-dve-sojoxzw) lidocaine (Absorbine Jr, Aspercreme, Lidoca re, Salonpas, others) is also available to relieve minor pain in shoulders, arms, neck and legs in adults and children 12 years of age and older. Lidocaine is in a class of medications called local anesthetics. It works by stopping nerves from sending pain signals. HOW should this medicine be used? Prescription lidocaine transdermal comes as a 5% patch (Dermalid, Lidoderm) and as a 1.8% topical system (Ztlido) to apply to the skin. Prescription lidocaine transdermal is applied only once a day as needed for pain. Never apply more than 3 of the lidocaine 5% patch or lidocaine 1.8% topical systems at one time, and never wear them for more than 12 hours per day (12 hours on and 12 hours off). Follow the directions on your prescription label carefully, and ask your doctor or pharmacist to explain any part you do not understand. Use lidocaine transdermal exactly as directed. Do not apply it more or less often than prescribed by your doctor. Nonprescription lidocaine transdermal comes as a 4% patch (Absorbine Jr, Aspercreme, Lidocare, Salonpas, others) to apply to the skin. It is applied up to 3 times daily and for no more than 8 hours per application. Use nonprescription lidocaine patches exactly as directed. Do not use more or less of it or use it more often or for a longer period of time than directed by the package instructions. Your doctor will tell you how many lidocaine patches or topical systems you may use at one time andthe length of time you may wear the patches. Applying too many patches or topical systems or leaving them on for too long may cause serious side effects. Apply the lidocaine patch or topical system to clean, dry, intact skin as directed. Choose an area where the patch will not be rubbed by tight clothing. Do not apply the patch or topical system to anopen wound or cut, to skin that is irritated or red, or to skin that is affected by a rash, burn, or other skin problem. If irritation or a burning sensation occurs during lidocaine application, remove the lidocaine patch or system and do not reapply it until the irritation is gone. Prescription patches and topical systems may be cut into smaller sizes with scissors prior to removal of the release liner. Be sure to remove the current patch before you apply a new one. Do not let lidocaine transdermal come in contact with your eyes. If lidocaine transdermal does touch your eye, immediately wash the eye with water or saline and protect the eye until sensation returns. While you are wearing a lidocaine transdermal patch or system, protect the treated area from directheat such as heating pads or electric blankets. You can apply the lidocaine 1.8% topical system after moderate heat exposure, such as 15 minutes of heating pad exposure on a medium setting. Do not bandage the affected area tightly. Do not shower, bathe, or go swimming while you are wearing the prescription lidocaine 5% transdermal patch. If you are using the prescription lidocaine 1.8% topical system, you may shower for up to 10 minutes or wear it while immersed in water for up to 15 minutes. If the lidocaine 1.8% topical system becomes wet, gently pat the skin, but do not rub the skin or lidocaine 1.8% topical system. If the lidocaine 1.8% topical system comes off completely or lifts at the edges, reattach it by pressing firmly on the edges of the topical system or lifted areas. If the lidocaine 1.8% topical system comes off completely more than once and does not stick to the skin, remove it and apply a new lidocaine topical system not to exceed 12 hours of total use. Wash your hands after handling lidocaine patches or topical system. Stop using nonprescription lidocaine 4% patch and call your doctor if your pain lasts for longer than 7 days or if your pain improves and then worsens. Ask your pharmacist or doctor for a copy of the audience development manager's information for the patient. Are there OTHER USES for this medicine? This medication may be prescribed for other uses; ask your doctor or pharmacist for more information. What SPECIAL PRECAUTIONS should I follow? Before using lidocaine transdermal, ??? tell your doctor and pharmacist if you are allergic to lidocaine; other medications such as benzocaine. bupivacaine (Marcaine), etidocaine (Duranest), mepivacaine (Carbocaine, Prolocaine), prilocaine (Citanest), procaine, tetracaine, any other medications, or any of the ingredients in lidocaine transdermal. Ask your pharmacist for a list of the ingredients. ??? tell your doctor and pharmacistwhat prescription and nonprescription medications, vitamins, nutritional supplements, and herbal products you are taking or plan to take while using lidocaine transdermal. Your doctor may need to change the doses of your medications or monitor you carefully for side effects.. ??? the following nonprescription product may interact with lidocaine transdermal: acetaminophen (Tylenol). Be sure to letyour doctor and pharmacist know that you are taking these medications before you start using lidocaine transdermal. Do not start any of these medications while using lidocaine transderaml without discussing with your healthcare provider. ??? tell your doctor if you have or have ever had oztkhgh-4-zjyyhkuwm dehydrogenase (G-6PD) deficiency (an inherited blood disorder), methemoglobinemia (a condition with defective red blood cells that are unable to carry oxygen to the tissues in the body), or heart, lung, or liver disease. ??? tell your doctor if you are , plan to become , or are breast-feeding. If you become while using lidocaine patches or topical systems, call your doctor. ??? if you are having surgery, including dental surgery, tell the doctor or dentist that you are using lidocaine patches or topical systems. What SPECIAL DIETARY instructions should I follow? Unless your doctor tells you otherwise, continue your normal diet. What should I do IF I FORGET to take a dose? This medication is usually used as needed. If your doctor has told you to use lidocaine patches or topical systems regularly, apply the missed patch or topical system as soon as you remember it. However, if it is almost time for the next dose, skip the missed patch and continue your regular dosing schedule. Do not apply a double dose to make up for a missed one. What SIDE EFFECTS can this medicine cause? Lidocaine patches or topical systems may cause side effects. If any of these symptoms occur, removeyour patch or topical system and do not put it back on until the symptoms go away. Tell your doctorif any of these symptoms are severe or do not go away: ??? burning or discomfort in the place you applied the patch ??? redness or swelling of the skin under the patch Some side effects can be serious. The following symptoms are uncommon, but if you experience any ofthem, call your doctor immediately: ??? hives ??? rash ??? itching ??? blisters ??? bruising ??? difficulty breathing or swallowing ???swelling of the face, throat, tongue, lips, eyes, hands, feet, ankles, or lower legs ??? hoarseness??? fast pulse or breathing ??? unusual thirst ??? nausea ??? vomiting ??? confusion ??? weakness ??? dizziness ??? fainting ??? pale, mederos, or blue colored skin; headache; shortness of breath; lightheadedness; or fatigue Lidocaine transdermal may cause other side effects. Call your doctor if you have any unusual problems while using this medication. If you experience a serious side effect, you or your doctor may send a report to the Food and Drug Administration's (FDA) MedWatch Adverse Event Reporting program online (https://www.fda.gov/Safety/MedWatch) or by phone ( ). What should I know about STORAGE and DISPOSAL of this medication? Keep this medication in the container it came in, tightly closed, and out of reach of children. Store it at room temperature and away from excess heat and moisture (not in the bathroom). Do not storepatches and topical systems outside the sealed envelope. Fold used patches or topical systems so that the adhesive side sticks to itself and then safely discard into trash and where children and petscannot get to them. It is important to keep all medication out of sight and reach of children as many containers (such as weekly pill minders and those for eye drops, creams, patches, and inhalers) are not child-resistant and young children can open them easily. To protect young children from poisoning, always lock safety caps and immediately place the medication in a safe location ??? one that is up and away and out of their sight and reach. https://www.[employer].org Unneeded medications should be disposed of in special ways to ensure that pets, children, and otherpeople cannot consume them. However, you should not flush this medication down the toilet. Instead,the best way to dispose of your medication is through a medicine take-back program. Talk to your pharmacist or contact your local garbage/recycling department to learn about take-back programs in your community. See the FDA's Safe Disposal of Medicines website (https://goo.gl/c4Rm4p) for more information if you do not have access to a take-back program. What should I do in case of OVERDOSE? If you wear too many lidocaine transdermal patches or topical systems or wear them for too long, too much lidocaine may be absorbed into your blood. In that case, you may experience symptoms of an overdose. In case of overdose, call the poison control helpline at . Information is also available online at https://www.poisonhelp.org/help. If the victim has collapsed, had a seizure, has trouble breathing, or can't be awakened, immediately call emergency services at 911. Symptoms of overdose may include: ??? lightheadedness ??? nervousness ??? inappropriate happiness ??? confusion ??? dizziness ??? drowsiness ??? ringing in the ears ??? blurred or double vision ??? vomiting ??? feeling hot, cold, or numb ??? twitching or shaking that you cannot control ??? seizures ??? loss of consciousness ??? slow heartbeat What OTHER INFORMATION should I know? Keep all appointments with your doctor. Do not let anyone else use your medication. Ask your pharmacist any questions you have about refilling your prescription. It is important for you to keep a written list of all of the prescription and nonprescription (iqzs-cfr-jyhmqwi) medicines you are taking, as well as any products such as vitamins, minerals, or otherdietary supplements. You should bring this list with you each time you visit a doctor or if you areadmitted to a hospital. It is also important information to carry with you in case of emergencies. This report on medications is for your information only, and is not considered individual patient advice. Because of the changing nature of drug information, please consult your physician or pharmacist about specific clinical use. The [employer] represents that the information provided hereunder was formulated with a reasonable standard of care, and in conformity with professional standards in the field. The [employer] makes no representations or warranties, express or implied, including, but not limited to, any implied warranty of merchantability and/or fitness for a particular purpose, with respect to such information and specifically disclaims all such warranties. Users are advised that decisions regarding drug therapy are complex medical decisions requiring the independent, informed decision of an appropriate health direct care professional, and the information is provided for informational purposes only. The entire monograph for a drug should be reviewed for a thorough understanding of the drug's actions, uses and side effects. The [employer] does not endorse or recommend the use of any drug.The information is not a substitute for medical care. AHFS?? Patient Medication Information???. ?? Copyright, 2023. The [employer]??, [address], [address], [place], [place]. All Rights Reserved. Duplication for commercial use must be authorized by [facility]. Selected Revisions: October 21, 2020. AHFS?? Patient Medication Information???. ?? Copyright, 2023 ?? * [place] GUZMAN, Houston Das: PERFORM Event Display: Patient Education Leaflets Authored Date: [id number] Gabapentin ?? [id number] Gabapentin Brand Name(s): Gralise??, Horizant??, Neurontin??; also available generically ?? WHY is this medicine prescribed? Gabapentin capsules, tablets, and oral solution are used along with other medications to help control certain types of seizures in people who have epilepsy. Gabapentin capsules, tablets, and oral solution are also used to relieve the pain of postherpetic neuralgia (PHN; the burning, stabbing pain or aches that may last for months or years after an attack of shingles). Gabapentin extended-release tablets (Horizant) are used to treat restless legs syndrome (RLS; a condition that causes discomfortin the legs and a strong urge to move the legs, especially at night and when sitting or lying down). Gabapentin is in a class of medications called anticonvulsants. Gabapentin treats seizures by decreasing abnormal excitement in the brain. Gabapentin relieves the pain of PHN by changing the way thebody senses pain. It is not known exactly how gabapentin works to treat restless legs syndrome. HOW should this medicine be used? Gabapentin comes as a capsule, a tablet, an extended-release (long-acting) tablet, and an oral solution (liquid) to take by mouth. Gabapentin capsules, tablets, and oral solution are usually taken with a full glass of water (8 ounces [240 milliliters]), with or without food, three times a day. These medications should be taken at evenly spaced times throughout the day and night; no more than12 hours should pass between doses. The extended-release tablet (Horizant) is taken with food once daily at about 5 PM. Follow the directions on your prescription label carefully, and ask your doctoror pharmacist to explain any part you do not understand. Take gabapentin exactly as directed. Do not take more or less of it or take it more often than prescribed by your doctor. Gabapentin extended-release tablets cannot be substituted for another type of gabapentin product. Be sure that you receive only the type of gabapentin that was prescribed by your doctor. Ask your pharmacist if you have any questions about the type of gabapentin you were given. Swallow the extended-release tablets whole; do not cut, chew, or crush them. If your doctor tells you to take one-half of a regular tablet as part of your dose, carefully splitthe tablet along the score rodrigo. Use the other half-tablet as part of your next dose. Properly dispose of any half-tablets that you have not used within several days of breaking them. If you are taking gabapentin to control seizures or PHN, your doctor will probably start you on a low dose of gabapentin and gradually increase your dose as needed to treat your condition. If you aretaking gabapentin to treat PHN, tell your doctor if your symptoms do not improve during your treatment. Gabapentin may help to control your condition but will not cure it. Continue to take gabapentin even if you feel well. Do not stop taking gabapentin without talking to your doctor, even if you experience side effects such as unusual changes in behavior or mood. If you suddenly stop taking gabapentin tablets, capsules, or oral solution, you may experience withdrawal symptoms such as anxiety, difficulty falling asleep or staying asleep, nausea, pain, and sweating. If you are taking gabapentin to treat seizures and you suddenly stop taking the medication, you may experience seizures more often. Your doctor may decrease your dose gradually over at least a week. Your doctor or pharmacist will give you the audience development manager's patient information sheet (Medication Guide) when you begin treatment with gabapentin and each time you refill your prescription. Read the information carefully and ask your doctor or pharmacist if you have any questions. You can also visitthe Food and Drug Administration (FDA) website (https://www.fda.gov/Drugs) or the audience development manager's website to obtain the Medication Guide. Are there OTHER USES for this medicine? Gabapentin is also sometimes used to relieve the pain of diabetic neuropathy (numbness or tingling due to nerve damage in people who have diabetes), and to treat and prevent hot flashes (sudden strong feelings of heat and sweating) in women who are being treated for breast cancer or who have experienced menopause (''change of life'', the end of monthly menstrual periods). Talk to your doctor about the risks of using this medication for your condition. This medication may be prescribed for other uses; ask your doctor or pharmacist for more information. What SPECIAL PRECAUTIONS should I follow? Before taking gabapentin, ??? tell your doctor and pharmacist if you are allergic to gabapentin, any other medications, or any of the inactive ingredients in the type of gabapentin you plan to take. Ask your pharmacist for a list of the inactive ingredients. ??? you should know that gabapentin is available in different forms that may be prescribed for different uses. Ask your doctor to be sure that you are not taking morethan one product that contains gabapentin. ??? tell your doctor and pharmacist what prescription and nonprescription medications, vitamins, nutritional supplements, and herbal products you are takingor plan to take while taking gabapentin. Your doctor may need to change the doses of your medications or monitor you carefully for side effects. ??? if you are taking antacids such as Maalox or Mylanta, take them at least 2 hours before you take gabapentin tablets, capsules, or solution. ??? the following nonprescription products may interact with gabapentin: nonsteroidal anti-inflammatory drugs (NSAIDS) such as ibuprofen (Advil, Motrin, others) and naproxen (Aleve). Be sure to let your doctor and pharmacist know that you are taking these medications before you start taking gabapentin. Do notstart any of these medications while taking gabapentin without discussing with your healthcare provider. ??? tell your doctor if you have or have ever had lung or kidney disease. If you will be taking the extended-release tablets, also tell your doctor if you need to sleep during the day and stay awake at night. ??? tell your doctor if you are , plan to become , or are breast-feeding. If you become while taking gabapentin, call your doctor. ??? if you are having surgery, including dental surgery, tell the doctor or dentist that you are taking gabapentin. ??? you should know that this medication may make you drowsy or dizzy, may slow your thinking, and may cause lossof coordination. Do not drive a car or operate machinery until you know how this medication affectsyou, and your doctor agrees that it is safe for you to begin these activities. ??? if you are giving gabapentin to your child, you should know that your child's behavior and mental abilities may change while he or she is taking gabapentin. Your child may have sudden changes in mood, become hostile or hyperactive, have difficulty concentrating or paying attention, or be drowsy or clumsy. Have yourchild avoid activities that could be dangerous, such as riding a bicycle, until you know how gabapentin affects him or her. ??? remember that alcohol can add to the drowsiness caused by this medication. ??? you should know that your mental health may change in unexpected ways and you may become suicidal (thinking about harming or killing yourself or planning or trying to do so) while you are taking gabapentin for the treatment of epilepsy, mental illness, or other conditions. A small number of adults and children 5 years of age and older (about 1 in 500 people) who took anticonvulsants such as gabapentin to treat various conditions during clinical studies became suicidal during their treatment. Some of these people developed suicidal thoughts and behavior as early as one week after they started taking the medication. There is a risk that you may experience changes in your mental health if you take an anticonvulsant medication such as gabapentin, but there may also be a risk that you will experience changes in your mental health if your condition is not treated. You and your doctor will decide whether the risks of taking an anticonvulsant medication are greater than the risks of not taking the medication. You, your family, or your caregiver should call your doctor right away if you experience any of the following symptoms: panic attacks; agitation or restlessness; new or worsening irritability, anxiety, or depression; acting on dangerous impulses; difficulty falling or staying asleep; aggressive, angry, or violent behavior; shaji (frenzied, abnormally excited mood); talkingor thinking about wanting to hurt yourself or end your life; withdrawing from friends and family; preoccupation with and dying; giving away prized possessions; or any other unusual changes in behavior or mood. Be sure that your family or caregiver knows which symptoms may be serious so they can call the doctor if you are unable to seek treatment on your own. What SPECIAL DIETARY instructions should I follow? Unless your doctor tells you otherwise, continue your normal diet. What should I do IF I FORGET to take a dose? If you forget to take gabapentin capsules, tablets, or oral solution, take the missed dose as soon as you remember it. However, if it is almost time for the next dose or if you forget to take gabapentin extended-release tablets, skip the missed dose and continue your regular dosing schedule. Do nottake a double dose to make up for a missed one. What SIDE EFFECTS can this medicine cause? Gabapentin may cause side effects. Tell your doctor if any of these symptoms are severe or do not go away: ??? drowsiness ??? tiredness or weakness ??? dizziness ??? headache ??? uncontrollable shaking of apart of your body ??? double or blurred vision ??? unsteadiness ??? anxiety ??? memory problems ???strange or unusual thoughts ??? unwanted eye movements ??? nausea ??? vomiting ??? heartburn ??? diarrhea ??? dry mouth ??? constipation ??? increased appetite ??? weight gain ??? swelling of the hands, feet, ankles, or lower legs ??? back or joint pain ??? fever ??? runny nose, sneezing, cough, sore throat, or flu-like symptoms ??? ear pain ??? red, itchy eyes (sometimes with swelling or discharge) Some side effects may be serious. If you experience any of the following symptoms, call your doctorimmediately: ??? rash ??? itching ??? swelling of the face, throat, tongue, lips, or eyes ??? hoarseness ??? difficulty swallowing or breathing ??? seizures ??? difficulty breathing; bluish-tinged skin, lips, or fingernails; confusion; or extreme sleepiness Gabapentin may cause other side effects. Call your doctor if you have any unusual problems while taking this medication. If you experience a serious side effect, you or your doctor may send a report to the Food and Drug Administration's (FDA) MedWatch Adverse Event Reporting program online (https://www.fda.gov/Safety/MedWatch) or by phone ( ). What should I know about STORAGE and DISPOSAL of this medication? Keep this medication in the container it came in, tightly closed, and out of reach of children. Store the tablets, extended-release tablets, and capsules at room temperature, away from excess heat and moisture (not in the bathroom). Store the oral solution in the refrigerator. It is important to keep all medication out of sight and reach of children as many containers (such as weekly pill minders and those for eye drops, creams, patches, and inhalers) are not child-resistant and young children can open them easily. To protect young children from poisoning, always lock safety caps and immediately place the medication in a safe location ??? one that is up and away and out of their sight and reach. https://www.upandaway.org Unneeded medications should be disposed of in special ways to ensure that pets, children, and otherpeople cannot consume them. However, you should not flush this medication down the toilet. Instead,the best way to dispose of your medication is through a medicine take-back program. Talk to your pharmacist or contact your local garbage/recycling department to learn about take-back programs in your community. See the FDA's Safe Disposal of Medicines website (https://goo.gl/c4Rm4p) for more information if you do not have access to a take-back program. What should I do in case of OVERDOSE? In case of overdose, call the poison control helpline at . Information is also available online at https://www.poisonhelp.org/help. If the victim has collapsed, had a seizure, has trouble breathing, or can't be awakened, immediately call emergency services at 911. Symptoms of overdose may include the following: ??? double vision ??? slurred speech ??? drowsiness ??? diarrhea What OTHER INFORMATION should I know? Keep all appointments with your doctor. Before having any laboratory test, tell your doctor and the laboratory personnel that you are taking gabapentin. If you use a dipstick to test your urine for protein, ask your doctor which product you should use while taking this medication. Do not let anyone else take your medication. Ask your pharmacist any questions you have about refilling your prescription. It is important for you to keep a written list of all of the prescription and nonprescription (yjgs-cye-wivkocg) medicines you are taking, as well as any products such as vitamins, minerals, or otherdietary supplements. You should bring this list with you each time you visit a doctor or if you areadmitted to a hospital. It is also important information to carry with you in case of emergencies. This report on medications is for your information only, and is not considered individual patient advice. Because of the changing nature of drug information, please consult your physician or pharmacist about specific clinical use. The [employer] represents that the information provided hereunder was formulated with a reasonable standard of care, and in conformity with professional standards in the field. The [employer] makes no representations or warranties, express or implied, including, but not limited to, any implied warranty of merchantability and/or fitness for a particular purpose, with respect to such information and specifically disclaims all such warranties. Users are advised that decisions regarding drug therapy are complex medical decisions requiring the independent, informed decision of an appropriate health direct care professional, and the information is provided for informational purposes only. The entire monograph for a drug should be reviewed for a thorough understanding of the drug's actions, uses and side effects. The [employer] does not endorse or recommend the use of any drug.The information is not a substitute for medical care. AHFS?? Patient Medication Information???. ?? Copyright, 2023. The [employer]??, [address], [address], [place], [place]. All Rights Reserved. Duplication for commercial use must be authorized by [facility]. Selected Revisions: September 21, 2019. AHFS?? Patient Medication Information???. ?? Copyright, 2023 ?? * [place] GUZMAN, [place] Das: PERFORM Event Display: Patient Education Leaflets Authored Date: [id number] Oxycodone ?? [id number] Oxycodone Brand Name(s): Oxaydo??, Oxycontin??, Roxicodone??, Roxybond??, Xtampza?? ER, Combunox?? (as a combination product containing Ibuprofen, Oxycodone), Narvox?? (as a combination product containing Acetaminophen, Oxycodone), Oxycet?? (as a combination product containing Acetaminophen, Oxycodone), Percocet?? (as a combination product containing Acetaminophen, Oxycodone), Percodan?? (as a combination product containing Aspirin, Oxycodone), Roxicet?? (as a combination product containing Acetaminophen, Oxycodone), Roxilox?? (as a combination product containing Acetaminophen, Oxycodone), Roxiprin?? (as a combination product containing Aspirin, Oxycodone), Targiniq?? ER (as a combination product containing naloxone, oxycodone), Troxyca ER?? (as a combination product containing Naltrexone, Oxycodone), Tylox?? (as a combination product containing Acetaminophen, Oxycodone), Xartemis XR?? (as a combination product containing Acetaminophen, Oxycodone); also available generically ?? IMPORTANT WARNING: Oxycodone may be habit-forming. Take oxycodone exactly as directed. Do not take more of it, take itmore often, or take it in a different way than directed by your doctor. While taking oxycodone, discuss with your healthcare provider your pain treatment goals, length of treatment, and other ways tomanage your pain. Tell your doctor if you or anyone in your family drinks or has ever drunk large amounts of alcohol, uses or has ever used street drugs, or has overused prescription medications, or has had an overdose, or if you have or have ever had depression or another mental illness. There is a greater risk that you will overuse oxycodone if you have or have ever had any of these conditions.Talk to your healthcare provider immediately and ask for guidance if you think that you have an opioid addiction or call the U.S. Substance Abuse and Mental Health Services Administration ([facility]) National Helpline at 4-173-339-GXTG. Oxycodone may cause serious or life-threatening breathing problems, especially during the first 24 to 72 hours of your treatment and any time your dose is increased. Your doctor will monitor you carefully during your treatment. Tell your doctor if you have or have ever had slowed breathing or asthma. Your doctor will probably tell you not to take oxycodone. Also tell your doctor if you have or have ever had lung disease such as chronic obstructive pulmonary disease (COPD; a group of diseases that affect the lungs and airways), a head injury a brain tumor, or any condition that increases the amount of pressure in your brain. The risk that you will develop breathing problems may be higher if you are an older adult or are weak or malnourished due to disease. If you experience any of the following symptoms, call your doctor immediately or get emergency medical treatment: slowed breathing, long pauses between breaths, or shortness of breath. Do not allow anyone else to take your medication. Oxycodone may harm or cause to other peoplewho take your medication, especially children. Keep oxycodone in a safe place so that no one else can take it accidentally or on purpose. Be especially careful to keep oxycodone out of the reach of children. Keep track of how many capsules, tablets, or oral solution is left so you will know if any medication is missing. Taking certain other medications with oxycodone may increase the risk of serious or life-threatening breathing problems, sedation, or coma. Tell your doctor and pharmacist what other prescription andnonprescription medications, vitamins, nutritional supplements, and herbal products you are taking or plan to take. Your doctor may need to change the doses of your medication and will monitor you carefully. If you take oxycodone with other medications and you develop any of the following symptoms,call your doctor immediately or seek emergency medical care: unusual dizziness, lightheadedness, extreme sleepiness, slowed or difficult breathing, or unresponsiveness. Be sure that your caregiver orfamily members know which symptoms may be serious so they can call the doctor or emergency medical care if you are unable to seek treatment on your own. Drinking alcohol, taking prescription or nonprescription medications that contain alcohol, or usingstreet drugs during your treatment with oxycodone increases the risk that you will experience serious, life-threatening side effects. Do not drink alcohol, take prescription or nonprescription medications that contain alcohol, or use street drugs during your treatment. If you are taking the oxycodone extended-release tablets, swallow them whole; do not chew, break, divide, crush, or dissolve them. Do not presoak, lick or otherwise wet the tablet prior to placing inthe mouth. Swallow each tablet right after you put it in your mouth. If you swallow broken, chewed,crushed, or dissolved extended-release tablets, you may receive too much oxycodone at once instead of slowly over 12 hours. This may cause serious problems, including overdose and . Oxycodone comes as a regular solution (liquid) and as a concentrated solution that contains more oxycodone in each milliliter of solution. Be sure that you know whether your doctor has prescribed theregular or concentrated solution and the dose in milliliters that your doctor has prescribed. Use the dosing cup, oral syringe, or dropper provided with your medication to carefully measure the number of milliliters of solution that your doctor prescribed. Read the directions that come with your medication carefully and ask your doctor or pharmacist if you have any questions about how to measure your dose or how much medication you should take. You may experience serious or life threatening side effects if you take an oxycodone solution with a different concentration or if you take a different amount of medication than prescribed by your doctor. Store oxycodone in a safe place so that no one else can take it accidentally or on purpose. Be especially careful to keep oxycodone out of the reach of children. Keep track of how many tablets or capsules, or how much liquid is left so you will know if any medication is missing. Dispose of unwantedcapsules, tablets, extended-release tablets, extended-release capsules, and liquid properly according to instructions. (See STORAGE and DISPOSAL). Tell your doctor if you are or plan to become . If you take oxycodone regularly during your , your baby may experience life- threatening withdrawal symptoms after . Tellyour baby's doctor right away if your baby experiences any of the following symptoms: irritability, hyperactivity, abnormal sleep, high-pitched cry, uncontrollable shaking of a part of the body, vomiting, diarrhea, or failure to gain weight. Talk to your doctor about the risks of taking oxycodone. Your doctor or pharmacist will give you the audience development manager's patient information sheet (Medication Guide) when you begin your treatment with oxycodone and each time you fill your prescription. Read theinformation carefully and ask your doctor or pharmacist if you have any questions. You can also visit the Food and Drug Administration (FDA) website (https://www.fda.gov/Drugs/DrugSafety/pir508256.htm) or the audience development manager's website to obtain the Medication Guide. WHY is this medicine prescribed? Oxycodone immediate-release tablets, capsules, and oral solution are used to relieve severe, acute pain (pain that begins suddenly, has a specific cause, and is expected to go away when the cause of the pain is healed) in people who are expected to need an opioid pain medication and who cannot be treated with other pain medications. Oxycodone extended-release tablets and extended-release capsulesare used to relieve severe pain in people who are expected to need pain medication around the clockfor a long time and who cannot be treated with other medications. Oxycodone extended-release tablets and extended-release capsules should not be used to treat pain that can be controlled by medication that is taken as needed. Oxycodone concentrated solution should only be used to treat people who are tolerant (used to the effects of the medication) to opioid medications because they have taken this type of medication for at least one week. Oxycodone is in a class of medications called opiate (narcotic) analgesics. It works by changing the way the brain and nervous system respond to pain. Oxycodone is also available in combination with acetaminophen (Oxycet, Percocet, others) and aspirin (Percodan). This monograph only includes information about the use of oxycodone alone. If you are taking an oxycodone combination product, be sure to read information about all the ingredients in the product you are taking and ask your doctor or pharmacist for more information. HOW should this medicine be used? Oxycodone comes as a solution (liquid), a concentrated solution, a tablet, a capsule, an extended-release (long-acting) tablet (Oxycontin), and an extended- release capsule (Xtampza ER) to take by mouth. The solution, concentrated solution, tablet, and capsule are taken usually with or without food every 4 to 6 hours, either as needed for pain or as regularly scheduled medications. The extended-release tablets (Oxycontin) are taken every 12 hours with or without food. The extended-release capsules (Xtampza ER) are taken every 12 hours with food; eat the same amount of food with each dose. Follow the directions on your prescription label carefully, and ask your doctor or pharmacist to explainany part you do not understand. Take oxycodone exactly as directed. If you are taking the extended-release tablets (Oxycontin), swallow the tablets one at a time with plenty of water. Swallow the tablet or right after putting it in your mouth. Do not presoak, wet, orlick the tablets before you put them in your mouth. Do not chew or crush extended-release tablets. If you have trouble swallowing extended-release capsules (Xtampza ER), you can carefully open the capsule and sprinkle the contents on soft foods such as applesauce, pudding, yogurt, ice cream, or jam, then consume the mixture immediately. Dispose of the empty capsule shells right away by flushing them down a toilet. Do not store the mixture for future use. If you have a feeding tube, the extended-release capsule contents can be poured into the tube. Ask your doctor how you should take the medication and follow these directions carefully. Your doctor may adjust your dose of oxycodone during your treatment, depending on how well your pain is controlled and on the side effects that you experience. Talk to your doctor about how you are feeling during your treatment with oxycodone. Tell your doctor if you feel that your pain is not controlled or if your pain increases, becomes worse, or if you have new pain or an increased sensitivityto pain during your treatment with oxycodone. Do not take more of it or take it more often than prescribed by your doctor. Do not stop taking oxycodone without talking to your doctor. If you stop taking oxycodone suddenly,you may experience withdrawal symptoms such as restlessness, watery eyes, runny nose, sneezing, yawning, sweating, chills, muscle or joint aches or pains, weakness, irritability, anxiety, depression,difficulty falling asleep or staying asleep, cramps, nausea, vomiting, diarrhea, loss of appetite, fast heartbeat, and fast breathing. Your doctor will probably decrease your dose gradually. Are there OTHER USES for this medicine? This medication may be prescribed for other uses; ask your doctor or pharmacist for more information. What SPECIAL PRECAUTIONS should I follow? Before taking oxycodone, ??? tell your doctor and pharmacist if you are allergic to oxycodone, any other medications, or anyof the ingredients in the oxycodone product you plan to take. Ask your pharmacist or check the Medication Guide for a list of the ingredients. ??? tell your doctor or pharmacist if you are taking thefollowing medications or have stopped taking them within the past two weeks: isocarboxazid (Marplan), linezolid (Zyvox), methylene blue, phenelzine (Nardil), selegiline (Emsam, Zelapar), or tranylcypromine (Parnate). ??? The following nonprescription or herbal products may interact with oxycodone: Bello's wort and tryptophan. Be sure to let your doctor and pharmacist know that you are taking these medications before you start taking oxycodone. Do not start these medications while taking oxycodone without discussing it with your healthcare provider. ??? tell your doctor if you have or have ever had any of the conditions mentioned in the IMPORTANT WARNING section, a blockage or narrowing of your stomach or intestines, or paralytic ileus (condition in which digested food does not move through the intestines). Your doctor may tell you not to take oxycodone. ??? Also tell your doctor if you have or have ever had low blood pressure; seizures; adrenal insufficiency (condition in which theadrenal glands do not produce enough of certain hormones needed for important body functions); seizures; urethral stricture (blockage of the tube that allows urine to leave the body), problems urinating; or heart, kidney, liver, pancreas, thyroid, or gall bladder disease. If you will be taking the extended-release tablets or extended-release capsules, also tell your doctor if you have or have ever had difficulty swallowing, diverticulitis (condition in which small pouches form in the intestinesand become swollen and infected), colon cancer (cancer that begins in the large intestine), or esophageal cancer (cancer that begins in the tube that connects the mouth and stomach). ??? tell your doctor if you are . You should not breastfeed while you are taking oxycodone. Oxycodone can cause shallow breathing, difficulty or noisy breathing, confusion, more than usual sleepiness, trouble , or limpness in breastfed infants. ??? you should know that this medication may decrease fertility in men and women. Talk to your doctor about the risks of taking oxycodone. ??? ifyou are having surgery, including dental surgery, tell the doctor or dentist that you are taking oxycodone. ??? you should know that this medication may make you drowsy. Do not drive a car, operate heavy machinery, or participate in any other possibly dangerous activities until you know how this medication affects you. ??? you should know that oxycodone may cause dizziness, lightheadedness, and fa inting when you get up too quickly from a lying position. To help avoid this problem, get out of bed slowly, resting your feet on the floor for a few minutes before standing up. ??? you should know that oxycodone may cause constipation. Talk to your doctor about changing your diet or using other medications to prevent or treat constipation while you are taking oxycodone. What SPECIAL DIETARY instructions should I follow? Unless your doctor tells you otherwise, continue your normal diet. What should I do IF I FORGET to take a dose? If you are taking oxycodone on a regular schedule, take the missed dose as soon as you remember it.However, if it is almost time for the next dose, skip the missed dose and continue your regular dosing schedule. Do not take a double dose to make up for a missed one. Do not take more than one dose of the extended- release tablets or capsules in 12 hours. What SIDE EFFECTS can this medicine cause? Oxycodone may cause side effects. Tell your doctor if any of these symptoms, are severe or do not go away: ??? dry mouth ??? stomach pain ??? drowsiness ??? flushing ??? headache ??? mood changes Some side effects can be serious. If you experience any of these symptoms or those mentioned in theIMPORTANT WARNING section, call your doctor immediately or get emergency medical help: ??? changes in heartbeat ??? agitation, hallucinations (seeing things or hearing voices that do notexist), fever, sweating, confusion, fast heartbeat, shivering, severe muscle stiffness or twitching, loss of coordination, or diarrhea ??? nausea, vomiting, loss of appetite, weakness, or dizziness ??? inability to get or keep an erection ??? irregular menstruation ??? decreased sexual desire ??? chest pain ??? rash; itching; hives; hoarseness; difficulty breathing or swallowing; or swelling of the face, mouth, tongue, lips, or throat ??? swelling of the hands, feet, ankles, or lower legs ??? seizures ??? extreme drowsiness If you experience a serious side effect, you or your doctor may send a report to the Food and Drug Administration's (FDA) MedWatch Adverse Event Reporting program online (https://www.fda.gov/Safety/MedWatch) or by phone ( ). Oxycodone may cause other side effects. Call your doctor if you have any unusual problems while youare taking this medication. What should I know about STORAGE and DISPOSAL of this medication? Keep this medication in the container it came in, tightly closed, and out of reach of children, andin a location that is not easily accessible by others, including visitors to the home. Store it at room temperature and away from light and excess heat and moisture (not in the bathroom). You must immediately dispose of any medication that is outdated or no longer needed through a medicine take-back program. If you do not have a take-back program nearby or one that you can access promptly, flush any medication that is outdated or no longer needed down the toilet so that others will not take it.Talk to your pharmacist about the proper disposal of your medication. It is important to keep all medication out of sight and reach of children as many containers (such as weekly pill minders and those for eye drops, creams, patches, and inhalers) are not child-resistant and young children can open them easily. To protect young children from poisoning, always lock safety caps and immediately place the medication in a safe location ??? one that is up and away and out of their sight and reach. https://www.upandaway.org What should I do in case of OVERDOSE? In case of overdose, call the poison control helpline at . Information is also available online at https://www.poisonhelp.org/help. If the victim has collapsed, had a seizure, has trouble breathing, or can't be awakened, immediately call emergency services at 911. While taking oxycodone, you should talk to your doctor about having a rescue medication called naloxone readily available (e.g., home, office). Naloxone is used to reverse the life-threatening effects of an overdose. It works by blocking the effects of opiates to relieve dangerous symptoms caused by high levels of opiates in the blood. Your doctor may also prescribe you naloxone if you are livingin a household where there are small children or someone who has abused street or prescription drugs. You should make sure that you and your family members, caregivers, or the people who spend time with you know how to recognize an overdose, how to use naloxone, and what to do until emergency medical help arrives. Your doctor or pharmacist will show you and your family members how to use the medication. Ask your pharmacist for the instructions or visit the audience development manager's website to get the instructions. If symptoms of an overdose occur, a caregiver or family member should give the first dose of naloxone, call 911 immediately, and stay with you and watch you closely until emergency medical help arrives.Your symptoms may return within a few minutes after you receive naloxone. If your symptoms return, the person should give you another dose of naloxone. Additional doses may be given every 2 to 3 minutes, if symptoms return before medical help arrives. Symptoms of overdose may include the following: ??? difficulty breathing ??? slowed or shallow breathing ??? excessive sleepiness ??? limp or weak muscles ??? narrowing or widening of the pupils (dark [place] coy[place] in the eye) ??? cold, clammy skin ??? unable to respond or wake up ??? slowed heartbeat ??? unusual snoring What OTHER INFORMATION should I know? Keep all appointments with your doctor. Your doctor may order certain lab tests to check your body's response to oxycodone. Before having any laboratory test (especially those that involve methylene blue), tell your doctor and the laboratory personnel that you are taking oxycodone. This prescription is not refillable. If you continue to have pain after you finish the oxycodone, call your doctor. It is important for you to keep a written list of all of the prescription and nonprescription ([id number]) medicines you are taking, as well as any products such as vitamins, minerals, or otherdietary supplements. You should bring this list with you each time you visit a doctor or if you areadmitted to a hospital. It is also important information to carry with you in case of emergencies. This report on medications is for your information only, and is not considered individual patient advice. Because of the changing nature of drug information, please consult your physician or pharmacist about specific clinical use. The [employer] represents that the information provided hereunder was formulated with a reasonable standard of care, and in conformity with professional standards in the field. The [employer] makes no representations or warranties, express or implied, including, but not limited to, any implied warranty of merchantability and/or fitness for a particular purpose, with respect to such information and specifically disclaims all such warranties. Users are advised that decisions regarding drug therapy are complex medical decisions requiring the independent, informed decision of an appropriate health direct care professional, and the information is provided for informational purposes only. The entire monograph for a drug should be reviewed for a thorough understanding of the drug's actions, uses and side effects. The [employer] does not endorse or recommend the use of any drug.The information is not a substitute for medical care. AHFS?? Patient Medication Information???. ?? Copyright, 2023. The [employer]??, [address], [address], [place], [place]. All Rights Reserved. Duplication for commercial use must be authorized by [facility]. Selected Revisions: July 22, 2023. AHFS?? Patient Medication Information???. ?? Copyright, 2023 ?? Patient Care team information Care Team Personnel Name: Ishmael Leyva NP Position: Reference Physician Member Role: PCP Address: [address] [place] [address] Telecom: Name: Joshua Hanks RN Position: S RN Member Role: Primary Care Nurse Name: Virginia Buitrago RN Position: [facility] Onco RN Member Role: Primary Care Nurse Care Team Related Persons Name: NORM HERMAN Insurance Providers Guarantor name: АННА DILL Health Plan Information #: 1 Payer: [employer] P[employer] Member Number: [id number] Policy Number: NA Group Number: [id number] Health Plan Information #: 2 Payer: [employer] P[employer] Member Number: [id number] Policy Number: NA Group Number: [id number]
[2024-04-24 14:19] VITALS: BP 179/109; PULSE 71; O2SAT 96; BMI 43.2
== END 2024-04-24 14:56 | disposition home or self-care (01) ==
PROVIDERS: PCP Nurse Practitioner Family; Visit Provider Registered Nurse Emergency
DX: M54.16 Radiculopathy, lumbar region (principal); R20.2 Paresthesia of skin; M96.1 Postlaminectomy syndrome, not elsewhere classified
CPT/HCPCS: 99204

== ENCOUNTER 2024-04-24 14:02 | Outpatient (REF) | payer OTHER, SELFPAY ==
--- NOTE | ~2024-04-24 | XR_ITS ---
EXAMINATION: XR LUMBAR SPINE CLINICAL INFORMATION: Dorsalgia, unspecified M54.9. COMPARISON: XR Lumbar spine 07/30/2021 TECHNIQUE: 5 views of lumbar spine. FINDINGS: Vertebral body heights are fairly well-preserved. Alignment is normal. There is moderate degenerative disc disease at L5-S1 and mild throughout the remainder of the lumbar spine. Multilevel bony spurring. Facet arthropathy greatest at L5-S1. XR/XR lumbar spine 4V min IMPRESSION: Moderate degenerative disc disease at L5-S1. Facet arthropathy greatest at L5-S1. Electronically signed by: Houston Bradford MD 06/06/2024 12:45 PM [facility] [place]
== END 2024-04-24 14:03 | disposition home or self-care (01) ==
LOC: HO.HMGCX 14:02
PROVIDERS: PCP Nurse Practitioner Family; Visit Provider Registered Nurse Emergency
DX: M54.9 Dorsalgia, unspecified (principal)
CPT/HCPCS: 72110

== ENCOUNTER 2024-05-08 11:02 | Outpatient (AMB) | payer OTHER, SELFPAY ==
[2024-05-08 11:09] VITALS: BP 140/82; PULSE 122; O2SAT 98; BMI 43.3
--- NOTE | 2024-05-08 11:09 | AM.OFFWIN_ITS ---
Intake Vital Signs 05/08/24 11:09 Height 5 ft 6 in Weight 268 lb 4 oz BMI 43.3 BP 140/82 H Blood Pressure Location Rt brachial Position Sitting Pulse 122 H Pulse Source Pulse Oximeter Pulse Oximetry (%) 98 Oxygen Delivery Method Room Air Intake Visit Reasons: EP-h/blood press 160/110, palpitations Patient Tobacco Use Status: Never used Tobacco Allergies acetaminophen [From PERCOCET] Allergy (Mild, Verified 05/08/24 11:15) ITCHING oxycodone [From PERCOCET] Allergy (Mild, Verified 05/08/24 11:15) ITCHING Do you need a note to return to daycare/school/sports/work: Yes HPI HPI Comments History of Present Illness0 Details This is a 44-year-old female with a past medical history of hypertension and asthma presenting for evaluation of hypertension. Patient states she was seen at [facility] in the emergency department for management of right-sided sciatic pain on April 21 and told her blood pressure was elevated. Patient has been checking her blood pressure at home once daily and reports systolic pressures of 150 and 160. Patient states that she is compliant with her antihypertensive medication regimen daily. Patient brings her own home blood pressure cuff today for comparison. Patient denies having any lightheadedness, headaches, visual changes, neck pain or chest pain. [facility] Medical History Abnormal uterine bleeding (AUB) Upper back pain Obesity Tired Difficulty sleeping Breast screening COVID-19 Exacerbation of asthma Screening for cervical cancer Physical exam Low hemoglobin Elevated liver enzymes Uterine fibroids affecting Uterine fibroid Acute sinusitis Fatigue UTI (urinary tract infection) Snores Fatty liver Neck pain Abdominal pain Cellulitis Leukocytosis Rash and other nonspecific skin eruption Chest pressure Palpitations Anxiety with flying Chest wall tenderness Lateral epicondylitis of right elbow Medial epicondylitis of right elbow Medial epicondylitis Lateral epicondylitis Bilateral hand numbness Right wrist pain Chest pain due to psychological stress Screening for breast cancer Encounter for routine adult physical exam with abnormal findings Infertility, female Cervical radiculopathy HTN (hypertension) Surgical History Hx of LASIK History of tonsillectomy and adenoidectomy History of lumbar surgery H/O right knee surgery Family History Father Hearing loss Mother PCOS (polycystic ovarian syndrome) Mental health disorder Maternal Grandfather Diabetes mellitus Maternal Grandmother Diabetes mellitus Paternal Grandfather Diabetes mellitus Paternal Grandmother Diabetes mellitus Cancer Brother No problems noted. Brother No problems noted. Sister No problems noted. Paternal Uncle Multiple sclerosis Social History Household Members: Spouse Housing: Apartment Alcohol intake: former Patient Tobacco Use Status: Never used Tobacco e-Cigarette/Vaping Use: Never Used Second Hand Smoke Exposure: No service: No Current occupational status: employed Current occupation: [employer] / right hand dominant Sexual orientation: Straight/Heterosexual Gender identity: Female Cognitive needs: No Hearing needs: No Vision needs: Yes (glasses) Review of Systems Const All systems reviewed & are unremarkable except as noted in HPI and below Denies chills, Denies fatigue and Denies fever(s) Eyes Reports no additional complaints ENT Reports no additional complaints Card Reports no additional complaints Resp Reports no additional complaints GI Reports no additional complaints Reports no additional complaints and Reports as per HPI Musc Details: right sided sciatic pain Skin/Breast Reports system reviewed and no additional complaints, except as documented Neuro Reports no additional complaints Psych Reports no additional complaints Endo Reports no additional complaints and Denies fatigue Aller/Immun Reports no additional complaints Physical Exam Vital Signs: BMI result Body Mass Index 43.3 Const General: cooperative, comfortable, well developed, alert, awake and Physically active; No lethargic Nutritional Appearance: obese Orientation/consciousness: patient oriented x3 and No lethargic Limitations: no limitations Eyes General: appearance normal, both eyes and all related structures Visual Willis: normal visual willis by confrontation Alignment and Position: alignment normal Periorbital: periorbital findings normal Conjunctivae: conjunctivae normal Sclerae: sclerae normal Corneas: corneas normal Pupils: Equal, round and reactive pupils present EOM: EOMs intact bilaterally Direct Ophthalmoscopy: no photophobia Cardio Rate: regular rate (repeat HR 92 bpm; repeat BP 118/86) Rhythm: regular rhythm Skin General skin exam: no rashes or lesions noted Neuro General: patient oriented x3 Cranial nerves: Yes Equal, round and reactive pupils present Psych Appearance: grossly normal Mental Status: mental status grossly normal Insight: Good insight present (Psych) Judgement: Good judgement present (Psych) Assessment & Plan Assessment & Plan (1) HTN (hypertension): Comment: Patient's home BP cuff is evaluated and is only fitting over her forearm. Patient is educated about cuff size and accuracy of readings. Repeat BP here in office with our cuff is 118/86; HR 92bpm. Code(s): I10 - Essential (primary) hypertension Qualifiers: Hypertension type: primary hypertension Qualified Code(s): I10 - Essential (primary) hypertension Plan: No change in antihypertensive medications needed at this time. Patient is instructed to purchase a well reviewed larger and appropriately sized blood pressure cuff and bring to her next office visit on May 17. Patient is in agreement with this plan of care. Coding Level of Care Code Est Pt Level 3 (60363) Diagnoses Primary hypertension I10 Hypertension type: primary hypertension Time Spent (min) 20
== END 2024-05-08 11:39 | disposition home or self-care (01) ==
PROVIDERS: PCP Nurse Practitioner Family; Visit Provider Physician Assistant
DX: I10 Essential (primary) hypertension (principal)

== ENCOUNTER → 2024-05-08 11:02 | Outpatient (BNVA) | payer OTHER, SELFPAY | PROVIDERS: PCP Nurse Practitioner Family; Visit Provider Physician Assistant ==

== ENCOUNTER 2024-05-15 11:00 | Outpatient (RCR) | payer OTHER, SELFPAY ==
--- NOTE | 2024-04-27 11:47 | MHC.PT.EP ---
[facility] [place] [facility] [place] [facility] [place] [facility] [address] [phone] F: [phone] F: [phone] F: [phone] F: [phone] Physical Therapy Plan of Care Date of Evaluation: 04/27/24 Date of Surgery: Diagnosis: lumbar degenerative disc disease. Assessment: Patient is a 44 year old R handed female who presents with s/s consistent with lumbar degenerative disc disease, low back pain. 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 Patient past medical history includes obesity and low back surgery in 2017. Current impairments include pain, posture, flexibility, ROM, strength, activity tolerance and functional mobility. Functional limitations include decreased ability to walk, stand, lift, sleep, carry, push, pull and dress. Patient is motivated with good rehab potential. Skilled PT will address impairments and functional limitations in order to achieve goals. Frequency and Duration: The patient will be seen 2x/week for 5 weeks Short Term Goals: I with HEP -2 weeks AROM rotation, flex 50% - 3 weeks s/s centralized - 3 weeks Fdc Goals: TTP absent in back/piriformis - 5 weeks Oswestry 20% or less - 5 weeks Able to walk pain free > 30 minutes - 5 weeks Able to sleep pain free 6 hours - 5 weeks Treatment Plan: Modalities to reduce pain, spasms and effusion. Manual therapy to restore motion and function. Therapeutic exercise to improve strength and flexibility. Neuromuscular re-education for posture and balance. Therapeutic activities to return to functional activities of daily living. Electronically signed by: Ryan Davis, PT Please sign and return to therapist. Thank you for your referral.
--- NOTE | 2024-08-01 10:22 | MHC.PT.DC ---
[facility] [place] Office [place] Office [place] Office [address] Antony Garcia [address] [phone] F: [phone] F: [phone] F: [phone] F: [phone] Physical Therapy Discharge Report Diagnosis: lumbar degenerative disc disease. Date of Surgery: Date of Evaluation: 04/27/24 Date of Discharge: 06/12/24 Treatments to Date: 3 Cancellations to Date: No Shows to Date: Discharge Status: Patient Elected to Stop Discharge Summary: 05/15/24: pt progressing slowly. she has had evidence of centralization but it has not been sustained. 05/04/24: re-emphasized centralization. added gentle stretching hip strength today. reduced tissue tension and TTP today. s/s still to calf. Patient is a 44 year old R handed female who presents with s/s consistent with lumbar degenerative disc disease, low back pain. 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 Patient past medical history includes obesity and low back surgery in 2017. Current impairments include pain, posture, flexibility, ROM, strength, activity tolerance and functional mobility. Functional limitations include decreased ability to walk, stand, lift, sleep, carry, push, pull and dress. Patient is motivated with good rehab potential. Skilled PT will address impairments and functional limitations in order to achieve goals. Electronically signed by: Ryan Davis, PT Please sign and return to therapist. Thank you for your referral.
== END 2024-08-01 10:23 | disposition home or self-care (01) ==
LOC: HO.PTCHIC 11:00
PROVIDERS: PCP Nurse Practitioner Family; Visit Provider Student in an Organized Health Care Education/Training Program
DX: M51.369 Other intervertebral disc degeneration, lumbar region without mention of lumbar back pain or lower extremity pain (principal)
CPT/HCPCS: 97014; 97110; 97140; 97163

== ENCOUNTER 2024-05-17 15:25 | Outpatient (AMB) | payer OTHER, SELFPAY ==
[2024-05-17 15:29] VITALS: BP 130/82; PULSE 82; O2SAT 98; BMI 44.1
--- NOTE | 2024-05-17 15:29 | A.OFFPC_ITS ---
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 Accompanied by: Self / Same As Patient Allergies acetaminophen [From PERCOCET] Allergy (Mild, Verified 05/17/24 15:29) ITCHING oxycodone [From PERCOCET] Allergy (Mild, Verified 05/17/24 15:29) ITCHING Medication List - Last Reconciled 05/17/24 by BUTCH Lovett- acetaminophen (Tylenol Extra Strength) 1,000 mg PO Q6H PRN albuterol sulfate 90 mcg/actuation 2 puffs inhalation Q6H PRN 30 days NS albuterol sulfate 2.5 mg (3 mL) inhalation Q6H PRN blood pressure kit-extra large As directed buspirone 5 mg PO BID 30 days cholecalciferol (vitamin D3) 125 mcg PO DAILY diphenhydramine HCl (Benadryl) 25 mg PO TID PRN gabapentin 300 mg PO TID hydrocortisone-pramoxine 1-1 % (Proctofoam HC) 1 appl LA BID PRN hydroxyzine HCl 10 mg PO Q6-8H PRN lisinopril-hydrochlorothiazide 20-12.5 mg 1 tab PO DAILY magnesium 400 mg PO BEDTIME methocarbamol 500 mg PO TID PRN progesterone micronized (Prometrium) 200 mg PO BEDTIME 10 days [thumb spica splint wear nightly and as much as possible throughout the day] [Updraft machine As directed] Tobacco use date assessed: 05/17/24 Dental Screening Dental Screen Date: 05/17/24 Did you have a dental visit in the last 12 months?: Yes Did you have a dental problem in the last 6 months where you did not have access to dental care?: No Was dental information given to patient?: Patient has dentist HPI 4 month follow up HPI Details History of Present Illness The patient is a 43-year-old male presenting with morbid obesity for a follow up. The patient denies experiencing any cardiac, respiratory, gastrointestinal, or psychological symptoms such as chest pain, shortness of breath, bleeding, constipation, diarrhea, depression, anxiety or homicidal ideation. She currently sees pain management. She recently followed up with rheumtology as well. Fibro component noted. Lower back pain is intense, more so with severe discomfort to Right buttocks radiating down her RLE. Previous lumbar surg back in 2017. Pt had a MRI this past week, awaiting results, ordered by pain management, who she continues to follow up with. Denies any s/s of cauda equina. Health Maintenance - Patient is advised to have lab work do ne in the near future while fasting. Social History Review of Systems - Cardiovascular: Denies chest pain. - Respiratory: Denies shortness of breat h. - Psychiatric: Denies anxiety or depress ion. - Gastrointestinal: Denies blood on stoo l, constipation, diarrhea, and stool ablation. - Neuropsychiatric: Denies homicidal patria ation. Physical Exam General: Cooperative, morbidly obese, uncomfortable in chair, no acute distress and well developed Orientation: Patient oriented x3 Limitations: No limitations Head: Normal to inspection Ears: Hearing grossly normal bilaterally, TMs intact Nose: Normal external nose present Face and sinus: Normal facial exam Eyes: Appearance normal, both eyes and all related structures Neck: Normal visual inspection and Yes full ROM Respiratory: Normal respiratory effort and able to speak in complete sentences. Clear to auscultation bilaterally Cardiovascular: Regular rate and rhythm. Normal S1 and S2 GI: Normal to inspection. Soft to palpation and nontender Skin: No rashes or lesions noted currently Neuro: Patient oriented x3 Extremities: pt observed moving back in forth in her chair due to lower back pain with radicular symptoms to right buttocks and RLE. Results Plan - Plan for patient to obtain fasting lab oratory work to further assess and monitor health status. Patient was informed and verbally consented to the use of an ambient scribe for clinic note documentation during this visit. Discussion Notes During the visit, we discussed the importance of maintaining health through regular lab work and monitoring. The patient was informed of the necessity to complete the recommended laboratory tests in order to better manage his health conditions. I explained the potential benefits of obtaining these tests, which include early detection and management of any underlying issues. The patient understood and agreed with the outlined plan. Patient Instructions - Schedule and complete the laboratory w ork while fasting as advised. [facility] Medical History Abnormal uterine bleeding (AUB) Upper back pain Obesity Tired Difficulty sleeping Breast screening COVID-19 Exacerbation of asthma Screening for cervical cancer Physical exam Low hemoglobin Elevated liver enzymes Uterine fibroids affecting Uterine fibroid Acute sinusitis Fatigue UTI (urinary tract infection) Snores Fatty liver Neck pain Abdominal pain Cellulitis Leukocytosis Rash and other nonspecific skin eruption Chest pressure Palpitations Anxiety with flying Chest wall tenderness Lateral epicondylitis of right elbow Medial epicondylitis of right elbow Medial epicondylitis Lateral epicondylitis Bilateral hand numbness Right wrist pain Chest pain due to psychological stress Screening for breast cancer Encounter for routine adult physical exam with abnormal findings Infertility, female Cervical radiculopathy HTN (hypertension) Surgical History Hx of LASIK History of tonsillectomy and adenoidectomy History of lumbar surgery H/O right knee surgery Family History Father Hearing loss Mother PCOS (polycystic ovarian syndrome) Mental health disorder Maternal Grandfather Diabetes mellitus Maternal Grandmother Diabetes mellitus Paternal Grandfather Diabetes mellitus Paternal Grandmother Diabetes mellitus Cancer Brother No problems noted. Brother No problems noted. Sister No problems noted. Paternal Uncle Multiple sclerosis Social History Household Members: Spouse Housing: Apartment Alcohol intake: former Patient Tobacco Use Status: Never used Tobacco e-Cigarette/Vaping Use: Never Used Second Hand Smoke Exposure: No service: No Current occupational status: employed Current occupation: [employer] / right hand dominant Sexual orientation: Straight/Heterosexual Gender identity: Female Cognitive needs: No Hearing needs: No Vision needs: Yes (glasses) Questionnaire PHQ-9 Over the last 2 weeks, how often have you been bothered by any of the following problems? 1. Little interest or pleasure in doing things: more than half the days 2. Feeling down, depressed, or hopeless: more than half the days 3. Trouble falling or staying asleep, or sleeping too much: more than half the days 4. Feeling tired or having little energy: more than half the days 5. Poor appetite or overeating: several days 6. Feeling bad about yourself - or that you are a failure or have let yourself or your family down: not at all 7. Trouble concentrating on things, such as reading the newspaper or watching television: more than half the days 8. Moving or speaking so slowly that other people could have noticed. Or the opposite - being so fidgety or restless that you have been moving around a lot more than usual: several days 9. Thoughts that you would be better off or of hurting yourself in some way: not at all Total score: 12 Depression Screening Interpretation: Positive (denies any si or hi, does not want a therapist currently. Wants pain to subside.) Depression Screening Follow-up: Existing condition Depression Screening Done: Yes 59762 - PHQ-9 Billing: Yes Source: Developed by Drs. Houston Montero, Natalia Burkett, Amrik Burgos and colleagues, with an educational cynthia from [employer] Thrive Questionnaire Date Thrive assessed: 05/17/24 I am a: Patient What is your living situation today?: I have a steady place to live Within the past 12 months, did the food you bought not last and you didn't have the money to get more?: Often true Within the past 12 months, did you worry whether your food would run out before you got money to buy more?: Often true Do you have trouble paying for medicines?: Yes Do you have trouble getting transportation to medical appointments?: No Do you have trouble paying your heating and electricity bill?: Yes Do you have trouble taking care of your child, family member or friend?: Yes Do you have trouble with day-to-day activities such as bathing, preparing meals, shopping, managing finances, etc.?: Yes Are you currently unemployed and looking for a job?: No Are you interested in more education?: I choose not to answer this question Please select the resources that you would like help with: Food Currently or been in a relationship where the following occur: No concerns reported THRIVE Score: 3 AUDIT C Alcohol Use Questionnaire (AUDIT-C) 1. How often do you have a drink containing alcohol?: Monthly or less 2. How many drinks containing alcohol do you have on a typical day when you are drinking?: 1 or 2 3. How often do you have six or more drinks on one occasion?: Never Total Score: 1 Score Reviewed/Action Taken: Yes ROULA-7 AMB Questionnaire ROULA-7 Date ROULA - 7 assessed: 05/17/24 Feeling nervous, anxious, or on edge: 1 = Several days Not being able to stop or control worryin = More than half the days Worrying too much about different things: 2 = More than half the days Trouble relaxin = More than half the days Being so restless that it is hard to sit still: 1 = Several days Becoming easily annoyed or irritable: 1 = Several days Feeling afraid as if something awful might happen: 1 = Several days Total ROULA-7 score (0-4 normal; 5-9 mild; 10-14 moderate; 15-21 severe): 10 Source: Developed by Drs. Houston Montero, Natalia Burkett, Amrik Burgos and colleagues, with an educational cynthia from [employer] ROULA-7 Assessment Billing ROULA-7 Assessment Tool: ROULA-7 Assessment 88380 (denies any si or hi) Physical exam (Primary Care) Vital Signs: Last Vital Signs Pulse 82 05/17/24 15:29 BP 130/82 05/17/24 15:29 Pulse Ox 98 05/17/24 15:29 Oxygen Delivery Method Room Air 05/17/24 15:29 BMI result Body Mass Index 44.1 Tobacco/Smoking Status: Tobacco use Status Tobacco use date assessed 05/17/24 05/17/24 15:30 Patient Tobacco Use Status Never used Tobacco 05/17/24 15:30 e-Cigarette/Vaping Use Never Used 05/17/24 15:30 PHQ-9: PHQ-9 Score PHQ-9: Total score 12 05/17/24 15:30 Depression Screening Interpretation: Positive (denies any si or hi, does not want a therapist currently. Wants pain to subside.) Depression Screening Follow-up: Existing condition Thrive Assessment: Date of Thrive Assessment Date Thrive assessed 05/17/24 05/17/24 15:30 Currently or been in a relationship where the following occur: No concerns reported Coding Level of Care Code Est Pt Level 3 (10459) Diagnoses Post laminectomy syndrome M96.1 Paresthesia of right lower extremity R20.2 Lumbar radiculopathy M54.16 Fibromyalgia, primary M79.7 Morbid obesity E66.01 Additional Codes PHQ-9 - 85417 - PHQ-9 Billing: Yes ([id number]) ROULA-7 Assessment Billing - ROULA-7 Assessment Tool: RUOLA-7 Assessment 11013 ([id number]) Assessment & Plan Assessment & Plan (1) Post laminectomy syndrome: Code(s): M96.1 - Postlaminectomy syndrome, not elsewhere classified Category: Medical (2) Paresthesia of right lower extremity: Code(s): R20.2 - Paresthesia of skin Category: Medical (3) Lumbar radiculopathy: Code(s): M54.16 - Radiculopathy, lumbar region Category: Medical (4) Fibromyalgia, primary: Code(s): M79.7 - Fibromyalgia Category: Medical (5) Morbid obesity: Code(s): E66.01 - Morbid (severe) obesity due to excess calories Category: Medical Plan . Medications: New semaglutide (weight loss) (Idania) administer weeks 1 through 4 of therapy 0.25 mg (0.5 mL) subcut QWEEK 2 mL 0RF
== END 2024-05-17 17:00 ==
PROVIDERS: PCP Nurse Practitioner Family; Visit Provider Nurse Practitioner Family
DX: M96.1 Postlaminectomy syndrome, not elsewhere classified (principal); E66.01 Morbid (severe) obesity due to excess calories; Z68.41 Body mass index [BMI] 40.0-44.9, adult; R20.2 Paresthesia of skin; M54.16 Radiculopathy, lumbar region; M79.7 Fibromyalgia

== ENCOUNTER → 2024-05-17 15:25 | Outpatient (BNVA) | payer OTHER, SELFPAY | PROVIDERS: PCP Nurse Practitioner Family; Visit Provider Nurse Practitioner Family | DX: M96.1 Postlaminectomy syndrome, not elsewhere classified (principal); R20.2 Paresthesia of skin; M54.16 Radiculopathy, lumbar region; M79.7 Fibromyalgia; E66.01 Morbid (severe) obesity due to excess calories; Z68.41 Body mass index [BMI] 40.0-44.9, adult | CPT/HCPCS: 96127 ==

== ENCOUNTER 2024-05-25 08:38 | Outpatient (AMB) | payer OTHER, SELFPAY ==
--- NOTE | 2024-05-25 08:54 | MHC.OFFVIS ---
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 Pain down lateral lower leg to the foot/toes consistent with L5-S1 pathway She completed several weeks of physical therapy with no improvement of her pain. Denies relief with Tylenol, NSAIDs, muscle relaxer, he, ice or topical patches. Muscle relaxers help but pain persists. She has tried gabapentin past but did not like how it made her feel and also did not help her pain. Initial visit: Karen is a very pleasant 44-year-old female who presents to the office today for evaluation management of her right lower back pain Patient reports she has been suffering with this pain for approximately 1 month Denies inciting injury, fall, trauma She states she was in a seated position went to stand and felt sudden sharp pain to the right lower back. Pain has persisted since She went to the walk-in where she was given a prednisone Dosepak, anti-inflammatory medication and muscle relaxers. This gave her relief for about 2 weeks. About 1 week ago pain returned. She went to the emergency room where they gave her additional prednisone for 5 days, meloxicam, gabapentin and oxycodone. No longer taking gabapentin, did not like how it made her feel. Did not take the cyclobenzaprine. After 2 doses she states it made her feel sick to her stomach. She has tried topical heat, ice, patches all without improvement. Status post lumbar surgery 09/2016. After this her pain had improved until 1 month ago. Prior to surgery her pain was on the left, now she is suffering with right-sided pain Endorses numbness tingling down the right leg to the foot. States her foot feels numb. She has been doing guided home exercise program without improvement of her symptoms. She is scheduled to start physical therapy next week Denies recent imaging or MRI. No x-ray was done at the walk-in or the emergency room. Denies red flag symptoms including new loss bowel, bladder or saddle anesthesia Pain today is rated as a 10/10, constant throughout the day and night. Pain is worse with movement, position changes, standing, sitting In terms of muscle damage condition is described as hot, burning, stabbing, sharp, tingling, numb, pins and needles Pain is negatively impacting patient's enjoyment of life, general activity, mood, normal work, recreational activities, relationships with people, sleep and walking Denies current use of anticoagulants Denies implantable devices, pacemaker or defibrillator Denies current use of nicotine, tobacco, alcohol or illicit substances [facility] Medical History Abnormal uterine bleeding (AUB) Upper back pain Obesity Tired Difficulty sleeping Breast screening COVID-19 Exacerbation of asthma Screening for cervical cancer Physical exam Low hemoglobin Elevated liver enzymes Uterine fibroids affecting Uterine fibroid Acute sinusitis Fatigue UTI (urinary tract infection) Snores Fatty liver Neck pain Abdominal pain Cellulitis Leukocytosis Rash and other nonspecific skin eruption Chest pressure Palpitations Anxiety with flying Chest wall tenderness Lateral epicondylitis of right elbow Medial epicondylitis of right elbow Medial epicondylitis Lateral epicondylitis Bilateral hand numbness Right wrist pain Chest pain due to psychological stress Screening for breast cancer Encounter for routine adult physical exam with abnormal findings Infertility, female Cervical radiculopathy HTN (hypertension) Surgical History Hx of LASIK History of tonsillectomy and adenoidectomy History of lumbar surgery H/O right knee surgery Family History Father Hearing loss Mother PCOS (polycystic ovarian syndrome) Mental health disorder Maternal Grandfather Diabetes mellitus Maternal Grandmother Diabetes mellitus Paternal Grandfather Diabetes mellitus Paternal Grandmother Diabetes mellitus Cancer Brother No problems noted. Brother No problems noted. Sister No problems noted. Paternal Uncle Multiple sclerosis Social History Household Members: Spouse Housing: Apartment Alcohol intake: former Patient Tobacco Use Status: Never used Tobacco e-Cigarette/Vaping Use: Never Used Second Hand Smoke Exposure: No service: No Current occupational status: employed Current occupation: [employer] / right hand dominant Sexual orientation: Straight/Heterosexual Gender identity: Female Cognitive needs: No Hearing needs: No Vision needs: Yes (glasses) Review of Systems Const All systems reviewed & are unremarkable except as noted in HPI and below Physical Exam Vital Signs: Last Vital Signs Pulse 105 H 05/25/24 08:58 BP 134/80 05/25/24 08:58 Pulse Ox 98 05/25/24 08:58 Oxygen Delivery Method Room Air 05/25/24 08:58 BMI result Body Mass Index 44.1 General: awake, alert, oriented. Answers questions appropriately. Fully engaged in examination. Skin: warm, dry, intact HEENT: Normocephalic. Hearing intact. Cardiac: External chest normal in appearance. Respiratory: No cough, audible wheezing or stridor. Abdomen: without gross distension. MS: No obvious swelling or deformities. Able to transition from sit to stand unassisted. SLR positive on the right Negative footdrop, negative clonus Bilateral lower extremity strength 5/5 Tender over midline lumbar vertebrae lumbar paraspinal muscles, right greater than left Neurological: Oriented to person, place, time and situation. Thought process intact. No gait abnormalities appreciated. Psychiatric: Appropriate mood and affect. Good judgment and insight. Results Reviewed Results Reviewed: 05/16/24 MR SPINE LUMBAR w + wo CONTRAST FINDINGS: Normal lumbar alignment is demonstrated. Vertebral heights are well maintained. Bone marrow signal is within normal limits, and no suspicious osseous lesion is identified. Conus medullaris is unremarkable. No area of abnormal enhancement is identified. Paraspinal soft tissues and visualized portions of the abdomen and pelvis are unremarkable. At L1-2 there is no significant disc herniation or protrusion. No central canal or neural foraminal stenosis is demonstrated. At L2-3 there is no significant disc herniation or protrusion. No central canal or neural foraminal stenosis is demonstrated. At L3-4 concentric disc bulge with mild canal narrowing and moderate right and vkie-kv-mpekntmn left foraminal narrowing. At L4-5 concentric disc bulge with [id number]-gg-jltwpjco canal narrowing and vonz-oi-khukigvk bilateral foraminal narrowing. At L5-S1 concentric disc bulge with mild canal narrowing and moderate bilateral foraminal narrowing. IMPRESSION: 1.Xkbd-oq-[id number] multilevel degenerative disc disease with loss of disc height and disc desiccation seen diffusely throughout the lumbar spine. 2.Vertebral heights are preserved. No malalignments. 3.No high-grade or limiting canal stenosis or disc herniation. 4.No limiting foraminal stenosis at lumbar levels, at L3-4, moderate right foraminal narrowing, at L5-S1, moderate bilateral foraminal narrowing. 5.At remaining levels, canal and foraminal narrowing are mild/tpem-nu-qejohljm. 6.No STIR signal abnormality to suggest bone marrow edema, soft tissue or ligamentous injury. Assessment & Plan Assessment & Plan (1) Lumbar radiculopathy: Code(s): M54.16 - Radiculopathy, lumbar region Category: Medical (2) Paresthesia of right lower extremity: Code(s): R20.2 - Paresthesia of skin Category: Medical (3) Post laminectomy syndrome: Code(s): M96.1 - Postlaminectomy syndrome, not elsewhere classified Category: Medical Plan Patient presents back to the office today for follow-up, review of recent MRI MRI reviewed, muscles as per above History, physical exam and provocative testing consistent with lumbar radiculopathy at L5-S1 New prescription for Lyrica 25 mg p.o. twice daily. Patient advised on cautions for use. She has exhausted conservative therapy including physical therapy, guided home exercise program, NSAIDs, muscle relaxers, prescription medications, topical medications, heat, ice. Discussed options for treatment including diagnostic interventional testing, epidural steroid injections, peripheral nerve stimulation with Sprint, RFA and more permanent neuromodulation. Will schedule for right L5-S1 transforaminal epidural steroid injection with local anesthetic under fluoroscopy guidance. All questions and concerns were answered, patient agrees to this plan. Follow-up after injection, sooner if needed Medications: New pregabalin (Lyrica) Discontinue gabapentin prior to starting this medication. May cause drowsiness. 25 mg PO BID 60 caps 1RF Coding Level of Care Code Est Pt Level 3 (76031) Complex EM visit Add On G2211 Diagnoses Lumbar radiculopathy M54.16 Paresthesia of right lower extremity R20.2 Post laminectomy syndrome M96.1
[2024-05-25 08:58] VITALS: BP 134/80; PULSE 105; O2SAT 98; BMI 44.1
== END 2024-05-25 09:25 | disposition home or self-care (01) ==
PROVIDERS: PCP Nurse Practitioner Family; Visit Provider Registered Nurse Emergency
DX: M54.16 Radiculopathy, lumbar region (principal); R20.2 Paresthesia of skin; M96.1 Postlaminectomy syndrome, not elsewhere classified
CPT/HCPCS: 99213

== ENCOUNTER → 2024-05-25 08:38 | Outpatient (BNVA) | payer OTHER, SELFPAY | PROVIDERS: PCP Nurse Practitioner Family; Visit Provider Registered Nurse Emergency ==

== ENCOUNTER 2024-05-28 19:58 | Emergency (ER) | payer OTHER, SELFPAY ==
[2024-05-28 20:19] VITALS: BP 125/71; BP 154/90; PULSE 90; PULSE 95; RESP 16; TEMP 36.2; O2SAT 98; BMI 38.0
--- NOTE | 2024-05-28 20:44 | ED.BACK ---
HPI - Back Pain/Injury General Chief Complaint: Back Pain/Injury Stated Complaint: Low r side back pain Time Seen by Provider: 05/28/24 20:42 Source: patient Mode of arrival: EMS Limitations: no limitations History of Present Illness ED Provider: HPI Narrative: Patient obese has chronic back pain had MRI 05/16/24 showed diffuse arthritic changes followed by PCP who is giving her methocarbamol patient is still complaining of pain no recent fall or injury Related Data Home Medications ?Medication ?Instructions ?Recorded ?Confirmed acetaminophen 500 mg tablet 1,000 mg PO Q6H PRN 04/13/21 05/17/24 (Tylenol Extra Strength) magnesium 200 mg tablet 400 mg PO BEDTIME 12/16/22 05/17/24 Previous Rx's ?Medication ?Instructions ?Recorded Updraft machine #1 ea 06/03/20 blood pressure kit-extra large #1 ea 09/24/21 cholecalciferol (vitamin D3) 125 125 mcg PO DAILY #90 caps 03/31/22 mcg (5,000 unit) capsule diphenhydramine HCl 25 mg capsule 25 mg PO TID PRN allergy symptoms 08/26/22 (Benadryl) #30 caps albuterol sulfate 2.5 mg/3 mL 2.5 mg (3 mL) inhalation Q6H PRN 02/02/23 (0.083 %) solution for nebulization shortness of breath or wheezing #90 mL albuterol sulfate 90 mcg/actuation 2 puff inhalation Q6H PRN 02/02/23 aerosol inhaler bronchospasm 30 days #18 grams thumb spica splint #1 ea 04/20/23 lisinopril 20 1 tab PO DAILY #90 tabs 10/06/23 mg-hydrochlorothiazide 12.5 mg tablet hydrocortisone 1 %-pramoxine 1 % 1 appl [place] BID PRN hemorrhoids #10 10/31/23 rectal foam (Proctofoam HC) grams hydroxyzine HCl 10 mg tablet 10 mg PO Q6-8H PRN anxiety #20 tabs 12/28/23 buspirone 5 mg tablet 5 mg PO BID 30 days #60 tabs 01/11/24 progesterone micronized 200 mg 200 mg PO BEDTIME 10 days #30 caps 02/22/24 capsule (Prometrium) methocarbamol 500 mg tablet 500 mg PO TID PRN muscle spasm #90 04/24/24 tabs semaglutide (weight loss) 0.25 0.25 mg (0.5 mL) subcut QWEEK #2 mL 05/17/24 mg/0.5 mL subcutaneous pen injector (Wegovy) pregabalin 25 mg capsule (Lyrica) 25 mg PO BID #60 caps 05/25/24 Allergies Allergy/AdvReac Type Severity Reaction Status Date / Time acetaminophen [From PERCOCET] Allergy Mild ITCHING Verified 05/28/24 20:19 oxycodone [From PERCOCET] Allergy Mild ITCHING Verified 05/28/24 20:19 Review of Systems Review of Systems: Yes all other systems are reviewed and are negative PMFSH Past Medical History Medical History Abnormal uterine bleeding (AUB) Upper back pain Obesity Tired Difficulty sleeping Breast screening COVID-19 Exacerbation of asthma Screening for cervical cancer Physical exam Low hemoglobin Elevated liver enzymes Uterine fibroids affecting Uterine fibroid Acute sinusitis Fatigue UTI (urinary tract infection) Snores Fatty liver Neck pain Abdominal pain Cellulitis Leukocytosis Rash and other nonspecific skin eruption Chest pressure Palpitations Anxiety with flying Chest wall tenderness Lateral epicondylitis of right elbow Medial epicondylitis of right elbow Medial epicondylitis Lateral epicondylitis Bilateral hand numbness Right wrist pain Chest pain due to psychological stress Screening for breast cancer Encounter for routine adult physical exam with abnormal findings Infertility, female Cervical radiculopathy HTN (hypertension) Surgical History Hx of LASIK History of tonsillectomy and adenoidectomy History of lumbar surgery H/O right knee surgery Family History Family History Father Hearing loss Mother PCOS (polycystic ovarian syndrome) Mental health disorder Maternal Grandfather Diabetes mellitus Maternal Grandmother Diabetes mellitus Paternal Grandfather Diabetes mellitus Paternal Grandmother Diabetes mellitus Cancer Brother No problems noted. Brother No problems noted. Sister No problems noted. Paternal Uncle Multiple sclerosis Social History Social History Household Members: Spouse Housing: Apartment Alcohol intake: former Patient Tobacco Use Status: Never used Tobacco e-Cigarette/Vaping Use: Never Used Second Hand Smoke Exposure: No Advance Directives: No Advance Directives Information Provided: No Do you have a plan to hurt others: No Plan Patient : No service: No Current occupational status: employed Current occupation: [employer] / right hand dominant Sexual orientation: Straight/Heterosexual Gender identity: Female Cognitive needs: No Hearing needs: No Vision needs: Yes (glasses) Physical Exam Vital Signs: Vital Signs: Last Vital Signs Temp 97.9 F 05/28/24 22:51 Pulse 74 05/28/24 22:51 Resp 18 05/28/24 22:51 BP 113/79 05/28/24 22:51 Pulse Ox 99 05/28/24 22:51 O2 Del Method Room Air 05/28/24 22:51 BMI result Body Mass Index 38.0 Appearance: Alert. Oriented X3. No acute distress. Eyes: PERRLA, No Nystagmus ENT: Pharynx normal. Oral Mucosa moist Neck: Normal inspection. Neck supple. CVS: Normal heart rate and rhythm. Pulses normal. Respiratory: No respiratory distress. Equal air entry bilateral, no wheezing/rales/rhonchi Abdomen: Soft and diffuse tenderness no rebound tenderness or guarding Bowel sounds are present, no mass palpable, no CVA tenderness Skin: Skin warm and dry. Normal skin color. Normal skin turgor. Extremities: No lower extremity edema. No calf tenderness diffuse tenderness right paraspinal lumbar area neurovascular intact SLR positive right leg at 60 degrees Neuro: Oriented X 3. No motor deficit. Medications Administered Discontinued Medications Generic Name Dose Route Start Last Admin Trade Name Eddieq PRN Reason Stop Dose Admin Cyclobenzaprine HCl 10 mg 05/28/24 20:55 05/28/24 21:13 Cyclobenzaprine Hcl 10 Mg Tablet PO 05/28/24 20:56 10 mg ONCE ONE Administration Dexamethasone Sodium Phosphate 10 mg 05/28/24 20:55 05/28/24 21:13 Dexamethasone Sod Phosphate 10 Mg/Ml Vial IVPUSH 05/28/24 20:56 10 mg ONCE ONE Administration Morphine Sulfate 4 mg 05/28/24 20:55 05/28/24 21:13 Morphine Sulfate 4 Mg/Ml Cartridge IVPUSH 05/28/24 20:56 4 mg ONCE ONE Administration Protocol Medical Decision Making Medical Decision Making MDM Narrative: Patient has chronic pain plan to see pain management received morphine in the ER felt much better will discharge patient home Differential Diagnosis Differential Diagnoses: The differential diagnosis associated with the presentation includes Chronic back pain/sciatica/piriformis syndrome Discharge Plan Discharge Clinical Impression: Strain of lumbar region, Sciatica Patient Disposition: Home, Self-Care Instructions: Sciatica (ED), Back Pain (ED) Additional Instructions: Continue take your pain medication and muscle relaxant and follow up with your PCP/Pain Clinic Prescriptions: No Action (DME) Updraft machine See Rx Instructions .Route .MEDSUPPLY Qty: 1 0RF Rx Instructions: As directed cholecalciferol (vitamin D3) 125 mcg (5,000 unit) capsule 125 mcg PO DAILY Qty: 90 1RF (DME) blood pressure kit-extra large Kit See Rx Instructions .Route Qty: 1 0RF Rx Instructions: As directed Proctofoam HC 1-1 % foam 1 appl [place] BID PRN (Reason: hemorrhoids) Qty: 10 0RF acetaminophen [Tylenol Extra Strength] 500 mg tablet 1,000 mg PO Q6H PRN diphenhydramine HCl [Benadryl] 25 mg capsule 25 mg PO TID PRN (Reason: allergy symptoms) Qty: 30 0RF albuterol sulfate 2.5 mg /3 mL (0.083 %) solution for nebulization 2.5 mg inhalation Q6H PRN (Reason: shortness of breath or wheezing) Qty: 90 0RF albuterol sulfate 90 mcg/actuation HFA aerosol inhaler 2 puff inhalation Q6H PRN (Reason: bronchospasm) 30 Days Qty: 18 2RF hydroxyzine HCl 10 mg tablet 10 mg PO Q6-8H PRN (Reason: anxiety) Qty: 20 0RF lisinopril-hydrochlorothiazide 20-12.5 mg tablet 1 tab PO DAILY Qty: 90 1RF buspirone 5 mg tablet 5 mg PO BID 30 Days Qty: 60 3RF progesterone micronized [Prometrium] 200 mg capsule 200 mg PO BEDTIME 10 Days Qty: 30 0RF Rx Instructions: Take the pill 1 tablet a day cyclically every month from day 15-24 day 1 being the 1st day of next menstrual cycle methocarbamol 500 mg tablet 500 mg PO TID PRN (Reason: muscle spasm) Qty: 90 1RF Rx Instructions: Discontinue use of Cyclobenzaprine No driving while taking this medication. 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 May cause drowsiness. magnesium 200 mg tablet 400 mg PO BEDTIME (DME) thumb spica splint See Rx Instructions .Route .MEDSUPPLY Qty: 1 0RF Rx Instructions: wear nightly and as much as possible throughout the day Wegovy 0.25 mg/0.5 mL pen injector 0.25 mg subcut QWEEK Qty: 2 0RF Rx Instructions: administer weeks 1 through 4 of therapy Interventions: ED Discharge Assessment Last Done: 05/28/24 22:51 Discharge Date/Time: 05/28/24 22:51 Print Language: [place]
[2024-05-28] MEDS: Cyclobenzaprine HCl 10 MG TABLET PO (21:13)
[2024-05-28] MEDS: dexAMETHasone sod phosphate 10 MG/ML VIAL IVPUSH (21:13)
[2024-05-28] MEDS: Morphine Sulfate 4 MG/ML CARTRIDGE IVPUSH (21:13)
[2024-05-28 22:31] VITALS: BP 113/79; PULSE 74; RESP 18; TEMP 36.6; O2SAT 99
[2024-05-28 22:51] VITALS: BP 113/79; PULSE 74; RESP 18; TEMP 36.6; O2SAT 99
== END 2024-05-28 22:51 | disposition home or self-care (01) ==
PROVIDERS: Emergency Provider Internal Medicine; PCP Nurse Practitioner Family
DX: M54.30 Sciatica, unspecified side (principal); S39.012A Strain of muscle, fascia and tendon of lower back, initial encounter; X58.XXXA Exposure to other specified factors, initial encounter; Y93.9 Activity, unspecified; Y92.9 Unspecified place or not applicable; Y99.9 Unspecified external cause status
CPT/HCPCS: 96374; 96375; 99284; J1100; J2270

== ENCOUNTER 2024-05-29 06:43 | Emergency (ER) | payer OTHER, SELFPAY ==
[2024-05-29 07:01] VITALS: BP 129/87; PULSE 107; RESP 18; TEMP 37; O2SAT 96; BMI 44.9
--- NOTE | 2024-05-29 08:21 | ED_ITS ---
HPI - Extremity Injury (Lower) General Chief Complaint: Extremity Injury, Lower Stated Complaint: right leg pain Time Seen by Provider: 05/29/24 07:45 Source: patient, family (Spouse), EMS and aerial photograph interpreter Mode of arrival: EMS Limitations: no limitations History of Present Illness ED Provider: DR. German HPI Narrative: 44 year old female came in for evaluation of low back pain that radiates to right lower extremity patient with known history of lumbar radiculopathy and sciatica to the left side now is moved to the right side s/p previous lumbar surgery few years ago, patient follow with pain management clinic for chronic back pain problem had an MRI on 05/16/2024 which showed multiple degenerative disc disease. Patient was seen in the emergency department yesterday and was given morphine IM and felt much better patient was sent with no pain medication. No urinary incontinence, no stool incontinence pain Related Data Home Medications ?Medication ?Instructions ?Recorded ?Confirmed acetaminophen 500 mg tablet 1,000 mg PO Q6H PRN 04/13/21 05/17/24 (Tylenol Extra Strength) magnesium 200 mg tablet 400 mg PO BEDTIME 12/16/22 05/17/24 Previous Rx's ?Medication ?Instructions ?Recorded Updraft machine #1 ea 06/03/20 blood pressure kit-extra large #1 ea 09/24/21 cholecalciferol (vitamin D3) 125 125 mcg PO DAILY #90 caps 03/31/22 mcg (5,000 unit) capsule diphenhydramine HCl 25 mg capsule 25 mg PO TID PRN allergy symptoms 08/26/22 (Benadryl) #30 caps albuterol sulfate 2.5 mg/3 mL 2.5 mg (3 mL) inhalation Q6H PRN 02/02/23 (0.083 %) solution for nebulization shortness of breath or wheezing #90 mL albuterol sulfate 90 mcg/actuation 2 puff inhalation Q6H PRN 02/02/23 aerosol inhaler bronchospasm 30 days #18 grams thumb spica splint #1 ea 04/20/23 lisinopril 20 1 tab PO DAILY #90 tabs 10/06/23 mg-hydrochlorothiazide 12.5 mg tablet hydrocortisone 1 %-pramoxine 1 % 1 appl [place] BID PRN hemorrhoids #10 10/31/23 rectal foam (Proctofoam HC) grams hydroxyzine HCl 10 mg tablet 10 mg PO Q6-8H PRN anxiety #20 tabs 12/28/23 buspirone 5 mg tablet 5 mg PO BID 30 days #60 tabs 01/11/24 progesterone micronized 200 mg 200 mg PO BEDTIME 10 days #30 caps 02/22/24 capsule (Prometrium) methocarbamol 500 mg tablet 500 mg PO TID PRN muscle spasm #90 04/24/24 tabs semaglutide (weight loss) 0.25 0.25 mg (0.5 mL) subcut QWEEK #2 mL 05/17/24 mg/0.5 mL subcutaneous pen injector (Wegovy) pregabalin 25 mg capsule (Lyrica) 25 mg PO BID #60 caps 05/25/24 hydromorphone 2 mg tablet 2 mg PO Q6H PRN pain #7 tabs 05/29/24 (Dilaudid) methylprednisolone 4 mg tablets in 4 mg PO DAILY 6 days #6 ea 05/29/24 a dose pack (Medrol (Cristobal)) Allergies Allergy/AdvReac Type Severity Reaction Status Date / Time oxycodone [From PERCOCET] Allergy Mild ITCHING Verified 05/29/24 07:04 Review of Systems Review of Systems: All other systems are reviewed and are negative Constitutional: Reports as per HPI and Reports no additional constitutional complaints Eyes: Reports as per HPI and Reports no additional eye complaints Reports system reviewed and no additional complaints, except as documented Cardiovascular: Reports as per HPI and Reports no additional cardiovascular complaints Respiratory: Reports as per HPI and Reports no additional respiratory complaints Gastrointestinal: Reports as per HPI and Reports no additional gastrointestinal complaints Genitourinary: Reports no additional female genitourinary complaints Musculoskeletal: Reports no additional musculoskeletal complaints Skin/Breast: Reports system reviewed and no additional complaints, except as docu Psychiatric: Reports no additional psychiatric complaints Endocrine: Reports no additional endocrine complaints Hematologic/Lymphatic: Reports no additional hematologic/lymphatic complaints Allergic/Immunologic: Reports no additional allergic/immunologic complaints Reports system reviewed and no additional complaints, except as documented and Reports Abnormal speech present [facility] Past Medical History Medical History Abnormal uterine bleeding (AUB) Upper back pain Obesity Tired Difficulty sleeping Breast screening COVID-19 Exacerbation of asthma Screening for cervical cancer Physical exam Low hemoglobin Elevated liver enzymes Uterine fibroids affecting Uterine fibroid Acute sinusitis Fatigue UTI (urinary tract infection) Snores Fatty liver Neck pain Abdominal pain Cellulitis Leukocytosis Rash and other nonspecific skin eruption Chest pressure Palpitations Anxiety with flying Chest wall tenderness Lateral epicondylitis of right elbow Medial epicondylitis of right elbow Medial epicondylitis Lateral epicondylitis Bilateral hand numbness Right wrist pain Chest pain due to psychological stress Screening for breast cancer Encounter for routine adult physical exam with abnormal findings Infertility, female Cervical radiculopathy HTN (hypertension) Surgical History Hx of LASIK History of tonsillectomy and adenoidectomy History of lumbar surgery H/O right knee surgery Family History Family History Father Hearing loss Mother PCOS (polycystic ovarian syndrome) Mental health disorder Maternal Grandfather Diabetes mellitus Maternal Grandmother Diabetes mellitus Paternal Grandfather Diabetes mellitus Paternal Grandmother Diabetes mellitus Cancer Brother No problems noted. Brother No problems noted. Sister No problems noted. Paternal Uncle Multiple sclerosis Social History Social History Household Members: Spouse Housing: Apartment Alcohol intake: former Patient Tobacco Use Status: Never used Tobacco e-Cigarette/Vaping Use: Never Used Second Hand Smoke Exposure: No Advance Directives: No Advance Directives Information Provided: Yes service: No Current occupational status: employed Current occupation: [employer] / right hand dominant Sexual orientation: Straight/Heterosexual Gender identity: Female Cognitive needs: No Hearing needs: No Vision needs: Yes (glasses) Physical Exam Vital Signs: Vital Signs: Last Vital Signs Temp 98.6 F 05/29/24 07:01 Pulse 107 H 05/29/24 07:01 Resp 18 05/29/24 07:01 BP 129/87 05/29/24 07:01 Pulse Ox 96 05/29/24 07:01 O2 Del Method Room Air 05/29/24 07:01 BMI result Body Mass Index 44.9 Vital signs have been reviewed and appear to be correct. Blood pressure elevated. Heart rate normal. Respiratory rate normal. Temperature normal. Oxygen saturation normal. Appearance: Alert. Oriented X3. No acute distress. Head: Normal external exam. Normocephalic. Atraumatic. No Rodriguez signs noted. No raccoon eyes noted Eyes: PERRLA. EOMI. Conjunctiva and sclera normal. Eyelids normal. ENT: TM's Normal. Pharynx normal. Uvula midline. Moist mucous membranes. No trismus noted. No drooling noted. No muffled voice noted. Neck: Normal inspection. Neck supple. FROM. No adenopathy. Thyroid Normal. No meningeal signs. No neck mass noted. CVS: Normal heart rate and rhythm. Heart sound normal. No murmurs noted. Pulses normal throughout. Respiratory: No respiratory distress. Painless inspiration. Breath sounds normal. No wheezes/rales/rhonchi noted. Chest nontender. No accessory muscle usage noted or decreased air movement noted. Abdomen: Soft and nontender. Bowel sounds normal in all 4 quadrants. No distention noted. No organomegaly noted. No visible injury noted. Back: No CVA tenderness. Full range of motion noted. Skin: Skin warm and dry. Normal skin color. Normal skin turgor. No rashes/lesions/lacerations noted. Extremities: No lower extremity edema. Extremities exhibit normal range of motion. Extremities nontender. Neuro: Mental status: Normal attention, orientation, memory, and affect. Cranial nerves: Pupils are equal, round and reactive to light, EOMI, visual willis are fall, face is symmetric, facial sensations are normal. Motor examination normal muscle tone, strength to 4 extremities. DTR are +2, planter's are flexor. Sensory exam; normal coordination, no ataxia, gait stable. Cerebellar exam: [id number] and [id number] is normal. Extrapyramidal system: No tremors, no rigidity with normal facial expressions. Pronator drift not present. Able to ambulate on both thighs toes and heels, intact perianal sensation. Course Reevaluation(s) Reevaluation #1: Feels better able to ambulate better will discharge on Dilaudid and the patient to follow-up with pain management clinic. Time: 09:00 Medical Decision Making Differential Diagnosis Differential Diagnoses: The differential diagnosis associated with the presentation includes (Intractable back pain, lumbar radiculopathy.) Admission/Observation Consideration of admission/observation: Escalation of care including admission/observation considered Discharge Plan Discharge Clinical Impression: Lumbar back pain with radiculopathy affecting right lower extremity Patient Disposition: Home, Self-Care Instructions: Lumbar Radiculopathy (ED) Additional Instructions: Follow-up with your pain management clinic Prescriptions: New hydromorphone [Dilaudid] 2 mg tablet 2 mg PO Q6H PRN (Reason: pain) Qty: 7 0RF Rx Instructions: Partial Fill upon patient request. No Action (DME) Updraft machine See Rx Instructions .Route .MEDSUPPLY Qty: 1 0RF Rx Instructions: As directed cholecalciferol (vitamin D3) 125 mcg (5,000 unit) capsule 125 mcg PO DAILY Qty: 90 1RF methylprednisolone [Medrol (Cristobal)] 4 mg tablets,dose pack 4 mg PO DAILY 6 Days Qty: 6 0RF (DME) blood pressure kit-extra large Kit See Rx Instructions .Route Qty: 1 0RF Rx Instructions: As directed Proctofoam HC 1-1 % foam 1 appl [place] BID PRN (Reason: hemorrhoids) Qty: 10 0RF acetaminophen [Tylenol Extra Strength] 500 mg tablet 1,000 mg PO Q6H PRN diphenhydramine HCl [Benadryl] 25 mg capsule 25 mg PO TID PRN (Reason: allergy symptoms) Qty: 30 0RF albuterol sulfate 2.5 mg /3 mL (0.083 %) solution for nebulization 2.5 mg inhalation Q6H PRN (Reason: shortness of breath or wheezing) Qty: 90 0RF albuterol sulfate 90 mcg/actuation HFA aerosol inhaler 2 puff inhalation Q6H PRN (Reason: bronchospasm) 30 Days Qty: 18 2RF hydroxyzine HCl 10 mg tablet 10 mg PO Q6-8H PRN (Reason: anxiety) Qty: 20 0RF lisinopril-hydrochlorothiazide 20-12.5 mg tablet 1 tab PO DAILY Qty: 90 1RF buspirone 5 mg tablet 5 mg PO BID 30 Days Qty: 60 3RF progesterone micronized [Prometrium] 200 mg capsule 200 mg PO BEDTIME 10 Days Qty: 30 0RF Rx Instructions: Take the pill 1 tablet a day cyclically every month from day 15-24 day 1 being the 1st day of next menstrual cycle methocarbamol 500 mg tablet 500 mg PO TID PRN (Reason: muscle spasm) Qty: 90 1RF Rx Instructions: Discontinue use of Cyclobenzaprine No driving while taking this medication. 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 May cause drowsiness. magnesium 200 mg tablet 400 mg PO BEDTIME (DME) thumb spica splint See Rx Instructions .Route .MEDSUPPLY Qty: 1 0RF Rx Instructions: wear nightly and as much as possible throughout the day Wegovy 0.25 mg/0.5 mL pen injector 0.25 mg subcut QWEEK Qty: 2 0RF Rx Instructions: administer weeks 1 through 4 of therapy Referrals: Ishmael Leyva FNP-BC [Primary Care Provider] - Print Language: Kyrgyz
[2024-05-29] MEDS: HYDROmorphone HCl 1 MG/ML SYRINGE IM (08:27)
[2024-05-29] MEDS: Ketorolac Tromethamine 15 MG/ML VIAL IM (08:28)
[2024-05-29 08:43] VITALS: BP 129/87; PULSE 107; RESP 18; TEMP 37; O2SAT 96
== END 2024-05-29 08:45 | disposition home or self-care (01) ==
PROVIDERS: Emergency Provider Emergency Medicine; PCP Nurse Practitioner Family
DX: M54.16 Radiculopathy, lumbar region (principal); M54.41 Lumbago with sciatica, right side; I10 Essential (primary) hypertension; Z79.899 Other long term (current) drug therapy
CPT/HCPCS: 96372; 99283; 99284; J1171; J1885

== ENCOUNTER 2024-06-05 12:37 | Outpatient (AMB) | payer OTHER, SELFPAY ==
--- NOTE | 2024-06-05 12:46 | HO.SPINEOV ---
Vital Signs 06/05/24 12:54 Height 5 ft 6 in Weight 278 lb BMI 44.9 Intake Visit Reasons: LBP Intake Note: Ms. Nassar is here today c/o low back pain that radiate to the right leg causing numbness. Bending Frame Operator Required: No Allergies oxycodone [From PERCOCET] Allergy (Mild, Verified 06/05/24 12:55) ITCHING Physical Exam Vital Signs: BMI result Body Mass Index 44.9 Assessment & Plan Assessment & Plan (1) Lumbar radiculopathy: Code(s): M54.16 - Radiculopathy, lumbar region Category: Medical Plan Dear ANAHI Benitez, Thank you for referring Karen to our office today. She is a pleasant 44-year-old female comes in today with a chief complaint of low back pain and shooting pain into her right lower extremity. She reports this has been ongoing since 04/20/2024. She denies any known inciting incident for this pain, but states that late in the day on April 20 she was getting ready to go to a [employer] for her work and began feeling severe shooting pains down her right leg. She does report numbness of her toes on the right side, worse with her right great toe. She also associates burning and tingling with the shooting pain down her right leg. When describing the shooting pain she runs her hand over her low back down the posterior buttocks over the posterior thigh down both the lateral gastrocnemius in the anterior tibialis terminating near the top of her foot. She reports that she is attempted several different conservative measures to treat this issue, including physical therapy, NSAIDs, Tylenol, Lyrica, morphine, prednisone, and muscle relaxers. Unfortunately these have not helped her and have only temporized the pain. As a result of the pain she is unable to sleep at night and is not getting more than 4 hours per night currently. She denies any bowel/bladder incontinence or saddle anesthesia. PMH: Hypertension, morbid obesity, asthma, nonalcoholic steatohepatitis, hyperlipidemia, anxiety, fibromyalgia. History of left-sided L4-5 microdiskectomy completed at [facility]. History of unspecified right knee surgery, history of laser correction of both eyes. Social hx: The patient does not smoke, reports no substance use. Medications: Lisinopril, albuterol, Lyrica, Ozempic, progesterone, methocarbamol, magnesium, lisinopril, hydrochlorothiazide, hydroxyzine, Benadryl, buspirone, vitamin D3, albuterol. Allergies: Oxycodone. Physical exam: The patient has about 4/5 strength with right-sided hip flexion and knee extension. These are primarily pain limited. The patient has 5/5 strength elsewhere. Her sensation is diminished over the right toes compared to the left. The rest of her sensation is intact. Her reflexes are 2+ intact. (+) right-sided straight leg raise. (+) bilateral Vázquez's, (-) clonus, (-) Babinski's. Imaging review: MRI of the lumbar spine completed at [facility] in May 2024 shows disc herniations at L4-5 and L5-S1. There is moderate right-sided foraminal stenosis at both of these levels. There is inferior endplate edema of L5. The traversing right S1 nerve root appears to be most affected. Impression: Karen is a pleasant 44-year-old female who comes in today with a chief complaint of low back pain and shooting pains into her right lower extremity. She describes her pain in both an L5 and S1 distribution, which matches her imaging showing disc herniations at L4-5 and L5-S1. I do believe that the right-sided S1 nerve is affected more so than the others when looking at her MRI. I think that tentatively a good plan for this patient is to have her continue follow up with our colleagues at pain management for her L5-S1 injection next week. She was encouraged to follow up with our office if she continues to have pain despite this injection, as she may need subsequent microdiskectomy to decompress the nerves on the right side. She understands that she needs to reach out to our office if she starts to experience any issues with her bowel/bladder or numbness near the perineal area. The patient understands and agrees to this plan. Thank you for allowing us to care for your patient. The total time spent with this visit with this patient was 45 minutes reviewing history, physical exam, MRI imaging review, and implementation of treatment plan or further diagnostic testing Darrell Pittman MD,PhD [facility] Coding Level of Care Code Est Pt Level 4 (53141) Diagnoses Lumbar radiculopathy M54.16
[2024-06-05 12:54] VITALS: BMI 44.9
--- OUTSIDE RECORDS SUMMARY | 2024-06-05 13:31 | XMS_ITS | Clinical Summary ---
Author Organization [employer] Address [address] [place] [address] Care Team Providers Care Quarry Manager Name Role Phone Unavailable Primary Care Provider Unavailabl e Social History Tobacco Use Types Packs/Day Years Used Date Smoking Tobacco: Never Assessed Comments Unknown Sex and Gender Information Value Date Recorded Sex Assigned at Female 03/08/2022 10:22 AM EDT Legal Sex Female 10:22 AM EDT Gender Identity Female 03/08/2022 10:22 AM EDT Sexual Orientation Straight 03/08/2022 10 :22 AM EDT Plan of Treatment Health Maintenance Due Date Last Done Comments Depression Screening 1980 Alcohol/Substance Use Screening 1992 Tobacco Screening 1992 Family Planning (PISQ) 01/24/1995 DTaP/Tdap/Td Vaccines (1 - Tdap) 01/24/1999 Hepatitis B Vaccines (1 of 3 - 19+ 3-dose series) 01/24/1999 Pap Smear 01/24/2001 Cervical Cancer Screening 01/24/2010 HPV/Cotest 01/24/2010 Mammogram 2020 COVID-19 Vaccine ( - 2023-2 5 season) 2024 Influenza Vaccine (#1) 2024 Zoster Vaccines (1 of 2) 01/24/2030 RSV Patients and Pa tients Aged 60 years or older (1 - 1-dose 75+ series) 01/24/2055 HIB Vaccines Aged Out No longer eligi ble based on patient's age to complete this topic HPV Vaccines Aged Out No longer eligi ble based on patient's age to complete this topic Hepatitis A Vaccines Aged Out No long er eligible based on patient's age to complete this topic IPV Vaccines Aged Out No longer eligi ble based on patient's age to complete this topic Meningococcal Vaccine Aged Out No jazlyn yani eligible based on patient's age to complete this topic Pneumococcal Vaccine: Pediat rics (0 to 5 Years) and At-Risk Patients (6 to 64 Years) Aged Out No longer eligible b ased on patient's age to complete this topic RSV under 20 months Aged Out No longe r eligible based on patient's age to complete this topic Rotavirus Vaccines Aged Out No longer eligible based on patient's age to complete this topic
--- OUTSIDE RECORDS SUMMARY | 2024-06-05 13:31 | XMS_ITS | Encounter Summary ---
Author Organization [employer] [facility] Address [address] [place] [address] Care Team Providers Care Pesticide Use Medical Coordinator Name Role Phone Unavailable Primary Care Provider Unavailabl e Encounter Details Date Type Department Care Team (Latest Contact Info) Description 08/19/2020 Abstract C CONVERSIONS Dental, Provider, DDS Social History Tobacco Use Types Packs/Day Years Used Date Smoking Tobacco: Never Assessed Comments Unknown Sex and Gender Information Value Date Recorded Sex Assigned at Female 03/08/2022 10:22 AM EDT Legal Sex Female 10:22 AM EDT Gender Identity Female 03/08/2022 10:22 AM EDT Sexual Orientation Straight 03/08/2022 10 :22 AM EDT documented as of this encounter Plan of Treatment Not on file documented as of this encounter Visit Diagnoses Not on filedocumented in this encounter
--- OUTSIDE RECORDS SUMMARY | 2024-06-05 13:31 | XMS_ITS | Clinical Summary ---
[facility] Address [address] [place] [address] Care Team Providers Care Marine Water Tender Name Role Phone Hortencia uTcker MD Primary Care Provider [phone] Surgical History Surgery Date Site/Laterality Comments KNEE SURGERY PROCEDURE: HISTORICAL KNEE SURGERY OTHER SURGICAL HISTORY PROCEDURE: HISTORY OTHER; COMMENT: vaginal surgery EYE SURGERY PROCEDURE: HISTORICAL EYE SURGERY TONSILLECTOMY PROCEDURE: HISTORICAL TONSILLECTOMY; COMMENT: w/adenoidectomy Medical History Medical History Date Comments Abnormal transaminases 09/02/2014 DX:Abnorm al transaminases Allergic rhinitis 09/13/2016 DX:Allergic rh initis Asthma 11/24/2015 DX:Asthma Atopic dermatitis 08/10/2013 DX:Atopic derm atitis Esophageal reflux 01/20/2015 DX:Esophageal reflux Fatty liver 01/20/2015 DX:Fatty liver Internal hemorrhoids 12/11/2014 DX:Internal hemorrhoids Obesity (BMI 35.0-39.9 witho ut comorbidity) 02/01/2017 DX:Obesity (BMI 35.0-39.9 wi thout comorbidity) Ovarian cyst 03/25/2015 DX:Ovarian cyst Social History Tobacco Use Types Packs/Day Years Used Date Smoking Tobacco: Never Smokeless Tobacco: Never Alcohol Use Standard Drinks/Week Comments Yes 0 (1 standard drink = 0.6 oz pur e alcohol) Sex and Gender Information Value Date Recorded Sex Assigned at Not on file Gender Identity Not on file Sexual Orientation Not on file Obstetrics History Plan of Treatment Health Maintenance Due Date Last Done Comments Breast Cancer Screening 1980 Hepatitis B Vaccines (1 of 3 - 19+ 3-dose series) 01/24/1999 Cervical Cancer Screening: P ap Smear 01/24/2001 DTaP,Tdap,and Td Vaccines (2 - Td or Tdap) 02/23/2023 02/23/2013 COVID-19 Vaccine (1 - 2023-2 5 season) 2024 Influenza Vaccine (#1) 2024 HIB Vaccines Aged Out No longer eligi [...] on patient's age to complete this topic MMR Vaccines Aged Out No longer eligi ble based on patient's age to complete this topic Meningococcal ACWY Vaccine Aged Out N o longer eligible based on patient's age to complete this topic Pneumococcal Vaccine: Pediat rics (0 to 5 Years) and At-Risk Patients (6 to 64 Years) Aged Out No longer eligi ble based on patient's age to complete this topic RSV Immunization Patients Un alla 20 months Aged Out No longer eligible b ased on patient's age to complete this topic Varicella Vaccines Aged Out No longer eligible based on patient's age to complete this topic Care Teams Marine Water Tender Relationship Specialty Start Date End Date Hortencia Tucker MD PCP - General Internal Medicine 03/23/18
== END 2024-06-05 13:28 | disposition home or self-care (01) ==
PROVIDERS: PCP Nurse Practitioner Family; Referring Provider Registered Nurse Emergency; Visit Provider Physician Assistant
DX: M54.16 Radiculopathy, lumbar region (principal)
CPT/HCPCS: 99214

== ENCOUNTER 2024-06-06 21:45 | Emergency (ER) | payer OTHER, SELFPAY ==
--- NOTE | ~2024-06-06 | CT_ITS ---
CLINICAL HISTORY: right flank CT abdomen and pelvis without contrast Comparison: None Findings: The lung bases are clear. There is hepatic steatosis. There is mild hepatomegaly. The gallbladder, pancreas, spleen, adrenal glands, and kidneys are unremarkable. There is no urolithiasis or hydronephrosis. There is a tiny normal appendix. The remainder of the gastrointestinal tract is unremarkable. There is no free fluid or free air. There are no enlarged lymph nodes. The aorta is normal in diameter. Uterus and adnexa are unremarkable. There is degenerative disc disease at L4-5 and L5-S1. There is no fracture or suspicious lytic or sclerotic lesion IMPRESSION: 1. No acute abnormality in the abdomen or pelvis. 2. Hepatic steatosis and mild hepatomegaly. This document has been electronically signed by: Eddie Russo MD on 06/07/2024 02:24:33
[2024-06-06 21:52] VITALS: BP 146/97; PULSE 124; RESP 17; TEMP 37.1; O2SAT 96; BMI 43.1
[2024-06-06 23:07] LABS: Appearance Urine Cloudy; Color Urine Yellow; Glucose Urine UA Negative (Negative); Leukocyte Esterase Urine Moderate (2+) (Negative); Nitrite Urine Negative (Negative); Specific Gravity - Urine 1.025 (1.005-1.025); UMIC TRIGGER UACC YES; Urine Blood Moderate (2+) (Negative); Urine Ketones Trace mg/dL (Negative); Urine Protein Negative (Neg-Trace)
[2024-06-06 23:08] LABS: UPreg QC Valid YES; Urine Pregnancy NEGATIVE (NEGATIVE)
[2024-06-06 23:22] LABS: Bacteria Urine Trace (None Seen); Hyaline Casts Urine 0-2 /LPF (0-2); RBC Urine 0-2 /HPF (0-2); UACC Culture Trigger YES
--- OUTSIDE RECORDS SUMMARY | 2024-06-07 00:30 | XMS_ITS | Clinical Summary ---
[facility] Organization [facility] Address [address] [place] [address] Care Team Providers Care Category Development Analyst Name Role Phone Hortencia Tucker MD Primary Care Provider [phone] Surgical History Surgery Date Site/Laterality Comments KNEE [...] age to complete this topic Care Teams Category Development Analyst Relationship Specialty Start Date End Date Hortencia Tucker MD PCP - General Internal Medicine 03/23/18
--- OUTSIDE RECORDS SUMMARY | 2024-06-07 00:30 | XMS_ITS | Encounter Summary ---
Author Organization [employer] [facility] Address [address] [place] [address] Care Team Providers Care Center Mgr Name Role Phone Unavailable Primary Care Provider [...]
--- NOTE | 2024-06-07 01:06 | ED.FEMALEGU ---
HPI - Female Genitourinary General Chief complaint: Urogenital-Female Stated complaint: abd pain, unable to urinate Time Seen by Provider: 06/07/24 01:00 Source: patient Limitations: no limitations History of Present Illness ED Provider: Sindi Jones PA-C HPI Narrative: 44-year-old female with a history of morbid obesity, lumbar degenerative disc disease, lumbar radiculopathy, prior laminectomy, fibromyalgia, presents with right flank pain x1 week. Patient states she has had progressive discomfort over the right flank. The pain radiates to left lower quadrant and groin at times. The pain fluctuates in intensity. Patient has noted dysuria and decreased urine output. Denies obvious hematuria, fever, nausea, vomiting. No history of kidney stones. Patient also states she is constipated has not had a bowel movement 2 days; she is on chronic pain medication. Denies abdominal distention or inability to pass flatus. Related Data Home Medications ?Medication ?Instructions ?Recorded ?Confirmed acetaminophen 500 mg tablet 1,000 mg PO Q6H PRN 04/13/21 05/17/24 (Tylenol Extra Strength) magnesium 200 mg tablet 400 mg PO BEDTIME 12/16/22 05/17/24 Previous Rx's ?Medication ?Instructions ?Recorded Updraft machine #1 ea 06/03/20 blood pressure kit-extra large #1 ea 09/24/21 cholecalciferol (vitamin D3) 125 125 mcg PO DAILY #90 caps 03/31/22 mcg (5,000 unit) capsule diphenhydramine HCl 25 mg capsule 25 mg PO TID PRN allergy symptoms 08/26/22 (Benadryl) #30 caps albuterol sulfate 2.5 mg/3 mL 2.5 mg (3 mL) inhalation Q6H PRN 02/02/23 (0.083 %) solution for nebulization shortness of breath or wheezing #90 mL albuterol sulfate 90 mcg/actuation 2 puff inhalation Q6H PRN 02/02/23 aerosol inhaler bronchospasm 30 days #18 grams thumb spica splint #1 ea 04/20/23 lisinopril 20 1 tab PO DAILY #90 tabs 10/06/23 mg-hydrochlorothiazide 12.5 mg tablet hydrocortisone 1 %-pramoxine 1 % 1 appl [place] BID PRN hemorrhoids #10 10/31/23 rectal foam (Proctofoam HC) grams hydroxyzine HCl 10 mg tablet 10 mg PO Q6-8H PRN anxiety #20 tabs 12/28/23 buspirone 5 mg tablet 5 mg PO BID 30 days #60 tabs 01/11/24 progesterone micronized 200 mg 200 mg PO BEDTIME 10 days #30 caps 02/22/24 capsule (Prometrium) methocarbamol 500 mg tablet 500 mg PO TID PRN muscle spasm #90 04/24/24 tabs semaglutide (weight loss) 0.25 0.25 mg (0.5 mL) subcut QWEEK #2 mL 05/17/24 mg/0.5 mL subcutaneous pen injector (Wegovy) pregabalin 25 mg capsule (Lyrica) 25 mg PO BID #60 caps 05/25/24 hydromorphone 2 mg tablet 2 mg PO Q6H PRN pain #7 tabs 05/29/24 (Dilaudid) methylprednisolone 4 mg tablets in 4 mg PO DAILY 6 days #6 ea 05/29/24 a dose pack (Medrol (Cristobal)) Allergies Allergy/AdvReac Type Severity Reaction Status Date / Time oxycodone [From PERCOCET] Allergy Mild ITCHING Verified 06/06/24 21:55 Review of Systems Review of Systems: Yes all other systems are reviewed and are negative Constitutional: Constitutional: Denies fatigue and Denies fever(s) Cardiovascular: Cardiovascular: Denies chest pain and Denies dyspnea Respiratory: Respiratory: Denies dyspnea Gastrointestinal: Gastrointestinal: Reports abdominal pain, Reports constipation, Denies diarrhea, Denies nausea and Denies vomiting Genitourinary: Genitourinary: Reports dysuria, Reports flank pain and Reports urinary hesitancy Endocrine: Endocrine: Denies fatigue [facility] Past Medical History Attestation statement: The following information was validated with the patient. Medical History Abnormal uterine bleeding (AUB) Upper back pain Obesity Tired Difficulty sleeping Breast screening COVID-19 Exacerbation of asthma Screening for cervical cancer Physical exam Low hemoglobin Elevated liver enzymes Uterine fibroids affecting Uterine fibroid Acute sinusitis Fatigue UTI (urinary tract infection) Snores Fatty liver Neck pain Abdominal pain Cellulitis Leukocytosis Rash and other nonspecific skin eruption Chest pressure Palpitations Anxiety with flying Chest wall tenderness Lateral epicondylitis of right elbow Medial epicondylitis of right elbow Medial epicondylitis Lateral epicondylitis Bilateral hand numbness Right wrist pain Chest pain due to psychological stress Screening for breast cancer Encounter for routine adult physical exam with abnormal findings Infertility, female Cervical radiculopathy HTN (hypertension) Surgical History Hx of LASIK History of tonsillectomy and adenoidectomy History of lumbar surgery H/O right knee surgery Family History Family History Father Hearing loss Mother PCOS (polycystic ovarian syndrome) Mental health disorder Maternal Grandfather Diabetes mellitus Maternal Grandmother Diabetes mellitus Paternal Grandfather Diabetes mellitus Paternal Grandmother Diabetes mellitus Cancer Brother No problems noted. Brother No problems noted. Sister No problems noted. Paternal Uncle Multiple sclerosis Social History Social History Household Members: Spouse Housing: Apartment Alcohol intake: former Patient Tobacco Use Status: Never used Tobacco Smoked in Last 30 Days: No e-Cigarette/Vaping Use: Never Used Second Hand Smoke Exposure: No Use of substances other than those prescribed or required for medical reasons: No Advance Directives: No Advance Directives Information Provided: Yes Do you have a plan to hurt others: No Plan Patient : No service: No Current occupational status: employed Current occupation: [employer] / right hand dominant Sexual orientation: Straight/Heterosexual Gender identity: Female Cognitive needs: No Hearing needs: No Vision needs: Yes (glasses) Physical Exam Vital Signs: Vital Signs: Last Vital Signs Temp 98.6 F 06/07/24 02:21 Pulse 100 06/07/24 02:21 Resp 16 06/07/24 02:21 BP 121/69 06/07/24 02:21 Pulse Ox 96 06/07/24 02:21 O2 Del Method Room Air 06/07/24 02:21 BMI result Body Mass Index 43.1 Const: Other: Alert, appears uncomfortable Orientation/consciousness: patient oriented x3 Resp: Effort & Inspection: normal respiratory effort Cardio: Other: Normal peripheral perfusion GI: Other: Abdomen is soft, obese, mild tenderness with palpation over right abdomen without guarding Back/Spine/Pelvis: Other: No CVA tenderness Skin: Other: Warm dry no rash Neuro: General: patient oriented x3, gait normal, no focal motor deficits and CN's II-XI intact bilaterally Extrem: Other: Strength 5/5 bilateral lower extremities Psych: Other: Cooperative Medications Administered Discontinued Medications Generic Name Dose Route Start Last Admin Trade Name Jaquan PRN Reason Stop Dose Admin Ketorolac Tromethamine 15 mg 06/07/24 01:05 06/07/24 01:15 Ketorolac Tromethamine 15 Mg/Ml Vial IVPUSH 06/07/24 01:06 15 mg ONCE ONE Administration Morphine Sulfate 4 mg 06/07/24 01:05 06/07/24 01:15 Morphine Sulfate 4 Mg/Ml Cartridge IVPUSH 06/07/24 01:06 4 mg ONCE ONE Administration Protocol Medical Decision Making Medical Decision Making [facility] Narrative: 44-year-old female with a history of morbid obesity, lumbar degenerative disc disease, lumbar radiculopathy, prior laminectomy, fibromyalgia, presents with right flank pain x1 week. Patient states she has had progressive discomfort over the right flank. The pain radiates to left lower quadrant and groin at times. The pain fluctuates in intensity. Patient has noted dysuria and decreased urine output. Denies obvious hematuria, fever, nausea, vomiting. No history of kidney stones. Patient also states she is constipated has not had a bowel movement 2 days; she is on chronic pain medication. Denies abdominal distention or inability to pass flatus. Problem: Lumbar disc disease with radicular symptoms, obesity History: Per patient I have considered the following differential diagnoses: Renal colic, pyelonephritis, UTI, cauda equina, bowel obstruction Plan: Given distribution of discomfort and nature of symptoms, I am considering renal colic. We will be obtaining a CT scan, giving Toradol and morphine for her discomfort. Urine already collected, she is passing hematuria, it does not appear infected. Thought about pyelonephritis, however there was no CVA tenderness and she has no systemic symptoms of infection. There was no change in her lumbar radicular symptoms, she has no weakness of lower extremities, with no red flag signs symptoms concerning for cord compression. In regard to the constipation, she is on chronic pain medication, she is not having obstructive symptoms. We will assess stool burden on CT scan. I have independently reviewed the following tests: Labs: Hematuria some white cells in urine, no bacteria no nitrites, not consistent with a UTI, not CT abdomen and pelvis:here is hepatic steatosis. There is mild hepatomegaly. The gallbladder, pancreas, spleen, adrenal glands, and kidneys are unremarkable. There is no urolithiasis or hydronephrosis. There is a tiny normal appendix. The remainder of the gastrointestinal tract is unremarkable. There is no free fluid or free air. There are no enlarged lymph nodes. The aorta is normal in diameter. Uterus and adnexa are unremarkable. There is degenerative disc disease at L4-5 and L5-S1. There is no fracture or suspicious lytic or sclerotic lesion IMPRESSION: 1. No acute abnormality in the abdomen or pelvis. 2. Hepatic steatosis and mild hepatomegaly. This document has been electronically signed by: Eddie Russo MD on 06/07/2024 02:24:33 Lab Data Labs: Lab Results 06/06/24 Range/Units 22:37 Urine Color Yellow Urine Appearance Cloudy Urine pH 5.0 (5.0-9.0) Ur Specific [place] 1.025 (1.005-1.025) Urine Protein Negative (Neg-Trace) mg/dL Urine Glucose (UA) Negative (Negative) mg/dL Urine Ketones Trace (Negative) mg/dL Urine Blood Moderate (2+) H (Negative) Urine Nitrite Negative (Negative) Ur Leukocyte Esterase Moderate (2+) H (Negative) Urine RBC 0-2 (0-2) /HPF Urine WBC 6-10 (0-5) /HPF Ur Squamous Epith Cells 6-10 (0-2) /HPF Urine Bacteria Trace (None Seen) Hyaline Casts 0-2 (0-2) /LPF Urine Test NEGATIVE (NEGATIVE) Discharge Plan Discharge Clinical Impression: Constipation Patient Disposition: Home, Self-Care Instructions: Constipation (ED) Additional Instructions: All of your labs were normal, you were found to be considerably constipated. See home care instructions. You need to purchase [id number] Colace, this is a stool softener. Take it twice a day. In addition, you need to start using [id number] MiraLax, several times a day, you can take it every 1-2 hours, until you begin having multiple large volume bowel movements. You essentially are doing a colon cleanse. Once you clear the current stool burden, stay on the stool softener daily, use the MiraLax daily, to prevent further episodes of constipation while you were taking the pain medication. Follow up with your primary care provider as needed. Prescriptions: No Action (DME) Updraft machine See Rx Instructions .Route .MEDSUPPLY Qty: 1 0RF Rx Instructions: As directed cholecalciferol (vitamin D3) 125 mcg (5,000 unit) capsule 125 mcg PO DAILY Qty: 90 1RF methylprednisolone [Medrol (Cristobal)] 4 mg tablets,dose pack 4 mg PO DAILY 6 Days Qty: 6 0RF (DME) blood pressure kit-extra large Kit See Rx Instructions .Route Qty: 1 0RF Rx Instructions: As directed Proctofoam HC 1-1 % foam 1 appl IL BID PRN (Reason: hemorrhoids) Qty: 10 0RF hydromorphone [Dilaudid] 2 mg tablet 2 mg PO Q6H PRN (Reason: pain) Qty: 7 0RF Rx Instructions: Partial Fill upon patient request. acetaminophen [Tylenol Extra Strength] 500 mg tablet 1,000 mg PO Q6H PRN diphenhydramine HCl [Benadryl] 25 mg capsule 25 mg PO TID PRN (Reason: allergy symptoms) Qty: 30 0RF albuterol sulfate 2.5 mg /3 mL (0.083 %) solution for nebulization 2.5 mg inhalation Q6H PRN (Reason: shortness of breath or wheezing) Qty: 90 0RF albuterol sulfate 90 mcg/actuation HFA aerosol inhaler 2 puff inhalation Q6H PRN (Reason: bronchospasm) 30 Days Qty: 18 2RF hydroxyzine HCl 10 mg tablet 10 mg PO Q6-8H PRN (Reason: anxiety) Qty: 20 0RF lisinopril-hydrochlorothiazide 20-12.5 mg tablet 1 tab PO DAILY Qty: 90 1RF buspirone 5 mg tablet 5 mg PO BID 30 Days Qty: 60 3RF progesterone micronized [Prometrium] 200 mg capsule 200 mg PO BEDTIME 10 Days Qty: 30 0RF Rx Instructions: Take the pill 1 tablet a day cyclically every month from day 15-24 day 1 being the 1st day of next menstrual cycle methocarbamol 500 mg tablet 500 mg PO TID PRN (Reason: muscle spasm) Qty: 90 1RF Rx Instructions: Discontinue use of Cyclobenzaprine No driving while taking this medication. Do no take with alcohol or other MERCHANDISE MANAGER Depressants pregabalin [Lyrica] 25 mg capsule 25 mg PO BID Qty: 60 1RF Rx Instructions: Discontinue gabapentin prior to starting this medication. May cause drowsiness. magnesium 200 mg tablet 400 mg PO BEDTIME (DME) thumb spica splint See Rx Instructions .Route .MEDSUPPLY Qty: 1 0RF Rx Instructions: wear nightly and as much as possible throughout the day Wegovy 0.25 mg/0.5 mL pen injector 0.25 mg subcut QWEEK Qty: 2 0RF Rx Instructions: administer weeks 1 through 4 of therapy Print Language: Slovak
[2024-06-07 01:15] VITALS: RESP 20
[2024-06-07] MEDS: Morphine Sulfate 4 MG/ML CARTRIDGE IVPUSH (01:15)
[2024-06-07] MEDS: Ketorolac Tromethamine 15 MG/ML VIAL IVPUSH (01:15)
--- NOTE | 2024-06-07 01:45 | PC.NURSE ---
pt a&ox4, respirations even and unlabored. pt reporting x2 days of difficulty urinating and right sided flank pain. pt reports she has to push to void at this time. pt denies any blood in urine. 20G placed in right hand, medicated per mar, pt to CT at this time.
[2024-06-07 02:21] VITALS: BP 121/69; PULSE 100; RESP 16; TEMP 37; O2SAT 96
[2024-06-07 03:17] VITALS: BP 121/69; PULSE 100; RESP 16; TEMP 37; O2SAT 96
== END 2024-06-07 03:18 | disposition home or self-care (01) ==
PROVIDERS: Emergency Provider Emergency Medicine; PCP Nurse Practitioner Family
DX: K59.00 Constipation, unspecified (principal); R10.9 Unspecified abdominal pain; E66.9 Obesity, unspecified; Z68.41 Body mass index [BMI] 40.0-44.9, adult
CPT/HCPCS: 74176; 81001; 81003; 81025; 87086; 96374; 96375; 99284; J1885; J2270

== ENCOUNTER → 2024-06-07 01:05 | Outpatient (BNV) | payer OTHER, SELFPAY | PROVIDERS: Emergency Provider Emergency Medicine; PCP Nurse Practitioner Family; Visit Provider Radiology Diagnostic Radiology | DX: R10.11 Right upper quadrant pain (principal); R10.31 Right lower quadrant pain | CPT/HCPCS: 74176 ==

== ENCOUNTER 2024-06-14 06:31 | Outpatient (REF) | payer OTHER, SELFPAY ==
--- NOTE | ~2024-06-14 | FL_ITS ---
EXAMINATION: FL GUIDANCE ONLY HISTORY: M54.16 - Radiculopathy, lumbar region COMPARISON: None available. TECHNIQUE: Fluoroscopy time: 0.2 minutes. Cumulative Dose: 10.1 mGy. DAP: 0.0562 mGym2 Images: 2. FINDINGS: Fluoroscopic spot films of the lumbar spine demonstrate a needle and contrast in the region of the right L5-S1 facet joint. FL/FL guidance in treatment room IMPRESSION: Fluoroscopy during procedure. Please see procedure report for additional information. Electronically signed by: Houston Mchugh MD 06/14/2024 12:10 PM JASON
--- OUTSIDE RECORDS SUMMARY | 2024-06-14 06:33 | XMS_ITS | Encounter Summary ---
Author Organization [employer] [facility] Address [address] [place] [address] Care Team Providers Care Vp Organizational Development Name Role Phone Unavailable Primary Care Provider [...]
--- OUTSIDE RECORDS SUMMARY | 2024-06-14 06:33 | XMS_ITS | Clinical Summary ---
Author Organization [employer] Address [address] [place] [address] Care Team Providers Care Condenser Cleaner Name Role Phone Unavailable Primary Care Provider [...] 5 Years) and At-Risk Patients (6 to 49) Years) Aged Out No longer eligible b ased on patient's age to complete this topic RSV under 20 months Aged Out No longe r eligible based on patient's age to complete this topic Rotavirus Vaccines Aged Out No longer eligible based on patient's age to complete this topic
--- OUTSIDE RECORDS SUMMARY | 2024-06-14 06:33 | XMS_ITS | Clinical Summary ---
Author Organization [facility] Address [address] [place] [address] Care Team Providers Care Felt Hooker Name Role Phone Hortencia Tucker MD Primary Care Provider [phone] Surgical History Surgery Date Site/Laterality Comments KNEE [...] age to complete this topic Care Teams Felt Hooker Relationship Specialty Start Date End Date Hortencia Tucker MD PCP - General Internal Medicine 03/23/18
== END 2024-06-14 06:32 | disposition home or self-care (01) ==
LOC: CF 06:31
PROVIDERS: Visit Provider Internal Medicine
DX: M54.16 Radiculopathy, lumbar region (principal)
CPT/HCPCS: 64483; J1100; J2003; Q9967

== ENCOUNTER → 2024-06-14 10:21 | Outpatient (AMB) | payer OTHER, SELFPAY ==
--- OUTSIDE RECORDS SUMMARY | 2024-06-14 10:24 | XMS_ITS | Clinical Summary ---
Author Organization [employer] Address [address] [place] [address] Care Team Providers Care Youth Development Specialist Name Role Phone Unavailable Primary Care Provider [...]
--- OUTSIDE RECORDS SUMMARY | 2024-06-14 10:25 | XMS_ITS | Clinical Summary ---
Author Organization [facility] Address [address] [place] [address] Care Team Providers Care Gripper Machine Operator Name Role Phone Hortencia Tucker MD Primary Care Provider [phone] Surgical History Surgery Date Site/Laterality Comments KNEE [...] age to complete this topic Care Teams Gripper Machine Operator Relationship Specialty Start Date End Date Hortencia Tucker MD PCP - General Internal Medicine 03/23/18
--- OUTSIDE RECORDS SUMMARY | 2024-06-14 10:25 | XMS_ITS | Encounter Summary ---
Author Organization [facility] [facility] Address [address] [place] [address] Care Team Providers Care Banquet Food Server Name Role Phone Unavailable Primary Care Provider [...]
--- NOTE | 2024-06-14 10:35 | A.OFFVIS_ITS ---
Vital Signs 06/14/24 10:35 Height 5 ft 6 in Weight 266 lb BMI 42.9 BP 155/100 H Blood Pressure Location Lt brachial Pulse 89 Pulse Source Pulse Oximeter Pulse Oximetry (%) 97 Oxygen Delivery Method Room Air Intake Visit Reasons: Right L5-S1 TFESI Criminal Justice Teacher Required: No Allergies oxycodone [From PERCOCET] Allergy (Mild, Verified 06/14/24 10:36) ITCHING Medication List - Last Reconciled 06/14/24 by Tosin Palencia, PAID SEARCH MARKETING STRATEGIST acetaminophen (Tylenol Extra Strength) 1,000 mg PO Q6H PRN albuterol sulfate 90 mcg/actuation 2 puffs inhalation Q6H PRN 30 days NS albuterol sulfate 2.5 mg (3 mL) inhalation Q6H PRN blood pressure kit-extra large As directed buspirone 5 mg PO BID 30 days cholecalciferol (vitamin D3) 125 mcg PO DAILY diphenhydramine HCl (Benadryl) 25 mg PO TID PRN hydrocortisone-pramoxine 1-1 % (Proctofoam HC) 1 appl MD BID PRN hydromorphone (Dilaudid) 2 mg PO Q6H PRN hydroxyzine HCl 10 mg PO Q6-8H PRN lisinopril-hydrochlorothiazide 20-12.5 mg 1 tab PO DAILY magnesium 400 mg PO BEDTIME methocarbamol 500 mg PO TID PRN methylprednisolone (Medrol (Cristobal)) 4 mg PO DAILY 6 days pregabalin 50 mg PO TID progesterone micronized (Prometrium) 200 mg PO BEDTIME 10 days semaglutide (weight loss) (Wegovy) 0.25 mg (0.5 mL) subcut QWEEK [thumb spica splint wear nightly and as much as possible throughout the day] [Updraft machine As directed] HPI HPI Right L5-S1 TFESI: Details: Patient presents for scheduled procedure. Denies any recent cough, cold, infection, fever or other significant changes in medical history since last office visit. COUNTS INCLUDE 234 BEDS AT THE [facility] Medical History Abnormal uterine bleeding (AUB) Upper back pain Obesity Tired Difficulty sleeping Breast screening COVID-19 Exacerbation of asthma Screening for cervical cancer Physical exam Low hemoglobin Elevated liver enzymes Uterine fibroids affecting Uterine fibroid Acute sinusitis Fatigue UTI (urinary tract infection) Snores Fatty liver Neck pain Abdominal pain Cellulitis Leukocytosis Rash and other nonspecific skin eruption Chest pressure Palpitations Anxiety with flying Chest wall tenderness Lateral epicondylitis of right elbow Medial epicondylitis of right elbow Medial epicondylitis Lateral epicondylitis Bilateral hand numbness Right wrist pain Chest pain due to psychological stress Screening for breast cancer Encounter for routine adult physical exam with abnormal findings Infertility, female Cervical radiculopathy HTN (hypertension) Surgical History Hx of LASIK History of tonsillectomy and adenoidectomy History of lumbar surgery H/O right knee surgery Family History Father Hearing loss Mother PCOS (polycystic ovarian syndrome) Mental health disorder Maternal Grandfather Diabetes mellitus Maternal Grandmother Diabetes mellitus Paternal Grandfather Diabetes mellitus Paternal Grandmother Diabetes mellitus Cancer Brother No problems noted. Brother No problems noted. Sister No problems noted. Paternal Uncle Multiple sclerosis Social History Household Members: Spouse Housing: Apartment Alcohol intake: former Patient Tobacco Use Status: Never used Tobacco e-Cigarette/Vaping Use: Never Used Second Hand Smoke Exposure: No service: No Current occupational status: employed Current occupation: [employer] / right hand dominant Sexual orientation: Straight/Heterosexual Gender identity: Female Cognitive needs: No Hearing needs: No Vision needs: Yes (glasses) Physical Exam Vital Signs: Last Vital Signs Pulse 89 06/14/24 10:35 BP 155/100 H 06/14/24 10:35 Pulse Ox 97 06/14/24 10:35 Oxygen Delivery Method Room Air 06/14/24 10:35 BMI result Body Mass Index 42.9 Office Procedures 18183 - Lumbar/Sacral Procedure code (CPT) selection complete Details: Transforaminal epidural steroid injection, Right L5-S1 After obtaining written consent, pre-procedure blood pressure and heart rate were stable and recorded in the nursing record. The patient was placed in the prone position on the fluoroscopy table. The lumbosacral area was prepped with chloraprep, allowed to dry and draped in sterile fashion. Using fluoroscopy, the skin overlying our target was anesthetized with 0.5% lidocaine. A 22 gauge 3.5 inch spinal needle was advanced to the safe triangle in the upper pole of the right L5 foramen. No paresthesias were elicited with needle placement and aspiration was negative for blood and CSF. Correct needle position was confirmed with approximately 1 ml contrast dye (Omnipaque 180 mg/ml) injected under real-time fluoroscopy. No evidence of vascular or intrathecal uptake was seen and there was both epidural and peripheral spread of the contrast agent. 10 mg dexamethasone plus 1 ml containing 0.5% lidocaine was slowly injected. The needle was flushed and removed. the same procedure was repeated for the remaining levels. The skin was cleansed and a sterile bandages were applied. The patient tolerated the procedure well and no complications were encountered. Following the procedure the patient's vital signs were stable. The patient was discharged home in good condition with post-procedural instructions. Time Out: Immediately prior to the procedure, the following was verbally confirmed that there is a signed consent form and that the correct patient, planned procedure, site and side are consistent with documentation and that necessary equipment and/or blood products are available prior to the start of the case. Complications: none EBL: <5 cc 64711 - Lumbar/Sacral Procedure code (CPT) selection complete Assessment & Plan Assessment & Plan (1) Lumbar radiculopathy: Code(s): M54.16 - Radiculopathy, lumbar region Category: Medical Plan Patient is status post right L5-S1 TFESI. Patient tolerated procedure well and was discharged home in stable condition with discharge instructions. All questions were answered. We will follow-up via telephone or in clinic to assess response to therapy. A follow-up appointment was made during today's visit. Orders: Orders FL guidance in treatment room Today Veronica Benitez APRN, HOUSE OFFICER M54.16 - Radiculopathy, lumbar region AMB Transforaminal Epidural Steroid Injection Today Jose Renee MD M54.16 - Radiculopathy, lumbar region AMB Transforaminal Epidural Steroid Injection Today Jose Renee MD M54.16 - Radiculopathy, lumbar region Coding Level of Care Code Procedure Only Diagnoses Lumbar radiculopathy M54.16 CPT Codes Transforaminal Epidural Steroid Inj - TESI 3: 95508 - Lumbar/Sacral ([id number]) Transforaminal Epidural Steroid Inj - TESI 3: 61700 - Lumbar/Sacral ([id number])
== END | disposition home or self-care (01) ==
PROVIDERS: PCP Nurse Practitioner Family; Visit Provider Internal Medicine
DX: M54.16 Radiculopathy, lumbar region (principal)
CPT/HCPCS: 64483

== ENCOUNTER 2024-06-20 09:01 | Outpatient (AMB) | payer OTHER, SELFPAY ==
--- NOTE | 2024-06-20 09:13 | MHC.OFFVIS ---
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 One-week status post right L5-S1 transforaminal epidural steroid injection. She reports 20% improvement in her symptoms. No longer having burning pain down her leg. Continues with axial back pain and some shooting pain down the right leg. Has been taking Lyrica with minimal improvement Wondering if she should restart physical therapy Requesting work note and school note States very minimal improvement with muscle relaxers Denies red flag symptoms including new loss of bowel, bladder or saddle anesthesia Procedures: 06/14/2024: Right L5-S1 TFESI: 20% pain relief Prior: Patient presents back to the office today for follow-up for lower back pain, review of recent MRI MRI reviewed, results as per below Patient continues with lower back pain radiation down the right leg to the foot. Pain down lateral lower leg to the foot/toes consistent with L5-S1 pathway She completed several weeks of physical therapy with no improvement of her pain. Denies relief with Tylenol, NSAIDs, muscle relaxer, he, ice or topical patches. Muscle relaxers help but pain persists. She has tried gabapentin past but did not like how it made her feel and also did not help her pain. Initial visit: Karen is a very pleasant 44-year-old female who presents to the office today for evaluation management of her right lower back pain Patient reports she has been suffering with this pain for approximately 1 month Denies inciting injury, fall, trauma She states she was in a seated position went to stand and felt sudden sharp pain to the right lower back. Pain has persisted since She went to the walk-in where she was given a prednisone Dosepak, anti-inflammatory medication and muscle relaxers. This gave her relief for about 2 weeks. About 1 week ago pain returned. She went to the emergency room where they gave her additional prednisone for 5 days, meloxicam, gabapentin and oxycodone. No longer taking gabapentin, did not like how it made her feel. Did not take the cyclobenzaprine. After 2 doses she states it made her feel sick to her stomach. She has tried topical heat, ice, patches all without improvement. Status post lumbar surgery 09/2016. After this her pain had improved until 1 month ago. Prior to surgery her pain was on the left, now she is suffering with right-sided pain Endorses numbness tingling down the right leg to the foot. States her foot feels numb. She has been doing guided home exercise program without improvement of her symptoms. She is scheduled to start physical therapy next week Denies recent imaging or MRI. No x-ray was done at the walk-in or the emergency room. Denies red flag symptoms including new loss bowel, bladder or saddle anesthesia Pain today is rated as a 10/10, constant throughout the day and night. Pain is worse with movement, position changes, standing, sitting In terms of muscle damage condition is described as hot, burning, stabbing, sharp, tingling, numb, pins and needles Pain is negatively impacting patient's enjoyment of life, general activity, mood, normal work, recreational activities, relationships with people, sleep and walking Denies current use of anticoagulants Denies implantable devices, pacemaker or defibrillator Denies current use of nicotine, tobacco, alcohol or illicit substances [facility] Medical History Abnormal uterine bleeding (AUB) Upper back pain Obesity Tired Difficulty sleeping Breast screening COVID-19 Exacerbation of asthma Screening for cervical cancer Physical exam Low hemoglobin Elevated liver enzymes Uterine fibroids affecting Uterine fibroid Acute sinusitis Fatigue UTI (urinary tract infection) Snores Fatty liver Neck pain Abdominal pain Cellulitis Leukocytosis Rash and other nonspecific skin eruption Chest pressure Palpitations Anxiety with flying Chest wall tenderness Lateral epicondylitis of right elbow Medial epicondylitis of right elbow Medial epicondylitis Lateral epicondylitis Bilateral hand numbness Right wrist pain Chest pain due to psychological stress Screening for breast cancer Encounter for routine adult physical exam with abnormal findings Infertility, female Cervical radiculopathy HTN (hypertension) Surgical History Hx of LASIK History of tonsillectomy and adenoidectomy History of lumbar surgery H/O right knee surgery Family History Father Hearing loss Mother PCOS (polycystic ovarian syndrome) Mental health disorder Maternal Grandfather Diabetes mellitus Maternal Grandmother Diabetes mellitus Paternal Grandfather Diabetes mellitus Paternal Grandmother Diabetes mellitus Cancer Brother No problems noted. Brother No problems noted. Sister No problems noted. Paternal Uncle Multiple sclerosis Social History Household Members: Spouse Housing: Apartment Alcohol intake: former Patient Tobacco Use Status: Never used Tobacco e-Cigarette/Vaping Use: Never Used Second Hand Smoke Exposure: No service: No Current occupational status: employed Current occupation: [employer] / right hand dominant Sexual orientation: Straight/Heterosexual Gender identity: Female Cognitive needs: No Hearing needs: No Vision needs: Yes (glasses) Review of Systems Const All systems reviewed & are unremarkable except as noted in HPI and below Physical Exam Vital Signs: Last Vital Signs Pulse 100 06/20/24 09:18 BP 134/87 06/20/24 09:18 Pulse Ox 97 06/20/24 09:18 Oxygen Delivery Method Room Air 06/20/24 09:18 BMI result Body Mass Index 42.8 General: awake, alert, oriented. Answers questions appropriately. Fully engaged in examination. Skin: warm, dry, intact HEENT: Normocephalic. Hearing intact. Cardiac: External chest normal in appearance. Respiratory: No cough, audible wheezing or stridor. Abdomen: without gross distension. MS: No obvious swelling or deformities. Able to transition from sit to stand unassisted. Neurological: Oriented to person, place, time and situation. Thought process intact. Antalgic gait. Psychiatric: Appropriate mood and affect. Good judgment and insight. Results Reviewed Results Reviewed: 05/16/24 MR SPINE LUMBAR w + wo CONTRAST FINDINGS: Normal lumbar alignment is demonstrated. Vertebral heights are well maintained. Bone marrow signal is within normal limits, and no suspicious osseous lesion is identified. Conus medullaris is unremarkable. No area of abnormal enhancement is identified. Paraspinal soft tissues and visualized portions of the abdomen and pelvis are unremarkable. At L1-2 there is no significant disc herniation or protrusion. No central canal or neural foraminal stenosis is demonstrated. At L2-3 there is no significant disc herniation or protrusion. No central canal or neural foraminal stenosis is demonstrated. At L3-4 concentric disc bulge with mild canal narrowing and moderate right and zmuk-le-ufwznrok left foraminal narrowing. At L4-5 concentric disc bulge with ktch-dg-mpzwuiww canal narrowing and ejzi-cm-bbiltdyu bilateral foraminal narrowing. At L5-S1 concentric disc bulge with mild canal narrowing and moderate bilateral foraminal narrowing. IMPRESSION: 1.Aeof-mi-kgbqifuc multilevel degenerative disc disease with loss of disc height and disc desiccation seen diffusely throughout the lumbar spine. 2.Vertebral heights are preserved. No malalignments. 3.No high-grade or limiting canal stenosis or disc herniation. 4.No limiting foraminal stenosis at lumbar levels, at L3-4, moderate right foraminal narrowing, at L5-S1, moderate bilateral foraminal narrowing. 5.At remaining levels, canal and foraminal narrowing are mild/lufs-hd-ukcfdxmo. 6.No STIR signal abnormality to suggest bone marrow edema, soft tissue or ligamentous injury. Assessment & Plan Assessment & Plan (1) Lumbar radiculopathy: Code(s): M54.16 - Radiculopathy, lumbar region Category: Medical (2) Paresthesia of right lower extremity: Code(s): R20.2 - Paresthesia of skin Category: Medical (3) Post laminectomy syndrome: Code(s): M96.1 - Postlaminectomy syndrome, not elsewhere classified Category: Medical Plan Patient presents back to the office today for follow-up, one-week status post right L5-S1 transforaminal epidural steroid injection She reports 20% improvement in symptoms, mainly the burning down her leg. Overall pain persists. Work and school notes provided Will increase Lyrica to 100 mg p.o. b.i.d. New prescription for baclofen 5 mg p.o. 3 times daily as needed. Discontinue methocarbamol use prior to taking this medication Continue with physical therapy, new order placed today. Discussed options today for treatment with [facility]. She was given informational pamphlet for review. If no improvement in symptoms over the next couple of weeks follow up with spine center. If Spine Center to remains no surgical intervention warranted consider [facility] trial/implant. All questions and concerns were answered, patient agrees to this plan. Follow-up in 2 months, sooner if needed Orders: Orders PT Evaluation and Treatment Today M54.16 - Radiculopathy, lumbar region, M54.9 - Dorsalgia, unspecified Medications: New baclofen discontinue use of methocarbamol prior to starting this medication 5 mg PO BID PRN 60 tabs 1RF muscle spasm Changed From pregabalin 50 mg PO TID 90 caps 0RF To pregabalin 100 mg PO BID 60 caps 3RF Discontinued methocarbamol Discontinue use of Cyclobenzaprine No driving while taking this medication. Do no take with alcohol or other [employer] Depressants Discontinued Reason: Doctor's Order 500 mg PO TID PRN 90 tabs 1RF muscle spasm Coding Level of Care Code Est Pt Level 3 (74166) Complex EM visit Add On G2211 Diagnoses Lumbar radiculopathy M54.16 Paresthesia of right lower extremity R20.2 Post laminectomy syndrome M96.1
[2024-06-20 09:18] VITALS: BP 134/87; PULSE 100; O2SAT 97; BMI 42.8
--- OUTSIDE RECORDS SUMMARY | 2024-06-20 09:55 | XMS_ITS | Clinical Summary ---
Author Organization [facility] it Address [address] [place] [address] Care Team Providers Care Contact Lens Lathe Operator Name Role Phone Hortencia Tucker MD Primary Care Provider [phone] Surgical History Surgery Date Site/Laterality Comments KNEE [...] drink = 0.6 oz pur e alcohol) Comments Unknown Sex and Gender Information Value Date Recorded Sex Assigned at Not on file Legal Sex Female 10:43 AM EST Gender Identity Not on file Sexual Orientation [...] patient's age to complete this topic Meningococcal B Vacine Aged Out No lo nger eligible based on patient's age to complete [...] age to complete this topic Care Teams Contact Lens Lathe Operator Relationship Specialty Start Date End Date Hortencia Tucker MD PCP - General Internal Medicine 03/23/18
--- OUTSIDE RECORDS SUMMARY | 2024-06-20 09:55 | XMS_ITS | Clinical Summary ---
Author Organization [employer] Address [address] [place] [address] Care Team Providers Care Drafter Electromechanical Name Role Phone Unavailable Primary Care Provider [...]
--- OUTSIDE RECORDS SUMMARY | 2024-06-20 09:55 | XMS_ITS | Encounter Summary ---
Author Organization [facility] Address [address] [place] [address] Care Team Providers Care Inspector Structural Bonding Name Role Phone Unavailable Primary Care Provider [...]
== END 2024-06-20 09:54 | disposition home or self-care (01) ==
PROVIDERS: PCP Nurse Practitioner Family; Visit Provider Registered Nurse Emergency
DX: M54.16 Radiculopathy, lumbar region (principal); R20.2 Paresthesia of skin; M96.1 Postlaminectomy syndrome, not elsewhere classified
CPT/HCPCS: 99213

== ENCOUNTER 2024-09-25 11:51 | Outpatient (REF) | payer OTHER, SELFPAY ==
--- OUTSIDE RECORDS SUMMARY | 2024-09-25 13:03 | XMS_ITS | Encounter Summary ---
Author Organization [employer] [facility] Address [address] [place] [address] Care Team Providers Care Product Evangelist Name Role Phone Unavailable Primary Care Provider Unavailabl e Encounter Details Date Type Department Care Team (Latest Contact Info) Description 08/19/2020 Abstract [facility] CONVERSIONS Dental, Provider, DDS Social History Tobacco [...]
--- OUTSIDE RECORDS SUMMARY | 2024-09-25 13:03 | XMS_ITS | Clinical Summary ---
Author Organization [facility] Address [address] [place] [address] Phone Care Team Providers Care Ground Transportation Operator Name Role Phone Ishmael Leyva NP Primary Care Provider Allergies Active Allergy Reactions Criticality Noted Date Comments Oxycodone-Acetaminophen 12/18/2012 Medications albuterol HFA (PROAIR HFA ; PROVENTIL HFA ; VENTOLIN HFA) 90 mcg/actuation inhaler INHALE 1 TO 2 PUFFS EVERY 4 TO 6 HOURS NEEDED. Active beclomethasone dipropionate (QVAR REDIHALER) 80 mcg/actuation HFA aerosol breath activated inhaler Inhale 2 Puffs into the lungs 2 times daily. - Inhalation Active pregabalin (LYRICA) 50 mg capsule Take 1 capsule (50 mg total) by mouth. 5 Active methocarbamoL (ROBAXIN) 500 mg tablet 5 Active lisinopril-hydroC HLOROthiazide (PRINZIDE,ZESTORE TIC) 20-12.5 mg per tablet Take 1 tablet by mouth 1 (one) time each day. 4 Active traMADoL (ULTRAM) 50 mg tablet Take 1-2 tablets (50-100 mg total) by mouth every 6 (six) hours if needed for severe pain for up to 40 doses. Max Daily Amount: 400 mg 40 tablet 5 Active Active Problems Problem Noted Date Diagnosed Date Neck pain, chronic 07/24/2024 Assessment & Plan (07/24/2024 1:05 PM EDT): While patient was here she was describing electrical pulse sensation/aching in the arms and legs, takes Lyrica but symptoms worse if she skips Lyrica 1 day. With more questioning she does report >10-year history of neck pain that she would rate 5- 8/10. Worse in the last 3 years. When she wakes up in the morning both arms can be numb, she notes she is dropping things more frequently, symptoms worse at night. She has tried acupuncture and PT in the past for tendinitis in the upper extremities, had injections at the elbows and wrists 1 year ago which helped. No PT for the neck pain. She states she had an EMG that was negative for carpal tunnel syndrome. She remembers years ago getting an x-ray of her neck and someone telling her she has arthritis in her neck. She is also been diagnosed with fibromyalgia in the past. I put in an order for cervical spine x-ray at [facility], gave her a prescription for physical therapy. We talked about other conservative treatment options. Ultimately if she is not seeing an improvement with PT, we should get C-spine MRI to rule out stenosis or disc herniation. All questions answered, I asked her to call with any worsening symptoms, questions or concerns. Radiculopathy, lumbar region 07/06/2024 Assessment & Plan (07/24/2024 1:08 PM EDT): Patient is 12 days s/p right L5-S1 minimally invasive discectomy. Initially after surgery she called the office describing daily headaches, that seems to be improving, now at night she will have headache, occasionally during the day, mild. She denies any fevers, wound drainage, sweats chills. She still has a pulling sensation in the right buttock and posterior thigh, worse if she is reaching across her body with the left arm. She now would rate her right leg pain 5/10. Patient is seeing improvement in her right leg symptoms postop, she should continue to note improvement with time as things heal. All postop questions answered. She leaves in another week for [employer], her wound is well-healed, she will not have to do any heavy lifting. She is aware not to submerge the incision underwater like a pool or ocean. I asked her to follow-up in the office if she has persistent leg symptoms in a month. Assessment & Plan (07/06/2024 5:00 PM EST): Patient is s/p left L4-5 MIS discectomy 10-01-16 and did well for quite some time. She reports new pain in the right buttock down the posterior thigh to the knee, down the lateral calf, burning in the lateral calf and ankle with tingling in tightness . She gets a constant pinching in the buttock. Symptoms are worse with twisting, pain is worse at night. She cannot drive, cannot sit for long, after a couple minutes she starts getting the pinching in the buttock, within 10 minutes pressure in the entire leg. Symptoms started a couple months back, she remembers bending over to wash her face, when she stood up had the pinching in the buttock went to urgent care was given oral steroids and muscle relaxer which helped somewhat. Then she had a busy day April 20, 2024, started experiencing severe pain down the right leg and numbness in the first toe. The next day she went to the ED, was given more steroids, went back 3 times to the ED for severe pain, had been given tramadol and other meds including muscle relaxers. She rates her daytime pain 7/10, nighttime pain 8-9/10. Prior to her right L5-S1 TFE at the beginning of this month, the pain was a 10/10. She has been in PT without improvement. No left leg sxs, no B/B incontinence. She does not experience much axial back pain, states mostly is leg pain. No back pain prior to this flare up 3-4 months ago. She had a L/S MRI with and without contrast 05-16-24 [facility] that shows a right L5-S1 lateral disc herniation causing some foraminal stenosis. Both the L4-5 and L5-S1 discs have some dessication and diffuse disc bulging / DDD with modic changes. I reviewed the images on the computer with the pt and Dr. Pritchard looked at them as well while pt was here. Ms. Nassar has right leg pain with right L5-S1 disc herniation> L4-[address] Pritchard offered patient right L5-S1 minimally invasive discectomy to see if it can help with her right leg pain. We discussed the surgery, risks and benefits in detail, including but not limited to need for general anesthesia, risk of damage to a nerve root causing numbness or weakness, spinal fluid leak, potential for no improvement in symptoms postop, hematoma, infection. Hibiclens body wash and instructions given to patient. She is aware not to take any NSAIDs, fish oil 1 week prior to surgery, she is not on any blood thinners, no history of diabetes, [place] or stroke. All questions answered. Patient states her pain is still severe, limiting her daily activities and she cannot tolerate it. Wants to proceed with surgery. Elevated blood pressure read ing without diagnosis of hypertension 04/24/2018 Obesity (BMI 35.0-39.9 without comorbidity) 01/08 Allergic rhinitis 09/13/2016 Asthma 11/24/2015 Ovarian cyst 03/25/2015 Esophageal reflux 01/20/2015 Fatty liver 01/20/2015 Internal hemorrhoids 12/11/2014 Abnormal transaminases 09/02/2014 Atopic dermatitis 08/10/2013 Encounters Date Type Department Care Team Description 08/10/2024 11:30 AM EDT - 08/10/2024 11:59 PM EDT Hospital Encounter [facility] [address] [place] [address] Neck pain, chronic Discharge Disposition: Home or Self Care 07/24/2024 10:15 AM EDT Office Visit Neurosurgery [facility] [address] [phone] Jenny Woods PA Radiculopathy, lumbar region (Primary Dx); Neck pain, chronic 07/16/2024 Telephone Neurosurgery [facility] [address] [phone] Abi Galeana MA 07/12/2024 11:42 AM EST Anesthesia Event [facility] Main OR [address] [place] [address] Daquan Winston MD Sobo, Kathleen, CRNA 07/12/2024 11:30 AM EST - 07/12/2024 1:[address] [facility] Main OR [address] [place] [phone] Fanny Pritchard MD Right L5-S1 microlumbar discectomy [01241 (CPT??)] 07/12/2024 9:59 AM EST - 07/12/2024 4:07 PM EST Hospital Encounter [facility] Main OR [address] [place] [phone] Fanny Pritchard MD Discharge Disposition: Home or Self Care 07/12/2024 7:25 AM EST - 07/12/2024 11:59 PM EST Hospital Encounter [facility] [address] [place] [phone] Pain Discharge Disposition: Home or Self Care 07/06/2024 1:00 PM EST Consult [facility]surgery [facility] [address] [place] [phone] Jenny Woods PA Radiculopathy, lumbar region from Last 3 Months Immunizations Name Administration Dates Next Due Tdap Tetanus diptheria acell ular pertussis (Boostrix; Adacel) 7yo and older 02/23/2013 Surgical History Surgery Date Site/Laterality Comments KNEE SURGERY 05/09/2009 - 05/08/2010 Right arthroscopy OTHER SURGICAL HISTORY vaginal surgery EYE SURGERY laser surgery for eye pressure TONSILLECTOMY w/adenoidectomy BACK SURGERY 10/01/2016 Left Left L4-5 Minimally Invasive Diskectomy - BACK SURGERY 07/12/2024 right [id number], Dr. Pritchard Medical History Medical History Date Comments Abnormal transaminases 09/02/2014 Allergic rhinitis 09/13/2016 Asthma 11/24/2015 Atopic dermatitis 08/10/2013 Esophageal reflux 01/20/2015 Fatty liver 01/20/2015 Internal hemorrhoids 12/11/2014 Obesity (BMI 35.0-39.9 without comorbidity) 02/01 Ovarian cyst 03/25/2015 Social History Tobacco Use Types Packs/Day Years Used Date Smoking Tobacco: Never Smokeless Tobacco: Never Tobacco Cessation:Counseling Given: Not Answered Alcohol Use Standard Drinks/Week Comments Yes 0 (1 standard drink = 0.6 oz pur e alcohol) Interpersonal Safety Answer Date Record ed Physical Abuse 07/12/2024 Verbal Abuse 07/12/2024 Comments No Sex and Gender Information Value Date Recorded Sex Assigned at Female 07/12/2024 9:58 AM EST Legal Sex Female 10:43 AM EST Gender Identity Female 07/12/2024 9:58 AM EST Sexual Orientation Straight 07/12/2024 9: 58 AM EST Obstetrics History Last Filed Vital Signs Vital Sign Reading Time Taken Comments Blood Pressure 123/84 07/12/2024 2:55 PM EST Pulse 100 07/12/2024 2:55 PM EST Temperature 37 ??C (98.6 ??F) 07/12/2024 3:01 PM EST Respiratory Rate 16 07/12/2024 2:55 PM EST Oxygen Saturation 93% 07/12/2024 2:55 PM EST Inhaled Oxygen Concentration - - Weight 122 kg (270 lb) 07/24/2024 10:02 AM EDT Height 167.6 cm (5' 5.98 ) 07/24/2024 10:02 AM E DT Body Mass Index 43.61 07/24/2024 10:02 AM EDT Plan of Treatment Health Maintenance Due Date Last Done Comments Breast Cancer Screening 1980 Hepatitis B Vaccines (1 of 3 - 19+ 3-dose series) 01/24/1999 Pneumococcal Vaccine: Pediat rics (0 to 5 Years) and At-Risk Patients (6 to 64 Years) (1 of 2 - PCV) 01/24/1999 Cervical Cancer Screening: P ap Smear 01/24/2001 DTaP,Tdap,and Td Vaccines (2 - Td or Tdap) 02/23/2023 02/23/2013 COVID-19 Vaccine ( - 2023-2 5 season) 2024 Cholesterol Screening (Lipid Panel) 07/03/2024 Depression Screening 07/03/2024 HIV Screening 07/03/2024 Hepatitis C Screening 07/03/2024 Social Influencers of Health Screening 07/03/2024 Influenza Vaccine (Season Ended) 2025 HIB Vaccines Aged Out No longer eligi [...] age to complete this topic Meningococcal B Vaccine Aged Out No l onger eligible based on patient's age to complete this topic RSV Immunization Patients Un alla 20 months Aged Out No longer eligible b ased on patient's age to complete this topic Varicella Vaccines Aged Out No longer eligible based on patient's age to complete this topic Medical Devices Implanted Type Area Radio Commentator Device Identifier Shelf Expiration Date Model / Serial / Lot Powder Surg[employer] Absorb Gel - Sna - [id number] Implanted:Qty: 1 on 07/12/2024 by Fanny Pritchard MD at [facility] [employer] Right: Spine Lumbar [employer] 04/16/2026 1978 / NA / [id number] Description:MIXED WITH 10,00 0UNITS OF TRHOMBIN Procedures Procedure Name Priority Date/Time Associated Diagnosis Comments XR CERVICAL SPINE 6+ VIEWS Routine 08/10/2024 11:48 AM EDT Neck pain, chronic XR SPINE 1 VIEW Routine 07/12/2024 1:22 PM EST Pain TH AN ENDOTRACHEAL(NO CHARGE) Routine 07/12/2024 12:03 PM EST SD THOMAS W DECMPR NVR ROOT EXC HIVD 1 INTERSPACE 07/12/2024 11:46 AM EST Radiculopathy, lumbar region Case Notes C-arm, microscope, chest rolls, metrix tubes, anoop table from Last 3 Months Results * XR Cervical Spine 6+ Views (08/10/2024 11:48 AM EDT) Anatomical Region Laterality Modality Spine, C-spine Radiographic Eliana ging 08/10/2024 11:5 8 AM EDT Impressions 08/10/2024 12:04 PM EDT No acute abnormality. Reversal of expected lordosis. No pathologic change in alignment with flexion or extension. Mild to moderate bony foraminal narrowing in the right at C5/C6. The cervicothoracic junction region is mostly obscured. -------- FINAL REPORT -------- Dictated By: Vincent Minaya Dictated Date: 08/10/2024 11:58 ET Assigned Physician: Vincent Minaya Reviewed and Electronically Signed By: Vincent Minaya Signed Date: 08/10/2024 12:04 ET Workstation ID: [id number] Transcribed By: Self Edit Transcribed Date: 08/10/2024 11:58 ET Narrative 08/10/2024 12:04 PM EDT EXAMINATION: CERVICAL SPINE CLINICAL INFORMATION: Neck pain. Bilateral arm pain. No trauma COMPARISON: None. TECHNIQUE: Lateral views of the cervical spine in the neutral position with and without weights. Lateral views in neutral, flexion and extension. Both oblique views. Frontal view. 2. Attempted open mouth views. FINDINGS: No prevertebral soft tissue swelling. The anatomy inferior to C6 is obscured in the lateral projections. Reversal of the expected lordosis in neutral position. No pathologic change in alignment with flexion or extension. The range of motion appears appropriate. There is no acute fracture. No focal lesion. No loss of volume. There is mild narrowing of the C5/C6 disc. There is uyee-ka-qjonzjfo bony foraminal narrowing on the right at C5/C6 predominantly related to uncovertebral joint spurring. There is prominence of the anterior arch of C1 which is likely a normal variant. Procedure Note Vincent Minaya MD - 08/10/2024 EXAMINATION: CERVICAL SPINE CLINICAL INFORMATION: Neck pain. Bilateral arm pain. No trauma COMPARISON: None. TECHNIQUE: Lateral views of the cervical spine in the neutral position with andwithout weights. Lateral views in neutral, flexion and extension. Bothoblique views. Frontal view. 2. Attempted open mouth views. FINDINGS: No prevertebral soft tissue swelling. The anatomy inferior to C6 isobscured in the lateral projections. Reversal of the expected lordosis in neutral position. No pathologic change in alignment with flexion or extension. The range ofmotion appears appropriate. There is no acute fracture. No focal lesion. No loss of volume. There ismild narrowing of the C5/C6 disc. There is rwzc-hv-wuouekiu bony foraminal narrowing on the right at C5/H0zezxjvdgobzpb related to uncovertebral joint spurring. There is prominence of the anterior arch of C1 which is likely a normalvariant. IMPRESSION: No acute abnormality. Reversal of expected lordosis. No pathologic changein alignment with flexion or extension. Mild to moderate bony foraminal narrowing in the right at C5/C6. The cervicothoracic junction region is mostly obscured. -------- FINAL REPORT -------- Dictated By: Vincent Minaya Dictated Date: 08/10/2024 11:58 ET Assigned Physician: Vincent Minaya Reviewed and Electronically Signed By: Vincent Minaya Signed Date: 08/10/2024 12:04 ET Workstation ID: [id number] Transcribed By: Self Edit Transcribed Date: 08/10/2024 11:58 ET us Jenny MEDRANO IMG XR PROCEDURES Final Re sult * XR Spine 1 View (07/12/2024 1:22 PM EST) Anatomical Region Laterality Modality Spine Radio Fluoroscop y 07/13/2024 9:04 AM EST Impressions 07/13/2024 9:05 AM EST A metallic probe projects posterior to the L5-S1 interspace. Code 23662 The dose-area product for this procedure was 489.37 uGy*m2. PQRI CPT II G9500 -------- FINAL REPORT -------- Dictated By: Drew Breen Dictated Date: 07/13/2024 09:04 ET Assigned Physician: Drew Breen Reviewed and Electronically Signed By: Drew Breen Signed Date: 07/13/2024 09:05 ET Workstation ID: [id number] Transcribed By: Self Edit Transcribed Date: 07/13/2024 09:04 ET Narrative 07/13/2024 9:05 AM EST HISTORY: The patient is a 44-year-old female undergoing lumbar spine surgery. FINDINGS: 2 fluoroscopic spot radiographs of the lower lumbar spine obtained in the operating room are submitted. Both images demonstrate a metallic probe projecting posterior to the L5-S1 interspace. The alignment of the included bony structures is anatomic. No fracture is seen. Procedure Note Drew Breen MD - 07/13/2024 HISTORY: The patient is a 44-year-old female undergoing lumbar spinesurgery. FINDINGS: 2 fluoroscopic spot radiographs of the lower lumbar spineobtained in the operating room are submitted. Both images demonstrate ametallic probe projecting posterior to the L5-S1 interspace. The alignmentof the included bony structures is anatomic. No fracture is seen. IMPRESSION: A metallic probe projects posterior to the L5-S1 interspace. Code 99891 The dose-area product for this procedure was 489.37 uGy*m2. PQRI CPT II G9500 -------- FINAL REPORT -------- Dictated By: Drew Breen Dictated Date: 07/13/2024 09:04 ET Assigned Physician: Drew Breen Reviewed and Electronically Signed By: Drew Breen Signed Date: 07/13/2024 09:05 ET Workstation ID: [id number] Transcribed By: Self Edit Transcribed Date: 07/13/2024 09:04 ET us Fanny Pritchard MD IMG XR PROCEDURES Final Result * TH AN ENDOTRACHEAL(NO CHARGE) (07/12/2024 12:03 PM EST) Keyla Mccain CRNA - 07/12/2024 12:03 PM EST Keyla Treviño CRNA ? 07/12/2024 12:49 PM Other Attempts Unsuccessful attempted airways: endotracheal tube Unsuccessful attempted endotracheal techniques: video laryngoscopy General Information and Staff Patient location during procedure: OR Performed by: Keyla Treviño CRNA Authorized by: Daquan Winston MD ?? Intubation Urgency: elective Final Airway Details Successful airway: ETT Cuffed: yes Successful intubation technique: video laryngoscopy Facilitating devices/methods: intubating stylet Endotracheal tube insertion site: oral Blade: Constantin Blade size: #3 ETT size (mm): 7.5 Placement verified by: chest auscultation and capnometry Measured from: teeth ETT to teeth (cm): 20 Number of attempts at approach: 2 Ventilation between attempts: BVM Number of other approaches attempted: 1Final airway type: endotracheal airway Indications and Patient Condition Indications for airway management: anesthesia Spontaneous Ventilation: absent Preoxygenated: yes Soft Tissue Damage: No Dentition Unchanged: Yes Patient position: sniffing MILS maintained throughout Mask difficulty assessment: 1 - vent by mask us Daquan Winston MD ANESTHESIA ORDERABLES Edited R esult - Final from Last 3 Months Insurance [employer] Advance Directives * Full Code - Default (Latest Code Status on File) Date Activated Date Inactivated Comments 07/12/2024 10:15 AM 07/12/2024 6:07 PM This is order is used when code status has not been discussed with the patient, or code status is otherwise unknown/unconfirmed To update the patient's code status, place a code status order. Do not modify or discontinue any currently active code status orders. * Full Code - Default Date Activated Date Inactivated Comments 07/12/2024 10:15 AM 07/12/2024 10:15 AM This is orde r is used when code status has not been discussed with the patient, or code status is otherwise unknown/unconfirmed To update the patient's code status, place a code status order. Do not modify or discontinue any currently active code status orders. Care Teams Ground Transportation Operator Relationship Specialty Start Date End Date Ishmael Leyva NP [address] [place], [place] PCP - General Family Medicine 07/03/24
--- OUTSIDE RECORDS SUMMARY | 2024-09-25 13:03 | XMS_ITS | Clinical Summary ---
Author Organization [employer] Address [address] [facility] [address] [place] [address] Care Team Providers Care Front Desk Admin Name Role Phone Unavailable Primary Care Provider [...]
[2024-09-25 13:16] LABS: MANUAL DIFF FLAG NO
[2024-09-25 13:21] LABS: Basophils Percent Auto 0.5 % (0-2); Eosinophils Absolute Auto 0.1 X10*3/uL (0.0-0.4); Eosinophils Percent Auto 0.9 % (0-4); Hematocrit 36.2 % (37.0-47.0); Hemoglobin 11.5 g/dl (12.0-16.0); Imm Gran Abs Auto 0.03 X10*3/uL (0.00-0.03); Imm Gran Pct Auto 0.4 % (0.0-0.4); Lymphocytes Absolute Auto 2.6 X10*3/uL (1.2-4.9); Lymphocytes Percent Auto 32.1 % (20-40); Mean Corpuscular HGB Conc 31.8 g/dl (31.0-35.0); Mean Corpuscular Hemoglobin 25.4 pg (27.0-33.0); Mean Corpuscular Volume 80.1 fL (80.0-98.0); Mean Platelet Volume 11.3 fL (9.4-12.3); Monocytes Absolute Auto 0.6 X10*3/uL (0.1-1.2); Monocytes Percent Auto 6.8 % (2-11); Neutrophils Absolute Auto 4.9 x10*3/uL (2.0-8.3); Neutrophils Percent Auto 59.3 % (45-73); Platelet Count 356 X10*3/uL (160-400); Red Blood Count 4.52 X10*6/uL (4.20-5.50); Red Cell Distribution Width 15.5 % (11.0-16.0); White Blood Count 8.2 X10*3/uL (4.8-10.8)
[2024-09-25 14:02] LABS: Alanine Aminotransferase 42 U/L (0-31); Albumin Level 3.9 g/dL (3.5-5.0); Alkaline Phosphatase 79 U/L (39-117); Anion Gap 12 (12-20); Aspartate Amino Transferase 43 U/L (5-31); Bilirubin Total 0.3 mg/dL (0.0-1.0); Blood Urea Nitrogen 8 mg/dL (9-16); Calcium 9.2 mg/dL (8.4-10.2); Carbon Dioxide 25 mmol/L (22-29); Chloride 105 mmol/L (96-108); Cholesterol 174 mg/dL (<200); Estimated Glomerular Filt Rate > 60; Glucose Fasting 90 mg/dL (60-99); HDL Cholesterol 44 mg/dL (>40); LDL Cholesterol Calculated 103 mg/dL (<100); Potassium 3.5 mmol/L (3.3-5.1); Sodium 138 mmol/L (135-145); Total Protein 7.8 g/dL (6.5-8.0); Triglycerides 139 mg/dL (<150)
[2024-09-25 14:06] LABS: TSH reflex Free T4 1.03 uIU/mL (0.32-4.0)
== END 2024-09-25 11:52 | disposition home or self-care (01) ==
LOC: HO.HMGCLDS 11:51
PROVIDERS: PCP Nurse Practitioner Family; Visit Provider Nurse Practitioner Family
DX: Z00.01 Encounter for general adult medical examination with abnormal findings (principal); Z12.39 Encounter for other screening for malignant neoplasm of breast
CPT/HCPCS: 36415; 80053; 80061; 84443; 85025

== ENCOUNTER 2024-09-26 13:42 | Outpatient (AMB) | payer OTHER, SELFPAY ==
--- NOTE | 2024-09-26 13:56 | A.OFFPC_ITS ---
Vital Signs 09/26/24 13:59 Height 5 ft 6 in Weight 260 lb BMI 42.0 BP 130/80 Blood Pressure Location Lt brachial Position Sitting Pulse 84 Pulse Source Pulse Oximeter Pulse Oximetry (%) 98 Oxygen Delivery Method Room Air Intake Visit Reasons: 4 month follow up Allergies oxycodone [From PERCOCET] Allergy (Mild, Verified 09/26/24 14:09) ITCHING Medication List - Last Reconciled 09/26/24 by BUTCH Lovett- acetaminophen (Tylenol Extra Strength) 1,000 mg PO Q6H PRN albuterol sulfate 90 mcg/actuation 2 puffs inhalation Q6H PRN 30 days NS albuterol sulfate 2.5 mg (3 mL) inhalation Q6H PRN blood pressure kit-extra large As directed buspirone 5 mg PO BID 30 days cholecalciferol (vitamin D3) 125 mcg PO DAILY diphenhydramine HCl (Benadryl) 25 mg PO TID PRN hydroxyzine HCl 10 mg PO Q6-8H PRN lisinopril-hydrochlorothiazide 20-12.5 mg 1 tab PO DAILY magnesium 400 mg PO BEDTIME methocarbamol 500 mg PO TID PRN pregabalin 50 mg PO BID semaglutide (Ozempic) 1 mg subcut QWEEK [thumb spica splint wear nightly and as much as possible throughout the day] [Updraft machine As directed] Tobacco use date assessed: 05/17/24 Dental Screening Dental Screen Date: 05/17/24 HPI 4 month follow up HPI Details Chief Complaint Patient reports development of lower back pinching and ongoing management after a right L5 to S1 discectomy. History of Present Illness The patient is a 44-year-old female presenting with follow-up concerns after her right L5 to S1 minimally invasive discectomy. Following the July 12 procedure, she experienced an initial improvement in symptoms; however, a new sensation of back pinching has since developed. Despite this, her radicular symptoms, involving pain in the right buttocks and thigh, have improved by approximately 70%. An MRI of the cervical spine is being considered by her neurosurgeon. Additionally, the patient is on a weight management plan utilizing a GLP-1 agonist, which is being overseen by an external physician due to her obesity. Her medical history includes mildly elevated liver enzymes associated with nonalcoholic fatty liver disease, stable thyroid levels, and stable yet slightly elevated cholesterol. She further reports frequent vaginal bleeding caused by uterine fibroids, currently managed by her certified wellness program coordinator. GERD: will start a low dose PPI, she will contact me if it does not help Social History - The patient is on a weight management regimen involving the use of a GLP-1 agonist. - She is undergoing obesity management w ith a goal of weight loss, which may positively influence her back condition. Health Maintenance - Ongoing weight management with GLP-1 a gonist therapy for obesity. - Monitoring of liver enzyme levels due to known nonalcoholic fatty liver disease. - Regular gynecological follow-up for ga jose fibroids. - Pending consideration of cervical spin e MRI. Review of Systems - Musculoskeletal: Reports pinching sens ation in the lower back, radicular symptom improvement by approximately 70%. - Neurological: Denies worsening radicul ar symptoms post-surgery. - Gastrointestinal: Reports elevated jemma er enzymes, underlining stable thyroid, and history of nonalcoholic fatty liver disease. - Reproductive: Reports frequent vaginal bleeding due to fibroids. Physical Exam General: Cooperative, healthy appearing, comfortable, no acute distress and well developed Orientation: Patient oriented x3 Limitations: No limitations Head: Normal to inspection Ears: Hearing grossly normal bilaterally Nose: Normal external nose present Face and sinus: Normal facial exam Eyes: Appearance normal, both eyes and all related structures Neck: Normal visual inspection and Yes full ROM Respiratory: Normal respiratory effort and able to speak in complete sentences. Clear to auscultation bilaterally Cardiovascular: Regular rate and rhythm. Normal S1 and S2 GI: Normal to inspection. Soft to palpation and nontender Skin: No rashes or lesions noted Neuro: Patient oriented x3 Extremities: Normal to inspection Results - Labs: Slight elevation in liver enzyme s. - Tests and Diagnostics: MRI pending con sideration for cervical spine evaluation. Plan For her post-surgical management, I will continue follow-up care with her neurosurgeon, given her improved radicular symptoms post-right L5 to S1 discectomy. The new lumbar pinching will necessitate further review, potentially with an MRI. The patient's obesity treatment includes ongoing GLP-1 agonist therapy to promote weight loss. Elevations in her liver enzymes align with her nonalcoholic fatty liver disease history, requiring further observation. She has stable thyroid and cholesterol levels, with improvements expected through weight reduction. She continues to see a certified wellness program coordinator for fibroid-related bleeding, and we will oversee her cervical spine evaluation with her neurosurgeon. Patient was informed and verbally consented to the use of an ambient scribe for clinic note documentation during this visit. Discussion Notes I discussed the management of her post-operative symptoms following the right L5 to S1 discectomy. Her neurosurgeon continues to monitor her progress, including a potential MRI for her cervical spine. We revisited her weight management strategy via GLP-1 agonist therapy, underscoring its significance given her obesity diagnosis and liver enzyme elevation. Addressing her fibroids, we acknowledged her ongoing care with the certified wellness program coordinator. There was a consensus on the necessity for continuous observational management of her stable thyroid levels and liver condition. We also clarified that continued weight reduction would potentially enhance her overall condition. Patient Instructions - Continue follow-up with your neurosurg iam concerning post-operative symptoms. - Take your prescribed GLP-1 agonist med ication as directed. - Keep up with your certified wellness program coordinator appoint ments for fibroid management. - Monitor liver function as advised. - Maintain a healthy diet and exercise r outine as appropriate for weight loss. - Return for any new or worsening sympto ms. PFSH Medical History Fatty liver Abnormal uterine bleeding (AUB) Upper back pain Obesity Tired Difficulty sleeping Breast screening COVID-19 Exacerbation of asthma Screening for cervical cancer Physical exam Low hemoglobin Elevated liver enzymes Uterine fibroids affecting Uterine fibroid Acute sinusitis Fatigue UTI (urinary tract infection) Snores Neck pain Abdominal pain Cellulitis Leukocytosis Rash and other nonspecific skin eruption Chest pressure Palpitations Anxiety with flying Chest wall tenderness Lateral epicondylitis of right elbow Medial epicondylitis of right elbow Medial epicondylitis Lateral epicondylitis Bilateral hand numbness Right wrist pain Chest pain due to psychological stress Screening for breast cancer Encounter for routine adult physical exam with abnormal findings Infertility, female Cervical radiculopathy HTN (hypertension) Surgical History Hx of LASIK History of tonsillectomy and adenoidectomy History of lumbar surgery H/O right knee surgery Family History Father Hearing loss Mother PCOS (polycystic ovarian syndrome) Mental health disorder Maternal Grandfather Diabetes mellitus Maternal Grandmother Diabetes mellitus Paternal Grandfather Diabetes mellitus Paternal Grandmother Diabetes mellitus Cancer Brother No problems noted. Brother No problems noted. Sister No problems noted. Paternal Uncle Multiple sclerosis Social History Household Members: Spouse Housing: Apartment Alcohol intake: former Patient Tobacco Use Status: Never used Tobacco e-Cigarette/Vaping Use: Never Used Second Hand Smoke Exposure: No service: No Current occupational status: employed Current occupation: [employer] / right hand dominant Sexual orientation: Straight/Heterosexual Gender identity: Female Cognitive needs: No Hearing needs: No Vision needs: Yes (glasses) Questionnaire Thrive Questionnaire Date Thrive assessed: 09/26/24 I am a: Patient What is your living situation today?: I have a steady place to live Within the past 12 months, did the food you bought not last and you didn't have the money to get more?: Often true Within the past 12 months, did you worry whether your food would run out before you got money to buy more?: Often true Do you have trouble paying for medicines?: Yes Do you have trouble getting transportation to medical appointments?: No Do you have trouble paying your heating and electricity bill?: Yes Do you have trouble taking care of your child, family member or friend?: Yes Do you have trouble with day-to-day activities such as bathing, preparing meals, shopping, managing finances, etc.?: Yes Are you currently unemployed and looking for a job?: No Are you interested in more education?: I choose not to answer this question Please select the resources that you would like help with: Food Currently or been in a relationship where the following occur: No concerns reported THRIVE Score: 3 ROULA-7 AMB Questionnaire ROULA-7 Date ROULA - 7 assessed: 05/17/24 Source: Developed by Drs. Houston Montero, Natalia Burkett, Amrik Burgos and colleagues, with an educational cynthia from [employer]. Physical exam (Primary Care) Vital Signs: Last Vital Signs Pulse 84 09/26/24 13:59 BP 130/80 09/26/24 13:59 Pulse Ox 98 09/26/24 13:59 Oxygen Delivery Method Room Air 09/26/24 13:59 BMI result Body Mass Index 42.0 Tobacco/Smoking Status: Tobacco use Status Tobacco use date assessed 05/17/24 09/26/24 13:57 Patient Tobacco Use Status Never used Tobacco 09/26/24 13:57 e-Cigarette/Vaping Use Never Used 09/26/24 13:57 Thrive Assessment: Date of Thrive Assessment Date Thrive assessed 05/14/24 09/26/24 13:57 Currently or been in a relationship where the following occur: No concerns reported Coding Level of Care Code Est Pt Level 3 (30513) Diagnoses GERD (gastroesophageal reflux disease) K21.9 Lumbar radiculopathy M54.16 Morbid obesity E66.01 Fatty liver K76.0 Assessment & Plan Assessment & Plan (1) GERD (gastroesophageal reflux disease): Code(s): K21.9 - Gastro-esophageal reflux disease without esophagitis Category: Medical Plan: . (2) Lumbar radiculopathy: Code(s): M54.16 - Radiculopathy, lumbar region Category: Medical (3) Morbid obesity: Code(s): E66.01 - Morbid (severe) obesity due to excess calories Category: Medical (4) Fatty liver: Code(s): K76.0 - Fatty (change of) liver, not elsewhere classified Category: Medical Plan . Orders: Referrals Gastroenterology Referral K21.9 - Gastro-esophageal reflux disease without esophagitis, Z12.11 - Encounter for screening for malignant neoplasm of colon Medications: New selenium sulfide 1% (Dandruff Shampoo (selenium sulfide)) massage into affected area; leave on for 10 mins ; rinse off thoroughly 1 appl topical DAILY 7 days 207 mL 0RF pantoprazole 20 mg PO DAILY 90 tabs 0RF
[2024-09-26 13:59] VITALS: BP 130/80; PULSE 84; O2SAT 98; BMI 42.0
--- OUTSIDE RECORDS SUMMARY | 2024-09-26 14:18 | XMS_ITS | Clinical Summary ---
Author Organization [email or web address] Address [address] [facility] [address] [place] [address] Care Team Providers Care Area Operations Director Name Role Phone Unavailable Primary Care Provider [...]
--- OUTSIDE RECORDS SUMMARY | 2024-09-26 14:18 | XMS_ITS | Clinical Summary ---
Author Organization [facility] Address [address] [place] [address] Phone Care Team Providers Care Painter And Body Work Name Role Phone Ishmael Leyva NP Primary [...] an order for cervical spine x-ray at [facility], gave her a prescription for physical therapy. [...] answered. She leaves in another week for [employer], her wound is well-healed, she will not [...] any blood thinners, no history of diabetes, OR or stroke. All questions answered. Patient states [...] - 08/10/2024 11:59 PM EDT Hospital Encounter [facility] [address] [place] [address] Neck pain, chronic Discharge Disposition: Home or Self Care 07/24/2024 10:15 AM EDT Office Visit Neurosurgery [facility] [address] [phone] Jenny Woods PA Radiculopathy, lumbar region (Primary Dx); Neck pain, chronic 07/16/2024 Telephone Neurosurgery [facility] [address] [phone] Abi Galeana MA 07/12/2024 11:42 AM EST Anesthesia Event [facility] [place] [address] [place] [phone] Daquan Winston MD Sobo, Kathleen, CRNA 07/12/2024 11:30 AM EST - 07/12/2024 1:30 PM EST Surgery [facility] OR [address] [place] [phone] Fanny Pritchard MD Right L5-S1 microlumbar discectomy [19588 (CPT??)] 07/12/2024 9:59 AM EST - 07/12/2024 4:07 PM EST Hospital Encounter [facility] [address] [place] [phone] Fanny Pritchard MD Discharge Disposition: Home or Self Care 07/12/2024 7:25 AM EST - 07/12/2024 11:59 PM EST Hospital Encounter [facility] [address] [place] [phone] Pain Discharge Disposition: Home or Self Care 07/06/2024 1:00 PM EST Consult [facility]surgery [facility] [address] [facility] [address] [place] [phone] Jenny Woods PA Radiculopathy, lumbar region from [...] Invasive Diskectomy - BACK SURGERY 07/12/2024 right L5-H1ysbxjxopka, Dr. Pritchard Medical History Medical History Date [...] this topic Medical Devices Implanted Type Area Salesforce Administrator Device Identifier Shelf Expiration Date Model / Serial / Lot Powder Surgifoam Absorb Gel - Sna - [id number] Implanted:Qty: 1 on 07/12/2024 by Fanny Pritchard MD at [facility] [employer] Right: Spine Lumbar [employer] 04/16/2026 1978 / NA / [id number] Description:MIXED WITH 10,00 0UNITS OF TRHOMBIN Procedures Procedure Name Priority Date/Time Associated Diagnosis Comments XR CERVICAL SPINE 6+ VIEWS Routine 08/10/2024 11:48 AM EDT Neck pain, chronic XR SPINE 1 VIEW Routine 07/12/2024 1:22 PM EST Pain TH AN ENDOTRACHEAL(NO CHARGE) Routine 07/12/2024 12:03 PM EST MO THOMAS W DECMPR NVR ROOT EXC HIVD [...] Signed Date: 08/10/2024 12:04 ET Workstation ID: [id number] Transcribed By: Self Edit Transcribed Date: 08/10/2024 [...] narrowing of the C5/C6 disc. There is btex-vb-gqauznez bony foraminal narrowing on the right at [...] narrowing of the C5/C6 disc. There is xudk-hq-zqrzjlsx bony foraminal narrowing on the right at C5/K8ywsywzyfawyur related to uncovertebral joint spurring. There is [...] Signed Date: 08/10/2024 12:04 ET Workstation ID: [id number] Transcribed By: Self Edit Transcribed Date: 08/10/2024 11:58 ET us Jenny MEDRANO IMG XR PROCEDURES Final Re sult * XR Spine 1 View (07/12/2024 1:22 PM EST) Anatomical Region Laterality Modality Spine Radio Fluoroscop y 07/13/2024 9:04 AM EST Impressions 07/13/2024 9:05 AM EST A metallic probe projects posterior to the L5-S1 interspace. Code 30839 The dose-area product for this procedure was 489.37 uGy*m2. PQRI CPT II G9500 -------- FINAL REPORT -------- Dictated By: Drew Breen Dictated Date: 07/13/2024 09:04 ET Assigned Physician: Drew Breen Reviewed and Electronically Signed By: Drew Breen Signed Date: 07/13/2024 09:05 ET Workstation ID: [id number] Transcribed By: Self Edit Transcribed Date: 07/13/2024 [...] projects posterior to the L5-S1 interspace. Code 05773 The dose-area product for this procedure was 489.37 uGy*m2. PQRI CPT II G9500 -------- FINAL REPORT -------- Dictated By: Drew Breen Dictated Date: 07/13/2024 09:04 ET Assigned Physician: Drew Breen Reviewed and Electronically Signed By: Drew Breen Signed Date: 07/13/2024 09:05 ET Workstation ID: [id number] Transcribed By: Self Edit Transcribed Date: 07/13/2024 [...] - Final from Last 3 Months Insurance [employer] [facility] Advance Directives * Full Code - Default [...] currently active code status orders. Care Teams Painter And Body Work Relationship Specialty Start Date End Date Ishmael Leyva NP [address] [place], [place] PCP - General Family Medicine 07/03/24
--- OUTSIDE RECORDS SUMMARY | 2024-09-26 14:18 | XMS_ITS | Encounter Summary ---
Author Organization [employer] [facility] Address [address] [facility] [address] [place] [address] Care Team Providers Care Hydrotechnical Specialist Name Role Phone Unavailable Primary Care Provider Unavailabl e Encounter Details Date Type Department Care Team (Latest Contact Info) Description 08/19/2020 Abstract [facility] CONVERSIONS Dental, Provider, DDS Social History [...]
== END 2024-09-26 16:28 | disposition home or self-care (01) ==
LOC: HO.HMCC 13:47
PROVIDERS: PCP Nurse Practitioner Family; Visit Provider Nurse Practitioner Family
DX: K21.9 Gastro-esophageal reflux disease without esophagitis (principal); E66.01 Morbid (severe) obesity due to excess calories; Z68.41 Body mass index [BMI] 40.0-44.9, adult; M54.16 Radiculopathy, lumbar region; K76.0 Fatty (change of) liver, not elsewhere classified

== ENCOUNTER → 2024-09-26 13:42 | Outpatient (BNVA) | payer OTHER, SELFPAY | PROVIDERS: PCP Nurse Practitioner Family; Visit Provider Nurse Practitioner Family | DX: Z13.89 Encounter for screening for other disorder (principal); M96.1 Postlaminectomy syndrome, not elsewhere classified; R20.2 Paresthesia of skin; M54.16 Radiculopathy, lumbar region; M79.7 Fibromyalgia; E66.01 Morbid (severe) obesity due to excess calories ==

== ENCOUNTER 2024-10-24 08:52 | Outpatient (AMB) | payer OTHER, SELFPAY ==
[2024-10-24 08:58] VITALS: BP 164/96; PULSE 96; RESP 16; O2SAT 96; BMI 40.3
--- NOTE | 2024-10-24 08:58 | MHC.OFFVIS ---
Vital Signs 10/24/24 08:58 Height 5 ft 6 in Weight 250 lb BMI 40.3 BP 164/96 H Blood Pressure Location Lt brachial Position Sitting Respiration 16 Pulse 96 Pulse Source Pulse Oximeter Pulse Oximetry (%) 96 Oxygen Delivery Method Room Air Intake Visit Reasons: Discuss repeat inj/DU 06/20/24 Criminal Analyst Required: No Accompanied by: Life Partner Allergies oxycodone (From PERCOCET) Allergy (Mild, Verified 10/24/24 09:02) ITCHING HPI Comments Details: The patient is a 44-year-old female presenting with post-surgical lumbar spine pain following a procedure in July at [facility]. The patient reports that her pain has been improving since the surgery but continues to experience significant discomfort primarily in her left leg. An MRI conducted in October showed a disc bulge making contact with the left L5 nerve root and mild stenosis at the L4-5 level. She describes the pain as burning with episodes of numbness, particularly noticeable during nighttime, affecting the left leg to the foot and side of the thigh. Following her MRI, her surgeon decided against repeat surgical intervention and instead recommended an epidural steroid injection. The patient experienced an increase in pain with Lyrica but now receives some symptomatic relief from gabapentin. - Onset: Chronic, post-surgical - Quality and Character: Burning, tightness - Primary Location: Left leg - Areas of Radiation: Lateral left thigh, calf, ankle and foot - Exacerbating Factors: Repositioning and nighttime - Relieving Factors: Gabapentin for nighttime symptoms - Interferes with: Activities involving lower extremity mobility and nighttime rest - Affect: Pain impacts nighttime comfort leading to disturbed sleep - Analgesia: Initially on Lyrica, which aggravated pain; currently on gabapentin providing some relief - Adverse Effects: No adverse effects currently from gabapentin noted - Activities of Daily Living: Pain interferes with sleep and lower extremity mobility - Aberrant Drug-Related Behaviors: No aberrant behaviors reported [facility]LY [facility] Medical History Fatty liver Abnormal uterine bleeding (AUB) Upper back pain Obesity Tired Difficulty sleeping Breast screening COVID-19 Exacerbation of asthma Screening for cervical cancer Physical exam Low hemoglobin Elevated liver enzymes Uterine fibroids affecting Uterine fibroid Acute sinusitis Fatigue UTI (urinary tract infection) Snores Neck pain Abdominal pain Cellulitis Leukocytosis Rash and other nonspecific skin eruption Chest pressure Palpitations Anxiety with flying Chest wall tenderness Lateral epicondylitis of right elbow Medial epicondylitis of right elbow Medial epicondylitis Lateral epicondylitis Bilateral hand numbness Right wrist pain Chest pain due to psychological stress Screening for breast cancer Encounter for routine adult physical exam with abnormal findings Infertility, female Cervical radiculopathy HTN (hypertension) Surgical History Hx of LASIK History of tonsillectomy and adenoidectomy History of lumbar surgery H/O right knee surgery Family History Father Hearing loss Mother PCOS (polycystic ovarian syndrome) Mental health disorder Maternal Grandfather Diabetes mellitus Maternal Grandmother Diabetes mellitus Paternal Grandfather Diabetes mellitus Paternal Grandmother Diabetes mellitus Cancer Brother No problems noted. Brother No problems noted. Sister No problems noted. Paternal Uncle Multiple sclerosis Social History Household Members: Spouse Housing: Apartment Alcohol intake: former Patient Tobacco Use Status: Never used Tobacco e-Cigarette/Vaping Use: Never Used Second Hand Smoke Exposure: No service: No Current occupational status: employed Current occupation: [employer] / right hand dominant Sexual orientation: Straight/Heterosexual Gender identity: Female Cognitive needs: No Hearing needs: No Vision needs: Yes (glasses) Review of Systems Const Details: - Musculoskeletal: Reports burning pain and tightness in left leg, numbness in left foot - Neurological: Denies tingling, reports numbness in lower extremity - General: Denies fever or systemic symptoms Physical Exam Vital Signs: Last Vital Signs Pulse 96 10/24/24 08:58 Resp 16 10/24/24 08:58 BP 164/96 H 10/24/24 08:58 Pulse Ox 96 10/24/24 08:58 Oxygen Delivery Method Room Air 10/24/24 08:58 BMI result Body Mass Index 40.3 General: awake, alert, oriented. Answers questions appropriately. Fully engaged in examination. Skin: warm, dry, intact HEENT: Normocephalic. Hearing intact. Cardiac: External chest normal in appearance. Respiratory: No cough, audible wheezing or stridor. Abdomen: without gross distension. MS: No obvious swelling or deformities. Able to transition from sit to stand unassisted. SLR positive on the left Negative footdrop, negative clonus Bilateral lower extremity strength 5/5 Neurological: Oriented to person, place, time and situation. Thought process intact. No gait abnormalities appreciated. Psychiatric: Appropriate mood and affect. Good judgment and insight. Results Reviewed Results Reviewed: Recent MRI viewed on patients phone: Disc bulge contacting the left L5 nerve, mild spinal canal stenosis at L4-5, mild foraminal stenosis bilaterally at L5-S1. (copy has been requested from [facility]) 05/16/24 MR SPINE LUMBAR w + wo CONTRAST FINDINGS: Normal lumbar alignment is demonstrated. Vertebral heights are well maintained. Bone marrow signal is within normal limits, and no suspicious osseous lesion is identified. Conus medullaris is unremarkable. No area of abnormal enhancement is identified. Paraspinal soft tissues and visualized portions of the abdomen and pelvis are unremarkable. At L1-2 there is no significant disc herniation or protrusion. No central canal or neural foraminal stenosis is demonstrated. At L2-3 there is no significant disc herniation or protrusion. No central canal or neural foraminal stenosis is demonstrated. At L3-4 concentric disc bulge with mild canal narrowing and moderate right and ttdl-be-rhjhkchz left foraminal narrowing. At L4-5 concentric disc bulge with srqk-qv-hymqsahu canal narrowing and xglz-fu-qhkyrcup bilateral foraminal narrowing. At L5-S1 concentric disc bulge with mild canal narrowing and moderate bilateral foraminal narrowing. IMPRESSION: 1.Dqfc-vp-ahkibhnq multilevel degenerative disc disease with loss of disc height and disc desiccation seen diffusely throughout the lumbar spine. 2.Vertebral heights are preserved. No malalignments. 3.No high-grade or limiting canal stenosis or disc herniation. 4.No limiting foraminal stenosis at lumbar levels, at L3-4, moderate right foraminal narrowing, at L5-S1, moderate bilateral foraminal narrowing. 5.At remaining levels, canal and foraminal narrowing are mild/nxgs-he-dssatutc. 6.No STIR signal abnormality to suggest bone marrow edema, soft tissue or ligamentous injury. Assessment & Plan Assessment & Plan (1) Lumbar radiculopathy: Code(s): M54.16 - Radiculopathy, lumbar region Category: Medical (2) Post laminectomy syndrome: Code(s): M96.1 - Postlaminectomy syndrome, not elsewhere classified Category: Medical (3) Lumbar degenerative disc disease: Code(s): M51.369 - Other intervertebral disc degeneration, lumbar region without mention of lumbar back pain or lower extremity pain Category: Medical Qualifiers: Disc-related pain type: discogenic back pain and lower extremity pain Qualified Code(s): M51.362 - Other intervertebral disc degeneration, lumbar region with discogenic back pain and lower extremity pain Plan I will arrange for an epidural steroid injection as recommended by the patient's surgeon. This decision is based on her MRI findings and continued pain symptoms aligning with lumbar nerve involvement. I will secure the necessary procedure reports and follow up to ensure accurate treatment. She will continue the current regimen of gabapentin to manage nighttime symptoms. The patient was informed about the risks and benefits of the proposed injection as a less invasive alternative to surgery, and the plan to adjust if needed following new information or changes in condition. During today's visit, I discussed with the patient the recommendation of proceeding with an epidural steroid injection as a step before considering additional surgical intervention, given the current MRI findings and predominant pain in the L5 distribution. We reviewed the potential risks and benefits of this approach, describing it as a less invasive option with pain relief potential and potentially avoiding surgical risks. I instructed the patient on the process for obtaining insurance approval and follow-up. We also discussed continuing gabapentin for symptomatic relief at night. The patient agreed with the current plan of care, including returning for review following the injection. Will schedule for fluoroscopy guided left L5-S1 transforaminal epidural steroid injection with local anesthetic. Patient was informed and verbally consented to the use of an ambient scribe for clinic note documentation during this visit. Patient Instructions: - Continue taking gabapentin as prescribed for pain relief - Await scheduling of epidural steroid injection after insurance approval - Follow up with our office if there are changes in symptoms or questions arise - Monitor pain levels and report any significant changes in symptoms Coding Level of Care Code Est Pt Level 3 (18876) Complex EM visit Add On G2211 Diagnoses Lumbar radiculopathy M54.16 Post laminectomy syndrome M96.1 Degeneration of intervertebral disc of lumbar region with discogenic back pain and lower extremity pain M51.362 Disc-related pain type: discogenic back pain and lower extremity pain
--- OUTSIDE RECORDS SUMMARY | 2024-10-24 09:26 | XMS_ITS | Clinical Summary ---
Author Organization [employer] Address [address] [facility] [address] [place] [address] Care Team Providers Care Sales Representative [employer] Name Role Phone Unavailable Primary Care Provider [...] Date Last Done Comments Depression Screening 1980 Disability Screening 1980 Alcohol/Substance Use Screening 1992 Tobacco Screening 1992 Family Planning (PISQ) 01/24/1995 DTaP/Tdap/Td Vaccines (1 - Tdap) 01/24/1999 Hepatitis B Vaccines (1 of 3 - 19+ 3-dose series) 01/24/1999 Pap Smear 01/24/2001 Cervical Cancer Screening 01/24/2010 HPV/Cotest 01/24/2010 Mammogram 2020 COVID-19 Vaccine ( - 2023-2 5 season) 2024 Influenza Vaccine (Season Ended) 2025 Zoster Vaccines (1 of 2) 01/24/2030 RSV [...] Years) and At-Risk Patients (6 to 49) Years Aged Out No longer eligible b ased on patient's age to complete this topic RSV under 20 months Aged Out No longe r eligible based on patient's age to complete this topic Rotavirus Vaccines Aged Out No longer eligible based on patient's age to complete this topic
== END 2024-10-24 09:31 | disposition home or self-care (01) ==
LOC: HO.PMC 08:53
PROVIDERS: PCP Nurse Practitioner Family; Visit Provider Registered Nurse Emergency
DX: M54.16 Radiculopathy, lumbar region (principal); M96.1 Postlaminectomy syndrome, not elsewhere classified; M51.362 Other intervertebral disc degeneration, lumbar region with discogenic back pain and lower extremity pain
CPT/HCPCS: 99213

== ENCOUNTER 2024-11-15 06:32 | Outpatient (REF) | payer OTHER, SELFPAY ==
--- NOTE | ~2024-11-15 | FL_ITS ---
EXAMINATION: FL GUIDANCE ONLY HISTORY: M54.16 - Radiculopathy, lumbar region COMPARISON: None available. TECHNIQUE: Fluoroscopy time: 0.3 minutes. Cumulative Dose: 10.3 mGy. DAP: 0.0689 mGym2 Images: 2. FINDINGS: Fluoroscopic spot films of the lumbar spine demonstrate a needle in place in the region of the left L4-5 facet joint. There is contrast material in the regions of the left L4-5 and L5-S1 facet joints. FL/FL guidance in treatment room IMPRESSION: Fluoroscopy during procedure. Please see procedure report for additional information. Electronically signed by: Houston Mchugh MD 11/15/2024 02:58 PM EDT
--- OUTSIDE RECORDS SUMMARY | 2024-11-15 06:34 | XMS_ITS | Clinical Summary ---
Author Organization [facility] Address [address] [place] [address] Phone Care Team Providers Care Pipelayer Name Role Phone Ishmael Leyva NP Primary [...] 1 (one) time each day. 4 Active pantoprazole (PROTONIX) 20 mg EC tablet Take 1 tablet (20 mg total) by mouth 1 (one) time each day. 5 Active Dandruff Shampoo, selen-aloe, 1 % shampoo APPLY TO THE AFFECTED AREA FOR 7 DAYS. LEAVE ON FOR 10 MINUTES AND RINSE THOROUGHLY 5 Active Active Problems Problem Noted Date Diagnosed Date Neck pain, chronic 07/24/2024 Assessment & Plan (10/11/2024 4:57 PM EDT): We have also seen patient for chronic neck pain, worse in the last 3 years. On today's visit she states she has right >left upper extremity symptoms, numbness tingling primarily right 4th and 5th digits. At last office visit she reported when she wakes up in the morning both arms can be numb, she notes she is dropping things more frequently, symptoms worse at night. She has tried acupuncture and PT in the past for tendinitis in the upper extremities, had injections at the elbows and wrists 1 year ago which helped. She states she had an EMG that was negative for carpal tunnel syndrome. I had given her a prescription for physical therapy for her neck, she dropped it off at [facility], they had never called her with an appointment so she has not started it yet. Patient had called the office requesting cervical spine MRI for persistent neck pain and arm symptoms, we reviewed her cervical MRI while she was here today for her new left leg pain. C-spine MRI 10/08/2024 [facility] shows C5-6 disc bulging, degenerative changes with mild right >left foraminal stenosis, no cord compression, no signal change in the spinal cord at any level. I reviewed MRI images on the computer with the patient. Ms. Dill has C5-6 spondylosis, right >left foraminal stenosis. She was not able to start physical therapy yet for her neck, but currently is in severe pain from her left back and leg pain, cannot tolerate PT. We will see results of lumbar spine MRI and go from there in terms of plan. All questions answered. Assessment & Plan (07/24/2024 1:05 PM EDT): [...] an order for cervical spine x-ray at [facility], gave her a prescription for physical therapy. We talked about other conservative treatment options. Ultimately if she is not seeing an improvement with PT, we should get C-spine MRI to rule out stenosis or disc herniation. All questions answered, I asked her to call with any worsening symptoms, questions or concerns. Radiculopathy, lumbar region 07/06/2024 Assessment & Plan (10/19/2024 10:17 AM EDT): I reviewed the new MRI with Ms. Dill and her noting the enhancing granulation tissue at the site of her most recent surgery on the right at L5-S1 and the residual scarring from her remote L4-5 discectomy. There is a broad disc bulge at that level more notable centrally with a tiny left-sided component that sits in the scar tissue without clearly compressing the L5 root. She is absolutely miserable from what sounds like an L5 radiculopathy. She has had no benefit from gabapentin and states that the Lyrica helps some qualities of the pain like this irritating feeling in her thighs but does not seem to help the back and leg pain. She gets short-term result from tramadol, Tylenol and heating pad but is severely limited in her activity and positioning due to the pain. We discussed treatment options including reexploration on the left at L4-5, a left L4-5 ROSA M, aquatic therapy and acupuncture. She is currently scheduled to see [facility] pain management this coming 10/24/2024 which I think is the best first step. If there is no response, we will proceed with the reexploration. Assessment & Plan (10/11/2024 4:50 PM EDT): Patient is s/p right L5-S1 minimally invasive discectomy 07/12/2024, left L4-5 discectomy 2016. She was doing well postop with relief of the right leg pain. She comes in for a new problem, states last week she started having increased back pain, starting Tuesday symptoms got much worse. She describes severe left low back and left buttock leg pain radiating to the lateral calf, somewhat also into the inner thigh. She states she has numbness tingling, a cramping tight sensation in the leg. She went to the emergency room on Tuesday, Tuesday started Medrol Dosepak, is not seeing an improvement. Prior with the Medrol Dosepak she was using NSAIDs, did not see improvement. No specific inciting event or falls. No bowel bladder incontinence. No symptoms in the right leg. She rates her back and left leg pain 10/10. Patient has severe left low back, hip, buttock and leg pain. She does have history of left L4-5 disc herniation, she will need updated MRI lumbar spine with and without contrast to rule out recurrent disc herniation or any other new findings causing nerve root compression. When she completes her Medrol Dosepak I asked her to go back on her NSAIDs. She states she is mostly lying down, can barely sit even to use the toilet or stand to shower, has severe pain, I gave her #10 tramadol tabs to get her through to the MRI, explained no refills at this time. We will see what the MRI shows, I will call her with results. All questions answered. Assessment & Plan (07/24/2024 1:08 PM EDT): [...] answered. She leaves in another week for [place], her wound is well-healed, she will not [...] as well while pt was here. Ms. Dill has right leg pain with right L5-S1 [...] any blood thinners, no history of diabetes, [place] or stroke. All questions answered. Patient states [...] Encounters Date Type Department Care Team Description 11/07/2024 Telephone [facility] [place] [facility] [place] [facility] [address] [place] [address] Irma Phan MA Documents (Medical Leave Form) 11/01/2024 Telephone [facility] [address] [facility] [address] [place] [address] Morgan Johnston PA 10/19/2024 9:45 AM EDT Office Visit Neurosurgery [facility] [address] [facility] [address] [place] [address] Fanny Pritchard MD Radiculopathy, lumbar region (Primary Dx) 10/15/2024 Telephone [facility] [address] [address] Abi Galeana MA 10/12/2024 3:43 PM EDT - 10/12/2024 11:59 PM EDT Hospital Encounter [facility] MRI [address] [place] [address] Radiculopathy, lumbar region Discharge Disposition: Home or Self Care 10/12/[address] [address] Yoli Jj [place] 10/11/2024 11:15 AM EDT Office Visit [address] [address] Jenny Woods PA Radiculopathy, lumbar region (Primary Dx); Neck pain, chronic 10/11/[address] [address] Yoli Jj [place] Appointment ([facility] - no auth needed for L/Spine MRI scheduled for 10/12/24 @ 4pm at [facility]. Pt aware) 10/09/[address] [address] Yoli Jj [place] Advice Only 10/08/2024 9:57 PM EDT - 10/08/2024 11:41 PM EDT Emergency [facility] Emergency [address] [place] [address] Swelling (Primary Dx); Sciatica of left side Discharge Disposition: Home or Self Care 10/08/2024 9:31 AM EDT - 10/08/2024 11:59 PM EDT Hospital Encounter [facility] MRI [address] [place] [address] Neck pain, chronic Discharge Disposition: Home or Self Care 10/04/[address] [address] Yoli Jj [place] Appointment ([facility] - no auth required needed for C/Spine MRI faxed over to [facility]. They will contact pt w/appt.) from Last 3 Months Immunizations Name Administration Dates Next Due Tdap Tetanus diptheria acell ular pertussis (Boostrix; Adacel) 7yo and older 02/23/2013 Surgical History Surgery Date Site/Laterality Comments KNEE SURGERY 05/09/2009 - 05/08/2010 Right arthroscopy OTHER SURGICAL HISTORY vaginal surgery EYE SURGERY laser surgery for eye pressure TONSILLECTOMY w/adenoidectomy BACK SURGERY 10/01/2016 Left Left L4-5 Minimally Invasive Diskectomy - BACK SURGERY 07/12/2024 right [id number], Dr. Pritchard Medical History Medical History Date [...] Sign Reading Time Taken Comments Blood Pressure 138/109 10/08/2024 7:33 PM EDT Pulse 86 10/08/2024 7:33 PM EDT Temperature 36.9 C (98.4 F) 10/08/2024 7:33 PM EDT Respiratory Rate 18 10/08/2024 7:33 PM EDT Oxygen Saturation 97% 10/08/2024 7:33 PM EDT Inhaled Oxygen Concentration - - Weight 117 kg (257 lb) 10/11/2024 11:05 AM EDT Height 167.6 cm (5' 6 ) 10/11/2024 11:05 AM EDT Body Mass Index 41.48 10/11/2024 11:05 AM EDT Plan of Treatment Health Maintenance Due Date Last Done Comments Breast Cancer Screening 1980 Hepatitis B Vaccines (1 of 3 - 19+ 3-dose series) 01/24/1999 Pneumococcal Vaccine: Pediat rics (0 to 5 Years) and At-Risk Patients (6 to 49 Years) (1 of 2 - PCV) 01/24/1999 Cervical Cancer Screening: P ap Smear 01/24/2001 DTaP,Tdap,and Td Vaccines (2 - Td or Tdap) 02/23/2023 02/23/2013 COVID-19 Vaccine (1 - 2023-2 5 season) 2024 Cholesterol Screening (Lipid Panel) 07/03/2024 Depression Screening 07/03/2024 HIV Screening 07/03/2024 Hepatitis C Screening 07/03/2024 Social Influencers of Health Screening 07/03/2024 Influenza Vaccine (#1) 2025 HIB Vaccines Aged Out No longer [...] this topic Medical Devices Implanted Type Area Technical Maintenance Technician Device Identifier Shelf Expiration Date Model / Serial / Lot Powder Surg[employer] Absorb Gel - Sna - [id number] Implanted:Qty: 1 on 07/12/2024 by Fanny Pritchard MD at [facility] [employer] Right: Spine Lumbar [employer] 04/16/20261977 / NA / [id number] Description:MIXED WITH 10,00 0UNITS OF TRHOMBIN Procedures Procedure Name Priority Date/Time Associated Diagnosis Comments MR LUMBAR SPINE WO AND W CONTRAST Routine 10/12/2024 5:02 PM EDT Radiculopathy, lumbar region VAS US DUPLEX LOWER EXT VENOUS LEFT STAT 10/08/2024 8:27 PM EDT Swelling MR CERVICAL SPINE WO CONTRAST Routine 10/08/2024 10:47 AM EDT Neck pain, chronic from Last 3 Months Results * MR Lumbar Spine wo and w Contrast (10/12/2024 5:02 PM EDT) Anatomical Region Laterality Modality L-spine, Spine Magnetic Resonan ce 10/12/2024 7:26 PM EDT Impressions 10/12/2024 8:04 PM EDT Post surgical changes related to prior left laminotomy and discectomy at L4-5 with significant decrease in left paracentral extrusion compared to 2017. Diffuse disc bulge with residual/recurrent left paracentral protrusion at L4-5 resulting in mild spinal canal stenosis with effacement of the subarticular zones. Disc contacts the descending left greater than right L5 nerves in the subarticular zones. Post surgical changes related to prior right laminotomy and discectomy at L5-S1 with enhancing granulation tissue around the right S1 nerve. Residual diffuse disc bulge results in effacement of the right greater than left subarticular zones and contacts the descending right greater than left S1 nerves in the subarticular zones. -------- FINAL REPORT -------- Dictated By: SAUL FRASER Dictated Date: 10/12/2024 19:26 ET Assigned Physician: SAUL FRASER Reviewed and Electronically Signed By: SAUL FRASER Signed Date: 10/12/2024 20:04 ET Workstation ID: [id number] Transcribed By: Self Edit Transcribed Date: 10/12/2024 19:26 ET Narrative 10/12/2024 8:04 PM EDT PROCEDURE: Lumbar spine MRI INDICATION: Left leg pain TECHNIQUE: Multiplanar, multisequence MRI of the Lumbar spine without and with contrast. 20 mL Dotarem injected intravenously without complication from a 20 mL vial COMPARISON: 09/13/2016 FINDINGS: Lumbar alignment is within normal limits. No fracture or suspicious marrow replacing lesion. Degenerative loss of normal disc height and signal at L4-5 and L5-S1. Lower lumbar predominant degenerative facet arthritis. Conus medullaris is normal and terminates at T12. No epidural collection or mass is seen within the spinal canal. No abnormal enhancement within the spinal canal. Paraspinal muscles are normal. Visualized intra-abdominal and pelvic structures are normal. Findings by level: L1-2: No focal disc protrusion, foraminal stenosis, or spinal canal stenosis. L2-3: No focal disc protrusion, foraminal stenosis, or spinal canal stenosis. L3-4: Small right extraforaminal protrusion contacting the exiting right L3 nerve no foraminal or spinal canal stenosis. L4-5: Left laminotomy with postsurgical changes at the left paracentral and foraminal aspect of the posterior disc. Granulation tissue seen in the left subarticular stone. Diffuse disc bulge with superimposed central protrusion. Residual/recurrent small left paracentral protrusion contacts the descending left L5 nerve in the subarticular zone. Extruded disc material previously visualized in the left ventricular zone has decreased. Mild spinal canal stenosis with effacement of the right articular zone. No foraminal stenosis. L5-S1: Right laminotomy. Diffuse disc bulge, eccentric to the right. Effacement of the right greater than left subarticular zones with granulation tissue around the descending right S1 nerve. No spinal canal stenosis. Mild foraminal stenosis bilaterally. Procedure Note Saul Fraser MD - 10/12/2024 PROCEDURE: Lumbar spine MRI INDICATION: Left leg pain TECHNIQUE: Multiplanar, multisequence MRI of the Lumbar spine without andwith contrast. 20 mL Dotarem injected intravenously without complicationfrom a 20 mL vial COMPARISON: 09/13/2016 FINDINGS: Lumbar alignment is within normal limits. No fracture or suspicious marrow replacing lesion. Degenerative loss of normal disc height and signal at L4-5 and L5-S1. Lower lumbar predominant degenerative facet arthritis. Conus medullaris is normal and terminates at T12. No epidural collectionor mass is seen within the spinal canal. No abnormal enhancement withinthe spinal canal. Paraspinal muscles are normal. Visualized intra-abdominal and pelvicstructures are normal. Findings by level: L1-2: No focal disc protrusion, foraminal stenosis, or spinal canalstenosis. L2-3: No focal disc protrusion, foraminal stenosis, or spinal canalstenosis. L3-4: Small right extraforaminal protrusion contacting the exiting rightL3 nerve no foraminal or spinal canal stenosis. L4-5: Left laminotomy with postsurgical changes at the left paracentraland foraminal aspect of the posterior disc. Granulation tissue seen inthe left subarticular stone. Diffuse disc bulge with superimposed centralprotrusion. Residual/recurrent small left paracentral protrusion contactsthe descending left L5 nerve in the subarticular zone. Extruded discmaterial previously visualized in the left ventricular zone has decreased.Mild spinal canal stenosis with effacement of the right articular zone.No foraminal stenosis. L5-S1: Right laminotomy. Diffuse disc bulge, eccentric to the right.Effacement of the right greater than left subarticular zones withgranulation tissue around the descending right S1 nerve. No spinal canalstenosis. Mild foraminal stenosis bilaterally. IMPRESSION: Post surgical changes related to prior left laminotomy and discectomy atL4-5 with significant decrease in left paracentral extrusion compared [id number]. Diffuse disc bulge with residual/recurrent left paracentralprotrusion at L4-5 resulting in mild spinal canal stenosis with effacementof the subarticular zones. Disc contacts the descending left greater thanright L5 nerves in the subarticular zones. Post surgical changes related to prior right laminotomy and discectomy atL5-S1 with enhancing granulation tissue around the right S1 nerve.Residual diffuse disc bulge results in effacement of the right greaterthan left subarticular zones and contacts the descending right greaterthan left S1 nerves in the subarticular zones. -------- FINAL REPORT -------- Dictated By: SAUL FRASER Dictated Date: 10/12/2024 19:26 ET Assigned Physician: SAUL FRASER Reviewed and Electronically Signed By: SAUL FRASER Signed Date: 10/12/2024 20:04 ET Workstation ID: [id number] Transcribed By: Self Edit Transcribed Date: 10/12/2024 19:26 ET us Jenny MEDRANO IMG MRI PROCEDURES Final R esult * Vascular US Duplex Lower Extremity Venous Left (10/08/2024 8:27 PM EDT) Anatomical Region Laterality Modality Vascular, Abdomen Ultrasound 10/08/2024 9:16 PM EDT Impressions 10/08/2024 9:16 PM EDT NO LEFT LOWER EXTREMITY DEEP VENOUS THROMBOSIS. -------- FINAL REPORT -------- Dictated By: Kenny Borja Dictated Date: 10/08/2024 21:16 ET Assigned Physician: Kenny Borja Reviewed and Electronically Signed By: Kenny Borja Signed Date: 10/08/2024 21:16 ET Workstation ID: [id number] Transcribed By: Self Edit Transcribed Date: 10/08/2024 21:16 ET Narrative 10/08/2024 9:16 PM EDT Ultrasound venous duplex left lower extremity INDICATION: pain TECHNIQUE: 2-D and color Doppler imaging of the left lower extremity venous vasculature with compression and augmentation maneuvers. COMPARISON: No priors available. FINDINGS: There is normal flow, compression, and augmentation from the common femoral through the popliteal vein. No focal fluid collection. Procedure Note Kenny Borja MD - 10/08/2024 Ultrasound venous duplex left lower extremity INDICATION: pain TECHNIQUE: 2-D and color Doppler imaging of the left lower extremityvenous vasculature with compression and augmentation maneuvers. COMPARISON: No priors available. FINDINGS: There is normal flow, compression, and augmentation from the commonfemoral through the popliteal vein. No focal fluid collection. IMPRESSION: NO LEFT LOWER EXTREMITY DEEP VENOUS THROMBOSIS. -------- FINAL REPORT -------- Dictated By: Kenny Borja Dictated Date: 10/08/2024 21:16 ET Assigned Physician: Kenny Borja Reviewed and Electronically Signed By: Kenny Borja Signed Date: 10/08/2024 21:16 ET Workstation ID: [id number] Transcribed By: Self Edit Transcribed Date: 10/08/2024 21:16 ET us Cely Angelesny Dmitri DO CV VASCULAR PROCEDURES Fi nal Result * MR Cervical Spine wo Contrast (10/08/2024 10:47 AM EDT) Anatomical Region Laterality Modality C-spine, Spine Magnetic Resonan ce 10/08/2024 1:21 PM EDT Impressions 10/08/2024 1:48 PM EDT Mild degenerative changes throughout the cervical spine without high-grade foraminal or spinal canal stenosis. -------- FINAL REPORT -------- Dictated By: SAUL FRASER Dictated Date: 10/08/2024 13:21 ET Assigned Physician: SAUL FRASER Reviewed and Electronically Signed By: SAUL FRASER Signed Date: 10/08/2024 13:48 ET Workstation ID: [id number] Transcribed By: Self Edit Transcribed Date: 10/08/2024 13:21 ET Narrative 10/08/2024 1:48 PM EDT PROCEDURE: Cervical spine MRI INDICATION: Pain TECHNIQUE: Multiplanar, multisequence MRI of the Cervical spine Without contrast. COMPARISON: Radiograph 08/10/2024. FINDINGS: Unchanged straightening of the normal cervical lordosis, likely degenerative interpositional. No fracture or suspicious marrow replacing lesion. Diffusely low marrow signal most likely related to red marrow reconversion. Degenerative loss of normal disc height and signal at C5-6 with associated endplate spurring. Cervical facet arthritis most pronounced on the left at C3-4. Cervical cord is normal in signal and morphology. No epidural collection or mass is seen within the spinal canal. Paraspinal muscles are within normal limits. Foramen magnum is normal. Findings by level: C2-C3: No foraminal or spinal canal stenosis C3-C4: No foraminal or spinal canal stenosis C4-C5: No foraminal or spinal canal stenosis C5-C6: Right uncovertebral spur results in mild right and no left foraminal stenosis. No spinal canal stenosis. C6-C7: No foraminal or spinal canal stenosis C7-T1: No foraminal or central canal stenosis Procedure Note Saul Fraser MD - 10/08/2024 PROCEDURE: Cervical spine MRI INDICATION: Pain TECHNIQUE: Multiplanar, multisequence MRI of the Cervical spine Withoutcontrast. COMPARISON: Radiograph 08/10/2024. FINDINGS: Unchanged straightening of the normal cervical lordosis, likelydegenerative interpositional. No fracture or suspicious marrow replacing lesion. Diffusely low marrowsignal most likely related to red marrow reconversion. Degenerative loss of normal disc height and signal at C5-6 with associatedendplate spurring. Cervical facet arthritis most pronounced on the leftat C3-4. Cervical cord is normal in signal and morphology. No epidural collectionor mass is seen within the spinal canal. Paraspinal muscles are within normal limits. Foramen magnum is normal. Findings by level: C2-C3: No foraminal or spinal canal stenosis C3-C4: No foraminal or spinal canal stenosis C4-C5: No foraminal or spinal canal stenosis C5-C6: Right uncovertebral spur results in mild right and no leftforaminal stenosis. No spinal canal stenosis. C6-C7: No foraminal or spinal canal stenosis C7-T1: No foraminal or central canal stenosis IMPRESSION: Mild degenerative changes throughout the cervical spine without high- gradeforaminal or spinal canal stenosis. -------- FINAL REPORT -------- Dictated By: SAUL FRASER Dictated Date: 10/08/2024 13:21 ET Assigned Physician: SAUL FRASER Reviewed and Electronically Signed By: SAUL FRASER Signed Date: 10/08/2024 13:48 ET Workstation ID: [id number] Transcribed By: Self Edit Transcribed Date: 10/08/2024 13:21 ET Jenny MEDRANO IMG MRI PROCEDURES Final R esult from Last 3 Months Insurance [employer] [facility] Advance Directives * Full Code - [...] currently active code status orders. Care Teams Pipelayer Relationship Specialty Start Date End Date Ishmael Leyva NP [address] [place], [place] PCP - General Family Medicine 07/03/24
--- OUTSIDE RECORDS SUMMARY | 2024-11-15 06:34 | XMS_ITS | Clinical Summary ---
Author Organization [employer] Address [address] [facility] [address] [place] [address] Care Team Providers Care Tobacco Classer Name Role Phone Unavailable Primary Care Provider [...] 2023-2 5 season) 2024 Influenza Vaccine (#1) 2025 Zoster Vaccines (1 of 2) 01/24/2030 [...]
== END 2024-11-15 06:33 | disposition home or self-care (01) ==
LOC: CF 06:32
PROVIDERS: Visit Provider Internal Medicine
DX: M54.16 Radiculopathy, lumbar region (principal)
CPT/HCPCS: 64483; J1100; J2003; J3301; Q9967

== ENCOUNTER 2024-11-15 09:14 | Outpatient (AMB) | payer OTHER, SELFPAY ==
[2024-11-15 09:23] VITALS: BP 118/76; PULSE 88; RESP 16; O2SAT 97; BMI 40.3
--- NOTE | 2024-11-15 09:23 | A.OFFVIS_ITS ---
Vital Signs 11/15/24 09:23 11/15/24 09:57 Height 5 ft 6 in 5 ft 6 in Weight 250 lb 250 lb BMI 40.3 40.3 BP 118/76 119/91 H Blood Pressure Location Lt radial Lt radial Position Sitting Sitting Respiration 16 16 Pulse 88 92 Pulse Source Pulse Oximeter Pulse Oximetry (%) 97 96 Oxygen Delivery Method Room Air Room Air Intake Visit Reasons: Left L5-S1 TFESI Allergies oxycodone (From PERCOCET) Allergy (Mild, Verified 10/24/24 09:02) ITCHING HPI HPI Left L5-S1 TFESI: Details: Patient presents for scheduled procedure. Denies any recent cough, cold, infection, fever or other significant changes in medical history since last office visit. [facility] Medical History Fatty liver Abnormal uterine bleeding (AUB) Upper back pain Obesity Tired Difficulty sleeping Breast screening COVID-19 Exacerbation of asthma Screening for cervical cancer Physical exam Low hemoglobin Elevated liver enzymes Uterine fibroids affecting Uterine fibroid Acute sinusitis Fatigue UTI (urinary tract infection) Snores Neck pain Abdominal pain Cellulitis Leukocytosis Rash and other nonspecific skin eruption Chest pressure Palpitations Anxiety with flying Chest wall tenderness Lateral epicondylitis of right elbow Medial epicondylitis of right elbow Medial epicondylitis Lateral epicondylitis Bilateral hand numbness Right wrist pain Chest pain due to psychological stress Screening for breast cancer Encounter for routine adult physical exam with abnormal findings Infertility, female Cervical radiculopathy HTN (hypertension) Surgical History Hx of LASIK History of tonsillectomy and adenoidectomy History of lumbar surgery H/O right knee surgery Family History Father Hearing loss Mother PCOS (polycystic ovarian syndrome) Mental health disorder Maternal Grandfather Diabetes mellitus Maternal Grandmother Diabetes mellitus Paternal Grandfather Diabetes mellitus Paternal Grandmother Diabetes mellitus Cancer Brother No problems noted. Brother No problems noted. Sister No problems noted. Paternal Uncle Multiple sclerosis Social History Household Members: Spouse Housing: Apartment Alcohol intake: former Patient Tobacco Use Status: Never used Tobacco e-Cigarette/Vaping Use: Never Used Second Hand Smoke Exposure: No service: No Current occupational status: employed Current occupation: [employer] / right hand dominant Sexual orientation: Straight/Heterosexual Gender identity: Female Cognitive needs: No Hearing needs: No Vision needs: Yes (glasses) Physical Exam Vital Signs: Last Vital Signs Pulse 88 11/15/24 09:23 Resp 16 11/15/24 09:23 BP 118/76 11/15/24 09:23 Pulse Ox 97 11/15/24 09:23 Oxygen Delivery Method Room Air 11/15/24 09:23 BMI result Body Mass Index 40.3 Office Procedures Details: Transforaminal epidural steroid injection, Left L5 After obtaining written consent, pre-procedure blood pressure and heart rate were stable and recorded in the nursing record. The patient was placed in the prone position on the fluoroscopy table. The lumb osacral area was prepped with chloraprep, allowed to dry and draped in sterile fashion. Using fluoroscopy, the skin overlying our target was anesthetized with 0.5% lidocaine. A 22 gauge 3.5 inch spinal needle was advanced to the safe triangle in the upper pole of the left L5/S1 foramen. No paresthesias were elicited with needle placement and aspiration was negative for blood and CSF. Correct needle position was confirmed with approximately 1 ml contrast dye (Omnipaque 180 mg/ml) injected under real-time fluoroscopy. No evidence of vascular or intrathecal uptake was seen and there was both epidural and peripheral spread of the contrast agent. 10 mg dexamethasone plus 1 ml containing 0.5% lidocaine was slowly injected. The needle was flushed and removed. The skin was cleansed and a sterile bandages were applied. The patient tolerated the procedure well and no complications were encountered. Following the procedure the patient's vital signs were stable. The patient was discharged home in good condition with post-procedural instructions. Time Out: Immediately prior to the procedure, the following was verbally confirmed that there is a signed consent form and that the correct patient, planned procedure, site and side are consistent with documentation and that necessary equipment and/or blood products are available prior to the start of the case. Complications: none EBL: <5 cc 65649 - Lumbar/Sacral Procedure code (CPT) selection complete Assessment & Plan Assessment & Plan (1) Lumbar radiculopathy: Code(s): M54.16 - Radiculopathy, lumbar region Category: Medical Plan Patient is status post left L5 TFESI. Patient tolerated procedure well and was discharged home in stable condition with discharge instructions. All questions were answered. We will follow-up via telephone or in clinic to assess response to therapy. A follow-up appointment was made during today's visit. Orders: Orders FL guidance in treatment room Today Veronica Benitez APRN, LABORER CEMENT GUN PLACING M54.16 - Radiculopathy, lumbar region AMB Transforaminal Epidural Steroid Injection Today Jose Renee MD M54.16 - Radiculopathy, lumbar region Coding Level of Care Code Procedure Only Diagnoses Lumbar radiculopathy M54.16 CPT Codes Transforaminal Epidural Steroid Inj - TESI 3: 32677 - Lumbar/Sacral ([id number])
[2024-11-15 09:57] VITALS: BP 119/91; PULSE 92; RESP 16; O2SAT 96; BMI 40.3
== END 2024-11-15 09:57 | disposition home or self-care (01) ==
LOC: HO.PMCPRC 09:14
PROVIDERS: PCP Nurse Practitioner Family; Visit Provider Internal Medicine
DX: M54.16 Radiculopathy, lumbar region (principal)
CPT/HCPCS: 64483

== ENCOUNTER 2024-12-21 13:04 | Outpatient (AMB) | payer OTHER, SELFPAY ==
--- OUTSIDE RECORDS SUMMARY | 2024-12-21 13:07 | XMS_ITS | Clinical Summary ---
Author Organization [employer] Address [address] [facility] [address] [place] [address] Care Team Providers Care Outcomes Specialist Name Role Phone Unavailable Primary Care [...] Tobacco Screening 1992 Family Planning (PISQ) 01/24/1995 HPV Vaccines (1 - 3-dose series) 01/24/1995 DTaP/Tdap/Td Vaccines (1 - Tdap) 01/24/1999 [...]
--- OUTSIDE RECORDS SUMMARY | 2024-12-21 13:07 | XMS_ITS | Clinical Summary ---
Author Organization [facility] Address [address] [place] [address] Phone Care Team Providers Care Accountant Auditor Name Role Phone Ishmael Leyva NP Primary [...] an order for cervical spine x-ray at [facility], gave her a prescription for physical [...] acupuncture. She is currently scheduled to see [place] pain management this coming 10/24/2024 which I [...] answered. She leaves in another week for [place], her wound is well-healed, she will not [...] any blood thinners, no history of diabetes, IA or stroke. All questions answered. Patient states [...] Encounters Date Type Department Care Team Description 11/19/[address] [address] Yecenia Singer MA Return to Work Letter 11/07/2024 Telephone [facility] for [address] [place] [address] Irma Phan MA Documents (Medical Leave Form) 11/01/[address] [address] Morgan Johnston PA 10/19/2024 9:45 AM EDT Office Visit [address] [address] Fanny Pritchard MD Radiculopathy, lumbar region (Primary Dx) 10/15/[address] [address] Abi Galeana MA 10/12/2024 3:43 PM EDT - 10/12/2024 11:59 PM EDT Hospital Encounter [facility] MRI [address] [place] [address] Radiculopathy, lumbar region Discharge Disposition: Home or Self Care 10/12/2024 Telephone Neurosurgery [facility] [address] [address] Yoli Jj MA 10/11/2024 11:15 AM EDT Office Visit Neurosurgery [address] [address] Jenny Woods PA Radiculopathy, lumbar region (Primary Dx); Neck pain, chronic 10/11/2024 Telephone Neurosurgery [address] [address] Yoli Jj MA Appointment ([facility] - no auth needed for L/Spine MRI scheduled for 10/12/24 @ 4pm at [facility] MRI. Pt aware) 10/09/[address] [address] Yoli Jj MA Advice Only 10/08/2024 9:57 PM EDT - 10/08/2024 11:41 PM EDT Emergency [facility] Emergency [address] [place] [address] Swelling (Primary Dx); Sciatica of left side Discharge Disposition: Home or Self Care 10/08/2024 9:31 AM EDT - 10/08/2024 11:59 PM EDT Hospital Encounter [facility] MRI [address] [place] [address] Neck pain, chronic Discharge Disposition: Home or Self Care 10/04/2024 Telephone Neurosurgery [facility] [address] [address] Yoli Jj MA Appointment ([facility] - no auth required needed for C/Spine MRI faxed over to [facility] MRI. They will contact pt w/appt.) from Last [...] Invasive Diskectomy - BACK SURGERY 07/12/2024 right [id number], Dr. Pritchard Medical History Medical History Date [...] Td or Tdap) 02/23/2023 02/23/2013 COVID-19 Vaccine (2023-2 5 season) 2024 Depression Screening 05/09/2024 Cholesterol Screening (Lipid Panel) 07/03/2024 HIV Screening 07/03/2024 Hepatitis C Screening [...] this topic Medical Devices Implanted Type Area Elevator Serviceman Device Identifier Shelf Expiration Date Model / Serial / Lot Powder Surgifoam Absorb Gel - Sna - [id number] Implanted:Qty: 1 on 07/12/2024 by Fanny Pritchard MD at [facility] [employer] Right: Spine Lumbar [employer] 04/16/2026 1978 / NA / [id number] Description:MIXED WITH 10,00 0UNITS OF TRHOMBIN Procedures [...] Signed Date: 10/12/2024 20:04 ET Workstation ID: [id number] Transcribed By: Self Edit Transcribed Date: 10/12/2024 [...] significant decrease in left paracentral extrusion compared [id number]. Diffuse disc bulge with residual/recurrent left paracentralprotrusion [...] Signed Date: 10/12/2024 20:04 ET Workstation ID: [id number] Transcribed By: Self Edit Transcribed Date: 10/12/2024 [...] Signed Date: 10/08/2024 21:16 ET Workstation ID: [id number] Transcribed By: Self Edit Transcribed Date: 10/08/2024 [...] Signed Date: 10/08/2024 21:16 ET Workstation ID: [id number] Transcribed By: Self Edit Transcribed Date: 10/08/2024 21:16 ET us Cely Rizvi DO CV VASCULAR PROCEDURES Fi nal Result [...] Signed Date: 10/08/2024 13:48 ET Workstation ID: [id number] Transcribed By: Self Edit Transcribed Date: 10/08/2024 [...] Signed Date: 10/08/2024 13:48 ET Workstation ID: [id number] Transcribed By: Self Edit Transcribed Date: 10/08/2024 13:21 ET Jenny MEDRANO IMG MRI PROCEDURES Final R esult from Last 3 Months Insurance [employer] [facility] [place] [address] Advance Directives * Full Code - Default [...] currently active code status orders. Care Teams Accountant Auditor Relationship Specialty Start Date End Date Ishmael Leyva [facility] [place] [facility] - General Family Medicine 07/03/24
[2024-12-21 13:16] VITALS: BP 144/90; PULSE 85; RESP 16; O2SAT 97; BMI 38.9
--- NOTE | 2024-12-21 13:16 | MHC.OFFVIS ---
Vital Signs 12/21/24 13:16 Height 5 ft 6 in Weight 241 lb BMI 38.9 BP 144/90 H Blood Pressure Location Lt brachial Position Sitting Respiration 16 Pulse 85 Pulse Source Pulse Oximeter Pulse Oximetry (%) 97 Oxygen Delivery Method Room Air Intake Visit Reasons: s/p Left L5-S1 TFESI Chief Medical Officer Required: No Accompanied by: Life Partner Allergies oxycodone (From PERCOCET) Allergy (Mild, Verified 12/21/24 13:17) ITCHING HPI Comments Details: The patient is a 44-year-old female presenting with chronic pain. She received a steroid injection one month ago, resulting in a 60% improvement in symptoms, enhancing her mobility and ability to walk. Despite this, she experiences heaviness and tightness in her hips, especially during prolonged walking or certain movements. Additionally, the patient reports wrist pain that started two weeks ago without any apparent cause. The pain is described as being in the bone, with discomfort noted during wrist flexion. An x-ray has been ordered to assess the wrist pain further. - Onset and Timing: Chronic pain with recent steroid injection one month ago. - Quality and Character: Heaviness and tightness in hips, bone pain in wrist. - Primary Location: Hips and wrist. - Exacerbating Factors: Walking long distances, certain movements like sitting or standing. - Relieving Factors: Steroid injection provided 60% relief. - Affect: No specific impact on mood or psychological wellbeing discussed. - Analgesia: Steroid injection provided 60% pain relief; gabapentin prescribed for additional management. - Adverse Effects: No adverse effects from medications discussed. - Activities of Daily Living: Improved mobility and ability to walk; some limitations due to hip tightness. - Aberrant Drug Related Behaviors: No aberrant behaviors reported. [facility] Medical History (Updated 12/21/24 @ 13:44 by Veronica Benitez, CLEANING MACHINE OPERATOR, MEDICAL ASSISTANT CARDIOLOGY) Right wrist pain Fatty liver Abnormal uterine bleeding (AUB) Upper back pain Obesity Tired Difficulty sleeping Breast screening COVID-19 Exacerbation of asthma Screening for cervical cancer Physical exam Low hemoglobin Elevated liver enzymes Uterine fibroids affecting Uterine fibroid Acute sinusitis Fatigue UTI (urinary tract infection) Snores Neck pain Abdominal pain Cellulitis Leukocytosis Rash and other nonspecific skin eruption Chest pressure Palpitations Anxiety with flying Chest wall tenderness Lateral epicondylitis of right elbow Medial epicondylitis of right elbow Medial epicondylitis Lateral epicondylitis Bilateral hand numbness Chest pain due to psychological stress Screening for breast cancer Encounter for routine adult physical exam with abnormal findings Infertility, female Cervical radiculopathy HTN (hypertension) Surgical History Hx of LASIK History of tonsillectomy and adenoidectomy History of lumbar surgery H/O right knee surgery Family History Father Hearing loss Mother PCOS (polycystic ovarian syndrome) Mental health disorder Maternal Grandfather Diabetes mellitus Maternal Grandmother Diabetes mellitus Paternal Grandfather Diabetes mellitus Paternal Grandmother Diabetes mellitus Cancer Brother No problems noted. Brother No problems noted. Sister No problems noted. Paternal Uncle Multiple sclerosis Social History Household Members: Spouse Housing: Apartment Alcohol intake: former Patient Tobacco Use Status: Never used Tobacco e-Cigarette/Vaping Use: Never Used Second Hand Smoke Exposure: No service: No Current occupational status: employed Current occupation: [email or web address] / right hand dominant Sexual orientation: Straight/Heterosexual Gender identity: Female Cognitive needs: No Hearing needs: No Vision needs: Yes (glasses) Review of Systems Const Details: - Musculoskeletal: Reports heaviness and tightness in hips, wrist pain. Physical Exam Exam Exam: General: awake, alert, oriented. Answers questions appropriately. Fully engaged in examination. Skin: warm, dry, intact HEENT: Normocephalic. Hearing intact. Cardiac: External chest normal in appearance. Respiratory: No cough, audible wheezing or stridor. Abdomen: without gross distension. MS: No obvious swelling or deformities. Able to transition from sit to stand unassisted. Right Wrist: tender to palpation. decreased ROM. Neurological: Oriented to person, place, time and situation. Thought process intact. Antalgic gait. Psychiatric: Appropriate mood and affect. Good judgment and insight. Vital Signs: Last Vital Signs Pulse 85 12/21/24 13:16 Resp 16 12/21/24 13:16 BP 144/90 H 12/21/24 13:16 Pulse Ox 97 12/21/24 13:16 Oxygen Delivery Method Room Air 12/21/24 13:16 BMI result Body Mass Index 38.9 Results Reviewed Results Reviewed: Recent MRI viewed on patients phone: Disc bulge contacting the left L5 nerve, mild spinal canal stenosis at L4-5, mild foraminal stenosis bilaterally at L5-S1. (copy has been requested from [facility]) 05/16/24 MR SPINE LUMBAR w + wo CONTRAST FINDINGS: Normal lumbar alignment is demonstrated. Vertebral heights are well maintained. Bone marrow signal is within normal limits, and no suspicious osseous lesion is identified. Conus medullaris is unremarkable. No area of abnormal enhancement is identified. Paraspinal soft tissues and visualized portions of the abdomen and pelvis are unremarkable. At L1-2 there is no significant disc herniation or protrusion. No central canal or neural foraminal stenosis is demonstrated. At L2-3 there is no significant disc herniation or protrusion. No central canal or neural foraminal stenosis is demonstrated. At L3-4 concentric disc bulge with mild canal narrowing and moderate right and ghlv-nj-myvikebo left foraminal narrowing. At L4-5 concentric disc bulge with csqe-hk-xhrfalmf canal narrowing and rvnx-fi-ztjjzwsr bilateral foraminal narrowing. At L5-S1 concentric disc bulge with mild canal narrowing and moderate bilateral foraminal narrowing. IMPRESSION: 1.Igmo-ky-szumkqdx multilevel degenerative disc disease with loss of disc height and disc desiccation seen diffusely throughout the lumbar spine. 2.Vertebral heights are preserved. No malalignments. 3.No high-grade or limiting canal stenosis or disc herniation. 4.No limiting foraminal stenosis at lumbar levels, at L3-4, moderate right foraminal narrowing, at L5-S1, moderate bilateral foraminal narrowing. 5.At remaining levels, canal and foraminal narrowing are mild/ggjz-fb-jscqjaof. 6.No STIR signal abnormality to suggest bone marrow edema, soft tissue or ligamentous injury. Assessment & Plan Assessment & Plan (1) Right wrist pain: Code(s): M25.531 - Pain in right wrist Category: Medical (2) Lumbar radiculopathy: Code(s): M54.16 - Radiculopathy, lumbar region Category: Medical (3) Post laminectomy syndrome: Code(s): M96.1 - Postlaminectomy syndrome, not elsewhere classified Category: Medical (4) Lumbar degenerative disc disease: Code(s): M51.369 - Other intervertebral disc degeneration, lumbar region without mention of lumbar back pain or lower extremity pain Category: Medical Qualifiers: Disc-related pain type: discogenic back pain and lower extremity pain Qualified Code(s): M51.362 - Other intervertebral disc degeneration, lumbar region with discogenic back pain and lower extremity pain Plan The patient is advised to continue physical therapy exercises, including stretching and core strengthening, to alleviate hip tightness and improve mobility. Gabapentin is prescribed at 300 mg at bedtime to manage pain and enhance sleep. An x-ray is ordered for the right wrist, and the patient should consult orthopedics if symptoms do not improve. Patient was informed and verbally consented to the use of an ambient scribe for clinic note documentation during this visit. Orders: Orders XR wrist RT min 3V 12/21/24 M25.531 - Pain in right wrist Medications: New gabapentin 300 mg PO BEDTIME 30 caps 3RF Discontinued pregabalin Discontinued Reason: Patient Completed Course 50 mg PO BID 90 caps 0RF Patient Instructions: - Continue physical therapy exercises as instructed. - Take gabapentin 300mg at bedtime for pain management. - Get an x-ray for the right wrist as ordered. - Follow up with orthopedics if wrist pain does not improve. Coding Level of Care Code Est Pt Level 3 (83991) Complex EM visit Add On G2211 Diagnoses Right wrist pain M25.531 Lumbar radiculopathy M54.16 Post laminectomy syndrome M96.1 Degeneration of intervertebral disc of lumbar region with discogenic back pain and lower extremity pain M51.362 Disc-related pain type: discogenic back pain and lower extremity pain
== END 2024-12-21 14:29 | disposition home or self-care (01) ==
LOC: HO.PMC 13:05
PROVIDERS: PCP Nurse Practitioner Family; Visit Provider Registered Nurse Emergency
DX: M25.531 Pain in right wrist (principal); M54.16 Radiculopathy, lumbar region; M96.1 Postlaminectomy syndrome, not elsewhere classified; M51.362 Other intervertebral disc degeneration, lumbar region with discogenic back pain and lower extremity pain
CPT/HCPCS: 99213

== ENCOUNTER 2024-12-27 14:35 | Outpatient (REF) | payer OTHER, SELFPAY ==
--- NOTE | ~2024-12-27 | XR_ITS ---
EXAMINATION: XR WRIST, RIGHT CLINICAL INFORMATION: M25.531 - Pain in right wrist COMPARISON: None available. TECHNIQUE: PA, lateral, oblique, and scaphoid views of the right wrist. FINDINGS: There is no joint diastases or offset. No fracture line is visible. No degenerative changes are seen. There are no erosions. XR/XR wrist RT min 3V IMPRESSION: Unremarkable right wrist Electronically signed by: Rizwan Gibson MD 12/27/2024 02:55 PM EDT
--- OUTSIDE RECORDS SUMMARY | 2024-12-27 14:41 | XMS_ITS | Clinical Summary ---
Author Organization [employer] Address [address] [facility] [address] [place] [address] Care Team Providers Care Border Patrol Officer Name Role Phone Unavailable Primary Care Provider [...]
--- OUTSIDE RECORDS SUMMARY | 2024-12-27 14:42 | XMS_ITS | Clinical Summary ---
Author Organization 175 [facility] Address [address] [place] [address] Phone Care Team Providers Care Fur Blower Operator Name Role Phone Ishmael Leyva NP [...] an order for cervical spine x-ray at [facility], gave her a prescription for physical therapy. [...] acupuncture. She is currently scheduled to see [place] pain management this coming 10/24/2024 which I [...] answered. She leaves in another week for [place], her wound is well-healed, she will not [...] any blood thinners, no history of diabetes, DC or stroke. All questions answered. Patient states [...] Type Department Care Team Description 11/19/[address] [phone] Yecenia Singer MA Return to Work Letter 11/07/2024 Telephone [facility] for [address] [place] [address] Irma Phan MA Documents (Medical Leave Form) 11/01/[address] [phone] Morgan Johnston PA 10/19/2024 9:45 AM EDT Office Visit [address] [phone] Fanny Pritchard MD Radiculopathy, lumbar region (Primary Dx) 10/15/[address] [address] Abi Galeana MA 10/12/2024 3:43 PM EDT - 10/12/2024 11:59 PM EDT Hospital Encounter [facility] MRI [address] [place] [address] Radiculopathy, lumbar region Discharge Disposition: Home or Self Care 10/12/[address] [facility] [address] [phone] Yoli Jj MA 10/11/2024 11:15 AM EDT Office Visit Neurosurgery [address] [phone] Jenny Woods PA Radiculopathy, lumbar region (Primary Dx); Neck pain, chronic 10/11/2024 Telephone Neurosurgery [address] [phone] Yoli Jj MA Appointment ([facility] - no auth needed for L/Spine MRI scheduled for 10/12/24 @ 4pm at [facility]. Pt aware) 10/09/[address] [phone] Yoli Jj MA Advice Only 10/08/2024 9:57 PM EDT - 10/08/2024 11:41 PM EDT Emergency [facility] Emergency [address] [place] [address] Swelling (Primary Dx); Sciatica of left side Discharge Disposition: Home or Self Care 10/08/2024 9:31 AM EDT - 10/08/2024 11:59 PM EDT Hospital Encounter [facility] MRI [address] [place] [address] Neck pain, chronic Discharge Disposition: Home or Self Care 10/04/[address] [facility] [address] [phone] Yoli Jj MA Appointment ([employer] [facility] - no auth required needed for C/Spine MRI faxed over to [facility]. They will contact pt w/appt.) from [...] Invasive Diskectomy - BACK SURGERY 07/12/2024 right [id number], Dr. Pritchard Medical History Medical History Date [...] this topic Medical Devices Implanted Type Area Senior Python Developer Device Identifier Shelf Expiration Date Model / Serial / Lot Powder Surgifoam Absorb Gel - Sna - [id number] Implanted:Qty: 1 on 07/12/2024 by Fanny Pritchard MD at [facility] [employer] Right: Spine Lumbar [employer] 04/16/2026 1978 / NA / [id number] Description:MIXED WITH 10,00 0UNITS OF TRHOMBIN Procedures [...] Signed Date: 10/12/2024 20:04 ET Workstation ID: [id number] Transcribed By: Self Edit Transcribed Date: 10/12/2024 [...] significant decrease in left paracentral extrusion compared [id number]. Diffuse disc bulge with residual/recurrent left paracentralprotrusion [...] Signed Date: 10/12/2024 20:04 ET Workstation ID: [id number] Transcribed By: Self Edit Transcribed Date: 10/12/2024 [...] Signed Date: 10/08/2024 21:16 ET Workstation ID: [id number] Transcribed By: Self Edit Transcribed Date: 10/08/2024 [...] Signed Date: 10/08/2024 21:16 ET Workstation ID: [id number] Transcribed By: Self Edit Transcribed Date: 10/08/2024 [...] Signed Date: 10/08/2024 13:48 ET Workstation ID: [id number] Transcribed By: Self Edit Transcribed Date: 10/08/2024 [...] Date: 10/08/2024 13:21 ET Assigned Physician: SAUL FRSAER Reviewed and Electronically Signed By: SAUL FRASER Signed Date: 10/08/2024 13:48 ET Workstation ID: [id number] Transcribed By: Self Edit Transcribed Date: 10/08/2024 13:21 ET Jenny MEDRANO IMG MRI PROCEDURES Final R esult from Last 3 Months Insurance [employer] [facility] Advance Directives * Full Code - Default [...] currently active code status orders. Care Teams Fur Blower Operator Relationship Specialty Start Date End Date Ishmael Leyva NP [facility] P[facility] - General Family Medicine 07/03/24
== END 2024-12-27 14:36 | disposition home or self-care (01) ==
LOC: HO.XRAY 14:35
PROVIDERS: PCP Nurse Practitioner Family; Visit Provider Registered Nurse Emergency
DX: M25.531 Pain in right wrist (principal)
CPT/HCPCS: 73110

== ENCOUNTER → 2024-12-27 14:38 | Outpatient (BNV) | payer OTHER, SELFPAY | PROVIDERS: PCP Nurse Practitioner Family; Visit Provider Radiology Diagnostic Radiology | DX: M25.531 Pain in right wrist (principal) | CPT/HCPCS: 73110 ==

== ENCOUNTER 2025-01-10 08:55 | Outpatient (AMB) | payer OTHER, SELFPAY ==
--- NOTE | 2025-01-10 09:05 | MHC.OFFVIS ---
Vital Signs 01/10/25 09:10 Height 5 ft 6 in Weight 240 lb BMI 38.7 BP 130/73 Blood Pressure Location Lt brachial Position Sitting Pulse 95 Intake Visit Reasons: [place] Screen / GERD Intake Note: Patient new consult for GERD and 2nd pre Colonoscopy screening./1st one was [facility] 10 yrs ago. Patient cc: abdominal discomfort with cramp in the morning on her upper abdominal, GERD, between diarrhea and constipation, hx of bleeding hemorrhoids in the pass, denies any other GI issues. Manager Material Required: No Manager Material Services: Manager Material Offered & Declined Accompanied by: Self / Same As Patient Allergies oxycodone (From PERCOCET) Allergy (Mild, Verified 12/21/24 13:17) ITCHING Medication List - Last Reconciled 01/10/25 by Rose Arora CNP acetaminophen (Tylenol Extra Strength) 1,000 mg PO Q6H PRN albuterol sulfate 90 mcg/actuation 2 puffs inhalation Q6H PRN 30 days NS albuterol sulfate 2.5 mg (3 mL) inhalation Q6H PRN blood pressure kit-extra large As directed diphenhydramine HCl (Benadryl) 25 mg PO TID PRN docusate sodium (Colace) 100 mg PO DAILY PRN gabapentin 300 mg PO BEDTIME lisinopril-hydrochlorothiazide 20-12.5 mg 1 tab PO DAILY pantoprazole 20 mg PO DAILY selenium sulfide 1% (Dandruff Shampoo (selenium sulfide)) 1 appl topical DAILY 7 days semaglutide (Ozempic) 1 mg subcut QWEEK [thumb spica splint wear nightly and as much as possible throughout the day] [Updraft machine As directed] HPI HPI [place] Screen / GERD: Details: Patient is a 44-year-old female with PMH of obesity, hypertension. Referred by PCP for pre colonoscopy screening. She reports previous Endoscopy screening 10+ years ago at outside facility. Shares findings included gastritis and internal hemorrhoids. Karen reports a history of epigastric pain persisting for more than five years, accompanied by heartburn and gas. She has experienced nausea and occasional vomiting, most recently two months ago, unrelated to illness. She notes diarrhea predominantly since initiating Ozempic four months ago for weight loss. Bowel movements have decreased in frequency from daily to three to four times per week, occasionally alternating with constipation. Diarrhea episodes are characterized as Ragley stool type 7, with intermittent type 4 or 1 stools. She denies current blood in stools but describes bleeding associated with hemorrhoids approximately one year ago. Previous treatment for severe constipation in the ER included Miralax and Colace, attributed to opioid use following surgery in July 2024. Karen reports improvement in reflux symptoms with pantoprazole 20 mg, though occasional breakthrough symptoms occur. Significant epigastric discomfort remains unrelieved. She denies dysphagia but experiences regurgitation with burning sensation. Past imaging showed fatty liver on a May [address]24 CT scan, and mildly elevated liver enzymes persist. Her dietary intake includes eggs, bread, moderate meat consumption (chicken, ham), rice, and beans, with limited vegetables and fruits. Fatty or acidic foods (e.g., ketchup, tomato sauce) exacerbate her reflux. Weight loss from 270s to 240 lbs noted over the last four months. Patient denies: fever/chills, appetite changes, dysphasia or unintentional wt loss. -denies significant cardiopulmonary history -tolerated anesthesia in the past without difficulty. [facility] Medical History (Updated 01/10/25 @ 12:01 by Rose Arora CNP) Elevated liver enzymes Epigastric pain Change in stool Right wrist pain Fatty liver Abnormal uterine bleeding (AUB) Upper back pain Obesity Tired Difficulty sleeping Breast screening COVID-19 Exacerbation of asthma Screening for cervical cancer Physical exam Low hemoglobin Uterine fibroids affecting Uterine fibroid Acute sinusitis Fatigue UTI (urinary tract infection) Snores Neck pain Abdominal pain Cellulitis Leukocytosis Rash and other nonspecific skin eruption Chest pressure Palpitations Anxiety with flying Chest wall tenderness Lateral epicondylitis of right elbow Medial epicondylitis of right elbow Medial epicondylitis Lateral epicondylitis Bilateral hand numbness Chest pain due to psychological stress Screening for breast cancer Encounter for routine adult physical exam with abnormal findings Infertility, female Cervical radiculopathy HTN (hypertension) Surgical History Hx of LASIK History of tonsillectomy and adenoidectomy History of lumbar surgery H/O right knee surgery Family History Father Hearing loss Mother PCOS (polycystic ovarian syndrome) Mental health disorder Maternal Grandfather Diabetes mellitus Maternal Grandmother Diabetes mellitus Paternal Grandfather Diabetes mellitus Paternal Grandmother Diabetes mellitus Cancer Brother No problems noted. Brother No problems noted. Sister No problems noted. Paternal Uncle Multiple sclerosis Social History Household Members: Spouse Housing: Apartment Alcohol intake: former Patient Tobacco Use Status: Never used Tobacco e-Cigarette/Vaping Use: Never Used Second Hand Smoke Exposure: No service: No Current occupational status: employed Current occupation: [employer] / right hand dominant Sexual orientation: Straight/Heterosexual Gender identity: Female Cognitive needs: No Hearing needs: No Vision needs: Yes (glasses) Review of Systems Const Reports as per HPI ENT Reports as per HPI Card Reports as per HPI Resp Reports as per HPI GI Reports as per HPI Reports as per HPI Physical Exam Vital Signs: Last Vital Signs Pulse 95 01/10/25 09:10 BP 130/73 01/10/25 09:10 BMI result Body Mass Index 38.7 Const General: healthy appearing, no acute distress and well developed Nutritional Appearance: obese Orientation/consciousness: patient oriented x3 HEENT Head: Yes normal to inspection, Yes normocephalic and Yes atraumatic Face and sinus: Yes normal facial exam Eyes General: appearance normal, both eyes and all related structures Neck Neck: Yes normal visual inspection Resp Effort & Inspection: normal respiratory effort, able to speak in complete sentences, no tracheal deviation and symmetric chest movement Cardio Jugular venous distension: no JVD GI Inspection: Yes normal to inspection, No distended, Yes obesity and Yes striae Palpation (GI): Soft to palpation, not firm, nontender and No hepatosplenomegaly present Auscultation: normal bowel sounds Neuro General: patient oriented x3 Gait exam (Neuro): Normal gait present Psych Appearance: grossly normal Mental Status: mental status grossly normal Speech and movement: Normal speech and movement present Affect: normal affect Attitude: cooperative Thought process: Normal thought process present Thought content: Normal thought content present Insight: Good insight present (Psych) Judgement: Good judgement present (Psych) Results Reviewed Results Reviewed: Date of Service: 06/07/24 Procedure(s): CT abdomen pelvis wo IV con Accession Number(s): [id number] cc: Sindi Jones; Ishmael Leyva TRIM STENCIL MAKER-BC~ Report Number: [id number]: Total DLP = 979.00 mGy-cm CLINICAL HISTORY: right flank CT abdomen and pelvis without contrast Comparison: None Findings: The lung bases are clear. There is hepatic steatosis. There is mild hepatomegaly. The gallbladder, pancreas, spleen, adrenal glands, and kidneys are unremarkable. There is no urolithiasis or hydronephrosis. There is a tiny normal appendix. The remainder of the gastrointestinal tract is unremarkable. There is no free fluid or free air. There are no enlarged lymph nodes. The aorta is normal in diameter. Uterus and adnexa are unremarkable. There is degenerative disc disease at L4-5 and L5-S1. There is no fracture or suspicious lytic or sclerotic lesion IMPRESSION: 1. No acute abnormality in the abdomen or pelvis. 2. Hepatic steatosis and mild hepatomegaly. Assessment & Plan Assessment & Plan (1) Screen for colon cancer: Code(s): Z12.11 - Encounter for screening for malignant neoplasm of colon Category: Medical Plan: Due for screening colonoscopy. Change in stool patten Medications: -prescriptions for laxative tablets and MiraLax sent to pharmacy We will review prep and procedure expectations at follow-up (2) Change in stool: Code(s): R19.5 - Other fecal abnormalities Category: Medical Plan: Medication-induced slowing of GI transit identified as potential cause; workup requested for alternate causes (e.g., gluten intolerance, IBD). Additional Testing: Stool testing and blood tests to evaluate for celiac disease and inflammatory bowel disease (Crohn?s, UC). Medication Management: Fiber supplement (start 1 tablet daily for 2 weeks, then increase to 2 tablets daily). Continue Colace PRN for constipation. Lifestyle Recommendations: Increase fiber through diet (fruits, vegetables, whole grains), drink sufficient water, minimize stool triggers. Follow-Up: Three-month reassessment with results of lab work. (3) Epigastric pain: Code(s): R10.13 - Epigastric pain Category: Medical Plan: Persistent pain, history of nausea/vomiting, mildly elevated liver enzymes. Gallbladder appears normal on ER CT but focused ultrasound may reveal further abnormalities. Additional Testing: Gallbladder-focused ultrasound Medication Management: Currently managed as GERD; other causative findings to inform additional needs. Lifestyle Recommendations: Same as GERD/liver plans. Follow-Up: Results of ultrasound reviewed next visit. (4) GERD (gastroesophageal reflux disease): Code(s): K21.9 - Gastro-esophageal reflux disease without esophagitis Category: Medical Qualifiers: Esophagitis presence: esophagitis presence not specified Qualified Code(s): K21.9 - Gastro-esophageal reflux disease without esophagitis Plan: Symptoms of heartburn, regurgitation, and epigastric pain worsening over five years. Improvement with pantoprazole. Additional Testing: Upper endoscopy during colonoscopy to evaluate for potential esophagitis, ulcers, or tissue changes. Medication Management: -Continue pantoprazole 20 mg daily - add famotidine 20 mg PRN for breakthrough symptoms - avoid NSAIDs Lifestyle Recommendations: Avoid spicy, fatty, acidic foods, caffeine, and alcohol; avoid large meals; elevate head at night; stay hydrated. (5) Elevated liver enzymes: Code(s): R74.8 - Abnormal levels of other serum enzymes Category: Medical Plan: CT findings, obesity, pre-diabetes suggest metabolic syndrome etiology; other etiologies (e.g., autoimmune, viral) to be ruled out. Additional Testing: Comprehensive liver panel, hepatitis panel, HIV, and ultrasound imaging (liver, gallbladder, surrounding tissues). Medication Management: None currently; labs will guide further intervention. Lifestyle Recommendations: Address metabolic syndrome factors: target weight loss (~240 lbs currently), avoid fatty foods, limit simple sugars; moderate exercise (walking/stretching/prior back surgery considerations). Follow-Up: Review imaging and lab work at next visit. Plan Follow-up 3 months or sooner as needed Time: I spent a total of 45 minutes on the date of encounter which includes: Preparing to see the patient (reviewed previous documentation, test results and medical history) Performing a medically appropriate exam and/or evaluation Ordering medications, tests, and procedures Documenting clinical information in the health record Orders: Orders US abdomen complete Today R10.13 - Epigastric pain Lipase Today R74.8 - Abnormal levels of other serum enzymes Hepatitis A,B,C Profile Today R74.8 - Abnormal levels of other serum enzymes Smooth Muscle Antibody Today R74.8 - Abnormal levels of other serum enzymes HUE Reflex Titer and Pattern Today R74.8 - Abnormal levels of other serum enzymes Comprehensive Sweetser. Panel Fast Today R74.8 - Abnormal levels of other serum enzymes Transglutaminase IgA Today R19.5 - Other fecal abnormalities Calprotectin, Fecal Today R19.5 - Other fecal abnormalities C Reactive Protein Today R19.5 - Other fecal abnormalities Complete Blood Count Auto Diff Today R74.8 - Abnormal levels of other serum enzymes Prothrombin Time INR Today R74.8 - Abnormal levels of other serum enzymes Mitochondrial Antibody Today R74.8 - Abnormal levels of other serum enzymes Ferritin Today R74.8 - Abnormal levels of other serum enzymes Hepatitis A IgG Today R74.8 - Abnormal levels of other serum enzymes HIV Ab/Ag Today R74.8 - Abnormal levels of other serum enzymes IRON PROFILE Today D64.9 - Anemia, unspecified Medications: New methylcellulose (laxative) (Citrucel) Take one tablet daily X 2 week, follow by two tablets daily thereafter 180 tabs 2RF famotidine Take one tablet as needed for acid reflux 20 mg PO DAILY PRN 90 tabs 0RF GERD Coding Level of Care Code New Pt New Pt Level 4 (29803) Patient Type New Diagnoses Screen for colon cancer Z12.11 Change in stool R19.5 Epigastric pain R10.13 Gastroesophageal reflux disease, unspecified whether esophagitis present K21.9 Esophagitis presence: esophagitis presence not specified Elevated liver enzymes R74.8
[2025-01-10 09:10] VITALS: BP 130/73; PULSE 95; BMI 38.7
--- OUTSIDE RECORDS SUMMARY | 2025-01-10 09:26 | XMS_ITS | Encounter Summary ---
Author Organization [employer] [facility] Address [address] [facility] [address] [place] [address] Care Team Providers Care Telephone Messenger Name Role Phone Unavailable Primary Care Provider Unavailabl e Encounter Details Date Type Department Care Team (Latest Contact Info) Description 08/19/2020 Abstract [facility] CONVERSIONS Dental, Provider, DDS Social History Tobacco [...]
--- OUTSIDE RECORDS SUMMARY | 2025-01-10 09:26 | XMS_ITS | Clinical Summary ---
Author Organization 175 [facility] Address [address] [place] [address] Phone Care Team Providers Care Media Relations Director Name Role Phone Ishmael Leyva NP Primary [...] acupuncture. She is currently scheduled to see [place] pain management this coming 10/24/2024 which I [...] answered. She leaves in another week for [place], her wound is well-healed, she will not [...] Type Department Care Team Description 11/19/[address] [phone] Yecenia Singer MA 11/07/2024 Telephone [facility] for [address] [phone] Irma Phan MA 11/01/2024 Telephone Neurosurgery [facility] 175 [facility] [address] [place] [phone] Morgan Johnston PA 10/19/2024 9:45 AM EDT Office Visit [address] [phone] Fanny Pritchard MD Radiculopathy, lumbar region (Primary Dx) 10/15/2024 Telephone Neurosurgery [address] [phone] Abi Galeana MA 10/12/2024 3:43 PM EDT - 10/12/2024 11:59 PM EDT Hospital Encounter [facility] MRI [address] [place] [phone] Radiculopathy, lumbar region Discharge Disposition: Home or Self Care 10/12/2024 Telephone Neurosurgery [facility] [address] [phone] Yoli Jj MA 10/11/2024 11:15 AM EDT Office Visit [facility] [address] [phone] Jenny Woods PA Radiculopathy, lumbar region (Primary Dx); Neck pain, chronic 10/11/2024 Telephone [facility] [address] [phone] Yoli Jj MA from Last 3 Months Immunizations Name Administration Dates Next Due Tdap Tetanus diptheria acell ular pertussis (Boostrix; Adacel) 7yo and older 02/23/2013 Surgical History Surgery Date Site/Laterality Comments KNEE SURGERY 05/09/2009 - 05/08/2010 Right arthroscopy OTHER SURGICAL HISTORY vaginal surgery EYE SURGERY laser surgery for eye pressure TONSILLECTOMY w/adenoidectomy BACK SURGERY 10/01/2016 Left Left L4-5 Minimally Invasive Diskectomy - BACK SURGERY 07/12/2024 right [id number], Dr. Pritchard Medical History Medical History Date [...] (2 - Td or Tdap) 02/23/2023 02/23/2013 Depression Screening 05/09/2024 Cholesterol Screening (Lipid Panel) 07/03/2024 HIV Screening 07/03/2024 Hepatitis C Screening 07/03/2024 Social Influencers of Health Screening 07/03/2024 COVID-19 Vaccine ( - 2023-2 5 season) 2025 Influenza Vaccine (#1) 2025 HIB Vaccines Aged [...] this topic Medical Devices Implanted Type Area Pantry Goods Worker Device Identifier Shelf Expiration Date Model / Serial / Lot Powder Surgifoam Absorb Gel - Sna - [id number] Implanted:Qty: 1 on 07/12/2024 by Fanny Pritchard MD at [facility] [employer] Right: Spine Lumbar [employer] 04/16/2026 1978 / NA / [id number] Description:MIXED WITH 10,00 0UNITS OF TRHOMBIN Procedures Procedure Name Priority Date/Time Associated Diagnosis Comments MR LUMBAR SPINE WO AND W CONTRAST Routine 10/12/2024 5:02 PM EDT Radiculopathy, lumbar region from Last 3 Months Results * MR [...] Signed Date: 10/12/2024 20:04 ET Workstation ID: [id number] Transcribed By: Self Edit Transcribed Date: 10/12/2024 [...] significant decrease in left paracentral extrusion compared [id number]. Diffuse disc bulge with residual/recurrent left paracentralprotrusion [...] Signed Date: 10/12/2024 20:04 ET Workstation ID: [id number] Transcribed By: Self Edit Transcribed Date: 10/12/2024 19:26 ET Jenny MEDRANO IMG MRI PROCEDURES Final R esult from Last 3 Months Insurance [employer] [facility] Advance Directives * Full Code - Default [...] currently active code status orders. Care Teams Media Relations Director Relationship Specialty Start Date End Date Ishmael Leyva NP [address] [place], [place] PCP - General Family Medicine 07/03/24
--- OUTSIDE RECORDS SUMMARY | 2025-01-10 09:26 | XMS_ITS | Clinical Summary ---
Author Organization [employer] Address [address] [facility] [address] [place] [address] Care Team Providers Care Department Of Natural Resources Officer Name Role Phone Unavailable Primary Care [...]
== END 2025-01-10 09:55 | disposition home or self-care (01) ==
LOC: HO.HGI 08:55
PROVIDERS: PCP Nurse Practitioner Family; Visit Provider Nurse Practitioner Family
DX: R19.5 Other fecal abnormalities (principal); R10.13 Epigastric pain; K21.9 Gastro-esophageal reflux disease without esophagitis; R74.01 Elevation of levels of liver transaminase levels
CPT/HCPCS: 99204

== ENCOUNTER 2025-01-29 09:34 | Outpatient (AMB) | payer OTHER, SELFPAY ==
--- NOTE | 2025-01-29 09:53 | A.OFFVIS_ITS ---
Vital Signs 01/29/25 10:38 Height 5 ft 6 in Weight 240 lb BMI 38.7 Handedness Right Intake Visit Reasons: O/V RT de Quervain tenosynovitis last inj 11/02/23 Intake Note: Karen is a 45 year old right hand dominant woman who presents today for a follow up of her right De Quervain's tenosynovitis status post De Quervain's tenosynovitis injection on right hand 10/31/23. At her last visit in office she was fitted with a comfort cool soft thumb spica splint to wear with daytime activities when symptomatic. She is here in office to also review her EMG/NCS done on 12/01/23. She says the injection she had did relieve her pain and therapy helped. Her concern is a sudden new pain on the ulnar aspect of the right hand. She says she has difficulty and unable to wipe herself after using the bathroom, lifting, grabbing, or twisting of the right hand, all these increases her pain. She has discontinued the use of her comfort cool brace because she says it is rubbing on the ulnar bone and it is aggravating. Hx of herniated disc, MRI done in [facility] roughly 2 months ago. Patient states she will sign a release of information if needed for provider to obtain these images. Toll Bridge Attendant Services: Toll Bridge Attendant Offered & Declined Allergies oxycodone (From PERCOCET) Allergy (Mild, Verified 01/29/25 10:42) ITCHING HPI HPI O/V RT de Quervain tenosynovitis last inj 11/02/23: Details: Karen is a 45 year old right hand dominant woman who returns for a new complaint of right hand pain. She is also here for a NCS review She complains of right ulnar hand pain, worse with twisting motions. She says she has pain with basic use of her hand, including wiping after going to the bathroom. Onset ~3-4 months ago. She denies any known injuries. She complains of numbness in her right small & ring fingers. She says she had a spine MRI done for a possible herniated disc. She has not reviewed this with a specialist yet. She says she had surgery for a lumbar disc sometime in 07/2024. She says she had to push herself up at times following surgery and this may be the only thing she could think of that would cause her hand pain. She was last seen for a right De Quervains injection on 11/02/23, which she says was helpful. 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 [facility] Medical History Elevated liver enzymes Epigastric pain Change in stool Right wrist pain Fatty liver Abnormal uterine bleeding (AUB) Upper back pain Obesity Tired Difficulty sleeping Breast screening COVID-19 Exacerbation of asthma Screening for cervical cancer Physical exam Low hemoglobin Uterine fibroids affecting Uterine fibroid Acute sinusitis Fatigue UTI (urinary tract infection) Snores Neck pain Abdominal pain Cellulitis Leukocytosis Rash and other nonspecific skin eruption Chest pressure Palpitations Anxiety with flying Chest wall tenderness Lateral epicondylitis of right elbow Medial epicondylitis of right elbow Medial epicondylitis Lateral epicondylitis Bilateral hand numbness Chest pain due to psychological stress Screening for breast cancer Encounter for routine adult physical exam with abnormal findings Infertility, female Cervical radiculopathy HTN (hypertension) Surgical History Hx of LASIK History of tonsillectomy and adenoidectomy History of lumbar surgery H/O right knee surgery Family History Father Hearing loss Mother PCOS (polycystic ovarian syndrome) Mental health disorder Maternal Grandfather Diabetes mellitus Maternal Grandmother Diabetes mellitus Paternal Grandfather Diabetes mellitus Paternal Grandmother Diabetes mellitus Cancer Brother No problems noted. Brother No problems noted. Sister No problems noted. Paternal Uncle Multiple sclerosis Social History Household Members: Spouse Housing: Apartment Alcohol intake: former Patient Tobacco Use Status: Never used Tobacco e-Cigarette/Vaping Use: Never Used Second Hand Smoke Exposure: No service: No Current occupational status: employed Current occupation: [employer] / right hand dominant Sexual orientation: Straight/Heterosexual Gender identity: Female Cognitive needs: No Hearing needs: No Vision needs: Yes (glasses) Review of Systems Const All systems reviewed & are unremarkable except as noted in HPI and below Physical Exam Vital Signs: BMI result Body Mass Index 38.7 Const General: no acute distress and alert Orientation/consciousness: patient oriented x3 Neuro General: patient oriented x3 Extrem Other: Evaluation of Right Upper Extremity: The patient is alert, oriented, and in no acute distress Neuro: Decreased sensation in all fingers of the right hand compared to the left. Median ulnar radial Radial nerves motor function intact, and superficial radial nerve sensory normal No thenar or intrinsic wasting Good APB muscle belly firing and good finger cross Vascular: Cap refill brisk ROM: She can make a fist and extend all her digis No locking or catching No tenderness over the fovea or pisiform No tenderness over FCU tendon Most Tender over the ECU tendon as it passes over the carpal bones, notch in distal ulna, and extending proximally Pain over the ECU tendon with resisted wrist extension Nerve Conduction Study IMPRESSION: 1. This is a normal study. 2. There is no electrodiagnostic evidence for median neuropathy, ulnar neuropathy, brachial plexopathy, or cervical radiculopathy. Samantha Urena MD, [facility] Psych Appearance: grossly normal Affect: normal affect Attitude: cooperative Office Procedures AMB Fracture Care Details: No fracture, injection Fracture Billing Code: Fracture Billing Code Assessment & Plan Assessment & Plan (1) Right wrist tendinitis: Code(s): M77.8 - Other enthesopathies, not elsewhere classified Category: Medical (2) Fibromyalgia, primary: Code(s): M79.7 - Fibromyalgia Category: Medical Plan Assessment & Plan: 1. Right ECU tendinitis Onset ~3 months I educated her about this condition I discussed non-operative treatment options The patient would like to proceed with an injection She was fitted for a velcro wrist splint to be worn with daily activities. She should remove this when at home at rest I discussed activity modifications, she is to avoid any heavy lifting activities at this time She should work on gentle ROM exercises at home I ordered OT hand therapy, to begin in a few weeks, to work on stretching, strengthening, and normalizing function Injection #1: The risks and benefits of a steroid injection including but not limited to risk of damage to blood vessels, nerves, tendons, infection, skin bleaching, failure to improve symptoms, increased pain, and possible need for further injections or other intervention were discussed with the patient and the patient wishes to proceed with the steroid injection. Once consent was obtained, I sterilely prepped the area over the Right ECU tendon. I then injected the ECU tendon with a combination of 1 mL of dexamethasone (4mg/ml), and 1% lidocaine. The patient tolerated the procedure well with no complications and good resolution of their symptoms prior to leaving clinic. If the patient continues to have pain 6-8 weeks following this injection, they may call to schedule appointment to discuss alternative treatment options She will follow up prn 2. Bilateral hand numbness R>L Decreased sensation in all digits of the right hand today in clinic NCS negative for peripheral nerve compression I recommend she review her spine MRI with a specialist 3. Right medial epicondylitis No complaints 4. Chronic right de Quervain tenosynovitis, S/P injection Date of injection: 11/02/23 Doing well, no complaints Please note that greater than 25 minutes was spent with this patient going over the history, evaluating the patient and radiographs, formulating possible treatment options, discussing them with the patient, and documenting the visit. Scribed for Zoe Peralta MD by Joe Suarez, medical communication specialist, on 01/29/25 at 10:50 AM, EST. Orders: Orders OT Evaluation and Treatment Today M77.8 - Other enthesopathies, not elsewhere classified Coding Level of Care Code Est Pt Level 3 (45048) Diagnoses Right wrist tendinitis M77.8 Fibromyalgia, primary M79.7 CPT Codes Fracture Care - Fracture Billing Code: Fracture Billing Code ([id number])
[2025-01-29 10:38] VITALS: BMI 38.7
--- OUTSIDE RECORDS SUMMARY | 2025-01-29 11:20 | XMS_ITS | Clinical Summary ---
Author Organization [employer] Address [address] [place] [address] Care Team Providers Care Hollow Core Door Frame Assembler Name Role Phone Unavailable Primary Care Provider [...] Health Maintenance Due Date Last Done Comments CT Colonography 1980 Colonoscopy 1980 Colorectal Cancer Screening 1980 Depression Screening 1980 FIT DNA/Cologuard 1980 FIT 1980 FOBT 1980 Sigmoidoscopy 1980 Disability Screening 1980 Alcohol/Substance Use Screening 1992 Tobacco Screening 1992 Family Planning (PISQ) 01/24/1995 HPV Vaccines (1 - 3-dose series) 01/24/1995 DTaP/Tdap/Td Vaccines (1 - Tdap) 01/24/1999 Hepatitis B Vaccines (1 of 3 - 19+ 3-dose series) 01/24/1999 Pap Smear 01/24/2001 Cervical Cancer Screening 01/24/2010 HPV/Cotest 01/24/2010 Mammogram 2020 COVID-19 Vaccine ( - 2023-2 5 season) 2025 Influenza Vaccine (#1) 2025 Zoster Vaccines (1 [...]
--- OUTSIDE RECORDS SUMMARY | 2025-01-29 11:20 | XMS_ITS | Clinical Summary ---
Author Organization [address] [facility] Address [address] [place] [address] Phone Care Team Providers Care Service Greeter Name Role Phone Ishmael Leyva NP Primary [...] acupuncture. She is currently scheduled to see [facility] pain management this coming 10/24/2024 which I [...] answered. She leaves in another week for [place], her wound is well-healed, she will not [...] any blood thinners, no history of diabetes, SD or stroke. All questions answered. Patient states [...] Type Department Care Team Description 11/19/2024 Telephone [address]surgery [address] [address] Yecenia Singer MA 11/07/2024 Telephone [facility] [address] [address] Irma Phan MA 11/01/2024 Telephone Neurosurgery [facility] [address] [facility] [address] [place] [address] Morgan Johnston PA from Last 3 Months Immunizations Name Administration Dates Next Due Tdap Tetanus diptheria acell ular pertussis (Boostrix; Adacel) 7yo and older 02/23/2013 Surgical History Surgery Date Site/Laterality Comments KNEE SURGERY 05/09/2009 - 05/08/2010 Right arthroscopy OTHER SURGICAL HISTORY vaginal surgery EYE SURGERY laser surgery for eye pressure TONSILLECTOMY w/adenoidectomy BACK SURGERY 10/01/2016 Left Left L4-5 Minimally Invasive Diskectomy - BACK SURGERY 07/12/2024 right [id number], Dr. Pritchard Medical History Medical History Date [...] Screening 05/09/2024 Cholesterol Screening (Lipid Panel) 07/03/2024 Colorectal Cancer Screening: Colonoscopy 07/03/2024 HIV Screening 07/03/2024 Hepatitis C Screening 07/03/2024 Social Influencers of Health Screening 07/03/2024 COVID-19 Vaccine (1 - 2023-2 5 season) 2025 Influenza Vaccine (#1) 2025 RSV Immunization Adult Patie nts (1 - 1-dose 75+ series) 01/24/2055 HIB [...] this topic Medical Devices Implanted Type Area Rodding Machine Tender Device Identifier Shelf Expiration Date Model / Serial / Lot Powder Surgifoam Absorb Gel - Sna - [id number] Implanted:Qty: 1 on 07/12/2024 by Fanny Pritchard MD at [facility] [employer] Right: Spine Lumbar [employer] 04/16/20261977 / NA / [id number] Description:MIXED WITH 10,00 0UNITS OF TRHOMBIN Insurance [employer] [place] Advance Directives * Full Code - Default [...] currently active code status orders. Care Teams Service Greeter Relationship Specialty Start Date End Date Ishmael Leyva NP [address] [facility] [place] PCP - General Family Medicine 07/03/24
--- OUTSIDE RECORDS SUMMARY | 2025-01-29 11:20 | XMS_ITS | Encounter Summary ---
Author Organization [employer] [facility] Address [address] [place] [address] Care Team Providers Care Pocket Builder Name Role Phone Unavailable Primary Care Provider Unavailabl e Encounter Details Date Type Department Care Team (Latest Contact Info) Description 08/19/2020 Abstract [facility] CONVERSIONS Dental, Provider, DDS Social History [...]
== END 2025-01-29 11:28 | disposition home or self-care (01) ==
LOC: HO.HOS 09:35
PROVIDERS: PCP Nurse Practitioner Family; Visit Provider Orthopaedic Surgery
DX: M77.8 Other enthesopathies, not elsewhere classified (principal); M79.7 Fibromyalgia
CPT/HCPCS: 20550; 99213

== ENCOUNTER → 2025-01-29 09:34 | Outpatient (BNVA) | payer OTHER, SELFPAY | PROVIDERS: PCP Nurse Practitioner Family; Visit Provider Orthopaedic Surgery | DX: M77.8 Other enthesopathies, not elsewhere classified (principal); M79.7 Fibromyalgia | CPT/HCPCS: 20550; J1100; J2003 ==

== ENCOUNTER 2025-02-05 15:23 | Outpatient (AMB) | payer OTHER, SELFPAY ==
[2025-02-05 16:00] VITALS: BP 116/82; PULSE 72; RESP 16; O2SAT 98; BMI 38.7
--- NOTE | 2025-02-05 16:00 | A.OFFPC_ITS ---
Vital Signs 02/05/25 16:00 Height 5 ft 6 in Weight 240 lb BMI 38.7 BP 116/82 Blood Pressure Location Lt brachial Position Sitting Respiration 16 Pulse 72 Pulse Source Pulse Oximeter Pulse Oximetry (%) 98 Oxygen Delivery Method Room Air Intake Visit Reasons: 4 months f/up Director [employer] Required: No Accompanied by: Self / Same As Patient Allergies oxycodone (From PERCOCET) Allergy (Mild, Verified 01/29/25 10:42) ITCHING Medication List - Last Reconciled 02/05/25 by BUTCH Lovett- acetaminophen (Tylenol Extra Strength) 1,000 mg PO Q6H PRN albuterol sulfate 90 mcg/actuation 2 puffs inhalation Q6H PRN 30 days NS albuterol sulfate 90 mcg/actuation (Ventolin HFA) 1 puff inhalation QID PRN albuterol sulfate 2.5 mg (3 mL) inhalation Q6H PRN blood pressure kit-extra large As directed diphenhydramine HCl (Benadryl) 25 mg PO TID PRN docusate sodium (Colace) 100 mg PO DAILY PRN famotidine 20 mg PO DAILY PRN gabapentin 300 mg PO BEDTIME lisinopril-hydrochlorothiazide 20-12.5 mg 1 tab PO DAILY methylcellulose (laxative) (Citrucel) Take one tablet daily X 2 week, follow by two tablets daily thereafter pantoprazole 20 mg PO DAILY selenium sulfide 1% (Dandruff Shampoo (selenium sulfide)) 1 appl topical DAILY 7 days semaglutide (Ozempic) 1 mg subcut QWEEK [thumb spica splint wear nightly and as much as possible throughout the day] [Updraft machine As directed] Tobacco use date assessed: 02/05/25 Dental Screening Dental Screen Date: 05/17/24 Did you have a dental visit in the last 12 months?: Yes Did you have a dental problem in the last 6 months where you did not have access to dental care?: No Was dental information given to patient?: Patient has dentist HPI 4 months f/up HPI Details Chief Complaint The patient presents for follow-up of hypertension and symptoms of a viral illness. History of Present Illness The patient is a 45-year-old female presenting with follow-up for hypertension and a viral illness. She denies any blurred vision, headache, dizziness, or chest pain, which are common symptoms associated with hypertension. The viral illness is characterized by congestion and cough, with faint wheezing noted on auscultation. There is no lymphadenopathy observed, and a viral swab was performed to confirm the diagnosis. Social History Health Maintenance Review of Systems - General: Denies fever - Neurological: Denies blurred vision, h eadache, dizziness - Cardiovascular: Denies chest pain - Respiratory: Reports congestion and co ugh Physical Exam General: Cooperative, healthy appearing, comfortable, no acute distress and well developed Orientation: Patient oriented x3 Limitations: No limitations Head: Normal to inspection Ears: Hearing grossly normal bilaterally Nose: Normal external nose present Face and sinus: Normal facial exam Eyes: Appearance normal, both eyes and all related structures Neck: Normal visual inspection and Yes full ROM Respiratory: Faint wheezing noted on auscultation Cardiovascular: Regular rate and rhythm. Normal S1 and S2 GI: Normal to inspection. Soft to palpation and nontender Skin: No rashes or lesions noted Neuro: Patient oriented x3 Extremities: Normal to inspection Results - Viral swab performed Plan 1. Hypertension The patient is advised to continue monitoring blood pressure and to follow up with labs after the resolution of the viral illness. 2. Viral Illness The patient is prescribed Tessalon Perles for cough and prednisone to manage inflammation. Discussion Notes I discussed with the patient the management of her hypertension and the importance of monitoring her blood pressure regularly. We also reviewed the treatment plan for her viral illness, including the use of Tessalon Perles and prednisone. Patient Instructions - Continue monitoring blood pressure reg ularly. - Take Tessalon Perles as prescribed for cough relief. - Use prednisone as directed to reduce i nflammation. - Schedule follow-up labs after the jigna l illness resolves. [facility] Medical History Elevated liver enzymes Epigastric pain Change in stool Right wrist pain Fatty liver Abnormal uterine bleeding (AUB) Upper back pain Obesity Tired Difficulty sleeping Breast screening COVID-19 Exacerbation of asthma Screening for cervical cancer Physical exam Low hemoglobin Uterine fibroids affecting Uterine fibroid Acute sinusitis Fatigue UTI (urinary tract infection) Snores Neck pain Abdominal pain Cellulitis Leukocytosis Rash and other nonspecific skin eruption Chest pressure Palpitations Anxiety with flying Chest wall tenderness Lateral epicondylitis of right elbow Medial epicondylitis of right elbow Medial epicondylitis Lateral epicondylitis Bilateral hand numbness Chest pain due to psychological stress Screening for breast cancer Encounter for routine adult physical exam with abnormal findings Infertility, female Cervical radiculopathy HTN (hypertension) Surgical History Hx of LASIK History of tonsillectomy and adenoidectomy History of lumbar surgery H/O right knee surgery Family History Father Hearing loss Mother PCOS (polycystic ovarian syndrome) Mental health disorder Maternal Grandfather Diabetes mellitus Maternal Grandmother Diabetes mellitus Paternal Grandfather Diabetes mellitus Paternal Grandmother Diabetes mellitus Cancer Brother No problems noted. Brother No problems noted. Sister No problems noted. Paternal Uncle Multiple sclerosis Social History Household Members: Spouse Housing: Apartment Alcohol intake: former Patient Tobacco Use Status: Never used Tobacco e-Cigarette/Vaping Use: Never Used Second Hand Smoke Exposure: No service: No Current occupational status: employed Current occupation: [employer] / right hand dominant Sexual orientation: Straight/Heterosexual Gender identity: Female Cognitive needs: No Hearing needs: No Vision needs: Yes (glasses) Questionnaire Thrive Questionnaire Date Thrive assessed: 05/14/24 I am a: Patient What is your living situation today?: I have a steady place to live Within the past 12 months, did the food you bought not last and you didn't have the money to get more?: Often true Within the past 12 months, did you worry whether your food would run out before you got money to buy more?: Often true Do you have trouble paying for medicines?: Yes Do you have trouble getting transportation to medical appointments?: No Do you have trouble paying your heating and electricity bill?: Yes Do you have trouble taking care of your child, family member or friend?: Yes Do you have trouble with day-to-day activities such as bathing, preparing meals, shopping, managing finances, etc.?: Yes Are you currently unemployed and looking for a job?: No Are you interested in more education?: I choose not to answer this question Please select the resources that you would like help with: Food Currently or been in a relationship where the following occur: No concerns reported THRIVE Score: 3 ROULA-7 AMB Questionnaire ROULA-7 Date ROULA - 7 assessed: 02/05/25 Feeling nervous, anxious, or on edge: 0 = Not at all Not being able to stop or control worryin = Not at all Worrying too much about different things: 0 = Not at all Trouble relaxin = Not at all Being so restless that it is hard to sit still: 0 = Not at all Becoming easily annoyed or irritable: 0 = Not at all Feeling afraid as if something awful might happen: 0 = Not at all Total ROULA-7 score (0-4 normal; 5-9 mild; 10-14 moderate; 15-21 severe): 0 Source: Developed by Drs. Houston Montero, Natalia Burkett, Amrik Burgos and colleagues, with an educational cynthia from [employer]. ROULA-7 Assessment Billing ROULA-7 Assessment Tool: ROULA-7 Assessment 19362 Physical exam (Primary Care) Vital Signs: Last Vital Signs Pulse 72 02/05/25 16:00 Resp 16 02/05/25 16:00 BP 116/82 02/05/25 16:00 Pulse Ox 98 02/05/25 16:00 Oxygen Delivery Method Room Air 02/05/25 16:00 BMI result Body Mass Index 38.7 Tobacco/Smoking Status: Tobacco use Status Tobacco use date assessed 02/05/25 02/05/25 16:02 Patient Tobacco Use Status Never used Tobacco 02/05/25 16:02 e-Cigarette/Vaping Use Never Used 02/05/25 16:02 Thrive Assessment: Date of Thrive Assessment Date Thrive assessed 05/14/24 02/05/25 16:02 Currently or been in a relationship where the following occur: No concerns reported Coding Level of Care Code Est Pt Level 3 (76426) Diagnoses Viral illness B34.9 Primary hypertension I10 Hypertension type: primary hypertension Additional Codes ROULA-7 Assessment Billing - ROULA-7 Assessment Tool: ROULA-7 Assessment 91560 ([id number]) Assessment & Plan Assessment & Plan (1) Viral illness: Code(s): B34.9 - Viral infection, unspecified Category: Medical (2) HTN (hypertension): Code(s): I10 - Essential (primary) hypertension Category: Medical Qualifiers: Hypertension type: primary hypertension Qualified Code(s): I10 - Essential (primary) hypertension Plan . Orders: Orders Resp Pathogen Panel - [facility] Today B34.9 - Viral infection, unspecified Comprehensive Holcomb. Panel Fast Today I10 - Essential (primary) hypertension TSH reflex Free T4 Today I10 - Essential (primary) hypertension Complete Blood Count Auto Diff Today I10 - Essential (primary) hypertension UA CC w/rflx Micro + Cult Today I10 - Essential (primary) hypertension Lipid Panel Today I10 - Essential (primary) hypertension Medications: New albuterol sulfate 90 mcg/actuation (Ventolin HFA) 1 puff inhalation QID PRN 8.5 grams 0RF shortness of breath or wheezing prednisone 40 mg (2 x 20 mg) PO DAILY 10 tabs 0RF 5 days benzonatate 200 mg PO BID PRN 14 caps 0RF cough 7 days Refilled albuterol sulfate 2.5 mg (3 mL) inhalation Q6H PRN 90 mL 0RF shortness of breath or wheezing
--- OUTSIDE RECORDS SUMMARY | 2025-02-05 16:39 | XMS_ITS | Clinical Summary ---
Author Organization 175 [facility] Address [address] [place] [address] Phone Care Team Providers Care Design Engineering Specialist Name Role Phone Ishmael Leyva NP Primary [...] an order for cervical spine x-ray at [facility], gave her a prescription for physical [...] acupuncture. She is currently scheduled to see [place] pain management this coming 10/24/2024 which I [...] answered. She leaves in another week for [place], her wound is well-healed, she will not [...] any blood thinners, no history of diabetes, [place] or stroke. All questions answered. Patient states [...] Department Care Team Description 11/19/2024 Telephone Neurosurgery [place] - [place] [address] [facility] [address] [place] [address] Yecenia Singer MA 11/07/2024 Telephone [facility] for [place] - [place] [address] [facility] [address] [place] [address] Irma Phan MA from Last 3 Months Immunizations Immunization Administration Dates Next Due Tdap Tetanus diptheria acell ular pertussis (Boostrix; Adacel) 7yo and older 02/23/2013 Surgical History Surgery Date Site/Laterality Comments KNEE SURGERY 05/09/2009 - 05/08/2010 Right arthroscopy OTHER SURGICAL HISTORY vaginal surgery EYE SURGERY laser surgery for eye pressure TONSILLECTOMY w/adenoidectomy BACK SURGERY 10/01/2016 Left Left L4-5 Minimally Invasive Diskectomy - BACK SURGERY 07/12/2024 right [id number], Dr. Pritchard Medical History Medical History Date [...] Safety Answer Date Record ed Physical Abuse Unrecognized value 07/12/2024 Verbal Abuse Unrecognized value 07/12/2024 Comments No Sex and Gender Information [...] this topic Medical Devices Implanted Type Area Pharmaceutical Process Engineer Device Identifier Shelf Expiration Date Model / Serial / Lot Powder Surgifoam Absorb Gel - Sna - [id number] Implanted:Qty: 1 on 07/12/2024 by Fanny Pritchard MD at [facility] [employer] Right: Spine Lumbar [employer] 04/16/20261977 / NA / [id number] Description:MIXED WITH 10,00 0UNITS OF TRHOMBIN Insurance [employer] [place] Advance Directives * Full Code - Default [...] currently active code status orders. Care Teams Design Engineering Specialist Relationship Specialty Start Date End Date Ishmael Leyva NP [address] [place], [place] PCP - General Family Medicine 07/03/24
--- OUTSIDE RECORDS SUMMARY | 2025-02-05 16:39 | XMS_ITS | Clinical Summary ---
Author Organization [employer] Address [address] [facility] [address] [place] [address] Care Team Providers Care Staff Veterinarian Name Role Phone Unavailable Primary Care Provider [...]
--- OUTSIDE RECORDS SUMMARY | 2025-02-05 16:39 | XMS_ITS | Encounter Summary ---
Author Organization [employer] [facility] Address [address] [facility] [address] [place] [address] Care Team Providers Care Administrative Assistant Coordinator Name Role Phone Unavailable Primary Care Provider Unavailabl e Encounter Details Date Type Department Care Team (Latest Contact Info) Description 08/19/2020 Abstract [facility] CONVERSIONS Dental, Provider, DDS Social History [...]
== END 2025-02-05 16:56 | disposition home or self-care (01) ==
LOC: HO.HMCC 15:23
PROVIDERS: PCP Nurse Practitioner Family; Visit Provider Nurse Practitioner Family
DX: B34.9 Viral infection, unspecified (principal); I10 Essential (primary) hypertension

== ENCOUNTER 2025-02-05 15:23 | Outpatient (REF) | payer OTHER, SELFPAY ==
--- OUTSIDE RECORDS SUMMARY | 2025-02-06 12:15 | XMS_ITS | Encounter Summary ---
Author Organization [employer] [facility] Address [address] [facility] [address]t [place] [address] Care Team Providers Care Technical Publications Manager Name Role Phone Unavailable Primary Care Provider Unavailabl e Encounter Details Date Type Department Care Team (Latest Contact Info) Description 08/19/2020 Abstract [facility] CONVERSIONS Dental, Provider, DDS Social [...]
--- OUTSIDE RECORDS SUMMARY | 2025-02-06 12:15 | XMS_ITS | Clinical Summary ---
Author Organization [employer] Address [address] [facility] 7t [place] [address] Care Team Providers Care Assembler Liquid Center Name Role Phone Unavailable Primary Care Provider [...]
--- OUTSIDE RECORDS SUMMARY | 2025-02-06 12:15 | XMS_ITS | Clinical Summary ---
Author Organization 175 [facility] Address [address] [place] [address] Phone Care Team Providers Care Director It Name Role Phone Ishmael Leyva NP Primary [...] an order for cervical spine x-ray at [facility], gave her a prescription for physical [...] acupuncture. She is currently scheduled to see [place] pain management this coming 10/24/2024 which I [...] answered. She leaves in another week for [place], her wound is well-healed, she will not [...] Department Care Team Description 11/19/2024 Telephone Neurosurgery [place] [address] [facility] [address] [place] [address] Yecenia Singer MA 11/07/2024 Telephone [facility] for [place] - [place] [address] [facility] [address] [place] [address] Irma Phan MA from Last [...] Invasive Diskectomy - BACK SURGERY 07/12/2024 right [id number], Dr. Pritchard Medical History Medical History Date [...] Last Done Comments Breast Cancer Screening 1980 Colorectal Cancer Screening: Colonoscopy 1980 Hepatitis B Vaccines (1 of 3 - 19+ 3-dose series) 01/24/1999 Pneumococcal Vaccine: Pediat rics (0 to 5 Years) and At-Risk Patients (6 to 49 Years) (1 of 2 - PCV) 01/24/1999 Cervical Cancer Screening: P ap Smear 01/24/2001 HPV Vaccines (1 - 3-dose SCD M series) 01/24/2007 DTaP,Tdap,and Td Vaccines (2 - Td or [...] this topic Medical Devices Implanted Type Area Home Therapy Teacher Device Identifier Shelf Expiration Date Model / Serial / Lot Powder Surgifoam Absorb Gel - Sna - [id number] Implanted:Qty: 1 on 07/12/2024 by Fanny Pritchard MD at [facility] [employer] Right: Spine Lumbar [employer] 04/16/20261977 / NA / [id number] Description:MIXED WITH 10,00 0UNITS OF TRHOMBIN Insurance [employer]MIN[employer]RATORS [facility] Advance Directives * Full Code - Default [...] currently active code status orders. Care Teams Director It Relationship Specialty Start Date End Date Ishmael Leyva NP [address] [place], [place] PCP - General Family Medicine 07/03/24
[2025-02-06 13:44] LABS: Chlamydia pneumoniae PCR Not Detected (Not Detect.); Coronavirus 229E PCR Not Detected (Not Detect.); Coronavirus HKU1 PCR Not Detected (Not Detect.); Coronavirus NL63 PCR Not Detected (Not Detect.); Coronavirus OC43 PCR Not Detected (Not Detect.); RSV PCR Not Detected (Not Detect.); Rhino/Enterovirus PCR Detected (Not Detect.)
[2025-02-06 13:46] LABS: Influenza A H1 PCR Not Detected (Not Detect.); Influenza A H1-2009 PCR Not Detected (Not Detect.); SARS-CoV-2 PCR Not Detected (Not Detect.)
[2025-02-06 13:47] LABS: Influenza A H3 PCR Not Detected (Not Detect.)
== END 2025-02-05 15:24 | disposition home or self-care (01) ==
LOC: HO.LNP 15:23
PROVIDERS: PCP Nurse Practitioner Family; Visit Provider Nurse Practitioner Family
DX: B34.9 Viral infection, unspecified (principal); I10 Essential (primary) hypertension; R05.9 Cough, unspecified; R06.2 Wheezing
CPT/HCPCS: 87633; 96127

== ENCOUNTER 2025-02-22 09:58 | Outpatient (REF) | payer OTHER, SELFPAY ==
--- NOTE | ~2025-02-22 | US_ITS ---
CLINICAL HISTORY: R10.13 - Epigastric pain --- Additional Notes or Special Instructions: eval Hepatopancreatobiliary etiology, particularly gallbladder and hepatic. US abdomen limited Comparison: CT abdomen and pelvis 06/07/2024 Findings: The pancreas is obscured by bowel gas. The aorta and inferior vena cava are normal caliber. The liver is normal in size and demonstrates increase in parenchymal echogenicity. There is no intrahepatic bile duct dilatation. The common duct is 2.4 mm in diameter. The gallbladder is normal. There is no sonographic Santos sign. The right kidney is 11.4 cm in length. No ascites. IMPRESSION: 1. Unremarkable sonographic appearance of the gallbladder. 2. Increased parenchymal echogenicity of the liver most commonly seen in setting of hepatic steatosis versus chronic inflammation. 3. Additional findings as above. This document has been electronically signed by: Kelly Strickland MD on 02/23/2025 19:18:52
--- OUTSIDE RECORDS SUMMARY | 2025-02-22 11:37 | XMS_ITS | Clinical Summary ---
Author Organization [address] [facility] Address [address] [place] [address] Phone Care Team Providers Care Preschool Paraprofessional Name Role Phone Ishmael Leyva NP Primary [...] an order for cervical spine x-ray at [facility], gave her a prescription for physical [...] acupuncture. She is currently scheduled to see [place] pain management this coming 10/24/2024 which I [...] answered. She leaves in another week for [place], her wound is well-healed, she will not [...] any blood thinners, no history of diabetes, [place] or stroke. All questions answered. Patient states [...] 12/11/2014 Abnormal transaminases 09/02/2014 Atopic dermatitis 08/10/2013 Immunizations Immunization Administration Dates Next Due Tdap Tetanus diptheria acell ular pertussis (Boostrix; Adacel) 7yo and older 02/23/2013 Surgical History Surgery Date Site/Laterality Comments KNEE SURGERY 05/09/2009 - 05/08/2010 Right arthroscopy OTHER SURGICAL HISTORY vaginal surgery EYE SURGERY laser surgery for eye pressure TONSILLECTOMY w/adenoidectomy BACK SURGERY 10/01/2016 Left Left L4-5 Minimally Invasive Diskectomy - BACK SURGERY 07/12/2024 right [id number], Dr. Pritchard Medical History Medical History Date [...] this topic Medical Devices Implanted Type Area Clinical Academic Allergist Device Identifier Shelf Expiration Date Model / Serial / Lot Powder Surgifoam Absorb Gel - Sna - [id number] Implanted:Qty: 1 on 07/12/2024 by Fanny Pritchard MD at [facility] [employer] Right: Spine Lumbar [employer] 04/16/20261977 / NA / [id number] Description:MIXED WITH 10,00 0UNITS OF TRHOMBIN Insurance [employer]ORS [facility] Advance Directives * Full Code - Default [...] currently active code status orders. Care Teams Preschool Paraprofessional Relationship Specialty Start Date End Date Ishmael Leyva NP [address] [place], [place] PCP - General Family Medicine 07/03/24
--- OUTSIDE RECORDS SUMMARY | 2025-02-22 11:37 | XMS_ITS | Clinical Summary ---
Author Organization [email or web address] Address [address] [facility] 7[address] [place] [address] Care Team Providers Care Contracts Director Name Role Phone Unavailable Primary Care [...]
--- OUTSIDE RECORDS SUMMARY | 2025-02-22 11:37 | XMS_ITS | Encounter Summary ---
Author Organization [employer] [facility] Address [address] [facility] 7t [place] [address] Care Team Providers Care Help Desk Coordinator Name Role Phone Unavailable Primary Care Provider Unavailabl e Encounter Details Date Type Department Care Team (Latest Contact Info) Description 08/19/2020 Abstract [facility] CONVERSIONS Dental, Provider, DDS Social [...]
[2025-02-22 12:22] LABS: MANUAL DIFF FLAG NO
[2025-02-22 14:07] LABS: Hematocrit 35.9 % (37.0-47.0); Hemoglobin 11.2 g/dl (12.0-16.0); Imm Gran Abs Auto 0.05 X10*3/uL (0.00-0.03); Imm Gran Pct Auto 0.6 % (0.0-0.4); Lymphocytes Absolute Auto 3.4 X10*3/uL (1.2-4.9); Mean Corpuscular HGB Conc 31.2 g/dl (31.0-35.0); Mean Corpuscular Hemoglobin 24.0 pg (27.0-33.0); Mean Corpuscular Volume 77.0 fL (80.0-98.0); NRBC Abs Auto 0.020 X10*3/uL (0.0-0.012); NRBC Pct Auto 0.2 /100WBC (0.0-0.2); Platelet Count 345 X10*3/uL (160-400); Red Blood Count 4.66 X10*6/uL (4.20-5.50); White Blood Count 8.8 X10*3/uL (4.8-10.8)
[2025-02-22 14:14] LABS: INTERNATIONAL NORM RATIO 1.0 (0.9-1.1); Prothrombin Time 11.8 SEC (10.9-12.4)
[2025-02-22 15:56] LABS: Alanine Aminotransferase 28 U/L (0-31); Albumin Level 4.3 g/dL (3.5-5.0); Anion Gap 13 (12-20); Aspartate Amino Transferase 33 U/L (5-31); Blood Urea Nitrogen 9 mg/dL (9-16); Calcium 9.5 mg/dL (8.4-10.2); Carbon Dioxide 25 mmol/L (22-29); Chloride 105 mmol/L (96-108); Estimated Glomerular Filt Rate > 60; Iron 22 mcg/dL (30-160); Lipase 37 U/L (8-78); Percent Iron Saturation 8 % (15-50); Potassium 4.3 mmol/L (3.3-5.1); Sodium 139 mmol/L (135-145); Total Iron Binding Capacity 289 mcg/dL (228-428); Total Protein 8.2 g/dL (6.5-8.0); Unsaturated Iron Binding 267 ug/dL
[2025-02-22 16:39] LABS: Ferritin 31 ng/mL (10-250)
[2025-02-22 18:07] LABS: Alkaline Phosphatase 80 U/L (39-117)
[2025-02-23 10:29] LABS: HBS Num1 0.90 mIU/mL (0-7.99); HBc Num1 0.07 S/CO (0.00-0.79); HBsAGNum1 0.32 S/CO (0.00-0.99); HIV Num 1 0.08 S/CO (0.00-0.99); Hepatitis A Antibody IgM 0.25 Index (0-0.79); Hepatitis B Surface Antigen Negative (Negative); ~HepC Num1 0.12 S/CO (0.00-0.79); ~Hepatitis A Antibody IgM Nonreactive (Nonreactive); ~Hepatitis B Surface Antibody NONREACTIVE (Nonreactive); ~Hepatitis C Antibody Nonreactive (Nonreactive)
[2025-03-01 04:47] LABS: ~Hepatitis A Antibody IgG 0.46 S/CO (0.00-0.99)
[2025-03-03 15:09] LABS: Anti Nuclear Antibody Screen NEGATIVE (NEGATIVE)
== END 2025-02-22 09:59 | disposition home or self-care (01) ==
LOC: HO.HMGCX 09:58
PROVIDERS: PCP Nurse Practitioner Family; Visit Provider Nurse Practitioner Family
DX: R10.13 Epigastric pain (principal); R19.5 Other fecal abnormalities; R74.8 Abnormal levels of other serum enzymes; D64.9 Anemia, unspecified; Z11.4 Encounter for screening for human immunodeficiency virus [HIV]; Z01.84 Encounter for antibody response examination
CPT/HCPCS: 36415; 76705; 80053; 82728; 83540; 83690; 85025; 85610; 86015; 86038; 86140; 86364; 86381; 86704; 86706; 86708; 86709; 86803; 87340; 87389

== ENCOUNTER → 2025-02-22 10:04 | Outpatient (BNV) | payer OTHER, SELFPAY | PROVIDERS: PCP Nurse Practitioner Family; Visit Provider Radiology Diagnostic Radiology | DX: R10.13 Epigastric pain (principal) | CPT/HCPCS: 76705 ==

== ENCOUNTER 2025-02-27 11:17 | Outpatient (AMB) | payer OTHER, SELFPAY ==
[2025-02-27 11:51] VITALS: BP 134/92; PULSE 83; TEMP 36.7; O2SAT 99; BMI 39.5
--- NOTE | 2025-02-27 11:51 | AM.OFFWIN_ITS ---
Intake Vital Signs 02/27/25 11:51 Height 5 ft 6 in Weight 245 lb BMI 39.5 BP 134/92 H Blood Pressure Location Lt brachial Position Sitting Pulse 83 Pulse Source Pulse Oximeter Temp 98.1 F Temp Source Oral Pulse Oximetry (%) 99 Oxygen Delivery Method Room Air Intake Visit Reasons: EP-headaches [phone] Intake Note: Patient presents with c/o headache & nausea x2 weeks. Patient Tobacco Use Status: Never used Tobacco Allergies oxycodone (From PERCOCET) Allergy (Mild, Verified 02/27/25 11:53) ITCHING Medication List - Last Reconciled 02/27/25 by Deepak Rojas MD acetaminophen (Tylenol Extra Strength) 1,000 mg PO Q6H PRN albuterol sulfate 90 mcg/actuation 2 puffs inhalation Q6H PRN 30 days NS albuterol sulfate 90 mcg/actuation (Ventolin HFA) 1 puff inhalation QID PRN albuterol sulfate 2.5 mg (3 mL) inhalation Q6H PRN blood pressure kit-extra large As directed diphenhydramine HCl (Benadryl) 25 mg PO TID PRN docusate sodium (Colace) 100 mg PO DAILY PRN famotidine 20 mg PO DAILY PRN ferrous sulfate 324 mg PO DAILY gabapentin 300 mg PO BEDTIME lisinopril-hydrochlorothiazide 20-12.5 mg 1 tab PO DAILY methylcellulose (laxative) (Citrucel) Take one tablet daily X 2 week, follow by two tablets daily thereafter pantoprazole 20 mg PO DAILY selenium sulfide 1% (Dandruff Shampoo (selenium sulfide)) 1 appl topical DAILY 7 days semaglutide (Ozempic) 1 mg subcut QWEEK [thumb spica splint wear nightly and as much as possible throughout the day] [Updraft machine As directed] HPI EP-headaches [phone] HPI Details Patient is a 45-year-old female came in today to be evaluated for headache which is one-sided Patient says that she has been having headache on the right side of her face associated with mild nausea and difficulty looking at light She said that she does get headache every now and then but this time it is not getting better There are no other neurological symptoms On examination her neuro exam is nonfocal I am treating her with sumatriptan 50 mg with naproxen 500 mg, patient may repeat the dose of sumatriptan once in 2 hours If not better patient is to follow up with PCP or if it gets worse then go to the emergency room [facility] Medical History Elevated liver enzymes Epigastric pain Change in stool Right wrist pain Fatty liver Abnormal uterine bleeding (AUB) Upper back pain Obesity Tired Difficulty sleeping Breast screening COVID-19 Exacerbation of asthma Screening for cervical cancer Physical exam Low hemoglobin Uterine fibroids affecting Uterine fibroid Acute sinusitis Fatigue UTI (urinary tract infection) Snores Neck pain Abdominal pain Cellulitis Leukocytosis Rash and other nonspecific skin eruption Chest pressure Palpitations Anxiety with flying Chest wall tenderness Lateral epicondylitis of right elbow Medial epicondylitis of right elbow Medial epicondylitis Lateral epicondylitis Bilateral hand numbness Chest pain due to psychological stress Screening for breast cancer Encounter for routine adult physical exam with abnormal findings Infertility, female Cervical radiculopathy HTN (hypertension) Surgical History Hx of LASIK History of tonsillectomy and adenoidectomy History of lumbar surgery H/O right knee surgery Family History Father Hearing loss Mother PCOS (polycystic ovarian syndrome) Mental health disorder Maternal Grandfather Diabetes mellitus Maternal Grandmother Diabetes mellitus Paternal Grandfather Diabetes mellitus Paternal Grandmother Diabetes mellitus Cancer Brother No problems noted. Brother No problems noted. Sister No problems noted. Paternal Uncle Multiple sclerosis Social History Household Members: Spouse Housing: Apartment Alcohol intake: former Patient Tobacco Use Status: Never used Tobacco e-Cigarette/Vaping Use: Never Used Second Hand Smoke Exposure: No service: No Current occupational status: employed Current occupation: [employer] / right hand dominant Sexual orientation: Straight/Heterosexual Gender identity: Female Cognitive needs: No Hearing needs: No Vision needs: Yes (glasses) Review of Systems Const All systems reviewed & are unremarkable except as noted in HPI and below Physical Exam Vital Signs: Last Vital Signs Temp 98.1 F 02/27/25 11:51 Pulse 83 02/27/25 11:51 BP 134/92 H 02/27/25 11:51 Pulse Ox 99 02/27/25 11:51 Oxygen Delivery Method Room Air 02/27/25 11:51 BMI result Body Mass Index 39.5 Const General: no acute distress Orientation/consciousness: patient oriented x3 Eyes General: appearance normal, both eyes and all related structures Resp Effort & Inspection: normal respiratory effort and able to speak in complete sentences Auscultation: clear to auscultation bilaterally Cardio Other: S1 S2 Neuro General: patient oriented x3 Psych Mental Status: mental status grossly normal Assessment & Plan Assessment & Plan (1) Migraine headache: Code(s): G43.909 - Migraine, unspecified, not intractable, without status migrainosus Qualifiers: Migraine type: without aura Status migrainosus presence: without status migrainosus Intractability: not intractable Qualified Code(s): G43.009 - Migraine without aura, not intractable, without status migrainosus Plan Patient is a 45-year-old female came in today to be evaluated for headache which is one-sided Patient says that she has been having headache on the right side of her face associated with mild nausea and difficulty looking at light She said that she does get headache every now and then but this time it is not getting better There are no other neurological symptoms On examination her neuro exam is nonfocal I am treating her with sumatriptan 50 mg with naproxen 500 mg, patient may repeat the dose of sumatriptan once in 2 hours If not better patient is to follow up with PCP or if it gets worse then go to the emergency room Medications: New sumatriptan succinate May repeat again in 2 hours if still have headache but no more than 2 capsule in 24 hours, 1st capsule take with naproxen 500 mg 50 mg PO ONCE PRN 10 tabs 0RF migraine headache naproxen Take with 1st dose of sumatriptan 500 mg PO ONCE PRN 10 tabs 0RF pain 10 days Coding Level of Care Code Est Pt Level 3 (34788) Diagnoses Migraine without aura and without status migrainosus, not intractable G43.009 Migraine type: without aura Status migrainosus presence: without status migrainosus Intractability: not intractable
--- OUTSIDE RECORDS SUMMARY | 2025-02-27 15:26 | XMS_ITS | Clinical Summary ---
Author Organization 175 [facility] Address [address] [place] [address] Phone Care Team Providers Care Forensic Accountant Name Role Phone Ishmael Leyva NP Primary [...] an order for cervical spine x-ray at [facility], gave her a prescription for physical therapy. [...] acupuncture. She is currently scheduled to see [place] pain management this coming 10/24/2024 which I [...] answered. She leaves in another week for [place], her wound is well-healed, she will not [...] any blood thinners, no history of diabetes, [place] or stroke. All questions answered. Patient states [...] Invasive Diskectomy - BACK SURGERY 07/12/2024 right [id number], Dr. Pritchard Medical History Medical History Date [...] this topic Medical Devices Implanted Type Area Girls Tennis Coach Device Identifier Shelf Expiration Date Model / Serial / Lot Powder Surgifoam Absorb Gel - Sna - [id number] Implanted:Qty: 1 on 07/12/2024 by Fanny Pritchard MD at [facility] [employer] Right: Spine Lumbar [employer] 04/16/20261977 / NA / [id number] Description:MIXED WITH 10,00 0UNITS OF TRHOMBIN Insurance [employer] ADMIN[employer]ORS [facility] Advance Directives * Full Code - [...] currently active code status orders. Care Teams Forensic Accountant Relationship Specialty Start Date End Date Ishmael Leyva NP [address] [place], [place] PCP - General Family Medicine 07/03/24
--- OUTSIDE RECORDS SUMMARY | 2025-02-27 15:26 | XMS_ITS | Clinical Summary ---
Author Organization [employer] Address [address] [facility] [address] [place] [address] Care Team Providers Care Email Designer Name Role Phone Unavailable Primary Care Provider [...]
--- OUTSIDE RECORDS SUMMARY | 2025-02-27 15:26 | XMS_ITS | Encounter Summary ---
Author Organization [employer] [facility] Address [address] [facility] [address] [place] [address] Care Team Providers Care Ready To Wear Department Manager Name Role Phone Unavailable Primary Care Provider Unavailabl e Encounter Details Date Type Department Care Team (Latest Contact Info) Description 08/19/2020 Abstract [facility] CONVERSIONS Dental, Provider, DDS Social History Tobacco [...]
== END 2025-02-27 12:31 | disposition home or self-care (01) ==
PROVIDERS: PCP Nurse Practitioner Family; Visit Provider Internal Medicine
DX: G43.009 Migraine without aura, not intractable, without status migrainosus (principal)

== ENCOUNTER 2025-05-07 08:12 | Day surgery (SDC) | payer OTHER, SELFPAY ==
--- OUTSIDE RECORDS SUMMARY | 2025-03-27 06:26 | XMS_ITS | Clinical Summary ---
Author Organization 175 [facility] Address [address] [place] [address] Phone Care Team Providers Care Pencil Maker Name Role Phone Ishmael Leyva NP Primary Care Provider [phone] Allergies Active Allergy Reactions Criticality Noted Date [...] for cervical spine x-ray at [facility], gave her a prescription for physical therapy. [...] acupuncture. She is currently scheduled to see [place] pain management this coming 10/24/2024 which I [...] any blood thinners, no history of diabetes, [place] or stroke. All questions answered. Patient states [...] Invasive Diskectomy - BACK SURGERY 07/12/2024 right [id number], Dr. Pritchard Medical History Medical History Date [...] Health Screening 07/03/2024 COVID-19 Vaccine (1 - 2024-2 6 season) 2025 Influenza Vaccine (#1) 2025 RSV [...] this topic Medical Devices Implanted Type Area Production Material Handler Device Identifier Shelf Expiration Date Model / Serial / Lot Powder Surgifoam Absorb Gel - Sna - [id number] Implanted:Qty: 1 on 07/12/2024 by Fanny Pritchard MD at [facility] [employer] Right: Spine Lumbar [employer] 04/16/20261977 / NA / [id number] Description:MIXED WITH 10,00 0UNITS OF TRHOMBIN Insurance [employer] [facility] Advance Directives * Full Code - [...] currently active code status orders. Care Teams Pencil Maker Relationship Specialty Start Date End Date Ishmael Leyva NP [address] [place], [place] PCP - General Family Medicine 07/03/24
--- NOTE | 2025-05-01 10:17 | HO.ANESPROP2 ---
Documented by User: Sona Eckert NP 05/01/25 10:19 HPI - Anesthesia Eval Consult details Narrative: 45 yr old female for Upper Endoscopy and Colonoscopy Anesthesia Pre-Procedure Meds Is the patient on any of the following meds?: GLP1/DPP4 PMFSH Active Problems Active Problems: All Active Problems (Updated 02/27/25 @ 12:09 by Deepak Rojas MD) Migraine headache (Acute) Viral illness (Acute) Right wrist tendinitis (Acute) Elevated liver enzymes (Acute) Epigastric pain (Acute) Change in stool (Acute) Right wrist pain (Acute) Screen for colon cancer (Acute) Fatty liver (Acute) Post laminectomy syndrome (Acute) Paresthesia of right lower extremity (Acute) Lumbar radiculopathy (Acute) Back pain (Acute) Fibromyalgia, primary (Acute) Lumbar degenerative disc disease (Acute) Abnormal uterine bleeding (AUB) (Acute) Anxiety (Acute) Fibroid (Acute) Lower GI bleed (Acute) Medial epicondylitis of both elbows (Acute) Bilateral tennis elbow (Acute) De Quervain's tenosynovitis, right (Acute) Dyslipidemia (Acute) Restless leg (Acute) Nonalcoholic steatohepatitis (BAE) (Acute) Diarrhea (Acute) GERD (gastroesophageal reflux disease) (Acute) LEOS (dyspnea on exertion) (Acute) Morbid obesity (Acute) Snores (Acute) HTN (hypertension) (Acute) Cervical radiculopathy (Acute) Asthma, moderate (Acute) Past Medical History Medical History BAE (nonalcoholic steatohepatitis) Anxiety GERD (gastroesophageal reflux disease) Elevated liver enzymes Epigastric pain Change in stool Right wrist pain Fatty liver Abnormal uterine bleeding (AUB) Obesity Difficulty sleeping Uterine fibroids affecting Acute sinusitis Fatigue UTI (urinary tract infection) Abdominal pain Palpitations Lateral epicondylitis of right elbow Medial epicondylitis of right elbow Infertility, female Cervical radiculopathy HTN (hypertension) Family History Family History Father Hearing loss Mother PCOS (polycystic ovarian syndrome) Mental health disorder Maternal Grandfather Diabetes mellitus Maternal Grandmother Diabetes mellitus Paternal Grandfather Diabetes mellitus Paternal Grandmother Diabetes mellitus Cancer Brother No problems noted. Brother No problems noted. Sister No problems noted. Paternal Uncle Multiple sclerosis Surgical History Surgical History History of esophagogastroduodenoscopy (EGD) H/O colonoscopy Hx of LASIK History of tonsillectomy and adenoidectomy History of lumbar surgery H/O right knee surgery Social History Social History Household Members: Spouse Housing: Apartment Alcohol intake: former Patient Tobacco Use Status: Never used Tobacco e-Cigarette/Vaping Use: Never Used Second Hand Smoke Exposure: No Use of substances other than those prescribed or required for medical reasons: No Are you DNR?: No Advance Directives: No Advance Directives Information Provided: Yes service: No Current occupational status: employed Current occupation: [employer] / right hand dominant Sexual orientation: Straight/Heterosexual Gender identity: Female Cognitive needs: No Hearing needs: No Vision needs: Yes (glasses) Meds Allergies Allergy/AdvReac Type Severity Reaction Status Date / Time oxycodone (From PERCOCET) Allergy Mild ITCHING Verified 05/07/25 08:37 Home Medications ?Medication ?Instructions ?Recorded ?Confirmed ?Last Taken ?Type acetaminophen 500 mg tablet 1,000 mg PO Q6H PRN Pain 04/13/21 05/07/25 Unknown History (Tylenol Extra Strength) semaglutide 1 mg/dose (4 mg/3 mL) 1 mg subcut QWEEK 09/26/24 05/07/25 04/22/25 History subcutaneous pen injector (Ozempic) Assessment and Plan Assessment Anesthesia Assessment: Chart Reviewed Documented by User: Michelle Del Angel MD 05/07/25 08:49 PMFSH Past Medical History Medical History BAE (nonalcoholic steatohepatitis) Anxiety GERD (gastroesophageal reflux disease) Elevated liver enzymes Epigastric pain Change in stool Right wrist pain Fatty liver Abnormal uterine bleeding (AUB) Obesity Difficulty sleeping Uterine fibroids affecting Acute sinusitis Fatigue UTI (urinary tract infection) Abdominal pain Palpitations Lateral epicondylitis of right elbow Medial epicondylitis of right elbow Infertility, female Cervical radiculopathy HTN (hypertension) Family History Family History Father Hearing loss Mother PCOS (polycystic ovarian syndrome) Mental health disorder Maternal Grandfather Diabetes mellitus Maternal Grandmother Diabetes mellitus Paternal Grandfather Diabetes mellitus Paternal Grandmother Diabetes mellitus Cancer Brother No problems noted. Brother No problems noted. Sister No problems noted. Paternal Uncle Multiple sclerosis Family history of problems with anesthesia: No Surgical History Surgical History History of esophagogastroduodenoscopy (EGD) H/O colonoscopy Hx of LASIK History of tonsillectomy and adenoidectomy History of lumbar surgery H/O right knee surgery History of Problems with Anesthesia: No Social History Social History Household Members: Spouse Housing: Apartment Alcohol intake: former Patient Tobacco Use Status: Never used Tobacco e-Cigarette/Vaping Use: Never Used Second Hand Smoke Exposure: No Use of substances other than those prescribed or required for medical reasons: No Are you DNR?: No Advance Directives: No Advance Directives Information Provided: Yes service: No Current occupational status: employed Current occupation: [employer] / right hand dominant Sexual orientation: Straight/Heterosexual Gender identity: Female Cognitive needs: No Hearing needs: No Vision needs: Yes (glasses) Meds Allergies Allergy/AdvReac Type Severity Reaction Status Date / Time oxycodone (From PERCOCET) Allergy Mild ITCHING Verified 05/07/25 08:37 Home Medications ?Medication ?Instructions ?Recorded ?Confirmed ?Last Taken ?Type acetaminophen 500 mg tablet 1,000 mg PO Q6H PRN Pain 04/13/21 05/07/25 Unknown History (Tylenol Extra Strength) semaglutide 1 mg/dose (4 mg/3 mL) 1 mg subcut QWEEK 09/26/24 05/07/25 04/22/25 History subcutaneous pen injector (Ozempic) Exam Airway Mallampati Class: II TM Dist: >3cm Neck ROM: Full Heart: rrr Lungs: cta Assessment and Plan Assessment Anesthesia Assessment: Anesthesia Plan Discussed Final Anesthetic Review Family History of Problems with Anesthesia: No History of Problems with Anesthesia: No NPO: Yes ASA Class: III Final Preanesthetic Review: No Changes in Pt Med Stat, Meds/Allgs Chart Reviewed, Consent Obtained/Reviewed and Anes Risks/Benef Reviewed Patient Risk: Intermediate Procedure Risk: Low Anesthetic Plan Anesthetic Plan: MAC: Disposition: Standard PACU
[2025-05-03 13:10] VITALS: BMI 38.7
[2025-05-07 08:37] VITALS: BMI 39.2
[2025-05-07 08:44] LABS: UPreg QC Valid YES
[2025-05-07 08:51] VITALS: BP 136/83; PULSE 88; RESP 15; TEMP 36.3; O2SAT 97
[2025-05-07] MEDS: Lactated Ringers 1,000 ML 100 ML IVCONT (09:00)
--- NOTE | 2025-05-07 10:47 | MHC.SHP ---
Pre-Procedural Eval Section A - 24 Hr Update-Section A only Date of Service: 05/07/25 Section B - Complete if H&P > 30 days Chief Complaint: GERD, change in bowel habits Details of Present Illness: Elevated liver enzymes Epigastric pain Change in stool Fatty liver Abnormal uterine bleeding (AUB) Obesity Uterine fibroid Acute sinusitis Medial epicondylitis Lateral epicondylitis HTN (hypertension) Surgical History Hx of LASIK History of tonsillectomy and adenoidectomy History of lumbar surgery H/O right knee surgery Present Medications: see Short Stay Collaborative assessment Allergies: Allergies Allergy/AdvReac Type Severity Reaction Status Date / Time oxycodone (From PERCOCET) Allergy Mild ITCHING Verified 05/07/25 08:37 Review of Systems Review of Systems Comment: 10 point ROS negative Exam Exam Comment: Gen appear: No acute distress HEENT: no icterus Chest: No overt resp distress Abd: soft, nontender, nondistended Psych: Stable affect, answering questions appropriately Neuro: A/Ox3 noted to move all extremities spontaneously Ext: no peripheral edema Plan Diagnosis/Plan: Unchanged I have reviewed the history and physical and performed a pertinent physical examination on my patient. No changes have occurred unless specified. Time Spent With Patient Time: Total time managing care of this patient today ____ minutes.
--- NOTE | 2025-05-07 11:27 | P.OPN-COLO_ITS ---
Colonoscopy Operative Note Operative Note Date of Service: 05/07/25 Narrative: Procedure: Upper endoscopy and colonoscopy Indication: Change in bowel habits Endoscopist: Justine Francisco MD Anesthesia Provider: Alphonso Gonzalez CRNA Anesthesia type: MAC Instrument: [id number] and [id number] EGD Procedure:?? The procedure, indications, preparation and potential complications were reviewed with the patient, who indicated understanding and gave written informed consent to proceed. The endoscope was introduced through the mouth, and advanced to the 2nd part of the duodenum. The mucosa was carefully examined on slow withdrawal of the endoscope. The patient tolerated the procedure well. There were no immediate complications.? EGD Findings:? * Esophagus:? Normal esophageal mucosa was noted. The Z-line was at 36 cm. * Stomach:? Erythema and scant heme in the antrum. Retroflexion was performed in the cardia. Random cold forceps biopsies were taken from the stomach. * Duodenum:? Normal duodenal mucosa. Cold forceps biopsies were taken from the duodenal bulb and 2nd portion of the duodenum to rule out celiac sprue. Colonoscopy Procedure:? An abdominal binder was placed on the lower abdomen. The patient was then turned for the colonoscopy. A digital rectal exam was performed which was abnormal for external hemorrhoids.? A distal attachment cap was affixed to the tip of the scope and the colonoscope was then inserted through the anus and advanced through the colon and advanced to the cecum at 75 cm and terminal ileum.? Appendiceal orifice and ileocecal valve were identified. Mucosa was carefully examined under high definition white light as the instrument was slowly withdrawn in a retrograde panoramic fashion. Retroflexion was performed in ascending colon and rectum. The procedure was not difficult. The quality of the prep was BBPS: 2+3+3 = adequate Withdrawal time 8 minutes Limitations: No limitations Findings: Mucosa: Normal colon and terminal ileum mucosa. Cold forceps biopsies were taken from right and left side of the colon to rule out microscopic colitis Protruding lesions: * Large internal hemorrhoids without stigmata of recent bleeding. Impression: 1. Normal esophagus 2. Gastritis (biopsy) 3. Normal duodenum (biopsy) 4. Normal colon and terminal ileum mucosa (biopsy) 5. Internal and external hemorrhoids Recommendations:?? * Follow-up path results * Avoid NSAIDs * H Pylori treatment if biopsies + * Cont pantoprazole * Repeat colonoscopy for CRC screening in 10 years.
[2025-05-07 11:31] VITALS: BP 111/65; PULSE 90; RESP 14; TEMP 36.2; O2SAT 95
[2025-05-07 11:45] VITALS: BP 115/72; PULSE 70; RESP 14; O2SAT 96
[2025-05-07 12:00] VITALS: BP 139/93; PULSE 72; RESP 14; TEMP 36.1; O2SAT 96
== END 2025-05-07 12:36 | disposition home or self-care (01) ==
PROVIDERS: Nurse Practitioner; PCP Nurse Practitioner Family; Visit Provider Internal Medicine
PROC: (CPT 45380; principal; 2025-05-07 10:30)
DX: Z12.11 Encounter for screening for malignant neoplasm of colon (principal); K21.9 Gastro-esophageal reflux disease without esophagitis; R19.5 Other fecal abnormalities; K64.4 Residual hemorrhoidal skin tags; K64.8 Other hemorrhoids; R10.13 Epigastric pain; K29.70 Gastritis, unspecified, without bleeding
CPT/HCPCS: 45380; 43239; 81025; 88305; 88342; J2003; J2704

== ENCOUNTER → 2025-05-07 08:12 | Outpatient (BNV) | payer OTHER, SELFPAY | PROVIDERS: PCP Nurse Practitioner Family; Visit Provider Internal Medicine | DX: K21.9 Gastro-esophageal reflux disease without esophagitis (principal); R19.4 Change in bowel habit; K64.8 Other hemorrhoids | CPT/HCPCS: 43239; 45380 ==